=== PATIENT | male | born 1960 | race African-American/Black ===

== ENCOUNTER → 2022-11-27 11:03 | Outpatient (BNVA) | payer OTHER, MEDICAID, SELFPAY | PROVIDERS: PCP Internal Medicine; Visit Provider Urology | DX: Z13.9 Encounter for screening, unspecified (principal); C61 Malignant neoplasm of prostate; R97.20 Elevated prostate specific antigen [PSA] | CPT/HCPCS: 51798 ==

== ENCOUNTER → 2023-01-08 11:22 | Outpatient (BNVA) | payer OTHER, MEDICAID, SELFPAY | PROVIDERS: PCP Internal Medicine; Visit Provider Urology ==

== ENCOUNTER → 2023-02-15 06:13 | Day surgery (SDC) | payer MEDICARE, MEDICAID, SELFPAY ==
[2023-02-10 08:00] VITALS: BMI 27.7
--- NOTE | 2023-02-12 10:22 | HO.ANESPROP2 ---
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 Jejunostomy tube present Microcytic anemia Nausea Night sweats Prostate cancer Radiation esophagitis Rib lesion Steroid-induced hyperglycemia Thrombocytopenia Weight loss Social History Social History Patient Tobacco Use Status: Never used Tobacco Are you DNR?: No Advance Directives: No Advance Directives Information Provided: Yes Meds Allergies Allergy/AdvReac Type Severity Reaction Status Date / Time meloxicam [From Mobic] Allergy Anxiety Verified 02/15/23 06:41 metoclopramide [From Reglan] Allergy Anxiety Verified 02/15/23 06:40 Home Medications Medication Instructions Recorded Confirmed Last Taken Type albuterol sulfate 90 mcg/actuation 2 puff inhalation Q4-6H PRN 11/02/22 02/10/23 Unknown History aerosol inhaler Wheezing amlodipine 10 mg tablet 10 mg PO DAILY 11/02/22 02/10/23 02/15/23 History hydrocortisone 2.5 % topical cream 1 appl topical BID PRN Itching 11/02/22 02/10/23 Unknown History omeprazole 20 mg capsule,delayed 40 mg PO DAILY 11/02/22 02/15/23 02/15/23 History release Exam Exam Date and Time: February 12, 2023 1022 Height,Weight and Vital Signs: Height 5 ft 7 in Weight 80.286 kg Pertinent Lab Results Pertinent Lab Results: Labs from outside facility 02/05/23 CMP WNL CBC nml except low H&H at 12.0/38.1 Assessment and Plan Assessment Anesthesia Assessment: Chart Reviewed Documented by User: Sergio Love MD 02/15/23 07:31 [facility] Past Medical History Medical History 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 Cachexia Diverticulitis Elevated PSA GERD (gastroesophageal reflux disease) History of CO 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 Jejunostomy tube present Microcytic anemia Nausea Night sweats Prostate cancer Radiation esophagitis Rib lesion Steroid-induced hyperglycemia Thrombocytopenia Weight loss Family History Family history of problems with anesthesia: No Surgical History History of Problems with Anesthesia: No Social History Social History Patient Tobacco Use Status: Never used Tobacco Are you DNR?: No Advance Directives: No Advance Directives Information Provided: Yes Meds Allergies Allergy/AdvReac Type Severity Reaction Status Date / Time meloxicam [From Mobic] Allergy Anxiety Verified 02/15/23 06:41 metoclopramide [From Reglan] Allergy Anxiety Verified 02/15/23 06:40 Home Medications Medication Instructions Recorded Confirmed Last Taken Type albuterol sulfate 90 mcg/actuation 2 puff inhalation Q4-6H PRN 11/02/22 02/10/23 Unknown History aerosol inhaler Wheezing amlodipine 10 mg tablet 10 mg PO DAILY 11/02/22 02/10/23 02/15/23 History hydrocortisone 2.5 % topical cream 1 appl topical BID PRN Itching 11/02/22 02/10/23 Unknown History omeprazole 20 mg capsule,delayed 40 mg PO DAILY 11/02/22 02/15/23 02/15/23 History release Exam Airway Mallampati Class: I TM Dist: >3cm Neck ROM: Full Loose/Missing/Broken Teeth: No Heart: ok Lungs: ok. Sat 95% room air. Assessment and Plan Assessment Anesthesia Assessment: Anesthesia Plan Discussed Final Anesthetic Review Family History of Problems with Anesthesia: No History of Problems with Anesthesia: No NPO: Yes ASA Class: III Final Preanesthetic Review: No Changes in Pt Med Stat, Meds/Allgs Chart Reviewed, Consent Obtained/Reviewed and Anes Risks/Benef Reviewed Patient Risk: Intermediate Procedure Risk: Low Anesthetic Plan Anesthetic Plan: GA and Agree w/ Assess. and Plan Disposition: Standard PACU
[2023-02-15] VITALS (7 sets, daily range): BP systolic 142–162; BP diastolic 78–90; PULSE 53–84; RESP 16–18; TEMP 36.2–36.5; O2SAT 93–97; BMI 28.2
[2023-02-15 06:38] LABS: Hematocrit 40.8 % (42.0-52.0); Hemoglobin 12.8 g/dl (14.0-18.0); Mean Corpuscular HGB Conc 31.4 g/dl (31.0-36.0); Mean Corpuscular Hemoglobin 24.3 pg (27.0-33.0); Mean Corpuscular Volume 77.6 fL (80.0-98.0); Mean Platelet Volume 9.8 fL (9.4-12.4); Platelet Count 345 X10*3/uL (160-400); Red Blood Count 5.26 X10*6/uL (4.60-5.80); Red Cell Distribution Width 18.6 % (11.0-16.0); White Blood Count 5.5 X10*3/uL (4.8-10.8)
[2023-02-15 06:51] LABS: Anion Gap 13 (12-20); Blood Urea Nitrogen 15 mg/dL (9-16); Calcium 10.2 mg/dL (8.4-10.2); Carbon Dioxide 28 mmol/L (22-29); Chloride 106 mmol/L (96-108); Creatinine Clr Calc Pharmacy 78.1; Estimated Glomerular Filt Rate > 60; Glucose Fasting 102 mg/dL (60-99); Potassium 4.4 mmol/L (3.3-5.1); Sodium 143 mmol/L (135-145)
[2023-02-15] MEDS: Albuterol Sulfate (0.083%) 2.5 MG/3 ML VIAL.NEB INHALE (06:52)
[2023-02-15] MEDS: Lactated Ringers 1,000 ML 100 ML IVCONT (06:56)
--- NOTE | 2023-02-15 07:46 | MHC.SHP ---
Pre-Procedural Eval Section A Date of Service: 02/15/23 The patient is an INPATIENT: No Changes since office visit: No Cold of Flu in the past 2 weeks, No New Medical Problems, No Changes in Medication and No Patient answered all questions The History & Physical has been completed within 30 days and I have reviewed it.: Yes Section B Chief Complaint: Elevated prostate specific antigen [PSA] Allergies: Allergies Allergy/AdvReac Type Severity Reaction Status Date / Time meloxicam [From Mobic] Allergy Anxiety Verified 02/15/23 06:41 metoclopramide [From Reglan] Allergy Anxiety Verified 02/15/23 06:40 Review of Systems Sugical H&P ROS: Negative: Constitution, Cardiovascular, Respiratory, Neurological, Psychiatric, Hem-Onc, Allergic/Immunologic, Gastrointestinal, Genitourinary, Musculoskeletal, Integumentary, Endocrine and Eyes/Ears/Nose/Throat Exam Surgical H&P Exam: Normal: HEENT, Normal: Heart, Normal: Lungs, Normal: Extremities, Normal: Abdomen, Normal: Skin and Normal: Neurological Plan Diagnosis/Plan: Unchanged (targeted prostate biopsy) I have reviewed the history and physical and performed a pertinent physical examination on my patient. No changes have occurred unless specified. Time Spent With Patient Time: Total time managing care of this patient today ____ minutes.
--- NOTE | 2023-02-15 08:12 | P.OP_ITS ---
Operative Note Operative Note Date of Service: 02/15/23 Narrative: PreOperative Diagnosis: elevated PSA Post Operative Diagnosis: elevated PSA Procedure: MRI, ultrasound fusion Surgeon: Dr Rodrick Dow Anesthesia: sedation Indications for procedure: elevated PSA with imaging suggestive PiRADS 5 Procedure: After informed consent was verified the patient was brought to the operating room and placed in a supine position. Anesthesia was administered per protocol. The patient was prepped and draped in a sterile fashion. Safety pause time-out was performed. Antibiotics being given. after sedation anesthesia performed patient started to produce copious amounts of mucus. Prior esophagectomy. Anesthesia were hesitant to proceed with c ontinued sedation and the case was ceased. Patient was placed on his side in the recovery position. Small amounts of coffee-ground emesis was produced. Suction was effective. Patient was then transferred to a bed and with the bed elevated to 30 degrees transferred stable condition to recovery area. Pathology: [] Drains: []
== END | disposition home or self-care (01) ==
PROVIDERS: Nurse Practitioner; PCP Internal Medicine; Visit Provider Urology
PROC: (CPT 55700; principal; 2023-02-15 07:30)
DX: R97.20 Elevated prostate specific antigen [PSA] (principal); Z53.8 Procedure and treatment not carried out for other reasons; K92.0 Hematemesis; R09.3 Abnormal sputum; Z85.01 Personal history of malignant neoplasm of esophagus; Z90.49 Acquired absence of other specified parts of digestive tract; I10 Essential (primary) hypertension; Z79.899 Other long term (current) drug therapy; Z88.8 Allergy status to other drugs, medicaments and biological substances
CPT/HCPCS: 55700; 36415; 80048; 85027; 94640; J2795; J3010

== ENCOUNTER 2023-02-15 09:00 | Observation (INO) | payer MEDICARE, MEDICAID, SELFPAY ==
--- NOTE | ~2023-02-15 | FL_ITS ---
EXAMINATION: FL BARIUM SWALLOW CLINICAL INFORMATION: Aspiration. History of esophagectomy and gastric pull-up. COMPARISON: Previous chest x-ray and chest CT from earlier the same day TECHNIQUE: Single contrast barium swallow was performed with the patient in the upright position. Dilute Gastrografin was administered at the request of the emergency room. 3 I delayed overhead images of the chest and upper abdomen were performed. Fluoroscopy time: 0.4 minutes DAP: 4.5 Gycm2 Images: 14 saved fluoroscopic images and 3 overhead images FINDINGS: There are postsurgical changes following esophagectomy and gastric pull-up. No leak is seen. Esophageal motility appears normal with the patient in the upright position. No evidence of gastric outlet obstruction. FL/FL barium swallow IMPRESSION: Post surgical changes from esophagectomy and gastric pull-up. No leak seen.
--- NOTE | ~2023-02-15 | CT_ITS ---
EXAMINATION: CT CHEST WITHOUT CONTRAST CLINICAL INFORMATION: r/o contrast leak per thoracics. COMPARISON: Chest CT from earlier today as well as images from the Gastrografin swallow from earlier today. TECHNIQUE: Multidetector volumetric imaging was performed from the thoracic inlet through the lung bases without contrast. Sagittal and coronal reformatted images were obtained on the technologist workstation. Soft tissue and lung algorithms evaluated. Thick slab MIP images were performed to increase nodule conspicuity. This CT examination was performed using dose optimization techniques as appropriate, variously including the following: *Automated exposure control *Adjustment of mA and/or kV according to patient size (this includes techniques or standardized protocols for targeted exams where dose is matched to indication/reason for exam; i.e. extremities or head) *Use of iterative reconstruction technique DLP: 267 mGy-cm. FINDINGS: LUNG: An acinar emphysematous changes are seen. Linear scarring or atelectasis bilaterally. No dense consolidation. Tiny pulmonary nodules are again seen similar to the study from earlier today the largest of these is in the right lung apex on image 11/61. This measures up to 0.6 cm in maximal diameter not significantly changed from earlier today. No new airspace disease. MEDIASTINUM: Postoperative changes are seen. The patient is status post gastric pull-through. Residual Gastrografin contrast is seen within the pull-through lumen anastomotic chain staple line seen. I do not appreciate any evidence for contrast extravasation or leakage. No mediastinal gas. CORONARY ARTERY CALCIFICATION: Absent PERICARDIUM/PLEURA: No significant effusion. No pleural mass or thickening. THYROID/VISUALIZED LOWER NECK: Unremarkable. CHEST WALL/AXILLA: No bulky adenopathy VISUALIZED UPPER ABDOMEN: Postoperative changes but otherwise no acute disease appreciated BONES: Healed right-sided rib fractures with left rib plates and screw fixation noted no additional acute bony abnormality CT/CT chest wo IV con IMPRESSION: Postoperative changes status post gastric pull-through. I do not appreciate any evidence for contrast extravasation or leakage. No mediastinal gas. Small pulmonary nodules are again seen similar to the study from earlier today.
--- NOTE | ~2023-02-15 | XR_ITS ---
EXAMINATION: XR CHEST CLINICAL INFORMATION: Aspiration. COMPARISON: None available. TECHNIQUE: 2 views of the chest were obtained. FINDINGS: Patchy, posterior right lower lobe airspace opacities with additional minimal patchy opacities within the lung bases. Findings could represent atelectasis versus early infiltrates. No pleural effusion or pneumothorax. No cardiac mediastinal silhouette enlargement. Mild soft tissue prominence adjacent to the right hilum which could indicate lymphadenopathy. Left rib orthopedic hardware. Chronic, bilateral rib fractures. XR/XR chest 2V IMPRESSION: 1. Patchy, posterior right lower lobe airspace opacities with additional minimal patchy opacities within the lung bases. Findings could represent atelectasis versus early infiltrates. 2. Mild soft tissue prominence adjacent to the right hilum which could indicate lymphadenopathy.
--- NOTE | ~2023-02-15 | CT_ITS ---
EXAMINATION: CT CHEST WITHOUT CONTRAST CLINICAL INFORMATION: Status post gastroesophageal anastomosis; question microperforation. COMPARISON: None available. TECHNIQUE: Multidetector volumetric CT imaging of the chest was done. Axial MIP volume rendering provided. Sagittal and coronal reformatted images were obtained. This CT examination was performed using dose optimization techniques as appropriate, variously including the following: *Automated exposure control *Adjustment of mA and/or kV according to patient size (this includes techniques or standardized protocols for targeted exams where dose is matched to indication/reason for exam; i.e. extremities or head) *Use of iterative reconstruction technique DLP: 258 mGy-cm FINDINGS: INDUSTRIAL SALES REPRESENTATIVE: The lungs are symmetrically well-expanded and grossly clear. An orthopedic plate is seen, applied to the lateral aspect of the left sixth rib. LUNGS: There are paraseptal emphysematous changes. At the medial right apex (5:81), a 5 mm noncalcified nodule is seen. There are extensive bilateral scattered 1-3 mm noncalcified nodules, best appreciated on the MIP sequence. There is bibasilar linear atelectasis, without associated central airway obstruction noted. There is mild generalized small airway thickening. The central airways appear patent. Towards the anterior aspect of the gastric pull-through, adjacent to the right mainstem bronchus (i.e., 5:252) and abutting the posterior margin of the kade (5:203), there are tiny gas locules. It is favored that these represent trace microperforation. It is difficult to ascertain with certainty whether these are extraluminal on imaging performed without the benefit of oral contrast. MEDIASTINUM: The thyroid is unremarkable. Anterior to the kade (3:25), a lymph node is seen, with short axis diameter of 9 mm. No sizable mediastinal or hilar lymphadenopathy is seen. There is no thoracic aortic aneurysm. There is mild atherosclerotic calcification of the thoracic aorta. CORONARY ARTERY CALCIFICATION: None visualized on this study. PLEURA: There is no pleural effusion. No pleural mass or thickening. AXILLA: No lymphadenopathy. UPPER ABDOMEN: There are gastroesophageal postoperative changes consistent with a prior gastric pull-through. The adrenal glands are unremarkable. OSSEOUS STRUCTURES: Unremarkable. CT/CT chest wo IV con IMPRESSION: 1. There has been a prior gastric pull-through. Trace extraluminal gas is questioned adjacent to the posterior margin of the kade and adjacent to the right mainstem bronchus. Less likely, this may represent trace nondependent gas within the anterior margin of the gastric pull-through. This could be more fully evaluated with an upper GI series or repeat (prone) CT imaging with Gastrografin administration. 2. There are paraseptal predominant emphysematous changes. 3. There are numerous pulmonary nodules, the largest bilaterally measuring 3 mm. According to the UPDATED 2017 Fleischner Society recommendations, the advised follow-up imaging for solid nodules < 6 mm is: LOW RISK PATIENT: No routine follow-up. HIGH RISK PATIENT: Optional CT at 12 months. 4. There are scattered foci of linear scar/subsegmental atelectasis at the bases, without associated focal airway obstruction. 5. Osseous structures are unremarkable. Fleischner guidelines were followed.
[2023-02-15 09:01] VITALS: BP 142/67; PULSE 62; RESP 18; TEMP 36.5; O2SAT 94; BMI 28.2
--- NOTE | 2023-02-15 10:21 | ED_ITS ---
HPI - General Adult General Chief complaint: Nausea/Vomiting/Diarrhea Stated complaint: coffee ground emesis Time Seen by Provider: 02/15/23 09:01 Source: patient Mode of arrival: wheelchair History of Present Illness HPI narrative: 62-year-old male was transported down from the OR suite where he was noted to have an episode of nausea and vomiting, patient states that they gave him a breathing treatment that made him nauseous and then he vomited with subsequent burning pain in his middle chest. Patient states he still feels that way but otherwise denies any other complaints or discomfort at this time. He does have a significant past medical history of esophageal cancer and is currently being monitored every 6 months and reports that he had a gastric pull-through and endorses that he has been occasionally using NSAIDs, he does drink alcohol. Related Data Home Medications Medication Instructions Recorded Confirmed albuterol sulfate 90 mcg/actuation 2 puff inhalation Q4-6H PRN 11/02/22 02/10/23 aerosol inhaler Wheezing amlodipine 10 mg tablet 10 mg PO DAILY 11/02/22 02/10/23 hydrocortisone 2.5 % topical cream 1 appl topical BID PRN Itching 11/02/22 02/10/23 omeprazole 20 mg capsule,delayed 40 mg PO DAILY 11/02/22 02/15/23 release Previous Rx's Medication Instructions Recorded ciprofloxacin HCl 500 mg tablet 500 mg PO BID prophylaxis Abx for 01/08/23 prostate bx 5 days #10 tabs Allergies Allergy/AdvReac Type Severity Reaction Status Date / Time meloxicam [From Mobic] Allergy Anxiety Verified 02/15/23 06:41 metoclopramide [From Reglan] Allergy Anxiety Verified 02/15/23 06:40 Review of Systems Review of Systems: Pertinent positives and negatives as stated in HPI [facility] Past Medical History Source: nursing notes reviewed Medical History 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 Cachexia Diverticulitis Elevated PSA GERD (gastroesophageal reflux disease) History of CO 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 Jejunostomy tube present Microcytic anemia Nausea Night sweats Prostate cancer Radiation esophagitis Rib lesion Steroid-induced hyperglycemia Thrombocytopenia Weight loss Social History Social History Alcohol intake: current Alcohol intake frequency: holidays/special occasions only Patient Tobacco Use Status: Never used Tobacco Smoked in Last 30 Days: No Use of substances other than those prescribed or required for medical reasons: No Advance Directives: Yes Advance Directives Information Provided: No Advance Directives on File: No Physical Exam ED Vital Signs: Vital Signs - 24 hr 02/15/23 09:01 02/15/23 11:58 Temperature 97.7 F 98.7 F Pulse Rate 62 61 Respiratory Rate 18 15 Blood Pressure 142/67 H 164/95 H Pulse Oximetry 94 96 Oxygen Delivery Method Room Air Room Air BMI result Body Mass Index 28.2 VITAL SIGNS: Reviewed. GENERAL: Well developed, well nourished, in no acute distress. HEAD: Normocephalic/atraumatic EYES: PERRLA, EOMI EARS: Ext canals without abnormality NOSE: Nares patent bilateral OROPHARYNX: no oral lesions noted, posterior pharynx clear NECK: Supple, no adenopathy LUNGS: Normal breath sounds. No adventitious sounds or accessory muscle use. SpO2<94> CARDIOVASCULAR: Regular rate and rhythm without noted murmurs ABDOMEN: Soft, non-tender, non-distended with bowel sounds. MUSCULOSKELETAL: No tenderness, deformities, or effusions noted on gross inspection. EXTREMITIES: No cyanosis, clubbing or edema. SKIN: Inspection of the skin reveals no rashes NEUROLOGIC: Alert and oriented x 4. Strength and sensation to light touch were grossly intact x 4. Medications Administered Discontinued Medications Generic Name Dose Route Start Last Admin Trade Name Freq PRN Reason Stop Dose Admin Pantoprazole Sodium 80 mg 02/15/23 11:06 02/15/23 12:00 Pantoprazole Sodium 40 Mg/10 Ml Vial IVPUSH 02/15/23 11:07 80 mg ONCE ONE Administration Medical Decision Making Medical Decision Making MDM Narrative: 62-year-old male with history and clinical presentation consistent with possible exacerbation underlying Surgical history and diagnoses. He is currently he modynamically stable, appears well, and has had no further episodes of nausea or vomiting. 1108: If contacted Gastroenterology as is patient will likely need to have an upper endoscopy to evaluate anastomosis. Giving patient 80 mg of Protonix. 1209: Reviewed chest x-ray which demonstrates opacities on the right, somewhat concerning given the history and clinical context of this morning, will proceed with CT of the chest with better identification of possible micro per at the anastomosis, patient remains hemodynamically stable, GI has been consulted and current recommendations are NPO and b.i.d. Protonix and possible upper endoscopy today. I have also discussed with inpatient hospitalist who accepts admission and these recommendations and current investigations have been communicated to the team. Differential Diagnosis Please see the discussion above Consult Healthcare Provider Management of the patient was discussed with: Creative Services Designer Please see the discussion above Lab Data Please see the discussion above 02/15/23 10:43 02/15/23 10:43 Labs: Lab Results 02/15/23 02/15/23 02/15/23 Range/Units 10:43 10:43 10:43 WBC 5.3 (4.8-10.8) X10*3/uL RBC 4.69 (4.60-5.80) X10*6/uL Hgb 11.5 L (14.0-18.0) g/dl Hct 36.1 L (42.0-52.0) % MCV 77.0 L (80.0-98.0) fL MCH 24.5 L (27.0-33.0) pg MCHC 31.9 (31.0-36.0) g/dl RDW 17.9 H (11.0-16.0) % Plt Count 298 (160-400) X10*3/uL MPV 10.2 (9.4-12.4) fL Immature Gran % (Auto) 0.2 (0.0-0.4) % Neut % (Auto) 59.1 (45-73) % Lymph % (Auto) 18.2 L (20-40) % Branch % (Auto) 13.7 H (2-11) % Eos % (Auto) 7.5 H (0-4) % Baso % (Auto) 1.3 (0-2) % Lymph # (Auto) 1.0 L (1.2-4.9) X10*3/uL Branch # (Auto) 0.7 (0.1-1.2) X10*3/uL Eos # (Auto) 0.4 (0.0-0.4) X10*3/uL Baso # (Auto) 0.1 (0.0-0.2) X10*3/uL Abs Immat Gran (auto) 0.01 (0.00-0.03) X10*3/uL Absolute Neuts (auto) 3.2 (2.0-8.3) x10*3/uL Absolute Nucleated RBC 0.000 (0.0-0.012) X10*3/uL Nucleated RBC % (auto) 0.0 (0.0-0.2) /100WBC PT 13.2 H (10.0-13.1) SEC INR 1.1 (0.9-1.1) Sodium 141 (135-145) mmol/L Potassium 3.7 (3.3-5.1) mmol/L Chloride 108 (96-108) mmol/L Carbon Dioxide 24 (22-29) mmol/L Anion Gap 13 (12-20) BUN 12 (9-16) mg/dL Creatinine 0.78 (0.5-1.4) mg/dL Estim Creat Clear Calc 99.1 Estimated GFR > 60 Random Glucose 123 H (60-115) mg/dL Calcium 8.9 D (8.4-10.2) mg/dL Total Bilirubin 0.4 (0.0-1.0) mg/dL AST 23 (5-37) U/L ALT 24 (0-40) U/L Alkaline Phosphatase 83 (39-117) U/L Total Protein 6.5 (6.5-8.0) g/dL Albumin 3.5 (3.5-5.0) g/dL Radiology Impression Radiologist Impression: My interpretation is in agreement with radiology's impression Discharge Plan Discharge Clinical Impression: Coffee ground emesis, History of esophageal cancer Patient Disposition: Admitted As Inpatient Prescriptions: No Action albuterol sulfate 90 mcg/actuation HFA aerosol inhaler 2 puff inhalation Q4-6H PRN (Reason: Wheezing) amlodipine 10 mg tablet 10 mg PO DAILY hydrocortisone 2.5 % cream 1 appl topical BID PRN (Reason: Itching) omeprazole 20 mg capsule,delayed release(DR/EC) 40 mg PO DAILY ciprofloxacin HCl 500 mg tablet 500 mg PO BID 5 Days Qty: 10 0RF Rx Instructions: start one day prior to prostate biopsy and continue to complete 5 day course
[2023-02-15 10:48] LABS: MANUAL DIFF FLAG NO
[2023-02-15 10:51] LABS: Basophils Absolute Auto 0.1 X10*3/uL (0.0-0.2); Basophils Percent Auto 1.3 % (0-2); Eosinophils Absolute Auto 0.4 X10*3/uL (0.0-0.4); Eosinophils Percent Auto 7.5 % (0-4); Hematocrit 36.1 % (42.0-52.0); Hemoglobin 11.5 g/dl (14.0-18.0); Imm Gran Abs Auto 0.01 X10*3/uL (0.00-0.03); Imm Gran Pct Auto 0.2 % (0.0-0.4); Lymphocytes Percent Auto 18.2 % (20-40); Mean Corpuscular HGB Conc 31.9 g/dl (31.0-36.0); Mean Corpuscular Hemoglobin 24.5 pg (27.0-33.0); Mean Platelet Volume 10.2 fL (9.4-12.4); Monocytes Absolute Auto 0.7 X10*3/uL (0.1-1.2); Monocytes Percent Auto 13.7 % (2-11); Neutrophils Absolute Auto 3.2 x10*3/uL (2.0-8.3); Neutrophils Percent Auto 59.1 % (45-73); Platelet Count 298 X10*3/uL (160-400); Red Blood Count 4.69 X10*6/uL (4.60-5.80); Red Cell Distribution Width 17.9 % (11.0-16.0); White Blood Count 5.3 X10*3/uL (4.8-10.8)
[2023-02-15 11:00] LABS: INTERNATIONAL NORM RATIO 1.1 (0.9-1.1); Prothrombin Time 13.2 SEC (10.0-13.1)
[2023-02-15 11:18] LABS: Alanine Aminotransferase 24 U/L (0-40); Albumin Level 3.5 g/dL (3.5-5.0); Alkaline Phosphatase 83 U/L (39-117); Anion Gap 13 (12-20); Aspartate Amino Transferase 23 U/L (5-37); Bilirubin Total 0.4 mg/dL (0.0-1.0); Blood Urea Nitrogen 12 mg/dL (9-16); Calcium 8.9 mg/dL (8.4-10.2); Carbon Dioxide 24 mmol/L (22-29); Chloride 108 mmol/L (96-108); Creatinine Clr Calc Pharmacy 99.1; Estimated Glomerular Filt Rate > 60; Glucose Random 123 mg/dL (60-115); Potassium 3.7 mmol/L (3.3-5.1); Sodium 141 mmol/L (135-145); Total Protein 6.5 g/dL (6.5-8.0)
[2023-02-15 11:58] VITALS: BP 164/95; PULSE 61; RESP 15; TEMP 37.1; O2SAT 96
[2023-02-15] MEDS: Pantoprazole Sodium 40 MG/10 ML VIAL 80 MG IVPUSH (12:00)
[2023-02-15 12:21] VITALS: BP 147/64; PULSE 58; RESP 16; TEMP 36.4; O2SAT 95
--- NOTE | 2023-02-15 13:41 | PHA.MEDREC ---
Pharmacy Consult ? Medication Reconciliation Pharmacy has completed the medication reconciliation.
[2023-02-15 14:13] VITALS: BP 121/78; PULSE 60; RESP 16; TEMP 36.5; O2SAT 94
[2023-02-15] MEDS: Lactated Ringers 1,000 ML 80 ML IVCONT (16:01)
[2023-02-15] MEDS: 0.9 % Sodium Chloride Flush 3 ML SYRINGE IVFLUSH (16:02)
--- NOTE | 2023-02-15 16:14 | PC.NURSE ---
pt is aware of plan of care for admission to hosp.
[2023-02-15] MEDS: Diatrizoate Meglumine, Sodium 120 ML SOLUTION PO (17:14)
--- NOTE | 2023-02-15 17:30 | PC.NURSE ---
PT CONTINUES TO BE NPO PER MD.
[2023-02-15 17:42] VITALS: BP 141/70; PULSE 61; RESP 21; TEMP 36.6; O2SAT 95
--- NOTE | 2023-02-15 17:49 | PM.EVENT ---
Event Note Date of Service: 02/15/23 Event Note: GI Consult-Full note dictated-History from patient and his , the EMR, and the ER staff Imp: 62 yo male with a hx of esophageal cancer in 2019. He is s/p XRT/chemo/surgery and is being followed by Dr. Cartwright with periodic CT's and upper endoscopies at [facility]. The patient developed some transient retching and vomiting this morning during anesthesia for a procedure. There was some small amount of bleeding associated with it. Prior to today he was not having any new UGI complaints. He has not been using any significant amounts of NSAIDs, aspirin, tobacco, nor EtOH. His initial CT raised a suspicion of a microperforation at his esophagastric anastomosis, but a F/U gastrograffin swallow has been read as negative for any type of leak or perforation by Dr. Pardo in Radiology. Diff dx: UGI bleed in relation to retching and localized irritation at the EG anastomosis. I don't think this reflects any worrisome process such as ulcer disease, recurrent neoplasm, etc, especially as he has been on a chronic PPI at home and describes close follow up with Dr. Cartwright. Rec: Thoracic surgery follow up to review the case, his imaging studies, and to clear him for eating. Continue IV PPI for now and follow Hgb. I will hold off on endoscopy given the clinical history, his stable appearance, and his planned F/U with Dr. Cartwright on 03/01/2023. If he has recurrent bleeding and is cleared by Thoracic surgery I can always have him undergo EGD here instead. The patient and his were comfortable with this plan. Thanks Time Spent With Patient Time: Total time managing care of this patient today ____ minutes.
[2023-02-15 18:28] LABS: Hematocrit 40.8 % (42.0-52.0); Hemoglobin 12.8 g/dl (14.0-18.0)
--- NOTE | 2023-02-15 19:28 | PC.NURSE ---
I assumed care of the pt at 1900. Pt resting quietly in bed at this time with family member at the bedside. Pt presenting A&Ox4, GCS 15. Pt has no complaints at this time. Waiting for Swallow X Ray results to decide if pt will be admitted or transferred, per dr reyes.
[2023-02-15 22:42] VITALS: BP 145/72; PULSE 65; RESP 19; O2SAT 94
[2023-02-15] MEDS: Pantoprazole Sodium 40 MG/10 ML VIAL IVPUSH (22:50)
--- NOTE | 2023-02-15 23:06 | PC.NURSE ---
Pt IV infiltrated with some swelling. Fluids stopped. New IV inserted into the left forearm.
--- NOTE | 2023-02-16 00:44 | P.HPHOSP_ITS ---
History of Present Illness Date of Service: 02/16/23 Chief Complaint: GI bleed This is a 62-year-old male with pertinent history of esophageal cancer status post surgery, essential hypertension who was transported to the ER from OR after an episode of coffee-ground emesis. Patient became nauseous and had multiple episodes of vomiting during anesthesia for an elective procedure. Vomiting was associated with blood and patient was transferred to the ER. Patient denies further episodes of vomiting since. No abdominal pain, fever, chills. He is followed by Dr. Cartwright with periodic CT scans and upper endoscopies at [facility]. Patient's initial CT scan with trace extraluminal gas. Patient subsequently underwent barium swallow and repeat chest CT to rule out micro-perforation. Case was discussed with thoracic surgery and patient was deemed fit to be admitted to the medicine floor. Gastroenterology consulted from the ER requested patient to be NPO for possible endoscopy. Patient denies palpitations, shortness of breath, palpitations, changes in urinary or bowel habits. No history of excess NSAID use, alcohol use. 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 Jejunostomy tube present Microcytic anemia Nausea Night sweats Prostate cancer Radiation esophagitis Rib lesion Steroid-induced hyperglycemia Thrombocytopenia Weight loss Social History Alcohol intake: current Alcohol intake frequency: holidays/special occasions only Patient Tobacco Use Status: Never used Tobacco Smoked in Last 30 Days: No Use of substances other than those prescribed or required for medical reasons: No Advance Directives: Yes Advance Directives Information Provided: No Advance Directives on File: No Meds Allergies Allergy/AdvReac Type Severity Reaction Status Date / Time meloxicam [From Mobic] Allergy Anxiety Verified 02/15/23 06:41 metoclopramide [From Reglan] Allergy Anxiety Verified 02/15/23 06:40 Active Medications: Current Medications Acetaminophen (Acetaminophen 325 Mg Tablet) 650 mg PO Q6H PRN PRN Reason: Pain, Mild (Pain Scale 1-3) Acetaminophen (Acetaminophen Supp 650 Mg Supp.Rect) 650 mg IA Q6H PRN PRN Reason: Pain, Mild (Pain Scale 1-3) Melatonin (Melatonin 3 Mg Tablet) 6 mg PO BEDTIME PRN PRN Reason: Insomnia Ondansetron HCl (Ondansetron Hcl 4 Mg/2 Ml Vial) 4 mg IVPUSH Q8H PRN PRN Reason: Nausea and Vomiting Pantoprazole Sodium (Pantoprazole Sodium 40 Mg/10 Ml Vial) 40 mg IVPUSH BID@0630,1630 [facility] Last Admin: 02/15/23 22:50 Dose: 40 mg Sodium Chloride (0.9 % Sodium Chloride Flush 3 Ml Syringe) [facility] Medications Medication Instructions Recorded Confirmed Last Taken Type albuterol sulfate 90 mcg/actuation 2 puff inhalation Q4H PRN Wheezing 11/02/22 02/15/23 Unknown History aerosol inhaler amlodipine 5 mg tablet 5 mg PO DAILY 02/15/23 02/15/23 Unknown History baclofen 10 mg tablet 10 mg PO TID PRN muscle spasm 02/15/23 02/15/23 Unknown History omeprazole 20 mg capsule,delayed 20 mg PO BID 02/15/23 02/15/23 Unknown History release Physical Exam Vital Signs and Narrative: Vital Signs: Last Vital Signs Temp 97.9 F 02/15/23 17:42 Pulse 65 02/15/23 22:42 Resp 19 02/15/23 22:42 BP 145/72 H 02/15/23 22:42 Pulse Ox 94 02/15/23 22:42 O2 Del Method Room Air 02/15/23 22:42 BMI result Body Mass Index 28.2 Middle-aged male lying in bed in no distress Neck supple, no JVD Regular rate and rhythm, S1-S2 heard Regular breath sounds bilaterally, no wheezing or crackles appreciated Abdomen soft nontender, no guarding, no rigidity Patient is awake, alert and oriented to self, place, time and person ; no focal motor deficit Psych: Normal mood No pedal edema Results Labs 02/15/23 18:16 02/15/23 10:43 Labs: Laboratory Results - last 24 hr 02/15/23 02/15/23 02/15/23 10:43 10:43 10:43 MCV 77.0 L MCH 24.5 L MCHC 31.9 RDW 17.9 H Plt Count 298 MPV 10.2 Immature Gran % (Auto) 0.2 Neut % (Auto) 59.1 Lymph % (Auto) 18.2 L Mathews % (Auto) 13.7 H Eos % (Auto) 7.5 H Baso % (Auto) 1.3 Lymph # (Auto) 1.0 L Mathews # (Auto) 0.7 Eos # (Auto) 0.4 Baso # (Auto) 0.1 Abs Immat Gran (auto) 0.01 Absolute Neuts (auto) 3.2 Absolute Nucleated RBC 0.000 Nucleated RBC % (auto) 0.0 PT 13.2 H INR 1.1 Anion Gap 13 Estim Creat Clear Calc 99.1 Estimated GFR > 60 Random Glucose 123 H Calcium 8.9 D Total Bilirubin 0.4 AST 23 ALT 24 Alkaline Phosphatase 83 Total Protein 6.5 Albumin 3.5 Blood Type Antibody Screen 02/15/23 12:19 MCV MCH MCHC RDW Plt Count MPV Immature Gran % (Auto) Neut % (Auto) Lymph % (Auto) Mathews % (Auto) Eos % (Auto) Baso % (Auto) Lymph # (Auto) Mathews # (Auto) Eos # (Auto) Baso # (Auto) Abs Immat Gran (auto) Absolute Neuts (auto) Absolute Nucleated RBC Nucleated RBC % (auto) PT INR Anion Gap Estim Creat Clear Calc Estimated GFR Random Glucose Calcium Total Bilirubin AST ALT Alkaline Phosphatase Total Protein Albumin Blood Type B Positive Antibody Screen NEGATIVE Imaging Radiologist's Impressions: Impressions Chest X-Ray 02/15/23 09:23 IMPRESSION: 1. Patchy, posterior right lower lobe airspace opacities with additional minimal patchy opacities within the lung bases. Findings could represent atelectasis versus early infiltrates. 2. Mild soft tissue prominence adjacent to the right hilum which could indicate lymphadenopathy. Chest CT 02/15/23 12:45 IMPRESSION: 1. There has been a prior gastric pull-through. Trace extraluminal gas is questioned adjacent to the posterior margin of the kade and adjacent to the right mainstem bronchus. Less likely, this may represent trace nondependent gas within the anterior margin of the gastric pull-through. This could be more fully evaluated with an upper GI series or repeat (prone) CT imaging with Gastrografin administration. 2. There are paraseptal predominant emphysematous changes. 3. There are numerous pulmonary nodules, the largest bilaterally measuring 3 mm. According to the UPDATED 2017 Fleischner Society recommendations, the advised follow-up imaging for solid nodules < 6 mm is: LOW RISK PATIENT: No routine follow-up. HIGH RISK PATIENT: Optional CT at 12 months. 4. There are scattered foci of linear scar/subsegmental atelectasis at the bases, without associated focal airway obstruction. 5. Osseous structures are unremarkable. Fleischner guidelines were followed. Chest CT 02/15/23 21:25 IMPRESSION: Postoperative changes status post gastric pull-through. I do not appreciate any evidence for contrast extravasation or leakage. No mediastinal gas. Small pulmonary nodules are again seen similar to the study from earlier today. Assessment and Plan (1) Coffee ground emesis: Status: Acute Plan This is a 62-year-old male with pertinent history of esophageal cancer status post surgery, essential hypertension who was transported to the ER from OR after an episode of coffee-ground emesis. #. Acute GI bleed. Will admit patient with sill worker. Initiated IV Protonix b.i.d.. Consulted GI, appreciate assistance. Will keep patient NPO for possible scope. Close monitor H&H. Resuscitated with IV crystalloids. #. Microcytic anemia. Obtaining iron panel #. Essential hypertension. Hold amlodipine in the setting of acute GI bleed #. Esophageal cancer status post radiation/chemo/surgery DVT prophylaxis. SCDs NPO Full code Time Spent With Patient Time: Total time managing care of this patient today ____ minutes. Quality Stroke Does the patient have a stroke diagnosis?: No VTE Prior VTE?: No VTE Risk Level:: Medical - moderate - high VTE Device Contraindication: N/A - Device Ordered VTE Drug Contraindication: Treatment Not Indicated
[2023-02-16 05:21] LABS: MANUAL DIFF FLAG NO
[2023-02-16 05:25] LABS: Basophils Absolute Auto 0.1 X10*3/uL (0.0-0.2); Basophils Percent Auto 1.5 % (0-2); Eosinophils Absolute Auto 0.4 X10*3/uL (0.0-0.4); Eosinophils Percent Auto 5.4 % (0-4); Hematocrit 40.5 % (42.0-52.0); Hemoglobin 12.7 g/dl (14.0-18.0); Imm Gran Abs Auto 0.03 X10*3/uL (0.00-0.03); Imm Gran Pct Auto 0.4 % (0.0-0.4); Lymphocytes Absolute Auto 0.8 X10*3/uL (1.2-4.9); Lymphocytes Percent Auto 12.1 % (20-40); Mean Corpuscular HGB Conc 31.4 g/dl (31.0-36.0); Mean Corpuscular Hemoglobin 24.3 pg (27.0-33.0); Mean Corpuscular Volume 77.6 fL (80.0-98.0); Mean Platelet Volume 10.8 fL (9.4-12.4); Monocytes Absolute Auto 0.7 X10*3/uL (0.1-1.2); Monocytes Percent Auto 10.6 % (2-11); Neutrophils Absolute Auto 4.8 x10*3/uL (2.0-8.3); Platelet Count 314 X10*3/uL (160-400); Red Blood Count 5.22 X10*6/uL (4.60-5.80); Red Cell Distribution Width 18.6 % (11.0-16.0); White Blood Count 6.9 X10*3/uL (4.8-10.8)
[2023-02-16 05:38] LABS: Anion Gap 16 (12-20); Blood Urea Nitrogen 11 mg/dL (9-16); Calcium 9.5 mg/dL (8.4-10.2); Carbon Dioxide 23 mmol/L (22-29); Chloride 108 mmol/L (96-108); Estimated Glomerular Filt Rate > 60; Glucose Random 87 mg/dL (60-115); Iron 205 mcg/dL (45-160); Percent Iron Saturation 50 % (15-50); Sodium 143 mmol/L (135-145); Total Iron Binding Capacity 410 mcg/dL (228-428); Unsaturated Iron Binding 205 ug/dL
[2023-02-16 06:00] VITALS: BP 149/90; PULSE 68; RESP 20; O2SAT 92
[2023-02-16] MEDS: Pantoprazole Sodium 40 MG/10 ML VIAL IVPUSH (06:18)
[2023-02-16 07:36] VITALS: BP 156/86; PULSE 100; RESP 15; TEMP 36.8; O2SAT 97
--- NOTE | 2023-02-16 09:14 | MHC.CM.PN ---
Attempted to meet with patient in regards to discharge planning. Patient currently sleeping. No family present. Will attempt to meet again. Continue to monitor for d/c needs.
--- NOTE | 2023-02-16 11:30 | PC.NURSE ---
pt states he dry heaved this am, otherwise no vomiting
--- NOTE | 2023-02-16 12:00 | CONS_ITS ---
DATE OF SERVICE: 02/15/2023 REASON FOR CONSULTATION: Vomiting and upper GI bleeding. HISTORY OF PRESENT ILLNESS: This has been obtained from the patient, his who is on the cell phone with him, the medical record, and the ER staff. The patient is a 62-year-old male who describes the diagnosis of esophageal cancer in 2019. He describes treatment with radiation and chemotherapy, followed by subsequent surgical resection by Dr. Phelps at [facility]. He reports that he has been doing reasonably well since that time and is now followed by Dr. Cartwright at [facility] with periodic CAT scans and upper endoscopies. He is actually scheduled to see Dr. Cartwright in early February. The patient describes that he was at his baseline from a GI standpoint. He describes eating comfortably most of the time, but does have occasional days in which he is not particularly hungry. He denies any dysphagia. He does have to sleep with the head of the bed elevated due to some reflux as a result of his surgery which involved a gastric pull-through and anastomosis with the esophageal remnant after the esophagectomy for the esophageal cancer. He is on omeprazole at home. The patient came to the hospital today for a urology procedure and during the beginning of the administration of sedation, he apparently had some nausea and vomiting. There was some bleeding mixed with the vomitus. Based on that, the procedure was canceled and he was transferred to the ER for evaluation. Subsequent to arriving in the ER, he has been quite stable and has had no further bleeding. His hemoglobin was initially 12.8, which dropped to 11.5, but on repeat is now 12.8 again. He did have a CT scan of the chest that raised a suspicion of some microperforation with a trace amount of extraluminal gas near the previous gastroesophageal anastomosis. There was no evidence of any obvious metastatic disease nor other mediastinal disease. The ER doctor did speak with Thoracic Surgery and apparently they decided to order a Gastrografin swallow, which is reported to me as being negative for any sign of perforation nor obstruction. At the present time, the patient is very comfortable. He denies chest pain, neck pain, nor shortness of breath. He has had no further vomiting here in the ER. He has not noticed any hematochezia nor melena. MEDICATIONS: At home included albuterol, amlodipine, baclofen, and omeprazole. PAST MEDICAL HISTORY: Right hip replacement. Esophageal cancer surgery in 2019 involving a distal esophagectomy and gastric pull-through procedure with a primary esophagogastric anastomosis. He had removal of a rib on the left side due to a benign tumor that was unrelated to the esophageal cancer. He does have reported COPD and hypertension. There is no reported history of ND, diabetes nor stroke. SOCIAL HISTORY: He is . He does not smoke nor use any significant amounts of alcohol. FAMILY HISTORY: Noncontributory. REVIEW OF SYSTEMS: CONSTITUTIONAL: In general, he had been feeling well with good energy and good appetite. SKIN: No rash. No pruritus. CARDIAC: No chest pain. PULMONARY: No cough or hemoptysis. GI: As above. GENITOURINARY: No dysuria or hematuria. NEUROLOGIC: No headache or seizures. PHYSICAL EXAMINATION: GENERAL: The patient is a pleasant, alert, comfortable-appearing male. SKIN: Warm and dry. HEENT: Anicteric sclerae. Moist mucous membranes. NECK: Supple without lymphadenopathy. There is no crepitus. CHEST: Clear. There is no chest wall tenderness nor crepitus. CARDIAC: Normal S1, S2. ABDOMEN: Soft, nondistended, nontender without mass. EXTREMITIES: Without edema. NEUROLOGICAL: He is alert and oriented. LABORATORY DATA: As above. Most recent hemoglobin was 12.8 as of 6 p.m. Platelets 298,000. PT 13.2 with INR 1.1. Normal electrolytes. BUN 12, creatinine 0.[address] normal [address]FTs. Chest CT and barium swallow results as described above. IMPRESSION: Given the patient's clinical history and present physical exam, it does not appear that he had any type of perforation at the esophagogastric anastomosis. I suspect the very limited bleeding was in relation to some localized irritation from the retching and vomiting. I do not think this represents any other more serious pathology such as ulcer disease, recurrent neoplasm, nor significant esophagitis. Given the fact that he is on a chronic PPI at home and has had periodic endoscopies and CAT scans with Dr. Cartwright over the past number of years, would tend to go against any significant underlying pathology. At this point, I would agree with obtaining the Thoracic Surgery consultation to have them formally review the case and his studies. Assuming they agree with the fact that there is no perforation, then they can hopefully advance his diet. I do not think he needs an upper endoscopy at this time as he is not showing any significant signs of bleeding nor drop in hemoglobin, and he is scheduled to see Dr. Cartwright in the next week or two. His PPI should be able to be switched over to an oral PPI tomorrow. Certainly if he shows signs of active bleeding here, we could then always reassess and proceed with an upper endoscopy if need be. This has been discussed with the patient and his in detail. They are comfortable with the plan. Thank you for the consultation. MD EULA Dale/CHAZ / [id number] MTDMike
--- NOTE | 2023-02-16 12:45 | PC.NURSE ---
pt is awake and asking to be discharged, Dr Xavier came to see patient to address patients frustration and concerns
[2023-02-16] MEDS: 0.9 % Sodium Chloride Flush 3 ML SYRINGE IVFLUSH (12:48)
--- NOTE | 2023-02-16 13:27 | PC.NURSE ---
po challenge given, dry heaves immediately, declined zofran, continues to request discharge
--- NOTE | 2023-02-16 15:13 | MHC.CM.PN ---
Patient left AMA before being seen by case management.
--- NOTE | 2024-04-04 14:49 | P.DS_ITS ---
DS: Providers Provider Date of Service: 04/04/24 Date of admission: 02/16/23 00:40 Date of discharge: 02/16/23 Primary care physician: Spencer Sierra MD Consults: 02/15/23 11:08 Consult to Gastroenterology Stat Consulting Provider: Moris Mike Reason for consultation: Coffee-ground emesis Has provider been notified: Yes 02/16/23 12:37 Consult to Thoracic Surgery Stat Consulting Provider: [facility] Reason for consultation: hematemisis after esophageal surgery Has provider been notified: No DS: Diagnosis Discharge Diagnosis (1) Coffee ground emesis: Status: Resolved DS: Summary Hospital Course Hospital Course: 62-year-old male with pertinent history of esophageal cancer status post surgery, essential hypertension who was transported to the ER from OR after an episode of coffee-ground emesis. Patient became nauseous and had multiple episodes of vomiting during anesthesia for an elective procedure. Vomiting was associated with blood and patient was transferred to the ER. Patient denies further episodes of vomiting since. No abdominal pain, fever, chills. He is followed by Dr. Cartwright with periodic CT scans and upper endoscopies at [facility]. Patient's initial CT scan with trace extraluminal gas. Patient subsequently underwent barium swallow and repeat chest CT to rule out micro-perforation. Case was discussed with thoracic surgery and patient was deemed fit to be admitted to the medicine floor. Gastroenterology consulted from the ER requested patient to be NPO for possible endoscopy. Patient denies palpitations, shortness of breath, palpitations, changes in urinary or bowel habits. No history of excess NSAID use, alcohol use. No hematochezia or melena Hospital course Patient was admitted to general medical floor and seen in consultation by GI who did not feel he needed an EEG. Shortly after he spoke with GI he requested to sign out against medical advice before opinion could be obtained from his thoracic surgeon. Time Attestation Discharge Coordination Time (in mins): 35 Quality: Safe Use of Opioids Does Pt have an Active Cancer Diagnosis on the Problem List?: Yes Opioid Measure Date for CMS Report: 03/05/24 Opioid Measure Time for CMS Report: 14:52 Quality: Stroke Does the patient have a stroke diagnosis?: No Physical Exam Vital Signs: Vital Signs: Last Vital Signs Temp 98.3 F 02/16/23 07:36 Pulse 100 02/16/23 07:36 Resp 15 02/16/23 07:36 BP 156/86 H 02/16/23 07:36 Pulse Ox 97 02/16/23 07:36 O2 Del Method Room Air 02/16/23 07:36 BMI result Body Mass Index 28.2 Discharge Plan Discharge Patient Disposition: Left Against Medical Advice Referrals: Spencer Sierra MD [Primary Care Provider] - 1 Week Discharge Medications: No Action trazodone 50 mg tablet 25 - 100 mg PO BEDTIME amlodipine 5 mg tablet 5 mg PO DAILY baclofen 10 mg tablet 10 mg PO TID PRN (Reason: muscle spasm) omeprazole 20 mg capsule,delayed release(DR/EC) 20 mg PO BID albuterol sulfate 90 mcg/actuation HFA aerosol inhaler 2 puff inhalation Q4H PRN (Reason: Wheezing) finasteride [Proscar] 5 mg tablet 5 mg PO DAILY 90 Days Qty: 90 3RF Discharge Orders: Discharge Order (Routine); Ordered 02/16/23 Ordered By: Evaristo Xavier Stand Alone Forms: Against Medical Advice Print Language: Swedish Care Plan Goals: AMA Health Concerns: AMA Plan of Treatment: AMA Assessment: AMA Discharge Date/Time: 02/16/23 14:00
== END 2023-02-16 14:00 | disposition left against medical advice (07) ==
LOC: HO.ED 17:10 → HO.EDOVER 02-16 00:44
PROVIDERS: Internal Medicine; Student in an Organized Health Care Education/Training Program; Admitting Provider Student in an Organized Health Care Education/Training Program; Emergency Provider Emergency Medicine; PCP Internal Medicine; Visit Provider Hospitalist
DX: K92.2 Gastrointestinal hemorrhage, unspecified (principal); K92.0 Hematemesis; Z85.01 Personal history of malignant neoplasm of esophagus; I10 Essential (primary) hypertension; D50.9 Iron deficiency anemia, unspecified; J44.9 Chronic obstructive pulmonary disease, unspecified; Z96.641 Presence of right artificial hip joint
CPT/HCPCS: 36415; 71046; 71250; 74220; 80048; 80053; 83540; 85014; 85018; 85025; 85610; 86850; 86900; 86901; 96361; 96374; 96375; 96376; 99221; 99285

== ENCOUNTER → 2023-02-16 00:40 | Outpatient (BNV) | payer MEDICARE, MEDICAID, SELFPAY | PROVIDERS: Admitting Provider Student in an Organized Health Care Education/Training Program; Emergency Provider Emergency Medicine; PCP Internal Medicine; Visit Provider Hospitalist | DX: K92.0 Hematemesis (principal) | CPT/HCPCS: 99499 ==

== ENCOUNTER 2023-05-17 13:00 | Outpatient (REF) | payer MEDICARE, MEDICAID, SELFPAY ==
[2023-05-21 18:28] LABS: PSA, Ultra Sensitive 9.84 ng/mL
== END 2023-05-17 13:01 | disposition home or self-care (01) ==
LOC: HO.LAB 13:00
PROVIDERS: PCP Internal Medicine; Visit Provider Urology
DX: Z12.5 Encounter for screening for malignant neoplasm of prostate (principal); R97.20 Elevated prostate specific antigen [PSA]; C61 Malignant neoplasm of prostate
CPT/HCPCS: 36415; 84153

== ENCOUNTER 2023-05-21 09:01 | Outpatient (AMB) | payer MEDICARE, MEDICAID, SELFPAY ==
--- NOTE | 2023-05-21 08:51 | A.OFFVIS_ITS ---
Intake Intake Visit Reasons: PSA- follow up Intake Note: Patient presents today for a follow-up on PSA: Meds- None Allergies to Antibiotic- No Known Allergies Blood Thinner- None Allergies meloxicam [From Mobic] Allergy (Intermediate, Verified 06/09/23 14:52) Anxiety metoclopramide [From Reglan] Allergy (Intermediate, Verified 06/09/23 14:52) Anxiety HPI HPI Comments History of Present Illness Details Rehan is a 63-year-old male who presents today via Tele-health visit for a follow-up. 05/21/2023? He is followed today via Tele-health visit for PSA. He is on active surveillance for diagnosis, grade group 1 prostate cancer. Prior MRI guide prostate bx with Rodrick Smith on 02/15/2023 was aborted due to coughing episode with haemoptysis with the positioning on the OR table. He is not on any blood thinners. His repeat PSA is still pending. Patient denies any urinary tract symptoms at t his time. He is scheduled to see a bean snipper on 05/31/2023 Dr. Rose. He is scheduled to talk with his thoracic provider, Dr. Roque later today. He does have a follow-up with his PCP on 05/28/2023. I reviewed his PCP notes from 02/2023. He stated that he had mild anemia, and he may have lab work to re-evaluate. Plan: Patient is scheduled for repeat prostate biopsy on 06/24/2023; however we need clearance notes from his bean snipper, thoracic provider, and PCP. [facility] Medical History (Updated 06/14/23 @ 06:14 by Libertad Merida RN) Heart murmur Sleep apnea Essential hypertension History of esophageal cancer (~2017) Adenocarcinoma of gastroesophageal junction Prostate cancer (~2021) Radiation esophagitis GERD (gastroesophageal reflux disease) 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 Thrombocytopenia Jejunostomy tube present 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 Weight loss Microcytic anemia History of CO poisoning Rib lesion Diverticulitis Elevated PSA Night sweats Nausea Surgical History History of endoscopy (~2017) History of thoracic surgery (~2020) History of prostate biopsy (~2021) History of esophagectomy (~2018) Social History Alcohol intake: current Alcohol intake frequency: holidays/special occasions only Patient Tobacco Use Status: Never used Tobacco Review of Systems Const Reports no additional complaints Eyes Reports no additional complaints ENT Denies neck pain Card Denies leg edema Resp Denies cough GI Denies constipation Musc Reports no additional complaints and Denies neck pain Skin/Breast Denies rash and Denies unusual bruising Neuro Reports no additional complaints Psych Reports no additional complaints Endo Reports no additional complaints Len/Lymph Reports no additional complaints Aller/Immun Reports no additional complaints Assessment & Plan Assessment & Plan (1) Elevated PSA: Code(s): R97.20 - Elevated prostate specific antigen [PSA] (2) Prostate cancer: Onset Date: ~2021 Code(s): C61 - Malignant neoplasm of prostate Plan Patient is scheduled for repeat prostate biopsy on 06/24/2023; however we need clearance notes from his bean snipper, thoracic provider, and PCP. Patient Instructions: The patient had an opportunity to ask questions regarding treatment plan. All questions were answered. Imaging, Laboratory studies and physical exam results were discussed and reviewed in detail. No major barriers to understanding were identified. The patient expressed understanding and agreement with the above treatment plan.? ? ? The patient is aware they should contact our office by phone for worsening of their current condition or the appearance of new symptoms. Compliance is encouraged with any medications and followup testing that is ordered.? ? ? It is a privilege to be allowed the opportunity to participate in the urologic care of your patient. If you have any questions or concerns regarding treatment for the above conditions please do not hesitate to contact me. The office telephone contact is [phone].? ? ? This note is constructed in part using voice recognition software. While every effort has been made to ensure accuracy raw juice weigher errors may have been included.? ? ? Yours sincerely,? ? ? Anna Gaytan MD? Telehealth Telehealth Location of provider rendering services: practice address Location of patient: address on file Patient Identification confirmed using: Name, : Yes Telehealth method: voice only Patient verbally consented to treatment: Yes Patient verbally consented to billing insurance company: Yes Patient informed of any privacy concerns related to visit: Yes Minutes spent on Phone/Video with Pt.: 20 Coding Level of Care Code Tele Est Pt Level 4 (88057) Diagnoses Elevated PSA R97.20 Prostate cancer C61
--- OUTSIDE RECORDS SUMMARY | 2023-05-21 09:02 | XMS_ITS | Continuity of Care Document ---
Author Name Unknown Organization [facility] Address [address] [place] [address]- Care Team Providers Care Plate Mounter Name Role Phone Spencer Sierra MD Primary Care Physician Encounter [facility] [place] Date(s): 12/28/22 - 01/27/23 [facility] [address] [place] [address]- Allergies, Adverse Reactions, Alerts Substance Reaction Severity Status Reglan Active Mobic Active Immunizations Given and Recorded Vaccine Date Status Refusal Reason SARS-CoV-2 mRNA ([id number]) vax 03/10/22 Recorded SARS-CoV-2 (COVID-19) mRNA BNT-162b2 vac 09/03/21 Recorded SARS-CoV-2 (COVID-19) mRNA BNT-162b2 vac 01/03/21 Recorded SARS-CoV-2 (COVID-19) mRNA BNT-162b2 vac 12/12/20 Recorded tetanus/diphtheria/pertussis, acel(Tdap) 04/30/16 Recorded Medications Albuterol (Eqv-ProAir HFA) 90 mcg/inh inhalation aerosol 0 Refills, Maintenance, 08/12/22 11:41:00 EST, Partial fill upon patient request if the prescription is for a schedule II opioid drug. Start Date: 08/12/22 Status: Ordered amLODIPine 5 mg oral tablet 5 mg, 1, tablet, By Mouth, Daily, # 90 tablet, Refills 0, Tot. Refills 0, Maintenance, 12/08/22 6:37:00 EDT, Route to Pharmacy Electronically, [facility] #[id number], Partial fill upon patient request if the prescription is for a schedule II opio... Start Date: 12/08/22 Status: Ordered omeprazole 20 mg oral enteric coated capsule 1 capsule, By Mouth, Daily, # 90 capsule, 3 Refills, Maintenance, 11/30/22 17:10:00 EDT, [facility] #[id number], 172.72, cm, 10/26/22 15:03:00 EST, Height Start Date: 11/30/22 Status: Ordered traZODone 50 mg oral tablet 0.5 -2 tablet, By Mouth, Daily at bedtime, # 60 tablet, Refills 1, Tot. Refills 1, Maintenance, 06/09/22 16:26:00 EDT, Route to Pharmacy Electronically, [facility] #[id number], Partial fill uponpatient request if the prescription is for a schedu... Start Date: 06/09/22 Status: Ordered Problem List Condition Confirmation Course Effective Dates Status H ealth Status Informant Anemia Confirmed Active Anti-nuclear factor positive Confirmed 05/09/19 Active Asthma Confirmed Active Cervical radiculopathy Confirmed Active Environmental allergies Confirmed Active Erectile dysfunction Confirmed Active Gastroesophageal reflux disease Confirmed 09/09/18 Active History of diverticulitis; 08/06, 03/13, 12/18, 03/20 Confirmed 01/22/21 Active History of esophageal cancer; Dr Aguilar; chemo, radiation, surgery Confirmed 08/04/18 Active History of pleural effusion, w/ chest tube after anastamotic leak after esophageal surgery Confirmed Active HTN (hypertension) Confirmed Active Insomnia Confirmed Active Low back pain Confirmed Active Malignant tumor of prostate; [facility]; active surveillance Confirmed 02/10/22 Active Night sweats Confirmed 09/04/21 Active ALEX (obstructive sleep apnea); Suzan Pul 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 Radiation esophagitis Confirmed 09/09/18 Active Shoulder pain Confirmed Active Fatty liver Confirmed Active Social History Social History Type Response Smoking Status Former smoker entered on: 07/03/14 Sex Patient Care team information Care Team Personnel Name: Elisabeth Tejeda RN Position: [facility] AMB Nurse Member Role: Primary Care Nurse Name: Spencer Sierra MD Position: [facility] Physician - Primary Care Member Role: PCP Address: Address: [address] [place] [id number]- Care Team Related Persons Name: ALLEN ARMSTRONG Address: home [address] [place] [address] Name: ALLEN ROSAS Address: home [address] [place] [address]
--- OUTSIDE RECORDS SUMMARY | 2023-05-21 09:02 | XMS_ITS | Continuity of Care Document ---
Author Name Unknown Organization [facility] Address [address] [place] [address]- Care Team Providers Care Medicinal Plant Picker Name Role Phone Not on Staff, PCP Primary Care Physician Unavail able Encounter [facility] [place] Date(s): 04/22/22 - 05/22/22 [facility] [address] [place], [place] [address] Allergies, Adverse Reactions, Alerts Substance Reaction Severity Status Reglan Active Immunizations Given and Recorded Vaccine Date Status Refusal Reason SARS-CoV-2 mRNA (bmrhxdx-gqvx-glqeb) vax 03/10/22 Recorded SARS-CoV-2 (COVID-19) mRNA BNT-162b2 vac 09/03/21 Recorded SARS-CoV-2 (COVID-19) mRNA BNT-162b2 vac 01/03/21 Recorded SARS-CoV-2 (COVID-19) mRNA BNT-162b2 vac 12/12/20 Recorded tetanus/diphtheria/pertussis, acel(Tdap) 04/30/16 Recorded Medications amLODIPine 2.5 mg oral tablet TAKE 1 TABLET BY MOUTH DAILY Start Date: 05/08/22 Status: Ordered omeprazole 20 mg oral enteric coated capsule TAKE 1 CAPSULE BY MOUTH DAILY Start Date: 05/08/22 Status: Ordered Problem List Condition Effective Dates Status Health Status Inform ant Diverticulitis(Confirmed) 01/22/21 Active Gastroesophageal reflux disease(Confirmed) 09/09/18 Active HTN (hypertension)(Confirmed) Active Insomnia(Confirmed) Active Malignant tumor of prostate(Confirmed) 02/10/22 Active 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
--- OUTSIDE RECORDS SUMMARY | 2023-05-21 09:02 | XMS_ITS | Continuity of Care Document ---
Author Name Unknown Organization [facility] Address [address] [place] [address]- Care Team Providers Care Causticiser Name Role Phone Spencer Sierra MD Primary Care Physician [phone] [place] [facility] [place](s): 11/01/22 - 12/01/22 [facility] [address] [place], [place] [address] Allergies, Adverse Reactions, Alerts Substance Reaction Severity Status Reglan Active Mobic Active Immunizations Given and Recorded Vaccine Date Status Refusal Reason SARS-CoV-2 mRNA (bxmauuj-ekiw-itwjd) vax 03/10/22 Recorded SARS-CoV-2 (COVID-19) mRNA BNT-162b2 [...] By Mouth, Daily, # 90 tablet, Refills 1, Tot. Refills 1, Maintenance, 06/09/22 16:27:00 EDT, Route to Pharmacy Electronically, [facility] #[id number], Partial fill upon patient request if the prescription is for a schedule II opi... Start Date: 06/09/22 Status: Ordered omeprazole 20 mg oral enteric coated capsule 1 capsule, By Mouth, Daily, # 90 capsule, 3 Refills, Maintenance, 11/30/22 17:10:00 EDT, [facility] #[id number], 172.72, cm, 10/26/22 15:03:00 EST, Height Start Date: 11/30/22 Status: Ordered traZODone 50 mg oral tablet 0.5 -2 tablet, By Mouth, Daily at bedtime, # 60 tablet, Refills 1, Tot. 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 Radiation esophagitis Confirmed 09/09/18 Active Shoulder pain Confirmed Active Fatty liver Confirmed Active Social History Social History Type Response Smoking Status Former smoker entered on: 07/03/14 Sex Patient Care team information Care Team Personnel Name: Elisabeth Tejeda RN Position: [facility] Nurse Member Role: Primary Care Nurse Name: Spencer Sierra MD Position: [facility] Primary Care Physician Member Role: PCP Address: Address: [address] [place] [address] Care Team Related Persons Name: ALLEN ARMSTRONG Address: home [address] [place] [id number] Name: ALLEN ROSAS Address: home [address] [place] [address]
--- OUTSIDE RECORDS SUMMARY | 2023-05-21 09:02 | XMS_ITS | Continuity of Care Document ---
Author Name Unknown Organization [facility] Address [address] [place] [address]- Care Team Providers Care [facility] Name Role Phone Spencer Sierra MD Primary Care Physician [phone] Encounter [facility] [place] Date(s): 08/12/22 - 08/19/22 [facility] [address] [place], [place] [address] Encounter Diagnosis HTN (hypertension)(Discharge Diagnosis) - 08/15/22 Night sweats(Discharge Diagnosis) - 08/15/22 Malignant tumor of prostate(Discharge Diagnosis) - 08/15/22 History of esophageal cancer; Dr Aguilar; chemo, radiation, surgery(Discharge Diagnosis) - 08/15/22 Attending Physician: Spencer Sierra MD Allergies, Adverse Reactions, Alerts Substance Reaction Severity Status Reglan Active Mobic Active Immunizations Given and Recorded Vaccine Date Status Refusal Reason SARS-CoV-2 mRNA (taliort-maap-tnxui) vax 03/10/22 Recorded SARS-CoV-2 (COVID-19) mRNA BNT-162b2 [...] 06/09/22 16:27:00 EDT, Route to Pharmacy Electronically, [facility] #[id number], Partial fill upon patient request if the prescription is for a schedule II opi... Start Date: 06/09/22 Status: Ordered Breo Ellipta 100 mcg-25 mcg/inh inhalation powder 1 puffs, Inhalation, Daily, # 30 each, 0 Refills, Maintenance, 08/12/22 11:41:00 EST, Pow[facility], Partial fill upon patient request if the prescription is for a schedule II opioid drug. Start Date: 08/12/22 Status: Ordered omeprazole 20 mg oral enteric coated capsule See Instructions, TAKE 1 CAPSULE BY MOUTH DAILY, # 90 capsule, 1 Refills, Maintenance, 07/07/22 20:18:00 EST, [facility] #[id number], 172.72, cm, 06/09/22 16:25:00 EDT, Height Start Date: 07/07/22 Status: Ordered traZODone 50 mg oral tablet 0.5 -2 tablet, By Mouth, Daily at bedtime, # 60 tablet, Refills 1, Tot. 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 Radiation esophagitis Confirmed 09/09/18 Active Shoulder pain Confirmed Active Fatty liver Confirmed Active Diagnosis Diagnosis Type Effective Dates Health Status Clinical Service Informant HTN (hypertension) Discharge Diagnosis 08/15/22 Night sweats Discharge Diagnosis 08/15/22 Malignant tumor of prostate Discharge Diagnosis 08/15/22 History of esophageal cancer; Dr Aguilar; chemo, radiation, surgery Discharge Diagnosis 08/15/22 Procedures Procedure Date Related Diagnosis Body Site Status Insertion of esophageal sten t, then removal 2018 Completed Insertion of tube into jejun um, then removal 2018 Completed 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 07/26/18 Compl eted Carpal tunnel release, R 03/27/14 Completed Vital Signs Most recent to oldest [Reference Range]: 1 Height 172.72 cm (08/12/22 11:33 AM) Weight 80.1 kg (08/12/22 11:33 AM) Oxygen Saturation [94-100 %] 97 % (08/12/22 11:33 AM) Pulse Rate [55-90 bpm] 74 bpm (08/12/22 11:33 AM) Body Mass Index [18.5-24.99 kg/m2] 26.85 kg/m2 *H* (08/12/22 11:33 AM) Blood Pressure [90-138/55-84 mm Hg] 134/ 68mm Hg (08/12/22 11:33 AM) Respiratory Rate [16-30 br/min] 18 br/mi n (08/12/22 11:33 AM) Temperature [96.8-100.4 DegF] 98.6 DegF (08/12/22 11:33 AM) Mode of Delivery (Oxygen) Room air (08/12/22 11:33 AM) Blood pressure sites Arm, left (08/12/22 11:33 AM) Temperature Route Temporal (08/12/22 11:33 AM) Weight Obtained Via Standing scale (08/12/22 11:33 AM) Social History Social History Type Response Smoking Status Former smoker entered on: 07/03/14 Sex Note * Jani García: PERFORM, SIGN, VERIFY Event Display: Patient Education/Instruction Authored Date: [id number] [facility] Clinical Summary Name YOGESH ROSAS Age 62 Years 1960 PCP Rigo PEARSON, PCP Visit Date 08/12/2022 11:10:00 Additional Instructions: Scheduled Appointments?? Future Appointments ?No Future Appointments Scheduled Follow-Up Instructions ?? Diagnosis Medications: Please continue your medications until treatment is completed or stopped by your provider. Discuss any questions related to medications with your provider. Medications to Continue with No Changes These medications were not printed or sent to your pharmacy Albuterol (Albuterol (Eqv-ProAir HFA) 90 mcg/inh inhalation aerosol) Next Dose: Amlodipine (amLODIPine 5 mg oral tablet) 1 tab(s) Oral Daily. Refills: 1. Next Dose: fluticasone-vilanterol (Breo Ellipta 100 mcg-25 mcg/inh inhalation powder) 1 puff(s) Inhalation Daily. Next Dose: Omeprazole (omeprazole 20 mg oral enteric coated capsule) TAKE 1 CAPSULE BY MOUTH DAILY. Refills: 1. Next Dose: Trazodone (traZODone 50 mg oral tablet) 0.5 -2 tablet Oral Daily at Bedtime. Refills: 1. Next Dose: Allergy Info:?? Mobic; Reglan Medications Given This Visit Future Orders ?No future orders Vital Signs Height 172.72 cm Weight 80.1 kg BMI 26.85 kg/m2 Blood Pressure 134 mm Hg/68 mm Hg Temperature 98.6 DegF Pulse Rate 74 bpm Respiratory Rate 18 br/min 02 Sat Mode of Delivery 97 %/Room air You can now view a summary of your hospital visit from the comfort of your home through a free online portal called apprupt. apprupt is a website that allows you to securely view your medical information including discharge summary, medications and follow-up visits. ??You can alsosend a secure electronic message to your doctor???s office to request appointments, renew medications or just ask a question. You can enroll at [email or web address] or register during your next office visit. Disclaimer:?? The information provided is of a general nature and is intended to be used in conjunction with the recommendations and advice of your health care practitioner. ??Every effort has been made to ensure that the information provided is accurate and complete at the time it is provided to you however, as your needs change, or, as new ??information becomes available, different or additional instructions may be required. If you have questions, please consult with your primary care provider or pharmacist, as appropriate. ??This information is not intended to serve as substitution for assessment and evaluation by a qualified health care provider. If you do not have a primary care provider, you may find a [facility] provider by calling [facility] at [phone]. For information about the plan of care including goals and instructions for your diagnosis, please see the patient education orders section of this document. Patient Education Materials?? The content of this educational material or handout may have been modified, supplemented, or adapted from its original content and format to support your individualized medical care. Patient Care team information Care Team Personnel Name: Elisabeth Tejeda RN Position: [facility] AM[facility] Nurse Member Role: Primary Care Nurse Name: Spencer Sierra MD Position: [facility] Primary Care Physician Member Role: PCP Address: Address: [address] [place] [address]- Care Team Related Persons Name: ALLEN ARMSTRONG Address: home [address] [place] [address] Name: ALLEN ROSAS Address: home [address] [place] [address]
--- OUTSIDE RECORDS SUMMARY | 2023-05-21 09:02 | XMS_ITS | Continuity of Care Document ---
Author Name Unknown Organization [facility] Address [address] [place] [address]- Care Team Providers Care Special Effects Designer Name Role Phone Spencer Sierra MD Primary Care Physician [place] [facility] [id number] Date(s): 01/28/23 - 02/27/23 [facility] [address] [place] [address] [place] Allergies, Adverse Reactions, Alerts Substance Reaction Severity Status Reglan Active Mobic Active Immunizations Given and Recorded Vaccine Date Status Refusal Reason SARS-CoV-2 mRNA (jxllien-avzy-cfdbt) vax 03/10/22 Recorded SARS-CoV-2 (COVID-19) mRNA BNT-162b2 [...] 12/08/22 6:37:00 EDT, Route to Pharmacy Electronically, [facility] #[id number], Partial fill upon patient request if the prescription is for a schedule II opio... Start Date: 12/08/22 Status: Ordered baclofen 10 mg oral tablet 10 mg, 1, tablet, By Mouth, 3 times a day, PRN, # 90 tablet, Refills 1, Tot. Refills 1, Maintenance, Spasm, 01/28/23 15:34:00 EDT, Route to Pharmacy Electronically, [facility] #[id number], Partial fill upon patient request if the prescription is... Start Date: 01/28/23 Status: Ordered ferrous sulfate 325 mg oral enteric coated tablet 325 mg, 1, tablet, By Mouth, Daily, # 90 tablet, Refills 0, Maintenance, 02/24/23 14:49:00 EDT, Partial fill upon patient request if the prescription is for a schedule II opioid drug. Start Date: 02/24/23 Status: Ordered omeprazole 20 mg oral enteric coated capsule 1 capsule, By Mouth, 2 times a day, # 180 capsule, 0 Refills, Maintenance, 02/04/23 11:58:00 EDT, [facility] #[id number], 172.72, cm, 01/28/23 15:27:00 EDT, Height Start Date: 02/04/23 Status: Ordered traZODone 50 mg oral tablet 0.5 -2 tablet, By Mouth, Daily at bedtime, # 60 tablet, Refills 1, Tot. Refills 1, Maintenance, 06/09/22 16:26:00 EDT, Route to Pharmacy Electronically, [facility] #[id number], Partial fill uponpatient request if the prescription is for a schedu... Start Date: 06/09/22 Status: Ordered Vitamin B-12 1000 mcg oral tablet 1,000 mcg, 1, tablet, By Mouth, # 90 tablet, Refills 0, Maintenance, 02/24/23 14:45:00 EDT, Partialfill upon patient request if the prescription is for a schedule II opioid drug. 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 Active Radiation esophagitis Confirmed 09/09/18 Active Shoulder pain Confirmed Active Fatty liver Confirmed Active Social History Social History Type Response Smoking Status Never (less than 100 in lifetime) entered on: 01/28/23 Sex Patient Care team information Care Team Personnel Name: Elisabeth Tejeda RN Position: [facility] Nurse Member Role: Primary Care Nurse Name: Spencer Sierra MD Position: [facility] Physician - Primary Care Member Role: PCP Address: Address: [address] [place] [address]- Care Team Related Persons Name: ALLEN ARMSTRONG Address: home [address] [place] [address] Name: ALLEN ROSAS Address: home [address] [place] [address]
--- OUTSIDE RECORDS SUMMARY | 2023-05-21 09:02 | XMS_ITS | Continuity of Care Document ---
Author Name Unknown Organization [facility] Address [address] [place] [address]- Care Team Providers Care Consumer Safety Inspector Name Role Phone Spencer Sierra MD Primary Care Physician Encounter [facility] [place] R [id number] Date(s): 01/08/23 - 01/15/23 [facility] [address] [place], [place] [address] Attending Physician: Spencer Sierra MD Allergies, Adverse Reactions, Alerts Substance Reaction Severity Status Reglan Active Mobic Active Immunizations Given and Recorded Vaccine Date Status Refusal Reason SARS-CoV-2 mRNA (axtkkfr-przx-dbsez) vax 03/10/22 Recorded SARS-CoV-2 (COVID-19) mRNA BNT-162b2 [...] 12/08/22 6:37:00 EDT, Route to Pharmacy Electronically, [facility] #[id number], Partial fill upon patient request if the prescription is for a schedule II opio... Start Date: 12/08/22 Status: Ordered omeprazole 20 mg oral enteric coated capsule 1 capsule, By Mouth, Daily, # 90 capsule, 3 Refills, Maintenance, 11/30/22 17:10:00 EDT, [facility] #[id number], 172.72, cm, 10/26/22 15:03:00 EST, Height Start Date: 11/30/22 Status: Ordered traZODone 50 mg oral tablet 0.5 -2 tablet, By Mouth, Daily at bedtime, # 60 tablet, Refills 1, Tot. 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 Radiation esophagitis Confirmed 09/09/18 Active Shoulder pain Confirmed Active Fatty liver Confirmed Active Vital Signs Most recent to oldest [Reference Range]: 1 2 3 Height 172.72 cm (01/08/23 10:17 AM) 172.72 cm (01/08/23 9:53 AM) 172.72 cm (01/08/23 9:51 AM) Weight 80.3 kg (01/08/23 9:51 AM) Oxygen Saturation [94-100 %] 95 % (01/08/23 9:51 AM) Pulse Rate [55-90 bpm] 63 bpm (01/08/23 9:51 AM) Body Mass Index [18.5-24.99 kg/m2] 26.92 kg/m2 *H* (01/08/23 9:51 AM) Blood Pressure [90-138/55-84 mm Hg] 120/70mm Hg (01/08/23 10:17 AM) 152/78mm Hg *H* (01/08/23 9:53 AM) 150/76mm Hg *H* (01/08/23 9:51 AM) Blood pressure sites Arm, right (01/08/23 9:53 AM) Arm, right (01/08/23 9:51 AM) Social History Social History Type Response Smoking Status Former smoker entered on: 07/03/14 Sex Patient Care team information Care Team Personnel Name: Elisabeth Tejeda RN Position: [facility] Nurse Member Role: Primary Care Nurse Name: Spencer Sierra MD Position: [facility] Primary Care Physician Member Role: PCP Address: Address: [address] [place] [address]- Care Team Related Persons Name: ALLEN ARMSTRONG Address: home [address] [place] [address] Name: ALLEN ROSAS Address: home [address] [place] [address]
--- OUTSIDE RECORDS SUMMARY | 2023-05-21 09:02 | XMS_ITS | Continuity of Care Document ---
Author Name Unknown Organization [facility] Address [address] [place] [address]- Care Team Providers Care Densitometrist Name Role Phone Spencer Sierra MD Primary Care Physician Encounter [facility] Date(s): 11/13/22 - 12/13/22 [facility] [address] [place], [place] [address] Allergies, Adverse Reactions, Alerts Substance Reaction Severity Status Reglan Active Mobic Active Immunizations Given and Recorded Vaccine Date Status Refusal Reason SARS-CoV-2 mRNA (lgtelww-lkon-fvrdt) vax 03/10/22 Recorded SARS-CoV-2 (COVID-19) mRNA BNT-162b2 [...] 12/08/22 6:37:00 EDT, Route to Pharmacy Electronically, [facility] #[id number], Partial fill upon patient request if the prescription is for a schedule II opio... Start Date: 12/08/22 Status: Ordered omeprazole 20 mg oral enteric coated capsule 1 capsule, By Mouth, Daily, # 90 capsule, 3 Refills, Maintenance, 11/30/22 17:10:00 EDT, [facility] #[id number], 172.72, cm, 10/26/22 15:03:00 EST, Height Start Date: 11/30/22 Status: Ordered traZODone 50 mg oral tablet 0.5 -2 tablet, By Mouth, Daily at bedtime, # 60 tablet, Refills 1, Tot. 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 Radiation esophagitis Confirmed 09/09/18 Active Shoulder pain Confirmed Active Fatty liver Confirmed Active Social History Social History Type Response Smoking Status Former smoker entered on: 07/03/14 Sex Patient Care team information Care Team Personnel Name: Elisabeth Tejeda RN Position: [facility] AM[facility] Nurse Member Role: Primary Care Nurse Name: Spencer Sierra MD Position: [facility] Primary Care Physician Member Role: PCP Address: Address: [address] [place] [address] Care Team Related Persons Name: ALLEN ARMSTRONG Address: home [facility] [place] [address] Name: ALLEN ROSAS Address: home [address] [place] [address]
--- OUTSIDE RECORDS SUMMARY | 2023-05-21 09:02 | XMS_ITS | Continuity of Care Document ---
Author Name Unknown Organization [facility] Address [address] [place] [address]- Care Team Providers Care Jukebox Route Driver Name Role Phone Not on Staff, PCP Primary Care Physician Unavail able [place] [facility] [place](s): 02/05/22 - 03/07/22 [facility] [address] [place], [place] [address] Allergies, Adverse Reactions, Alerts Substance Reaction Severity Status Reglan Active Medications acetaminophen 325 mg oral tablet = 650 mg, By Mouth, Every 6 hours, 0 Refills, Maintenance, 07/09/14 10:20:55, Tablet Start Date: 07/09/14 Status: Ordered docusate sodium 100 mg oral capsule 1 capsule = 100 mg, By Mouth, 2 times a day, 0 Refills, Maintenance, 07/09/14 10:21:05, Capsule Start Date: 07/09/14 Status: Ordered Hydrochlorothiazide = 12.5 mg, By Mouth, Daily, 0 Refills, Maintenance, 07/03/14 2:40:45 Start Date: 07/03/14 Status: Ordered hydrochlorothiazide 12.5 mg oral capsule = 12.5 mg, By Mouth, Daily, 0 Refills, Maintenance, 07/09/14 10:20:43, Capsule Start Date: 07/09/14 Status: Ordered hydromorphone 2 mg oral tablet = 2 mg, By Mouth, Every 3 hours, PRN Pain , Severe, 0 Refills, Maintenance, 07/09/14 10:21:14, Tablet Start Date: 07/09/14 Status: Ordered hydromorphone 4 mg oral tablet = 4 mg, By Mouth, Every 4 hours, PRN Pain , Moderate, 0 Refills, Maintenance, 07/09/14 10:21:09, Tablet Start Date: 07/09/14 Status: Ordered lisinopril 10 mg oral tablet 1 tablet = 10 mg, By Mouth, Daily, # 30 tablet, 0 Refills, Maintenance, 07/03/14 2:40:03, Tablet Start Date: 07/03/14 Status: Ordered lisinopril 10 mg oral tablet = 10 mg, By Mouth, Daily, 0 Refills, Maintenance, 07/09/14 10:20:47, Tablet Start Date: 07/09/14 Status: Ordered Maalox Plus Liquid 30 mL, By Mouth, Every 4 hours, PRN Nausea & Vomiting, 0 Refills, Maintenance, 07/09/14 10:21:01, Suspension Start Date: 07/09/14 Status: Ordered MiraLax Powder 1 pack/packet = 17 Gm, By Mouth, Daily, 0 Refills, Maintenance, 07/09/14 10:21:18, Powder Start Date: 07/09/14 Status: Ordered senna 187 mg oral tablet 1 tablet = 8.6 mg, By Mouth, Daily at bedtime, 0 Refills, Maintenance, 07/09/14 10:21:22, Tablet Start Date: 07/09/14 Status: Ordered warfarin 4 mg oral tablet = 4 mg, By Mouth, Once, 0 Refills, Maintenance, 07/09/14 10:21:29, Tablet Start Date: 07/09/14 Status: Ordered Social History Social History Type Response Smoking Status Former smoker entered on: 07/03/14 Sex
--- OUTSIDE RECORDS SUMMARY | 2023-05-21 09:03 | XMS_ITS | Continuity of Care Document ---
Author Name Unknown Organization [facility] Address [address] [place] [address]- Care Team Providers Care Director Of Special Education Name Role Phone Spencer Sierra MD Primary Care Physician Encounter [facility] R [id number] Date(s): 08/27/22 - 02/10/23 [facility] [address] [place], [place] [address] Attending Physician: Spencer Sierra MD Allergies, Adverse Reactions, Alerts Substance Reaction Severity Status Reglan Active Mobic Active Immunizations Given and Recorded Vaccine Date Status Refusal Reason SARS-CoV-2 mRNA (jodsggn-nlqj-jbiwm) vax 03/10/22 Recorded SARS-CoV-2 (COVID-19) mRNA BNT-162b2 [...] 12/08/22 6:37:00 EDT, Route to Pharmacy Electronically, [facility] #[id number], Partial fill upon patient request if the prescription is for a schedule II opio... Start Date: 12/08/22 Status: Ordered baclofen 10 mg oral tablet 10 mg, 1, tablet, By Mouth, 3 times a day, PRN, # 90 tablet, Refills 1, Tot. Refills 1, Maintenance, Spasm, 01/28/23 15:34:00 EDT, Route to Pharmacy Electronically, [facility] #[id number], Partial fill upon patient request if the prescription is... Start Date: 01/28/23 Status: Ordered lidocaine 5% topical film 1 patch, Topically, Daily, PRN Pain , Mild, for 14 days, remove after 12 hours, # 14 patch, 0 Refills, Acute 02/11/23 15:42:00 EDT, 01/28/23 15:42:00 EDT, Film, [facility] #[id number], Partial fill upon patient request if the prescription is for... Start Date: 01/28/23 Stop Date: 02/11/23 Status: Ordered omeprazole 20 mg oral enteric coated capsule 1 capsule, By Mouth, 2 times a day, # 180 capsule, 0 Refills, Maintenance, 02/04/23 11:58:00 EDT, [facility] #[id number], 172.72, cm, 01/28/23 15:27:00 EDT, Height Start Date: 02/04/23 Status: Ordered traZODone 50 mg oral tablet 0.5 -2 tablet, By Mouth, Daily at bedtime, # 60 tablet, Refills 1, Tot. Refills 1, Maintenance, 06/09/22 16:26:00 EDT, Route to Pharmacy Electronically, [facility] #[id number], Partial fill uponpatient request if the prescription [...] (obstructive sleep apnea); [facility]an Pulm Confirmed Active Nespelem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 Active Radiation esophagitis Confirmed 09/09/18 Active Shoulder pain Confirmed Active Fatty liver Confirmed Active Social History Social History Type Response Smoking Status Never (less than 100 in lifetime) entered on: 01/28/23 Sex Patient Care team information Care Team Personnel Name: Elisabeth Tejeda RN Position: [facility] AMB Nurse Member Role: Primary Care Nurse Name: Spencer Sierra MD Position: [facility] Physician - Primary Care Member Role: PCP Address: Address: [address] [place] [address]- Care Team Related Persons Name: ALLEN ARMSTRONG Address: home [address] [place] [address] Name: ALLEN ROSAS Address: home [address] [place] [address]
--- OUTSIDE RECORDS SUMMARY | 2023-05-21 09:03 | XMS_ITS | Continuity of Care Document ---
Author Name Unknown Organization [facility] Address [address] [place] [address]- Care Team Providers Care Drill Press Operator For Metal Name Role Phone Not on Staff, PCP Primary Care Physician Unavail able Encounter [place] Date(s): 05/08/22 - 05/15/22 [facility] [address] [place], [place] [address] Encounter Diagnosis HTN (hypertension)(Discharge Diagnosis) - 05/08/22 Gastroesophageal reflux disease(Discharge Diagnosis) - 05/08/22 Diverticulitis(Discharge Diagnosis) - 05/08/22 Malignant tumor of prostate(Discharge Diagnosis) - 05/08/22 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) - 05/08/22 Insomnia(Discharge Diagnosis) - 05/08/22 Encounter to establish care(Discharge Diagnosis) - 05/08/22 Attending Physician: Spencer Sierra MD Allergies, Adverse Reactions, Alerts Substance Reaction Severity Status Reglan Active Immunizations Given and Recorded Vaccine Date Status Refusal Reason SARS-CoV-2 mRNA (shhwejd-qzkg-xywzi) vax 03/10/22 Recorded SARS-CoV-2 (COVID-19) mRNA BNT-162b2 [...] o f cardia of stomach(Confirmed) 08/04/18 Active Diagnosis Diagnosis Type Effective Dates Health Status Clinical Service Informant HTN (hypertension) Discharge Diagnosis 05/08/22 Gastroesophageal reflux disease Discharge Diagnosis 05/08/22 Diverticulitis Discharge Diagnosis 05/08/22 Malignant tumor of prostate Discharge Diagnosis 05/08/22 Primary malignant neoplasm of cardia of stomach Discharge Diagnosis 05/08/22 Insomnia Discharge Diagnosis 05/08/22 Encounter to establish care Discharge Diagnosis 05/08/22 Social History Social History Type Response Smoking Status Former smoker entered on: 07/03/14 Sex Care Team Personnel Name: Not on Staff, PCP
--- OUTSIDE RECORDS SUMMARY | 2023-05-21 09:03 | XMS_ITS | Continuity of Care Document ---
Author Name Unknown Organization [facility] Address [address] [place] [address]- Care Team Providers Care Switch Tender Name Role Phone Spencer Sierra MD Primary Care Physician [place] [facility] [id number] Date(s): 02/25/23 - 04/28/23 [facility] [address] [place], [place] [address] Attending Physician: Spencer Sierra MD Allergies, Adverse Reactions, Alerts Substance Reaction Severity Status Reglan Active Mobic Active Immunizations Given and Recorded Vaccine Date Status Refusal Reason SARS-CoV-2 mRNA (cjpyclh-ytpo-ihlhj) vax 03/10/22 Recorded SARS-CoV-2 (COVID-19) mRNA BNT-162b2 [...] Status: Ordered amLODIPine 5 mg oral tablet 1 tablet, By Mouth, Daily, # 90 tablet, 1 Refills, Maintenance, 03/03/23 21:36:00 EDT, [facility] #[id number], 172.72, cm, 02/05/23 8:45:00 EDT, Height Start Date: 03/03/23 Status: Ordered baclofen 10 mg oral tablet 10 mg, 1, tablet, By Mouth, 3 times a day, PRN, # 90 tablet, Refills 1, Tot. Refills 1, Maintenance, Spasm, 01/28/23 15:34:00 EDT, Route to Pharmacy Electronically, [facility] #[id number], Partial fill upon patient request if the prescription is... Start Date: 01/28/23 Status: Ordered ferrous sulfate 325 mg oral enteric coated tablet 325 mg, 1, tablet, By Mouth, Daily, # 30 tablet, Refills 0, Tot. Refills 0, Maintenance, 03/18/23 13:13:00 EDT, Route to Pharmacy Electronically, [facility] #[id number], Partial fill upon patient request if the prescription is for a schedule II o... Start Date: 03/18/23 Status: Ordered omeprazole 20 mg oral enteric coated capsule 1 capsule, By Mouth, 2 times a day, # 180 capsule, 0 Refills, Maintenance, 02/04/23 11:58:00 EDT, [facility] #[id number], 172.72, cm, 01/28/23 15:27:00 EDT, Height Start Date: 02/04/23 Status: Ordered traZODone 50 mg oral tablet 0.5 -2 tablet, By Mouth, Daily at bedtime, # 60 tablet, Refills 1, Tot. 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 Radiation esophagitis Confirmed 09/09/18 Active Shoulder pain Confirmed Active Fatty liver Confirmed Active Social History Social History Type Response Smoking Status Never (less than 100 in lifetime) entered on: 01/28/23 Sex Patient Care team information Care Team Personnel Name: Elisabeth Tejeda RN Position: [facility] AMB Nurse Member Role: Primary Care Nurse Name: Spencer Sierra MD Position: [facility] Physician - Primary Care Member Role: PCP Address: Address: [address] [place] [address]- Care Team Related Persons Name: ALLEN ARMSTRONG Address: home [address] [place] [address] Name: ALLEN ROSAS Address: home [address] [place] [address]
--- OUTSIDE RECORDS SUMMARY | 2023-05-21 09:03 | XMS_ITS | Continuity of Care Document ---
Author Name Unknown Organization [facility] Address [address] [place] [address]- Care Team Providers Care Improvement Advisor Name Role Phone Spencer Sierra MD Primary Care Physician Encounter [facility] Date(s): 02/21/23 - 03/23/23 [facility] [address] [place], [place] [address] Allergies, Adverse Reactions, Alerts Substance Reaction Severity Status Reglan Active Mobic Active Immunizations Given and Recorded Vaccine Date Status Refusal Reason SARS-CoV-2 mRNA (kclhcax-cafd-dkzax) vax 03/10/22 Recorded SARS-CoV-2 (COVID-19) mRNA BNT-162b2 [...] tablet, 1 Refills, Maintenance, 03/03/23 21:36:00 EDT, [facility] #[id number], 172.72, cm, 02/05/23 8:45:00 EDT, Height Start Date: 03/03/23 Status: Ordered baclofen 10 mg oral tablet 10 mg, 1, tablet, By Mouth, 3 times a day, PRN, # 90 tablet, Refills 1, Tot. Refills 1, Maintenance, Spasm, 01/28/23 15:34:00 EDT, Route to Pharmacy Electronically, [facility] #[id number], Partial fill upon patient request if the prescription is... Start Date: 01/28/23 Status: Ordered ferrous sulfate 325 mg oral enteric coated tablet 325 mg, 1, tablet, By Mouth, Daily, # 30 tablet, Refills 0, Tot. Refills 0, Maintenance, 03/18/23 13:13:00 EDT, Route to Pharmacy Electronically, [facility] #[id number], Partial fill upon patient request if the prescription is for a schedule II o... Start Date: 03/18/23 Status: Ordered omeprazole 20 mg oral enteric coated capsule 1 capsule, By Mouth, 2 times a day, # 180 capsule, 0 Refills, Maintenance, 02/04/23 11:58:00 EDT, [facility] #[id number], 172.72, cm, 01/28/23 15:27:00 EDT, Height Start Date: 02/04/23 Status: Ordered traZODone 50 mg oral tablet 0.5 -2 tablet, By Mouth, Daily at bedtime, # 60 tablet, Refills 1, Tot. 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 Radiation esophagitis Confirmed 09/09/18 Active Shoulder pain Confirmed Active Fatty liver Confirmed Active Social History Social History Type Response Smoking Status Never (less than 100 in lifetime) entered on: 01/28/23 Sex Patient Care team information Care Team Personnel Name: Elisabeth Tejeda RN Position: [facility] AMB Nurse Member Role: Primary Care Nurse Name: Spencer Sierra MD Position: [facility] Physician - Primary Care Member Role: PCP Address: Address: [address] [place] [address]- Care Team Related Persons Name: ALLEN ARMSTROGN Address: home [address] [place] [address] Name: ALLEN ROSAS Address: home [address] [place] [address]
--- OUTSIDE RECORDS SUMMARY | 2023-05-21 09:03 | XMS_ITS | Continuity of Care Document ---
Author Name Unknown Organization [facility] Address [address] [place] [address]- Care Team Providers Care Spring Fitter Helper Name Role Phone Spencer Sierra MD Primary Care Physician [phone] Encounter [facility] Date(s): 03/29/23 - 04/28/23 [facility] [address] [place], [place] [address] Attending Physician: Admdarnell, Alvin8 Admitting Physician: Admtr, Ar8 Referring Physician: Admtr, Ar8 Allergies, Adverse Reactions, Alerts Substance Reaction Severity Status Reglan Active Mobic Active Immunizations Given and Recorded Vaccine Date Status Refusal Reason SARS-CoV-2 mRNA (ygnpkzp-jxgt-zylek) vax 03/10/22 Recorded SARS-CoV-2 (COVID-19) mRNA BNT-162b2 [...] tablet, 1 Refills, Maintenance, 03/03/23 21:36:00 EDT, [facility] #[id number], 172.72, cm, 02/05/23 8:45:00 EDT, Height Start Date: 03/03/23 Status: Ordered baclofen 10 mg oral tablet 10 mg, 1, tablet, By Mouth, 3 times a day, PRN, # 90 tablet, Refills 1, Tot. Refills 1, Maintenance, Spasm, 01/28/23 15:34:00 EDT, Route to Pharmacy Electronically, [facility] #[id number], Partial fill upon patient request if the prescription is... Start Date: 01/28/23 Status: Ordered ferrous sulfate 325 mg oral enteric coated tablet 325 mg, 1, tablet, By Mouth, Daily, # 30 tablet, Refills 0, Tot. Refills 0, Maintenance, 03/18/23 13:13:00 EDT, Route to Pharmacy Electronically, [facility] #[id number], Partial fill upon patient request if the prescription is for a schedule II o... Start Date: 03/18/23 Status: Ordered omeprazole 20 mg oral enteric coated capsule 1 capsule, By Mouth, 2 times a day, # 180 capsule, 0 Refills, Maintenance, 02/04/23 11:58:00 EDT, [facility] #[id number], 172.72, cm, 01/28/23 15:27:00 EDT, Height Start Date: 02/04/23 Status: Ordered traZODone 50 mg oral tablet 0.5 -2 tablet, By Mouth, Daily at bedtime, # 60 tablet, Refills 1, Tot. 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 Radiation esophagitis Confirmed 09/09/18 Active Shoulder pain Confirmed Active Fatty liver Confirmed Active Social History Social History Type Response Smoking Status Never (less than 100 in lifetime) entered on: 01/28/23 Sex Radiology * Event Display: Ultrasound Abdomen, Non- Authored Date: * Event Display: CT Scan Abdomen, Non- Authored Date: * Event Display: MRI Pelvis, Non- Authored Date: * Event Display: CT Scan Chest, Non- Authored Date: Patient Care team information Care Team Personnel Name: Elisabeth Tejeda RN Position: [facility] AMB Nurse Member Role: Primary Care Nurse Name: Spencer Sierra MD Position: [facility] Physician - Primary Care Member Role: PCP Address: Address: [address] [place] [id number] Care Team Related Persons Name: ALLEN ARMSTRONG Address: home [address] [place] [address] Name: ALLEN ROSAS Address: home [address] [place] [address]
--- OUTSIDE RECORDS SUMMARY | 2023-05-21 09:03 | XMS_ITS | Continuity of Care Document ---
Author Name Unknown Organization [facility] Address [address] [place] [address]- Care Team Providers Care Pallet Rectifier Name Role Phone Spencer Sierra MD Primary Care Physician Encounter [facility] [place] [id number] Date(s): 10/26/22 - 11/02/22 [facility] [address] [place] [place] [address] Encounter Diagnosis Malignant tumor of prostate; [facility]; active surveillance(Discharge Diagnosis) - 10/26/22 Asthma(Discharge Diagnosis) - 10/26/22 Attending Physician: Spencer Sierra MD Allergies, Adverse Reactions, Alerts Substance Reaction Severity Status Reglan Active Mobic Active Immunizations Given and Recorded Vaccine Date Status Refusal Reason SARS-CoV-2 mRNA (tqyyape-wout-ylrzy) vax 03/10/22 Recorded SARS-CoV-2 (COVID-19) mRNA BNT-162b2 [...] 06/09/22 16:27:00 EDT, Route to Pharmacy Electronically, [facility] #[id number], Partial fill upon patient request if the prescription is for a schedule II opi... Start Date: 06/09/22 Status: Ordered omeprazole 20 mg oral enteric coated capsule See Instructions, TAKE 1 CAPSULE BY MOUTH DAILY, # 90 capsule, 1 Refills, Maintenance, 07/07/22 20:18:00 EST, [facility] #[id number], 172.72, cm, 06/09/22 16:25:00 EDT, Height Start Date: 07/07/22 Status: Ordered traZODone 50 mg oral tablet 0.5 -2 tablet, By Mouth, Daily at bedtime, # 60 tablet, Refills 1, Tot. 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 Radiation esophagitis Confirmed 09/09/18 Active Shoulder pain Confirmed Active Fatty liver Confirmed Active Diagnosis Diagnosis Type Effective Dates Health Status Clinical Service Informant Malignant tumor of prostate; [facility]; active surveillance Discharge Diagnosis 10/26/22 Asthma Discharge Diagnosis 10/26/22 Vital Signs Most recent to oldest [Reference Range]: 1 Height 172.72 cm (10/26/22 3:03 PM) Weight 84.3 kg (10/26/22 3:03 PM) Oxygen Saturation [94-100 %] 95 % (10/26/22 3:03 PM) Pulse Rate [55-90 bpm] 73 bpm (10/26/22 3:03 PM) Body Mass Index [18.5-24.99 kg/m2] 28.26 kg/m2 *H* (10/26/22 3:03 PM) Blood Pressure [90-138/55-84 mm Hg] 132/ 68mm Hg (10/26/22 3:03 PM) Blood pressure sites Arm, left (10/26/22 3:03 PM) Social History Social History Type Response Smoking Status Former smoker entered on: 07/03/14 Sex Patient Care team information Care Team Personnel Name: Elisabeth Tejeda RN Position: [facility] AMB Nurse Member Role: Primary Care Nurse Name: Spencer Sierra MD Position: [facility] Primary Care Physician Member Role: PCP Address: Address: [address] [place] [address] Care Team Related Persons Name: ALLEN ARMSTRONG Address: home [address] [place] [address] Name: ALLEN ROSAS Address: home [address] [place] [address]
--- OUTSIDE RECORDS SUMMARY | 2023-05-21 09:03 | XMS_ITS | Continuity of Care Document ---
Author Name Unknown Organization [facility] Address [address] [place] [address]- Care Team Providers Care Iuss Master Analyst Name Role Phone Spencer Sierra MD Primary Care Physician [place] [facility] [place] [place] [id number] Date(s): 03/20/23 - 03/27/23 [facility] [address] [place] [address]- Attending Physician: Michelle Louise MD Referring Physician: Spencer Sierra MD Allergies, Adverse Reactions, Alerts Substance Reaction Severity Status Reglan Active Mobic Active Immunizations Given and Recorded Vaccine Date Status Refusal Reason SARS-CoV-2 mRNA (blziuai-mszn-qixzt) vax 03/10/22 Recorded SARS-CoV-2 (COVID-19) mRNA BNT-162b2 [...] tablet, 1 Refills, Maintenance, 03/03/23 21:36:00 EDT, [facility] #[id number], 172.72, cm, 02/05/23 8:45:00 EDT, Height Start Date: 03/03/23 Status: Ordered baclofen 10 mg oral tablet 10 mg, 1, tablet, By Mouth, 3 times a day, PRN, # 90 tablet, Refills 1, Tot. Refills 1, Maintenance, Spasm, 01/28/23 15:34:00 EDT, Route to Pharmacy Electronically, [facility] #[id number], Partial fill upon patient request if the prescription is... Start Date: 01/28/23 Status: Ordered ferrous sulfate 325 mg oral enteric coated tablet 325 mg, 1, tablet, By Mouth, Daily, # 30 tablet, Refills 0, Tot. Refills 0, Maintenance, 03/18/23 13:13:00 EDT, Route to Pharmacy Electronically, [facility] #[id number], Partial fill upon patient request if the prescription is for a schedule II o... Start Date: 03/18/23 Status: Ordered omeprazole 20 mg oral enteric coated capsule 1 capsule, By Mouth, 2 times a day, # 180 capsule, 0 Refills, Maintenance, 02/04/23 11:58:00 EDT, [facility] #[id number], 172.72, cm, 01/28/23 15:27:00 EDT, Height Start Date: 02/04/23 Status: Ordered traZODone 50 mg oral tablet 0.5 -2 tablet, By Mouth, Daily at bedtime, # 60 tablet, Refills 1, Tot. Refills 1, Maintenance, 06/09/22 16:26:00 EDT, Route to Pharmacy Electronically, [facility] #[id number], Partial fill uponpatient request if the prescription [...] (obstructive sleep apnea); [facility]an Pulm Confirmed Active [place]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 Active Radiation esophagitis Confirmed 09/09/18 Active Shoulder pain Confirmed Active Fatty liver Confirmed Active Vital Signs Most recent to oldest [Reference Range]: 1 Height 172.72 cm (03/20/23 1:26 PM) Oxygen Saturation [94-100 %] 99 % (03/20/23 1:26 PM) Pulse Rate [55-90 bpm] 59 bpm (03/20/23 1:26 PM) Blood Pressure [90-138/55-84 mm Hg] 146/ 77mm Hg *H* (03/20/23 1:26 PM) Respiratory Rate [16-30 br/min] 16 br/mi n (03/20/23 1:26 PM) Temperature [96.8-100.4 DegF] 98.2 DegF (03/20/23 1:26 PM) Mode of Delivery (Oxygen) Room air (03/20/23 1:26 PM) Blood pressure sites Arm, right (03/20/23 1:26 PM) Temperature Route Temporal (03/20/23 1:26 PM) Social History Social History Type Response Smoking Status Never (less than 100 in lifetime) entered on: 01/28/23 Sex Note * Marcos Coon: PERFORM, SIGN, VERIFY Event Display: Patient Education/Instruction Authored Date: [id number] [facility] Clinical Summary Name YOGESH ROSAS Age 62 Years 1960 PCP Rigo PEARSON, PCP Visit Date 03/20/2023 12:33:00 Additional Instructions: Scheduled Appointments?? Future Appointments ?*[facility],??[place],??[address] ?Phone:??--?Fax:??-- ?Appt. Date:??03/29/2023?2:15 PM ?Scheduled Provider:??Spencer Sierra MD ?*[facility] ?[address],??[place],??[address] ?Phone:??--?Fax:??-- ?Appt. Date:??05/12/2023?11:30 AM ?Scheduled Provider:??Spencer Sierra MD Follow-Up Instructions ?? Diagnosis Medications: Please continue [...] tab(s) Oral Daily. Refills: 1. Next Dose: Baclofen (baclofen 10 mg oral tablet) 1 tab(s) Oral 3 times a day as needed Spasm. Refills: 1. Next Dose: Cyanocobalamin (Vitamin B-12 1000 mcg oral tablet) 1 tab(s) Oral. Next Dose: Ferrous Sulfate (ferrous sulfate 325 mg oral enteric coated tablet) 1 tab(s) Oral Daily. Refills: 0. Next Dose: Omeprazole (omeprazole 20 mg oral enteric coated capsule) 1 capsule Oral twice a day. Refills: 0. Next Dose: Trazodone (traZODone 50 mg oral tablet) 0.5 -2 tablet Oral Daily at Bedtime. Refills: 1. Next Dose: Allergy Info:?? Mobic; Reglan Medications Given This Visit Future Orders ?No future orders Vital Signs Height 172.72 cm Weight BMI Blood Pressure 146 mm Hg/77 mm Hg Temperature 98.2 DegF Pulse Rate 59 bpm Respiratory Rate 16 br/min 02 Sat Mode of Delivery 99 %/Room air You can now view a summary of your hospital visit from the comfort of your home through a free online portal called [employer]. [employer] is a website that allows you to securely view your medical information including discharge summary, medications and follow-up visits. ??You can alsosend a secure electronic message to your doctor???s office to request appointments, renew medications or just ask a question. You can enroll at [email or web address] or register during your next office [...] primary care provider, you may find a [facility] provider by calling [facility] Link at [phone]. For information about the plan of care [...] Team Personnel Name: Elisabeth Tejeda RN Position: [facility] AMB Nurse Member Role: Primary Care Nurse Name: Spencer Sierra MD Position: [facility] Physician - Primary Care Member Role: PCP Address: Address: [address] [place] [address]- Care Team Related Persons Name: ALLEN ARMSTRONG Address: [address] [place] [address] Name: ALLEN ROSAS Address: home [address] [place] [address]
--- OUTSIDE RECORDS SUMMARY | 2023-05-21 09:03 | XMS_ITS | Continuity of Care Document ---
Author Name Unknown Organization [facility] Address [address] [place] [address]- Care Team Providers Care Probate Lawyer Name Role Phone Spencer Sierra MD Primary Care Physician [phone] En[place] [facility] [place] 03/20/23 - 04/19/23 [facility] [address], [place] [address] Attending Physician: Gail Garza Admitting Physician: AdmGail patrick Referring Physician: Admtr, Ar8 Allergies, Adverse Reactions, Alerts Substance Reaction Severity Status Reglan Active Mobic Active Immunizations Given and Recorded Vaccine Date Status Refusal Reason SARS-CoV-2 mRNA (ienzatb-ayfb-ethyh) vax 03/10/22 Recorded SARS-CoV-2 (COVID-19) mRNA BNT-162b2 [...] tablet, 1 Refills, Maintenance, 03/03/23 21:36:00 EDT, [facility] #[id number], 172.72, cm, 02/05/23 8:45:00 EDT, Height Start Date: 03/03/23 Status: Ordered baclofen 10 mg oral tablet 10 mg, 1, tablet, By Mouth, 3 times a day, PRN, # 90 tablet, Refills 1, Tot. Refills 1, Maintenance, Spasm, 01/28/23 15:34:00 EDT, Route to Pharmacy Electronically, [facility] #[id number], Partial fill upon patient request if the prescription is... Start Date: 01/28/23 Status: Ordered ferrous sulfate 325 mg oral enteric coated tablet 325 mg, 1, tablet, By Mouth, Daily, # 30 tablet, Refills 0, Tot. Refills 0, Maintenance, 03/18/23 13:13:00 EDT, Route to Pharmacy Electronically, [facility] #[id number], Partial fill upon patient request if the prescription is for a schedule II o... Start Date: 03/18/23 Status: Ordered omeprazole 20 mg oral enteric coated capsule 1 capsule, By Mouth, 2 times a day, # 180 capsule, 0 Refills, Maintenance, 02/04/23 11:58:00 EDT, [facility] #[id number], 172.72, cm, 01/28/23 15:27:00 EDT, Height Start Date: 02/04/23 Status: Ordered traZODone 50 mg oral tablet 0.5 -2 tablet, By Mouth, Daily at bedtime, # 60 tablet, Refills 1, Tot. Refills 1, Maintenance, 06/09/22 16:26:00 EDT, Route to Pharmacy Electronically, [facility] #[id number], Partial fill uponpatient request if the prescription [...] Malignant tumor of prostate; [facility]; active surveillance Confirmed 02/10/22 Active Night [...] Team Personnel Name: Elisabeth Tejeda RN Position: [facility] AMB Nurse Member Role: Primary Care Nurse Name: Spencer Sierra MD Position: [facility] Physician - Primary Care Member Role: PCP Address: Address: [address] [place] [address]- Care Team Related Persons Name: ALLEN ARMSTRONG Address: home [address] [place] [address] Name: ALLEN ROSAS Address: home [address] [place] [address]
--- OUTSIDE RECORDS SUMMARY | 2023-05-21 09:03 | XMS_ITS | Continuity of Care Document ---
Author Name Unknown Organization [facility] Address [address] [place] [address]- Care Team Providers Care Car Carder Name Role Phone Spencer Sierra MD Primary Care Physician En[place] [facility] [place] Date(s): 02/03/23 - 03/05/23 [facility] [address] [place], [place] [address] Allergies, Adverse Reactions, Alerts Substance Reaction Severity Status Reglan Active Mobic Active Immunizations Given and Recorded Vaccine Date Status Refusal Reason SARS-CoV-2 mRNA (cnirzxk-xvhw-xohyw) vax 03/10/22 Recorded SARS-CoV-2 (COVID-19) mRNA BNT-162b2 [...] tablet, 1 Refills, Maintenance, 03/03/23 21:36:00 EDT, [facility] #[id number], 172.72, cm, 02/05/23 8:45:00 EDT, Height Start Date: 03/03/23 Status: Ordered baclofen 10 mg oral tablet 10 mg, 1, tablet, By Mouth, 3 times a day, PRN, # 90 tablet, Refills 1, Tot. Refills 1, Maintenance, Spasm, 01/28/23 15:34:00 EDT, Route to Pharmacy Electronically, [facility] #[id number], Partial fill upon patient request if the [...] capsule, 0 Refills, Maintenance, 02/04/23 11:58:00 EDT, [facility] #[id number], 172.72, cm, 01/28/23 15:27:00 EDT, Height Start Date: 02/04/23 Status: Ordered traZODone 50 mg oral tablet 0.5 -2 tablet, By Mouth, Daily at bedtime, # 60 tablet, Refills 1, Tot. 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 Radiation esophagitis Confirmed 09/09/18 Active Shoulder pain Confirmed Active Fatty liver Confirmed Active Social History Social History Type Response Smoking Status Never (less than 100 in lifetime) entered on: 01/28/23 Sex Patient Care team information Care Team Personnel Name: Elisabeth Tejeda RN Position: [facility] AMB Nurse Member Role: Primary Care Nurse Name: Spencer Sierra MD Position: [facility] Physician - Primary Care Member Role: PCP Address: Address: [address] [place] [address] Care Team Related Persons Name: ALLEN ARMSTRONG Address: home [address] [place] [address] Name: ALLEN ROSAS Address: home [address] [place] [address]
--- OUTSIDE RECORDS SUMMARY | 2023-05-21 09:03 | XMS_ITS | Continuity of Care Document ---
Author Name Unknown Organization [facility] Address [address] [place] [address]- Care Team Providers Care Chart Computer Name Role Phone Spencer Sierra MD Primary Care Physician [id number]23 - 02/12/23 [facility] [address] [place] [address]- Encounter Diagnosis Back pain(Discharge Diagnosis) - 02/05/23 Malignant tumor of prostate; [facility]; active surveillance(Discharge Diagnosis) - 02/05/23 Attending Physician: Spencer Sierra MD Allergies, Adverse Reactions, Alerts Substance Reaction Severity Status Reglan Active Mobic Active Immunizations Given and Recorded Vaccine Date Status Refusal Reason SARS-CoV-2 mRNA (algvicz-zncc-rczlv) vax 03/10/22 Recorded SARS-CoV-2 (COVID-19) mRNA BNT-162b2 [...] 12/08/22 6:37:00 EDT, Route to Pharmacy Electronically, [facility] #[id number], Partial fill upon patient request if the prescription is for a schedule II opio... Start Date: 12/08/22 Status: Ordered baclofen 10 mg oral tablet 10 mg, 1, tablet, By Mouth, 3 times a day, PRN, # 90 tablet, Refills 1, Tot. Refills 1, Maintenance, Spasm, 01/28/23 15:34:00 EDT, Route to Pharmacy Electronically, [facility] #[id number], Partial fill upon patient request if the prescription is... Start Date: 01/28/23 Status: Ordered omeprazole 20 mg oral enteric coated capsule 1 capsule, By Mouth, 2 times a day, # 180 capsule, 0 Refills, Maintenance, 02/04/23 11:58:00 EDT, [facility] #[id number], 172.72, cm, 01/28/23 15:27:00 EDT, Height Start Date: 02/04/23 Status: Ordered traZODone 50 mg oral tablet 0.5 -2 tablet, By Mouth, Daily at bedtime, # 60 tablet, Refills 1, Tot. 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 Radiation esophagitis Confirmed 09/09/18 Active Shoulder pain Confirmed Active Fatty liver Confirmed Active Diagnosis Diagnosis Type Effective Dates Health Status Clinical Service Informant Back pain Discharge Diagnosis 02/05/23 Malignant tumor of prostate; [facility]; active surveillance Discharge Diagnosis 02/05/23 Vital Signs Most recent to oldest [Reference Range]: 1 2 Height 172.72 cm (02/05/23 8:45 AM) 172.72 cm (02/05/23 8:35 AM) Weight 81.3 kg (02/05/23 8:35 AM) Oxygen Saturation [94-100 %] 97 % (02/05/23 8:35 AM) Pulse Rate [55-90 bpm] 67 bpm (02/05/23 8:35 AM) Body Mass Index [18.5-24.99 kg/m2] 27.25 kg/m2 *H* (02/05/23 8:35 AM) Blood Pressure [90-138/55-84 mm Hg] 150/ 70mm Hg *H* (02/05/23 8:45 AM) 152/85mm Hg *H* (02/05/23 8:35 AM) Blood pressure sites Arm, right (02/05/23 8:45 AM) Arm, right (02/05/23 8:35 AM) Social History Social History Type Response Smoking Status Never (less than 100 in lifetime) entered on: 01/28/23 Sex Note * Nikky Ibarra: PERFORM, SIGN, VERIFY Event Display: Patient Education/Instruction Authored Date: [id number] [facility] *[facility] Adult [facility] Clinical Summary Name YOGESH ROSAS Age 62 Years 1960 PCP Rigo PEARSON, PCP Visit Date 02/05/2023 08:22:00 Additional Instructions: Scheduled Appointments?? Future Appointments ?No Future Appointments Scheduled Follow-Up Instructions ?? Diagnosis Dorsalgia, unspecified; Malignant neoplasm of prostate Medications: Please continue your medications until treatment is completed or stopped by your provider. Discuss any questions related to medications with your provider. Medications to Continue with No Changes These medications were not printed or sent to your pharmacy Albuterol (Albuterol (Eqv-ProAir HFA) 90 mcg/inh inhalation aerosol) Next Dose: Amlodipine (amLODIPine 5 mg oral tablet) 1 tab(s) Oral Daily. Refills: 0. Next Dose: Baclofen (baclofen 10 mg oral tablet) 1 tab(s) Oral 3 times a day as needed Spasm. Refills: 1. Next Dose: Lidocaine Topical (lidocaine 5% topical film) 1 patch(es) Topically Daily as needed Pain , Mild for14 Days. remove after 12 hours. Refills: 0. Next Dose: Omeprazole (omeprazole 20 mg oral enteric coated capsule) 1 capsule Oral twice a day. Refills: 0. Next Dose: Trazodone (traZODone 50 mg oral tablet) 0.5 -2 tablet Oral Daily at Bedtime. Refills: 1. Next Dose: Allergy Info:?? Mobic; Reglan Medications Given This Visit Future Orders ?No future orders Vital Signs Height 172.72 cm Weight 81.3 kg BMI 27.25 kg/m2 Blood Pressure 150 mm Hg/70 mm Hg Temperature Pulse Rate 67 bpm Respiratory Rate 02 Sat Mode of Delivery 97 %/ You can now view a summary of your hospital visit from the comfort of your home through a free online portal called [employer]. [employer] is a website that allows you to securely view your medical information including discharge summary, medications and follow-up visits. ??You can alsosend a secure electronic message to your doctor???s office to request appointments, renew medications or just ask a question. You can enroll at [email or web address] or register during your next office [...] primary care provider, you may find a [facility] provider by calling [facility] [employer] [employer] at [phone]. For information about the plan of care [...] Team Personnel Name: Elisabeth Tejeda RN Position: [facility] AMB Nurse Member Role: Primary Care Nurse Name: Spencer Sierra MD Position: [facility] Physician - Primary Care Member Role: PCP Address: Address: [address] [place] [address]- Care Team Related Persons Name: ALLEN ARMSTRONG Address: home [address] [place] [address] Name: ALLEN ROSAS Address: home [address] [place] [address]
--- OUTSIDE RECORDS SUMMARY | 2023-05-21 09:03 | XMS_ITS | Continuity of Care Document ---
Author Name Unknown Organization [facility] Address [address] [place] [address]- Care Team Providers Care Pin Feather Machine Operator Name Role Phone Spencer Sierra MD Primary Care Physician [phone] [place] [facility] [place] Date(s): 11/11/22 - 12/11/22 [facility] [address] [place], [place] [address] Allergies, Adverse Reactions, Alerts Substance Reaction Severity Status Reglan Active Mobic Active Immunizations Given and Recorded Vaccine Date Status Refusal Reason SARS-CoV-2 mRNA (fmeybtu-qxxt-tydch) vax 03/10/22 Recorded SARS-CoV-2 (COVID-19) mRNA BNT-162b2 [...] 12/08/22 6:37:00 EDT, Route to Pharmacy Electronically, [facility] #[id number], Partial fill upon patient request if the prescription is for a schedule II opio... Start Date: 12/08/22 Status: Ordered omeprazole 20 mg oral enteric coated capsule 1 capsule, By Mouth, Daily, # 90 capsule, 3 Refills, Maintenance, 11/30/22 17:10:00 EDT, [facility] #[id number], 172.72, cm, 10/26/22 15:03:00 EST, Height Start Date: 11/30/22 Status: Ordered traZODone 50 mg oral tablet 0.5 -2 tablet, By Mouth, Daily at bedtime, # 60 tablet, Refills 1, Tot. 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 Radiation esophagitis Confirmed 09/09/18 Active Shoulder pain Confirmed Active Fatty liver Confirmed Active Social History Social History Type Response Smoking Status Former smoker entered on: 07/03/14 Sex Patient Care team information Care Team Personnel Name: Elisabeth Tejeda RN Position: [facility] AMB Nurse Member Role: Primary Care Nurse Name: Spencer Sierra MD Position: [facility] Primary Care Physician Member Role: PCP Address: Address: [address] [place] [address] Care Team Related Persons Name: ALLEN ARMSTRONG Address: home [facility] [place] [address] Name: ALLEN ROSAS Address: home [address] [place] [address]
--- OUTSIDE RECORDS SUMMARY | 2023-05-21 09:03 | XMS_ITS | Continuity of Care Document ---
Author Name Unknown Organization [facility] Address [address] [place] [address]- Care Team Providers Care Waste Machine Offbearer Name Role Phone Spencer Sierra MD Primary Care Physician En[place] [facility] [place] Date(s): 08/20/22 - 09/19/22 [facility] [address] [place] [address]- Allergies, Adverse Reactions, Alerts Substance Reaction Severity Status Reglan Active Mobic Active Immunizations Given and Recorded Vaccine Date Status Refusal Reason SARS-CoV-2 mRNA (dibeguw-kkcn-fahsd) vax 03/10/22 Recorded SARS-CoV-2 (COVID-19) mRNA BNT-162b2 [...] 06/09/22 16:27:00 EDT, Route to Pharmacy Electronically, [facility] #[id number], Partial fill upon patient request if the prescription is for a schedule II opi... Start Date: 06/09/22 Status: Ordered Azithromycin 5 Day Dose Pack 250 mg oral tablet See Instructions, Take 2 tablets on day one. Take 1 tablet daily on Days 2-5., # 6 tablet, 0 Refills, Maintenance, 08/20/22 18:04:00 EST, Tablet, [facility] #[id number], Partial fill upon patient request if the prescription is for a schedule II... Start Date: 08/20/22 Status: Ordered Breo Ellipta 100 mcg-25 mcg/inh [...] capsule, 1 Refills, Maintenance, 07/07/22 20:18:00 EST, [facility] #[id number], 172.72, cm, 06/09/22 16:25:00 EDT, Height Start Date: 07/07/22 Status: Ordered traZODone 50 mg oral tablet 0.5 -2 tablet, By Mouth, Daily at bedtime, # 60 tablet, Refills 1, Tot. 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 Radiation esophagitis Confirmed 09/09/18 Active Shoulder pain Confirmed Active Fatty liver Confirmed Active Social History Social History Type Response Smoking Status Former smoker entered on: 07/03/14 Sex Patient Care team information Care Team Personnel Name: Elisabeth Tejeda RN Position: [facility] AMB Nurse Member Role: Primary Care Nurse Name: Spencer Sierra MD Position: [facility] Primary Care Physician Member Role: PCP Address: Address: [address] [place] [address]- Care Team Related Persons Name: ALLEN ARMSTRONG Address: home [address] [place] [address] Name: ALLEN ROSAS Address: home [address] [place] [address]
--- OUTSIDE RECORDS SUMMARY | 2023-05-21 09:03 | XMS_ITS | Continuity of Care Document ---
Author Name Unknown Organization [facility] Address [address] [place] [address]- Care Team Providers Care Circular Tank Cooper Name Role Phone Spencer Sierra MD Primary Care Physician [place] [facility]/18[place]23 - 04/17/23 [facility] [address] [place], [place] [address] Allergies, Adverse Reactions, Alerts Substance Reaction Severity Status Reglan Active Mobic Active Immunizations Given and Recorded Vaccine Date Status Refusal Reason SARS-CoV-2 mRNA (nsulrvv-arps-xjjuo) vax 03/10/22 Recorded SARS-CoV-2 (COVID-19) mRNA BNT-162b2 [...] tablet, 1 Refills, Maintenance, 03/03/23 21:36:00 EDT, [facility] #[id number], 172.72, cm, 02/05/23 8:45:00 EDT, Height Start Date: 03/03/23 Status: Ordered baclofen 10 mg oral tablet 10 mg, 1, tablet, By Mouth, 3 times a day, PRN, # 90 tablet, Refills 1, Tot. Refills 1, Maintenance, Spasm, 01/28/23 15:34:00 EDT, Route to Pharmacy Electronically, [facility] #[id number], Partial fill upon patient request if the prescription is... Start Date: 01/28/23 Status: Ordered ferrous sulfate 325 mg oral enteric coated tablet 325 mg, 1, tablet, By Mouth, Daily, # 30 tablet, Refills 0, Tot. Refills 0, Maintenance, 03/18/23 13:13:00 EDT, Route to Pharmacy Electronically, [facility] #[id number], Partial fill upon patient request if the prescription is for a schedule II o... Start Date: 03/18/23 Status: Ordered omeprazole 20 mg oral enteric coated capsule 1 capsule, By Mouth, 2 times a day, # 180 capsule, 0 Refills, Maintenance, 02/04/23 11:58:00 EDT, [facility] #[id number], 172.72, cm, 01/28/23 15:27:00 EDT, Height Start Date: 02/04/23 Status: Ordered traZODone 50 mg oral tablet 0.5 -2 tablet, By Mouth, Daily at bedtime, # 60 tablet, Refills 1, Tot. 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 Radiation esophagitis Confirmed 09/09/18 Active Shoulder pain Confirmed Active Fatty liver Confirmed Active Social History Social History Type Response Smoking Status Never (less than 100 in lifetime) entered on: 01/28/23 Sex Patient Care team information Care Team Personnel Name: Elisabeth Tejeda RN Position: [facility] AMB Nurse Member Role: Primary Care Nurse Name: Spencer Sierra MD Position: [facility] Physician - Primary Care Member Role: PCP Address: Address: [address] [place] [address] Care Team Related Persons Name: ALLEN ARMSTRONG Address: home [address] [place] [address] Name: ALLEN ROSAS Address: home [address] [place] [address]
--- OUTSIDE RECORDS SUMMARY | 2023-05-21 09:03 | XMS_ITS | Continuity of Care Document ---
Author Name Unknown Organization [facility] Address [address] [place] [address]- Care Team Providers Care Top Coater Name Role Phone Spencer Sierra MD Primary Care Physician Encounter [facility] [place] Date(s): 12/01/22 - 12/31/22 [facility] [address] [place] [address]- Allergies, Adverse Reactions, Alerts Substance Reaction Severity Status Reglan Active Mobic Active Immunizations Given and Recorded Vaccine Date Status Refusal Reason SARS-CoV-2 mRNA (oyqdwno-niqw-mzuen) vax 03/10/22 Recorded SARS-CoV-2 (COVID-19) mRNA BNT-162b2 [...] 12/08/22 6:37:00 EDT, Route to Pharmacy Electronically, [facility] #[id number], Partial fill upon patient request if the prescription is for a schedule II opio... Start Date: 12/08/22 Status: Ordered omeprazole 20 mg oral enteric coated capsule 1 capsule, By Mouth, Daily, # 90 capsule, 3 Refills, Maintenance, 11/30/22 17:10:00 EDT, [facility] #[id number], 172.72, cm, 10/26/22 15:03:00 EST, Height Start Date: 11/30/22 Status: Ordered traZODone 50 mg oral tablet 0.5 -2 tablet, By Mouth, Daily at bedtime, # 60 tablet, Refills 1, Tot. Refills 1, Maintenance, 06/09/22 16:26:00 EDT, Route to Pharmacy Electronically, [facility] #[id number], Partial fill uponpatient request if the prescription [...] tumor of prostate; [facility]; active surveillance Confirmed 02/10/22 Active [...] Team Personnel Name: Elisabeth Tejeda RN Position: [facility] AMB Nurse Member Role: Primary Care Nurse Name: Spencer Sierra MD Position: [facility] Primary Care Physician Member Role: PCP Address: Address: [address] [place] [address]- Care Team Related Persons Name: ALLEN ARMSTRONG Address: home [address] [place] [address] Name: ALLEN ROSAS Address: home [address] [place] [address]
--- OUTSIDE RECORDS SUMMARY | 2023-05-21 09:03 | XMS_ITS | Continuity of Care Document ---
Author Name Unknown Organization [facility] Address [address] [place] [address]- Care Team Providers Care Sales Hunter Name Role Phone Spencer Sierra MD Primary Care Physician Encounter [facility] [place] Date(s): 12/28/22 - 01/27/23 [facility] [address] [place] [address]- Allergies, Adverse Reactions, Alerts Substance Reaction Severity Status Reglan Active Mobic Active Immunizations Given and Recorded Vaccine Date Status Refusal Reason SARS-CoV-2 mRNA (kcijvsw-malw-usclm) vax 03/10/22 Recorded SARS-CoV-2 (COVID-19) mRNA BNT-162b2 [...] 12/08/22 6:37:00 EDT, Route to Pharmacy Electronically, [facility] #[id number], Partial fill upon patient request if the prescription is for a schedule II opio... Start Date: 12/08/22 Status: Ordered omeprazole 20 mg oral enteric coated capsule 1 capsule, By Mouth, Daily, # 90 capsule, 3 Refills, Maintenance, 11/30/22 17:10:00 EDT, [facility] #[id number], 172.72, cm, 10/26/22 15:03:00 EST, Height Start Date: 11/30/22 Status: Ordered traZODone 50 mg oral tablet 0.5 -2 tablet, By Mouth, Daily at bedtime, # 60 tablet, Refills 1, Tot. 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 Radiation esophagitis Confirmed 09/09/18 Active Shoulder pain Confirmed Active Fatty liver Confirmed Active Social History Social History Type Response Smoking Status Former smoker entered on: 07/03/14 Sex Patient Care team information Care Team Personnel Name: Elisabeth Tejeda RN Position: [facility] AMB Nurse Member Role: Primary Care Nurse Name: Spencer Sierra MD Position: [facility] Physician - Primary Care Member Role: PCP Address: Address: [address] [place] [address]- Care Team Related Persons Name: ALLEN ARMSTRONG Address: home [address] [place] [address] Name: ALLEN ROSAS Address: home [address] [place] [address]
--- OUTSIDE RECORDS SUMMARY | 2023-05-21 09:03 | XMS_ITS | Continuity of Care Document ---
Author Name Unknown Organization [facility] Address [address] [place] [address]- Care Team Providers Care Eligibility Supervisor Name Role Phone Spencer Sierra MD Primary Care Physician Encounter [facility] [place] Date(s): 10/09/22 - 11/08/22 [facility] [address] [place], [place] [address] Allergies, Adverse Reactions, Alerts Substance Reaction Severity Status Reglan Active Mobic Active Immunizations Given and Recorded Vaccine Date Status Refusal Reason SARS-CoV-2 mRNA (aczyned-puvo-ircpf) vax 03/10/22 Recorded SARS-CoV-2 (COVID-19) mRNA BNT-162b2 [...] 06/09/22 16:27:00 EDT, Route to Pharmacy Electronically, [facility] #[id number], Partial fill upon patient request if the prescription is for a schedule II opi... Start Date: 06/09/22 Status: Ordered omeprazole 20 mg oral enteric coated capsule See Instructions, TAKE 1 CAPSULE BY MOUTH DAILY, # 90 capsule, 1 Refills, Maintenance, 07/07/22 20:18:00 EST, [facility] #[id number], 172.72, cm, 06/09/22 16:25:00 EDT, Height Start Date: 07/07/22 Status: Ordered traZODone 50 mg oral tablet 0.5 -2 tablet, By Mouth, Daily at bedtime, # 60 tablet, Refills 1, Tot. Refills 1, Maintenance, 06/09/22 16:26:00 EDT, Route to Pharmacy Electronically, [facility] #[id number], Partial fill uponpatient request if the prescription [...] Team Personnel Name: Elisabeth Tejeda RN Position: [facility] AMB Nurse Member Role: Primary Care Nurse Name: Spencer Sierra MD Position: [facility] Primary Care Physician Member Role: PCP Address: Address: [address] [place] [address] Care Team Related Persons Name: ALLEN ARMSTRONG Address: home [address] [place] [address] Name: ALLEN ROSAS Address: home [address] [place] [address]
--- OUTSIDE RECORDS SUMMARY | 2023-05-21 09:03 | XMS_ITS | Continuity of Care Document ---
Author Name Unknown Organization [facility] Address [address] [place] [address]- Care Team Providers Care Warehouse Operator Name Role Phone Spencer Sierra MD Primary Care Physician [phone] Encounter [facility] [place] Date(s): 12/08/22 - 01/07/23 [facility] [address] [place] [address]- Allergies, Adverse Reactions, Alerts Substance Reaction Severity Status Reglan Active Mobic Active Immunizations Given and Recorded Vaccine Date Status Refusal Reason SARS-CoV-2 mRNA (tfpfldi-dpoa-vuccv) vax 03/10/22 Recorded SARS-CoV-2 (COVID-19) mRNA BNT-162b2 [...] 12/08/22 6:37:00 EDT, Route to Pharmacy Electronically, [facility] #[id number], Partial fill upon patient request if the prescription is for a schedule II opio... Start Date: 12/08/22 Status: Ordered omeprazole 20 mg oral enteric coated capsule 1 capsule, By Mouth, Daily, # 90 capsule, 3 Refills, Maintenance, 11/30/22 17:10:00 EDT, [facility] #[id number], 172.72, cm, 10/26/22 15:03:00 EST, Height Start Date: 11/30/22 Status: Ordered traZODone 50 mg oral tablet 0.5 -2 tablet, By Mouth, Daily at bedtime, # 60 tablet, Refills 1, Tot. Refills 1, Maintenance, 06/09/22 16:26:00 EDT, Route to Pharmacy Electronically, [facility] #[id number], Partial fill uponpatient request if the prescription [...] Malignant tumor of prostate; [facility]; active surveillance Confirmed 02/10/22 Active [...] Team Personnel Name: Elisabeth Tejeda RN Position: [facility] AMB Nurse Member Role: Primary Care Nurse Name: Spencer Sierra MD Position: [facility] Primary Care Physician Member Role: PCP Address: Address: [address] [place] [address]- Care Team Related Persons Name: ALLEN ARMSTRONG Address: home [address] [place] [address] Name: ALLEN ROSAS Address: home [address] [place] [address]
--- OUTSIDE RECORDS SUMMARY | 2023-05-21 09:03 | XMS_ITS | Continuity of Care Document ---
Author Name Unknown Organization [facility] Address [address] [place] [address]- Care Team Providers Care Interactive Project Manager Name Role Phone Spencer Sierra MD Primary Care Physician Encounter [facility] [place] Date(s): 06/09/22 - 06/16/22 [facility] [address] [place], [place] [address] Encounter Diagnosis HTN (hypertension)(Discharge Diagnosis) - 06/09/22 Insomnia(Discharge Diagnosis) - 06/09/22 Attending Physician: Spencer Sierra MD Allergies, Adverse Reactions, Alerts Substance Reaction Severity Status Reglan Active Mobic Active Immunizations Given and Recorded Vaccine Date Status Refusal Reason SARS-CoV-2 mRNA (bcduywh-gysp-ixezs) vax 03/10/22 Recorded SARS-CoV-2 (COVID-19) mRNA BNT-162b2 vac 09/03/21 Recorded SARS-CoV-2 (COVID-19) mRNA BNT-162b2 vac 01/03/21 Recorded SARS-CoV-2 (COVID-19) mRNA BNT-162b2 vac 12/12/20 Recorded tetanus/diphtheria/pertussis, acel(Tdap) 04/30/16 Recorded Medications amLODIPine 5 mg oral tablet 5 mg, 1, tablet, By Mouth, Daily, # 90 tablet, Refills 1, Tot. Refills 1, Maintenance, 06/09/22 16:27:00 EDT, Route to Pharmacy Electronically, [facility] #[id number], Partial fill upon patient request if the prescription is for a schedule II opi... Start Date: 06/09/22 Status: Ordered omeprazole 20 mg oral enteric coated capsule TAKE 1 CAPSULE BY MOUTH DAILY Start Date: 05/08/22 Status: Ordered traZODone 50 mg oral tablet 0.5 -2 tablet, By Mouth, Daily at bedtime, # 60 tablet, Refills 1, Tot. Refills 1, Maintenance, 06/09/22 16:26:00 EDT, Route to Pharmacy Electronically, [facility] #[id number], Partial fill uponpatient request if the prescription is for a schedu... 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 Radiation esophagitis Confirmed 09/09/18 Active Diagnosis Diagnosis Type Effective Dates Health Status Cl inical Service Informant HTN (hypertension) Discharge Diagnosis 06/09/22 Insomnia Discharge Diagnosis 06/09/22 Procedures Procedure Date Related Diagnosis Body Site Status Resection of rib 2020 Complete d Esophagectomy 2018 Completed Hip replacement 2013 Completed Vital Signs Most recent to oldest [Reference Range]: 1 2 Height 172.72 cm (06/09/22 4:25 PM) 172.72 cm (06/09/22 3:55 PM) Weight 80.7 kg (06/09/22 3:55 PM) Oxygen Saturation [94-100 %] 95 % (06/09/22 3:55 PM) Pulse Rate [55-90 bpm] 68 bpm (06/09/22 3:55 PM) Body Mass Index [18.5-24.99 kg/m2] 27.05 kg/m2 *H* (06/09/22 3:55 PM) Blood Pressure [90-138/55-84 mm Hg] 150/ 70mm Hg *H* (06/09/22 4:25 PM) 136/78mm Hg (06/09/22 3:55 PM) Blood pressure sites Arm, right (06/09/22 3:55 PM) Social History Social History Type Response Smoking Status Former smoker entered on: 07/03/14 Sex Patient Care team information Personnel Name: Spencer Sierra MD Address: Address: [address] [place], [place] [address]
--- OUTSIDE RECORDS SUMMARY | 2023-05-21 09:04 | XMS_ITS | Continuity of Care Document ---
Author Name Unknown Organization [facility] Address [address] [place] [address]- Care Team Providers Care Formal Wear Rental Clerk Name Role Phone Spencer Sierra MD Primary Care Physician [place] [facility] [place] [facility] [place] 03/18/23 - 04/17/23 [facility] [address] [place], [place] [address] Allergies, Adverse Reactions, Alerts Substance Reaction Severity Status Reglan Active Mobic Active Immunizations Given and Recorded Vaccine Date Status Refusal Reason SARS-CoV-2 mRNA (dodiple-ayml-dugkv) vax 03/10/22 Recorded SARS-CoV-2 (COVID-19) mRNA BNT-162b2 [...] tablet, 1 Refills, Maintenance, 03/03/23 21:36:00 EDT, [facility] #[id number], 172.72, cm, 02/05/23 8:45:00 EDT, Height Start Date: 03/03/23 Status: Ordered baclofen 10 mg oral tablet 10 mg, 1, tablet, By Mouth, 3 times a day, PRN, # 90 tablet, Refills 1, Tot. Refills 1, Maintenance, Spasm, 01/28/23 15:34:00 EDT, Route to Pharmacy Electronically, [facility] #[id number], Partial fill upon patient request if the prescription is... Start Date: 01/28/23 Status: Ordered ferrous sulfate 325 mg oral enteric coated tablet 325 mg, 1, tablet, By Mouth, Daily, # 30 tablet, Refills 0, Tot. Refills 0, Maintenance, 03/18/23 13:13:00 EDT, Route to Pharmacy Electronically, [facility] #[id number], Partial fill upon patient request if the prescription is for a schedule II o... Start Date: 03/18/23 Status: Ordered omeprazole 20 mg oral enteric coated capsule 1 capsule, By Mouth, 2 times a day, # 180 capsule, 0 Refills, Maintenance, 02/04/23 11:58:00 EDT, [facility] #[id number], 172.72, cm, 01/28/23 15:27:00 EDT, Height Start Date: 02/04/23 Status: Ordered traZODone 50 mg oral tablet 0.5 -2 tablet, By Mouth, Daily at bedtime, # 60 tablet, Refills 1, Tot. 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 Radiation esophagitis Confirmed 09/09/18 Active Shoulder pain Confirmed Active Fatty liver Confirmed Active Social History Social History Type Response Smoking Status Never (less than 100 in lifetime) entered on: 01/28/23 Sex Patient Care team information Care Team Personnel Name: Elisabeth Tejeda RN Position: [facility] AMB Nurse Member Role: Primary Care Nurse Name: Spencer Sierra MD Position: [facility] Physician - Primary Care Member Role: PCP Address: Address: [address] [place] [address] Care Team Related Persons Name: ALLEN ARMSTRONG Address: home [address] [place] [address] Name: ALLEN ROSAS Address: home [address] [place] [address]
--- OUTSIDE RECORDS SUMMARY | 2023-05-21 09:04 | XMS_ITS | Continuity of Care Document ---
Author Name Unknown Organization [facility] Address [address] [place] [address]- Care Team Providers Care Maintenance Worker Municipal Name Role Phone Spencer Sierra MD Primary Care Physician [phone] Encounter [facility] [place] Date(s): 10/18/22 - 11/17/22 [facility] [address] [place], [place] [address] Allergies, Adverse Reactions, Alerts Substance Reaction Severity Status Reglan Active Mobic Active Immunizations Given and Recorded Vaccine Date Status Refusal Reason SARS-CoV-2 mRNA (worenpc-knny-ppntn) vax 03/10/22 Recorded SARS-CoV-2 (COVID-19) mRNA BNT-162b2 [...] 06/09/22 16:27:00 EDT, Route to Pharmacy Electronically, [facility] #[id number], Partial fill upon patient request if the prescription is for a schedule II opi... Start Date: 06/09/22 Status: Ordered omeprazole 20 mg oral enteric coated capsule See Instructions, TAKE 1 CAPSULE BY MOUTH DAILY, # 90 capsule, 1 Refills, Maintenance, 07/07/22 20:18:00 EST, [facility] #[id number], 172.72, cm, 06/09/22 16:25:00 EDT, Height Start Date: 07/07/22 Status: Ordered traZODone 50 mg oral tablet 0.5 -2 tablet, By Mouth, Daily at bedtime, # 60 tablet, Refills 1, Tot. Refills 1, Maintenance, 06/09/22 16:26:00 EDT, Route to Pharmacy Electronically, [facility] #[id number], Partial fill uponpatient request if the prescription [...] Team Personnel Name: Elisabeth Tejeda RN Position: [facility] AMB Nurse Member Role: Primary Care Nurse Name: Spencer Sierra MD Position: [facility] Primary Care Physician Member Role: PCP Address: Address: [address] [place] [address] Care Team Related Persons Name: ALLEN ARMSTRONG Address: home [address] [place] [address] Name: ALLEN ROSAS Address: home [address] [place] [address]
--- OUTSIDE RECORDS SUMMARY | 2023-05-21 09:04 | XMS_ITS | Continuity of Care Document ---
Author Name Unknown Organization [facility] Address [address] [place] [address]- Care Team Providers Care Bar Manager Name Role Phone Spencer Sierra MD Primary Care Physician [phone] [place] [facility] [id number] Date(s): 02/24/23 - 03/03/23 [facility] [address] [place] [address] Encounter Diagnosis Abnormal CT of the abdomen(Discharge Diagnosis) - 02/24/23 Impaired fasting glucose(Discharge Diagnosis) - 02/24/23 Anemia(Discharge Diagnosis) - 02/24/23 History of esophageal cancer; Dr Aguilar; chemo, radiation, surgery(Discharge Diagnosis) - 02/24/23 HTN (hypertension)(Discharge Diagnosis) - 02/24/23 Attending Physician: Spencer Sierra MD Allergies, Adverse Reactions, Alerts Substance Reaction Severity Status Reglan Active Mobic Active Immunizations Given and Recorded Vaccine Date Status Refusal Reason SARS-CoV-2 mRNA (qdckodc-fzij-nlfnb) vax 03/10/22 Recorded SARS-CoV-2 (COVID-19) mRNA BNT-162b2 [...] tablet, 1 Refills, Maintenance, 03/03/23 21:36:00 EDT, [facility] #[id number], 172.72, cm, 02/05/23 8:45:00 EDT, Height Start Date: 03/03/23 Status: Ordered baclofen 10 mg oral tablet 10 mg, 1, tablet, By Mouth, 3 times a day, PRN, # 90 tablet, Refills 1, Tot. Refills 1, Maintenance, Spasm, 01/28/23 15:34:00 EDT, Route to Pharmacy Electronically, [facility] #[id number], Partial fill upon patient request if the [...] capsule, 0 Refills, Maintenance, 02/04/23 11:58:00 EDT, [facility] #[id number], 172.72, cm, 01/28/23 15:27:00 EDT, Height Start Date: 02/04/23 Status: Ordered traZODone 50 mg oral tablet 0.5 -2 tablet, By Mouth, Daily at bedtime, # 60 tablet, Refills 1, Tot. 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 Radiation esophagitis Confirmed 09/09/18 Active Shoulder pain Confirmed Active Fatty liver Confirmed Active Diagnosis Diagnosis Type Effective Dates Health Status Clinical Service Informant Impaired fasting glucose Discharge Diagnosis 02/24/23 Anemia Discharge Diagnosis 02/24/23 History of esophageal cancer; Dr Aguilar; chemo, radiation, surgery Discharge Diagnosis 02/24/[address] of the abdomen Discharge Diagnosis 02/24/23 HTN (hypertension) Discharge Diagnosis 02/24/23 Social History Social History Type Response Smoking Status Never (less than 100 in lifetime) entered on: 01/28/23 Sex Patient Care team information Care Team Personnel Name: Elisabeth Tejeda RN Position: [facility] AMB Nurse Member Role: Primary Care Nurse Name: Spencer Sierra MD Position: [facility] Physician - Primary Care Member Role: PCP Address: Address: [address] [place] [address]- Care Team Related Persons Name: ALLEN ARMSTRONG Address: home [address] [place] [address] Name: ALLEN ROSAS Address: home [address] [place] [address]
--- OUTSIDE RECORDS SUMMARY | 2023-05-21 09:04 | XMS_ITS | Continuity of Care Document ---
Author Name Unknown Organization [facility] Address [address] [place] [address]- Care Team Providers Care Electric Power Line Repairer Name Role Phone Spencer Sierra MD Primary Care Physician [place] [facility] [place] Date(s): 11/02/22 - 12/02/22 [facility] [address] [place], [place] [address] Allergies, Adverse Reactions, Alerts Substance Reaction Severity Status Reglan Active Mobic Active Immunizations Given and Recorded Vaccine Date Status Refusal Reason SARS-CoV-2 mRNA (aksuvvw-splu-qxivi) vax 03/10/22 Recorded SARS-CoV-2 (COVID-19) mRNA BNT-162b2 [...] 06/09/22 16:27:00 EDT, Route to Pharmacy Electronically, [facility] #[id number], Partial fill upon patient request if the prescription is for a schedule II opi... Start Date: 06/09/22 Status: Ordered omeprazole 20 mg oral enteric coated capsule 1 capsule, By Mouth, Daily, # 90 capsule, 3 Refills, Maintenance, 11/30/22 17:10:00 EDT, [email or web address] #[id number], 172.72, cm, 10/26/22 15:03:00 EST, Height Start Date: 11/30/22 Status: Ordered traZODone 50 mg oral tablet 0.5 -2 tablet, By Mouth, Daily at bedtime, # 60 tablet, Refills 1, Tot. 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 Radiation esophagitis Confirmed 09/09/18 Active Shoulder pain Confirmed Active Fatty liver Confirmed Active Social History Social History Type Response Smoking Status Former smoker entered on: 07/03/14 Sex Patient Care team information Care Team Personnel Name: Elisabeth Tejeda RN Position: [facility] AMB Nurse Member Role: Primary Care Nurse Name: Spencer Sierra MD Position: [facility] Primary Care Physician Member Role: PCP Address: Address: [address] [place] [address] Care Team Related Persons Name: ALLEN ARMSTRONG Address: home [facility] [place] [address] Name: ALLEN ROSAS Address: home [address] [place] [address]
--- OUTSIDE RECORDS SUMMARY | 2023-05-21 09:04 | XMS_ITS | Continuity of Care Document ---
Author Name Unknown Organization [facility] Address [address] [place] [address]- Care Team Providers Care Tar And Ammonia Pump Operator Name Role Phone Spencer Sierra MD Primary Care Physician [phone] Encounter [facility] [place] Date(s): 07/07/22 - 08/06/22 [facility] [address] [place], [place] [address] Allergies, Adverse Reactions, Alerts Substance Reaction Severity Status Reglan Active Mobic Active Immunizations Given and Recorded Vaccine Date Status Refusal Reason SARS-CoV-2 mRNA (gjqlpdb-mwaj-ktnls) vax 03/10/22 Recorded SARS-CoV-2 (COVID-19) mRNA BNT-162b2 vac 09/03/21 Recorded SARS-CoV-2 (COVID-19) mRNA BNT-162b2 vac 01/03/21 Recorded SARS-CoV-2 (COVID-19) mRNA BNT-162b2 vac 12/12/20 Recorded tetanus/diphtheria/pertussis, acel(Tdap) 04/30/16 Recorded Medications amLODIPine 5 mg oral tablet 5 mg, 1, tablet, By Mouth, Daily, # 90 tablet, Refills 1, Tot. Refills 1, Maintenance, 06/09/22 16:27:00 EDT, Route to Pharmacy Electronically, [facility] #[id number], Partial fill upon patient request if the prescription is for a schedule II opi... Start Date: 06/09/22 Status: Ordered omeprazole 20 mg oral enteric coated capsule See Instructions, TAKE 1 CAPSULE BY MOUTH DAILY, # 90 capsule, 1 Refills, Maintenance, 07/07/22 20:18:00 EST, [facility] #[id number], 172.72, cm, 06/09/22 16:25:00 EDT, Height Start Date: 07/07/22 Status: Ordered traZODone 50 mg oral tablet 0.5 -2 tablet, By Mouth, Daily at bedtime, # 60 tablet, Refills 1, Tot. 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 Radiation esophagitis Confirmed 09/09/18 Active Social History Social History Type Response Smoking Status Former smoker entered on: 07/03/14 Sex Patient Care team information Care Team Personnel Name: Elisabeth Tejeda RN Position: [facility] AMB Nurse Member Role: Primary Care Nurse Name: Spencer Sierra MD Position: [facility] Primary Care Physician Member Role: PCP Address: Address: [address] [place] [address] Care Team Related Persons Name: ALLEN ARMSTRONG Address: home [address] [place] [address] Name: ALLEN ROSAS Address: home [address] [place] [address]
--- OUTSIDE RECORDS SUMMARY | 2023-05-21 09:04 | XMS_ITS | Continuity of Care Document ---
Author Name Unknown Organization [facility] Address [address] [place] [address]- Care Team Providers Care Nanny Babysitter Name Role Phone Spencer Sierra MD Primary Care Physician Encounter [facility] [place] Date(s): 08/20/22 - 08/27/22 [facility] [address] [place] [address]- Encounter Diagnosis Hemoptysis(Discharge Diagnosis) - 08/20/22 Attending Physician: Clarice Wade MD Allergies, Adverse Reactions, Alerts Substance Reaction Severity Status Reglan Active Mobic Active Immunizations Given and Recorded Vaccine Date Status Refusal Reason SARS-CoV-2 mRNA (jwdqjlh-givk-aokob) vax 03/10/22 Recorded SARS-CoV-2 (COVID-19) mRNA BNT-162b2 [...] 06/09/22 16:27:00 EDT, Route to Pharmacy Electronically, [facility] #[id number], Partial fill upon patient request if the prescription is for a schedule II opi... Start Date: 06/09/22 Status: Ordered Azithromycin 5 Day Dose Pack 250 mg oral tablet See Instructions, Take 2 tablets on day one. Take 1 tablet daily on Days 2-5., # 6 tablet, 0 Refills, Maintenance, 08/20/22 18:04:00 EST, Tablet, [facility] #[id number], Partial fill upon patient request if the [...] capsule, 1 Refills, Maintenance, 07/07/22 20:18:00 EST, [facility] #[id number], 172.72, cm, 06/09/22 16:25:00 EDT, Height Start Date: 07/07/22 Status: Ordered traZODone 50 mg oral tablet 0.5 -2 tablet, By Mouth, Daily at bedtime, # 60 tablet, Refills 1, Tot. 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 Radiation esophagitis Confirmed 09/09/18 Active Shoulder pain Confirmed Active Fatty liver Confirmed Active Diagnosis Diagnosis Type Effective Dates Health Status Clini luis angel Service Informant Hemoptysis Discharge Diagnosis 08/20/22 Social History Social History Type Response Smoking Status Former smoker entered on: 07/03/14 Sex Patient Care team information Care Team Personnel Name: Elisabeth Tejeda RN Position: [facility] AMB Nurse Member Role: Primary Care Nurse Name: Spencer Sierra MD Position: [facility] Primary Care Physician Member Role: PCP Address: Address: [address] [place] [address] Care Team Related Persons Name: ALLEN ARMSTRONG Address: home [facility] [place] [address] Name: ALLEN ROSAS Address: home [address] [place] [address]
--- OUTSIDE RECORDS SUMMARY | 2023-05-21 09:04 | XMS_ITS | Continuity of Care Document ---
Author Name Unknown Organization [facility] Address [address] [place] [address]- Care Team Providers Care Geodetic Advisor Name Role Phone Spencer Sierra MD Primary Care Physician Encounter [facility] [place] Date(s): 04/01/23 - 05/01/23 [facility] [address] [place], [place] [address] Allergies, Adverse Reactions, Alerts Substance Reaction Severity Status Reglan Active Mobic Active Immunizations Given and Recorded Vaccine Date Status Refusal Reason SARS-CoV-2 mRNA (vxuhqve-wesi-bvbpy) vax 03/10/22 Recorded SARS-CoV-2 (COVID-19) mRNA BNT-162b2 [...] tablet, 1 Refills, Maintenance, 03/03/23 21:36:00 EDT, [facility] #[id number], 172.72, cm, 02/05/23 8:45:00 EDT, Height Start Date: 03/03/23 Status: Ordered baclofen 10 mg oral tablet 10 mg, 1, tablet, By Mouth, 3 times a day, PRN, # 90 tablet, Refills 1, Tot. Refills 1, Maintenance, Spasm, 01/28/23 15:34:00 EDT, Route to Pharmacy Electronically, [facility] #[id number], Partial fill upon patient request if the prescription is... Start Date: 01/28/23 Status: Ordered ferrous sulfate 325 mg oral enteric coated tablet 325 mg, 1, tablet, By Mouth, Daily, # 30 tablet, Refills 0, Tot. Refills 0, Maintenance, 03/18/23 13:13:00 EDT, Route to Pharmacy Electronically, [facility] #[id number], Partial fill upon patient request if the prescription is for a schedule II o... Start Date: 03/18/23 Status: Ordered omeprazole 20 mg oral enteric coated capsule 1 capsule, By Mouth, 2 times a day, # 180 capsule, 1 Refills, Maintenance, 04/30/23 7:53:00 EDT, [facility] #[id number], 172.72, cm, 03/20/23 13:26:00 EDT, Height Start Date: 04/30/23 Status: Ordered traZODone 50 mg oral tablet 0.5 -2 tablet, By Mouth, Daily at bedtime, # 60 tablet, Refills 1, Tot. 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 Radiation esophagitis Confirmed 09/09/18 Active Shoulder pain Confirmed Active Fatty liver Confirmed Active Social History Social History Type Response Smoking Status Never (less than 100 in lifetime) entered on: 01/28/23 Sex Patient Care team information Care Team Personnel Name: Elisabeth Tejeda RN Position: [facility] AMB Nurse Member Role: Primary Care Nurse Name: Spencer Sierra MD Position: [facility] Physician - Primary Care Member Role: PCP Address: Address: [address] [place] [address] Care Team Related Persons Name: ALLEN ARMSTRONG Address: home [address] [place] [address] Name: ALLEN ROSAS Address: home [address] [place] [address]
== END 2023-05-21 10:36 | disposition home or self-care (01) ==
LOC: HO.HUSH 09:01
PROVIDERS: PCP Internal Medicine; Visit Provider Urology
DX: C61 Malignant neoplasm of prostate (principal); R97.20 Elevated prostate specific antigen [PSA]
CPT/HCPCS: 99442

== ENCOUNTER → 2023-05-21 09:01 | Outpatient (BNVA) | payer MEDICARE, MEDICAID, SELFPAY | PROVIDERS: PCP Internal Medicine; Visit Provider Urology ==

== ENCOUNTER 2023-06-14 06:11 | Day surgery (SDC) | payer MEDICARE, MEDICAID, SELFPAY ==
[2023-06-09 15:14] VITALS: BMI 28.9
--- NOTE | 2023-06-11 10:45 | P.CONAN_ITS ---
Documented by User: Kayla Roth NP 06/11/23 10:47 HPI - Anesthesia Eval Consult details Narrative: 63yo M for Targeted Prostate Needle Biopsy s/p same 01/2023 but procedure aborted d/t pt vomiting coffee ground emesis (hx of esophageal ca s/p esophagectomy) Has since been cleared by medicine and pulmonary. 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 Thrombocytopenia Jejunostomy tube present 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 Weight loss Microcytic anemia History of CO poisoning Rib lesion Diverticulitis Elevated PSA Night sweats Nausea Family History Family history of problems with anesthesia: No Surgical History Surgical History History of endoscopy (~2017) History of thoracic surgery (~2020) History of prostate biopsy (~2021) History of esophagectomy (~2018) History of Problems with Anesthesia: No Social History Social History Alcohol intake: current Alcohol intake frequency: holidays/special occasions only Patient Tobacco Use Status: Never used Tobacco Use of substances other than those prescribed or required for medical reasons: Yes Are you DNR?: No Advance Directives: No Advance Directives Information Provided: Yes (brochure mailed) Advance Directives on File: No Meds Allergies Allergy/AdvReac Type Severity Reaction Status Date / Time meloxicam [From Mobic] Allergy Intermediate Anxiety Verified 06/09/23 14:52 metoclopramide [From Reglan] Allergy Intermediate Anxiety Verified 06/09/23 14:52 Home Medications Medication Instructions Recorded Confirmed Last Taken Type albuterol sulfate 90 mcg/actuation 2 puff inhalation Q4H PRN Wheezing 11/02/22 06/09/23 Unknown History aerosol inhaler amlodipine 5 mg tablet 5 mg PO DAILY 02/15/23 06/09/23 06/14/23 History baclofen 10 mg tablet 10 mg PO TID PRN muscle spasm 02/15/23 06/09/23 Unknown History omeprazole 20 mg capsule,delayed 20 mg PO BID 02/15/23 06/09/23 06/14/23 History release trazodone 50 mg tablet 25 - 100 mg PO BEDTIME 06/09/23 06/09/23 Unknown History Exam Exam Date and Time: June 11, 2023 1045 Height,Weight and Vital Signs: Height 5 ft 7 in Weight 83.6 kg Pertinent Lab Results Pertinent Lab Results: Laboratory Tests 02/16/23 05:01 WBC 6.9 Hgb 12.7 L Hct 40.5 L Plt Count 314 Sodium 143 Potassium 4.0 Chloride 108 Carbon Dioxide 23 BUN 11 Creatinine 0.84 Assessment and Plan Assessment Anesthesia Assessment: Chart Reviewed Final Anesthetic Review Family History of Problems with Anesthesia: No History of Problems with Anesthesia: No Documented by User: Sergio Love MD 06/14/23 07:35 [facility] Past Medical History Medical History (Updated 06/14/23 @ 06:14 by Libertad Merida RN) Heart murmur Sleep apnea Essential hypertension History of esophageal cancer (~2017) Adenocarcinoma of gastroesophageal junction Prostate cancer (~2021) Radiation esophagitis GERD (gastroesophageal reflux disease) 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 Thrombocytopenia Jejunostomy tube present 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 Weight loss Microcytic anemia History of CO poisoning Rib lesion Diverticulitis Elevated PSA Night sweats Nausea Surgical History Surgical History History of endoscopy (~2017) History of thoracic surgery (~2020) History of prostate biopsy (~2021) History of esophagectomy (~2018) Social History Social History Alcohol intake: current Alcohol intake frequency: holidays/special occasions only Patient Tobacco Use Status: Never used Tobacco Use of substances other than those prescribed or required for medical reasons: Yes Are you DNR?: No Advance Directives: No Advance Directives Information Provided: Yes (brochure mailed) Advance Directives on File: No Meds Allergies Allergy/AdvReac Type Severity Reaction Status Date / Time meloxicam [From Mobic] Allergy Intermediate Anxiety Verified 06/09/23 14:52 metoclopramide [From Reglan] Allergy Intermediate Anxiety Verified 06/09/23 14:52 Home Medications Medication Instructions Recorded Confirmed Last Taken Type albuterol sulfate 90 mcg/actuation 2 puff inhalation Q4H PRN Wheezing 11/02/22 06/09/23 Unknown History aerosol inhaler amlodipine 5 mg tablet 5 mg PO DAILY 02/15/23 06/09/23 06/14/23 History baclofen 10 mg tablet 10 mg PO TID PRN muscle spasm 02/15/23 06/09/23 Unknown History omeprazole 20 mg capsule,delayed 20 mg PO BID 02/15/23 06/09/23 06/14/23 History release trazodone 50 mg tablet 25 - 100 mg PO BEDTIME 06/09/23 06/09/23 Unknown History Exam Airway Mallampati Class: I TM Dist: >3cm Neck ROM: Full Loose/Missing/Broken Teeth: No Heart: ok Lungs: ok Assessment and Plan Assessment Anesthesia Assessment: Anesthesia Plan Discussed Final Anesthetic Review NPO: Yes ASA Class: III Final Preanesthetic Review: No Changes in Pt Med Stat, Meds/Allgs Chart Reviewed, Consent Obtained/Reviewed and Anes Risks/Benef Reviewed Patient Risk: Intermediate Procedure Risk: Low Anesthetic Plan Anesthetic Plan: MAC: and Agree w/ Assess. and Plan Disposition: Standard PACU
--- OUTSIDE RECORDS SUMMARY | 2023-06-14 06:13 | XMS_ITS | Continuity of Care Document ---
Author Name Unknown Organization [facility] Address [address] [place] [address]- Care Team Providers Care Internal Communications Intern Name Role Phone Rigo PEARSON, Primary Care Physician [phone] [place] [facility] [place] [id number] Date(s): 05/28/23 - 06/04/23 [facility] [address] [place] [address]- Attending Physician: Felisha PEARSON, Juan Jose Ramos Referring Physician: Rodrick Dow MD Allergies, Adverse Reactions, Alerts Substance Reaction Severity Status Reglan anxious Active Mobic rash Active Immunizations Given and Recorded Vaccine Date Status Refusal Reason SARS-CoV-2 mRNA (cdpzqbu-hmdi-scgky) vax 03/10/22 Recorded SARS-CoV-2 (COVID-19) mRNA BNT-162b2 [...] tablet, 1 Refills, Maintenance, 03/03/23 21:36:00 EDT, [facility] #[id number], 172.72, cm, 02/05/23 8:45:00 EDT, Height Start Date: 03/03/23 Status: Ordered omeprazole 20 mg oral enteric coated capsule 1 capsule, By Mouth, 2 times a day, # 180 capsule, 1 Refills, Maintenance, 04/30/23 7:53:00 EDT, [facility] #[id number], 172.72, cm, 03/20/23 13:26:00 EDT, Height Start Date: 04/30/23 Status: Ordered Vitamin B-12 1000 mcg oral [...] of prostate; [facility]; active surveillance Confirmed 02/10/22 Active Night sweats Confirmed 09/04/21 Active ALEX (obstructive sleep apnea); Suzan Pul Confirmed Active [place]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 Active Radiation esophagitis Confirmed 09/09/18 Active Shoulder pain Confirmed Active Fatty liver Confirmed Active Vital Signs Most recent to oldest [Reference Range]: 1 Height 172.72 cm (05/28/23 10:50 AM) Weight 83.6 kg (05/28/23 10:50 AM) Oxygen Saturation [94-100 %] 100 % (05/28/23 10:50 AM) Pulse Rate [55-90 bpm] 63 bpm (05/28/23 10:50 AM) Body Mass Index [18.5-24.99 kg/m2] 28.02 kg/m2 *H* (05/28/23 10:50 AM) Blood Pressure [90-138/55-84 mm Hg] 131/ 72mm Hg (05/28/23 10:50 AM) Respiratory Rate [16-30 br/min] 22 br/mi n (05/28/23 10:50 AM) Mode of Delivery (Oxygen) Room air (05/28/23 10:50 AM) Blood pressure sites Arm, left (05/28/23 10:50 AM) Dry Weight 83.6 kg (05/28/23 10:50 AM) Weight Obtained Via Standing scale (05/28/23 10:50 AM) Dry Weight Obtained Via Standing scale (05/28/23 10:50 AM) Social History Social History Type Response Smoking Status Never (less than 100 in lifetime) entered on: 05/28/23 Sex Patient Care team information Care Team Personnel Name: Elisabeth Tejeda RN Position: [facility] AMB Nurse Member Role: Primary Care Nurse Name: Spencer Sierra MD Position: [facility] Physician - Primary Care Member Role: PCP Address: Address: [address] [place] [address]- Care Team Related Persons Name: ALLEN ARMSTRONG Address: home [address] [place] [address] Name: ALLEN ROSAS Address: home [address] [place] [address]
--- OUTSIDE RECORDS SUMMARY | 2023-06-14 06:14 | XMS_ITS | Continuity of Care Document ---
Author Name Unknown Organization [facility] Address [address] [place] [address]- Care Team Providers Care Co Founder And Director Name Role Phone Spencer Sierra MD Primary Care Physician [phone] Encounter [facility] [place] Date(s): 05/12/23 - 06/11/23 [facility] [address] [place] [address]- Allergies, Adverse Reactions, Alerts Substance Reaction Severity Status Reglan anxious Active Mobic rash Active Immunizations Given and Recorded Vaccine Date Status Refusal Reason SARS-CoV-2 mRNA (lyyrkxy-wsni-enjzh) vax 03/10/22 Recorded SARS-CoV-2 (COVID-19) mRNA BNT-162b2 [...] tablet, 1 Refills, Maintenance, 03/03/23 21:36:00 EDT, [facility] #[id number], 172.72, cm, 02/05/23 8:45:00 EDT, Height Start Date: 03/03/23 Status: Ordered omeprazole 20 mg oral enteric coated capsule 1 capsule, By Mouth, 2 times a day, # 180 capsule, 1 Refills, Maintenance, 04/30/23 7:53:00 EDT, [facility] #[id number], 172.72, cm, 03/20/23 13:26:00 EDT, Height Start [...] tumor of prostate; [facility]; active surveillance Confirmed 02/10/22 Active Night sweats Confirmed 09/04/21 Active ALEX (obstructive sleep apnea); Suzan Pulm Confirmed Active [place]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 Active Radiation esophagitis Confirmed 09/09/18 Active Shoulder pain Confirmed Active Fatty liver Confirmed Active Social History Social History Type Response Smoking Status Never (less than 100 in lifetime) entered on: 05/28/23 Sex Patient Care team information Care Team Personnel Name: Elisabeth Tejeda RN Position: [facility] AMB Nurse Member Role: Primary Care Nurse Name: Spencer Sierra MD Position: [facility] Physician - Primary Care Member Role: PCP Address: Address: [address] [place] [address]- Care Team Related Persons Name: ALLEN ARMSTRONG Address: home [address] [place] [address] Name: ALLEN ROSAS Address: home [address] [place] [address]
--- OUTSIDE RECORDS SUMMARY | 2023-06-14 06:14 | XMS_ITS | Continuity of Care Document ---
Author Name Unknown Organization [facility] Address [address] [place] [address]- Care Team Providers Care Wafer Fab Technician Name Role Phone Spencer Sierra MD Primary Care Physician [phone] Encounter [facility] [place] Date(s): 05/12/23 - 06/11/23 [facility] [address] [place], [place] [address] Attending Physician: Admdarnell, Gail Admitting Physician: Admtr, Gail Referring Physician: Admtr, Ar8 Allergies, Adverse Reactions, Alerts Substance Reaction Severity Status Reglan anxious Active Mobic rash Active Immunizations Given and Recorded Vaccine Date Status Refusal Reason SARS-CoV-2 mRNA (ttxjgnw-zbru-smltc) vax 03/10/22 Recorded SARS-CoV-2 (COVID-19) mRNA BNT-162b2 [...] tablet, 1 Refills, Maintenance, 03/03/23 21:36:00 EDT, [facility] #[id number], 172.72, cm, 02/05/23 8:45:00 EDT, Height Start Date: 03/03/23 Status: Ordered omeprazole 20 mg oral enteric coated capsule 1 capsule, By Mouth, 2 times a day, # 180 capsule, 1 Refills, Maintenance, 04/30/23 7:53:00 EDT, [facility] #[id number], 172.72, cm, 03/20/23 13:26:00 EDT, Height Start [...] tumor of prostate; [facility]; active surveillance Confirmed 02/10/22 Active Night sweats Confirmed 09/04/21 Active ALEX (obstructive sleep apnea); Suzan Pulm Confirmed Active [place]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 Active Radiation esophagitis Confirmed 09/09/18 Active Shoulder pain Confirmed Active Fatty liver Confirmed Active Social History Social History Type Response Smoking Status Never (less than 100 in lifetime) entered on: 05/28/23 Sex Radiology * Event Display: Ultrasound Abdomen, Non-BH Authored Date: * Event Display: CT Scan Abdomen, Non- BH Authored Date: * Event Display: MRI Pelvis, Non- BH Authored Date: * Event Display: CT Scan Chest, Non- BH Authored Date: Patient Care team information Care Team Personnel Name: Ileana YOU, Elisabeth Position: [facility] AMB Nurse Member Role: Primary Care Nurse Name: Spencer Sierra MD Position: [facility] Physician - Primary Care Member Role: PCP Address: Address: [address] [place] [address]- Care Team Related Persons Name: ALLEN ARMSTRONG Address: home [address] [place] [address] Name: ALLEN ROSAS Address: home [address] [place] [address]
--- OUTSIDE RECORDS SUMMARY | 2023-06-14 06:14 | XMS_ITS | Continuity of Care Document ---
Author Name Unknown Organization [facility] Address [address] [place] [address]- Care Team Providers Care Housekeeping Supervisor Hotel Name Role Phone Spencer Sierra MD Primary Care Physician [phone] Encounter [facility] [place] ACCT R [id number] Date(s): 02/11/23 - 06/11/23 [facility] [address] [place], [place] [address] Attending Physician: Spencer Sierra MD Allergies, Adverse Reactions, Alerts Substance Reaction Severity Status Reglan anxious Active Mobic rash Active Immunizations Given and Recorded Vaccine Date Status Refusal Reason SARS-CoV-2 mRNA (rpsdtiu-egza-eramt) vax 03/10/22 Recorded SARS-CoV-2 (COVID-19) mRNA BNT-162b2 [...] tablet, 1 Refills, Maintenance, 03/03/23 21:36:00 EDT, [facility] #[id number], 172.72, cm, 02/05/23 8:45:00 EDT, Height Start Date: 03/03/23 Status: Ordered omeprazole 20 mg oral enteric coated capsule 1 capsule, By Mouth, 2 times a day, # 180 capsule, 1 Refills, Maintenance, 04/30/23 7:53:00 EDT, [facility] #[id number], 172.72, cm, 03/20/23 13:26:00 EDT, Height Start [...] Name: Spencer Sierra MD Position: [facility] Physician - Primary Care Member Role: PCP Address: Address: [address] [place] [address]- Care Team Related Persons Name: ALLEN ARMSTRONG Address: home [address] [place] [address] Name: ALLEN ROSAS Address: home [address] [place] [id number]
[2023-06-14 06:22] VITALS: BP 129/73; PULSE 60; RESP 16; TEMP 36.7; O2SAT 95
[2023-06-14] MEDS: Lactated Ringers 1,000 ML 100 ML IVCONT (06:38)
[2023-06-14] MEDS: Albuterol Sulfate (0.083%) 2.5 MG/3 ML VIAL.NEB INHALE (07:19)
[2023-06-14 07:20] VITALS: PULSE 59; RESP 18; O2SAT 96
--- NOTE | 2023-06-14 08:05 | MHC.SHP ---
Pre-Procedural Eval Section A Date of Service: 06/14/23 The patient is an INPATIENT: No Changes since office visit: No Cold of Flu in the past 2 weeks, No New Medical Problems, No Changes in Medication and No Patient answered all questions The History & Physical has been completed within 30 days and I have reviewed it.: Yes Section B Chief Complaint: \prostate cancer Details of Present Illness: biopsy positive Relevant Family History (Specify if Yes): No Relevant Social History: None Present Medications: see Short Stay Collaborative assessment Medical History: No relevant PMH History of Previous Operations: No relevant previous surgery Allergies: Allergies Allergy/AdvReac Type Severity Reaction Status Date / Time meloxicam [From Mobic] Allergy Intermediate Anxiety Verified 06/09/23 14:52 metoclopramide [From Reglan] Allergy Intermediate Anxiety Verified 06/09/23 14:52 Review of Systems Sugical H&P ROS: Negative: Constitution, Cardiovascular, Respiratory, Neurological, Psychiatric, Hem-Onc, Allergic/Immunologic, Gastrointestinal, Genitourinary, Musculoskeletal, Integumentary, Endocrine and Eyes/Ears/Nose/Throat Exam Surgical H&P Exam: Normal: HEENT, Normal: Heart, Normal: Lungs, Normal: Extremities, Normal: Abdomen, Normal: Skin and Normal: Neurological Plan Diagnosis/Plan: Unchanged (targeted biopsy) I have reviewed the history and physical and performed a pertinent physical examination on my patient. No changes have occurred unless specified. Time Spent With Patient Time: Total time managing care of this patient today ____ minutes.
--- NOTE | 2023-06-14 08:56 | W.PM.OPN ---
Operative Note Operative Note Date of Service: 06/14/23 Narrative: Preoperative diagnosis: Prostate Cancer Postoperative diagnosis: Prostate Cancer Procedure: 1. transrectal ultrasound measurement of prostate 2. transrectal ultrasound-guided pudendal nerve block 3. MRI-US fusion image registration performed 3. transperineal ultrasound-guided prostate biopsy 17 core including targets Surgeon: Dr. Rodrick Dow Anesthetic: Sedation plus local Indications for procedure: Prostate Cancer - per patient low grade Procedure: After informed consent was verified, the patient was brought into the procedure area. Patient identity confirmed. Perioperative antibiotics confirmed. Safety pause time out performed. Anesthesia performed per protocol Ultrasound probe was placed per rectum Focalis software and hardware platform used An ultrasound-guided pudendal nerve block was performed using 10 cc of 1% lidocaine. 8 cc was placed at the base and 2 cc of the apex. Perineal injection of local. Ultrasound placement was made with grid calibration for height and prostate diameter in both the transverse and longitudinal planes. Once grid calibration was confirmed ultrasound acquisition was performed in the transverse fashion. Three dimensional ultrasound model was created. The planned needle targeting based on prior acquisition of MRI imaging was overlaid on the ultrasound images and targets confirmed through ultrasound review. Based on pre -planning evaluation 18 targets had been identified. These included 4 target areas including bilateral lesions PiRADs 3. PiRADS 5 lesion left apical. extra prostatic apical - identified lesion/s.. He tolerated the procedure well. Was transferred to stable condition in the PACU. Printed instructions regarding antibiotic use and common side effects such as low-grade temperature, potential infection and bleeding were given Pathology: 17 core prostate biopsy CPT 26500 Modifier 22 for complexity of planning and procedure execution
[2023-06-14 09:08] VITALS: BP 142/79; PULSE 72; RESP 14; TEMP 36.2; O2SAT 93
[2023-06-14 09:23] VITALS: BP 156/93; PULSE 63; RESP 18; TEMP 36.1; O2SAT 96
[2023-06-14 09:38] VITALS: BP 157/84; PULSE 61; RESP 18; TEMP 36.1; O2SAT 94
== END 2023-06-14 10:11 | disposition home or self-care (01) ==
PROVIDERS: PCP Internal Medicine; Visit Provider Urology
PROC: (CPT 55700; principal; 2023-06-14 07:30)
DX: C61 Malignant neoplasm of prostate (principal); N42.32 Atypical small acinar proliferation of prostate; Z85.01 Personal history of malignant neoplasm of esophagus; Z92.3 Personal history of irradiation; Z92.21 Personal history of antineoplastic chemotherapy; K21.9 Gastro-esophageal reflux disease without esophagitis; D50.9 Iron deficiency anemia, unspecified; D50.1 Sideropenic dysphagia; I10 Essential (primary) hypertension; G47.33 Obstructive sleep apnea (adult) (pediatric); Z79.899 Other long term (current) drug therapy; Z88.8 Allergy status to other drugs, medicaments and biological substances; Z98.890 Other specified postprocedural states; Z90.49 Acquired absence of other specified parts of digestive tract
CPT/HCPCS: 55706; 88305; 88344; J1956; J2250; J3010

== ENCOUNTER → 2023-06-14 06:11 | Outpatient (BNV) | payer MEDICARE, MEDICAID, SELFPAY | PROVIDERS: PCP Internal Medicine; Visit Provider Urology | DX: C61 Malignant neoplasm of prostate (principal) | CPT/HCPCS: 55700; 76942 ==

== ENCOUNTER 2023-07-01 10:30 | Outpatient (AMB) | payer MEDICARE, MEDICAID, SELFPAY ==
--- OUTSIDE RECORDS SUMMARY | 2023-07-01 10:32 | XMS_ITS | Continuity of Care Document ---
Author Name Unknown Organization [facility] Address [address] [place] [address]- Care Team Providers Care Bass Fisher Name Role Phone Spencer Sierra MD Primary Care Physician [phone] [place] [facility] [place] [id number] Date(s): 05/12/23 - 06/27/23 [facility] [address] [place], [place] [address] Attending Physician: Juan Jose Baeza MD Admitting Physician: Juan Jose Baeza MD Referring Physician: Rodrick Dow MD Allergies, Adverse Reactions, Alerts Substance Reaction Severity Status Reglan anxious Active Mobic rash Active Immunizations Given and Recorded Vaccine Date Status Refusal Reason SARS-CoV-2 mRNA (cigtwhz-japg-ornsq) vax 03/10/22 Recorded SARS-CoV-2 (COVID-19) mRNA BNT-162b2 [...] tablet, 1 Refills, Maintenance, 03/03/23 21:36:00 EDT, [facility] #[id number], 172.72, cm, 02/05/23 8:45:00 EDT, Height Start Date: 03/03/23 Status: Ordered omeprazole 20 mg oral enteric coated capsule 1 capsule, By Mouth, 2 times a day, # 180 capsule, 1 Refills, Maintenance, 04/30/23 7:53:00 EDT, [facility] #[id number], 172.72, cm, 03/20/23 13:26:00 EDT, Height Start [...] Malignant tumor of prostate; [facility]; active surveillance Confirmed 02/10/22 [...] Team Personnel Name: Elisabeth Tejeda RN Position: [facility] AMB Nurse Member Role: Primary Care Nurse Name: Spencer Sierra MD Position: [facility] Physician - Primary Care Member Role: PCP Address: Address: [address] [place] [address]- Care Team Related Persons Name: ALLEN ARMSTRONG Address: home [address] [place] [address] Name: ALLEN ROSAS Address: home [address] [place] [address]
--- OUTSIDE RECORDS SUMMARY | 2023-07-01 10:33 | XMS_ITS | Continuity of Care Document ---
Author Name Unknown Organization [facility] Address [address] [place] [address]- Care Team Providers Care Content Director Name Role Phone Spencer Sierra MD Primary Care Physician Encounter [facility] Date(s): 05/28/23 - 06/27/23 [facility] [address], [place] [address] Attending Physician: Gail Garza Admitting Physician: Gail Garza Referring Physician: tr, Gail Referring Physician: Carmen Burnett MA Allergies, Adverse Reactions, Alerts Substance Reaction Severity Status Reglan anxious Active Mobic rash Active Immunizations Given and Recorded Vaccine Date Status Refusal Reason SARS-CoV-2 mRNA ([id number]) vax 03/10/22 Recorded SARS-CoV-2 (COVID-19) mRNA BNT-162b2 [...] tablet, 1 Refills, Maintenance, 03/03/23 21:36:00 EDT, [facility] #[id number], 172.72, cm, 02/05/23 8:45:00 EDT, Height Start Date: 03/03/23 Status: Ordered omeprazole 20 mg oral enteric coated capsule 1 capsule, By Mouth, 2 times a day, # 180 capsule, 1 Refills, Maintenance, 04/30/23 7:53:00 EDT, [facility] #[id number], 172.72, cm, 03/20/23 13:26:00 EDT, Height Start [...] Malignant tumor of prostate; [facility]; active surveillance Confirmed 02/10/22 Active Night [...] Team Personnel Name: Elisabeth Tejeda RN Position: [facility] AMB Nurse Member Role: Primary Care Nurse Name: Spencer Sierra MD Position: [facility] Physician - Primary Care Member Role: PCP Address: Address: [address] [place] [address] Care Team Related Persons Name: ALLEN ARMSTRONG Address: home [address] [place] [id number] Name: ALLEN ROSAS Address: [place] [address]
--- NOTE | 2023-07-01 11:05 | A.OFFVIS_ITS ---
Intake Intake Visit Reasons: Bx results-post op Intake Note: Patient presents today for a follow-up on Biopsy Results: Meds- None Allergies to Antibiotic- No Known Allergies Blood Thinner- None Roper Operator Required: No Accompanied by: Self / Same As Patient Allergies meloxicam [From Mobic] Allergy (Intermediate, Verified 07/01/23 11:07) Anxiety metoclopramide [From Reglan] Allergy (Intermediate, Verified 07/01/23 11:07) Anxiety HPI HPI Comments History of Present Illness Details Rehan is a 63-year-old male who presents today via Tele-health for a follow-up. 07/01/2023? He is followed today for biopsy results. s/p MRI guided prostate biopsy by Dr. Dow on 06/14/2023. I reviewed the biopsy results with the patient. Prostate, C 3.0, needle core biopsy: Prostatic adenocarcinoma, Ru score 3+3=6 (Grade group 1), involving 1% of the needle core. Prostate, b 3.0, needle core biopsy: Prostatic adenocarcinoma, Ru score 3+3=6 (Grade group 1), involving 15% of the needle core. Grade group 1 adenocarcinoma prostate cancer 07/01/2023: Plan: Continue Active survei llance PSA screening test was ordered. Proscar 5 mg was ordered. Follow-up in 6 months. 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 Weight loss Microcytic anemia History of CO poisoning Rib lesion Diverticulitis Elevated PSA Night sweats Nausea Surgical History History of endoscopy (~2017) History of thoracic surgery (~2020) History of prostate biopsy (~2021) History of esophagectomy (~2018) Social History Alcohol intake: current Alcohol intake frequency: holidays/special occasions only Patient Tobacco Use Status: Never used Tobacco Review of Systems Const Reports no additional complaints Eyes Reports no additional complaints ENT Denies neck pain Card Denies leg edema Resp Denies cough GI Denies constipation Musc Reports no additional complaints and Denies neck pain Skin/Breast Denies rash and Denies unusual bruising Neuro Reports no additional complaints Psych Reports no additional complaints Endo Reports no additional complaints Len/Lymph Reports no additional complaints Aller/Immun Reports no additional complaints Results Reviewed Results Reviewed: Collected: 06/14/23 Location: [facility] Received: 06/14/23 Diagnosis A. Prostate, e 2.5, needle core biopsy: Atypical small acinar proliferation. B. Prostate, E 4.0, needle core biopsy: Benign prostatic tissue. C. Prostate, E 3.5, needle core biopsy: Benign prostatic tissue. D. Prostate, E 3.0, needle core biopsy: Benign prostatic tissue. E. Prostate, E 2.5, needle core biopsy: Benign prostatic tissue. F. Prostate, d 4.0, needle core biopsy: Fibromuscular tissue only. G. Prostate, d 3.0, needle core biopsy: Benign prostatic tissue. H. Prostate, d 2.5, needle core biopsy: Benign prostatic tissue. I. Prostate, d 1.5, needle core biopsy: Benign prostatic tissue. J. Prostate, c 4.0, needle core biopsy: Benign prostatic tissue. K. Prostate, c 3.5, needle core biopsy: Benign prostatic tissue. L. Prostate, c 2.0, needle core biopsy: Benign prostatic tissue. M. Prostate, C 3.0, needle core biopsy: Prostatic adenocarcinoma, [place] score 3+3=6 (Grade group 1), involving 1% of the needle core. N. Prostate, C 2.0, needle core biopsy: Benign prostatic tissue. O. Prostate, C 1.5, needle core biopsy: Benign prostatic tissue. P. Prostate, b 3.0, needle core biopsy: Prostatic adenocarcinoma, [place] score 3+3=6 (Grade group 1), involving 15% of the needle core. Q. Prostate, b 2.5, needle core biopsy: Benign prostatic tissue. Data synopsis - Prostate needle biopsy Histologic type: Acinar adenocarcinoma Histologic grade: 3+3=6 Ru score: 3+3=6 (M and P) % of pattern 4: Not identified % of pattern 5: Not identified Grade group: 1 Tumor quantitation: Number cores positive: 2 Total number of cores: 17 % of tissue involved: See above for details Periprostatic fat inv.: Not identified Seminal vesicle inv.: Not identified Perineural inv.: Not identified LVI: Not identified Assessment & Plan Assessment & Plan (1) Prostate cancer: Onset Date: ~2021 Code(s): C61 - Malignant neoplasm of prostate (2) Elevated PSA: Code(s): R97.20 - Elevated prostate specific antigen [PSA] Plan Ordered Proscar 5 mg daily. PSA screening test was ordered. Follow-up in 6 months. Orders: Orders PSA,Total (Free>4and<10) 5 Months C61 - Malignant neoplasm of prostate, R97.20 - Elevated prostate specific antigen [PSA] Medications: New finasteride (Proscar) 5 mg PO DAILY 90 tabs 3RF 90 days C61 - Malignant neoplasm of prostate Patient Instructions: The patient had an opportunity to ask questions regarding treatment plan. All questions were answered. Imaging, Laboratory studies and physical exam results were discussed and reviewed in detail. No major barriers to understanding were identified. The patient expressed understanding and agreement with the above treatment plan. The patient is aware they should contact our office by phone for worsening of their current condition or the appearance of new symptoms. Compliance is encouraged with any medications and followup testing that is ordered. It is a privilege to be allowed the opportunity to participate in the urologic care of your patient. If you have any questions or concerns regarding treatment for the above conditions please do not hesitate to contact me. The office telephone contact is [phone]. This note is constructed in part using voice recognition software. While every effort has been made to ensure accuracy geology professor errors may have been included. Yours sincerely, Anna Gaytan MD Telehealth Telehealth Location of provider rendering services: practice address Location of patient: address on file Patient Identification confirmed using: Name, : Yes Telehealth method: voice only Patient verbally consented to treatment: Yes Patient verbally consented to billing insurance company: Yes Patient informed of any privacy concerns related to visit: Yes Minutes spent on Phone/Video with Pt.: 18 Coding Level of Care Code Tele Est Pt Level 4 (02024) Diagnoses Prostate cancer C61 Elevated PSA R97.20
== END 2023-07-01 16:30 | disposition home or self-care (01) ==
LOC: HO.HUSH 10:30
PROVIDERS: PCP Internal Medicine; Visit Provider Urology
DX: C61 Malignant neoplasm of prostate (principal); R97.20 Elevated prostate specific antigen [PSA]
CPT/HCPCS: 99442

== ENCOUNTER → 2023-07-01 10:30 | Outpatient (BNVA) | payer MEDICARE, MEDICAID, SELFPAY | PROVIDERS: PCP Internal Medicine; Visit Provider Urology ==

== ENCOUNTER 2023-12-30 11:44 | Outpatient (REF) | payer MEDICARE, MEDICAID, SELFPAY ==
[2023-12-30 18:24] LABS: PSA,Total (Free>4and<10) 6.09 ng/mL (0.00-4.00)
[2024-01-03 12:33] LABS: Free Prostate Spec Ag 0.5 ng/mL; Percent Free Prostate Spec Ag 9 % (calc) (>25); Prostate Specific Ag Total 5.8 ng/mL (< OR = 4.0)
== END 2023-12-30 11:45 | disposition home or self-care (01) ==
LOC: HO.HKASLDS 11:44
PROVIDERS: Visit Provider Urology
DX: Z12.5 Encounter for screening for malignant neoplasm of prostate (principal); C61 Malignant neoplasm of prostate; R97.20 Elevated prostate specific antigen [PSA]
CPT/HCPCS: 36415; 84153; 84154

== ENCOUNTER 2024-01-03 11:52 | Outpatient (AMB) | payer MEDICARE, MEDICAID, SELFPAY ==
--- NOTE | 2024-01-03 11:53 | A.OFFVIS_ITS ---
Intake Visit Reasons: 6m follow up Intake Note: Patient is Present for Follow Up PSA Urology Medication: Finasteride (Wants a refill on medication) Antibiotic Allergies:None Blood Thinners: None Allergies meloxicam [From Mobic] Allergy (Intermediate, Verified 01/03/24 11:56) Anxiety metoclopramide [From Reglan] Allergy (Intermediate, Verified 01/03/24 11:56) Anxiety Medication List - Last Reconciled 01/03/24 by Anna Gaytan MD albuterol sulfate 90 mcg/actuation 2 puffs inhalation Q4H PRN amlodipine 5 mg PO DAILY baclofen 10 mg PO TID PRN finasteride (Proscar) 5 mg PO DAILY 90 days omeprazole 20 mg PO BID trazodone 25 - 100 mg PO BEDTIME HPI Comments Details: Rehan is a 63-year-old male who presents today for a follow-up. He is on active surveillance for prostate cancer, group 1, [place] score 3+3=6. He is here to discuss PSA testing. He is on Proscar 5 mg daily due to enlarged prostate. Discussed with the patient PSA 12/30/2023-6.09 ng/mL. Will continue active surveillance. PSA in 6 months. Continue Proscar. Review of chart: 07/01/2023?He is followed today for biopsy results. s/p MRI guided prostate biopsy by Dr. Dow on 06/14/2023. I reviewed the biopsy results with the patient. Prostate, C 3.0, needle core biopsy: Prostatic adenocarcinoma, Ru score 3+3=6 (Grade group 1), involving 1% of the needle core. Prostate, b 3.0, needle core biopsy: Prostatic adenocarcinoma, Ru score 3+3=6 (Grade group 1), involving 15% of the needle core. Grade group 1 adenocarcinoma prostate cancer 07/01/2023: Plan: Continue Active surveillance, PSA screening test was ordered. Proscar 5 mg was ordered. Follow-up in 6 months. [facility] Medical History Heart murmur Sleep apnea Essential hypertension History of esophageal cancer (~2017) Adenocarcinoma of gastroesophageal junction Prostate cancer (~2021) Radiation esophagitis GERD (gastroesophageal reflux disease) 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 Thrombocytopenia Jejunostomy tube present 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 Weight loss Microcytic anemia History of CO poisoning Rib lesion Diverticulitis Elevated PSA Night sweats Nausea Surgical History History of endoscopy (~2017) History of thoracic surgery (~2020) History of prostate biopsy (~2021) History of esophagectomy (~2018) Social History Alcohol intake: current Alcohol intake frequency: holidays/special occasions only Patient Tobacco Use Status: Never used Tobacco Review of Systems Const All systems reviewed & are unremarkable except as noted in HPI and below Reports no additional complaints Eyes Reports no additional complaints ENT Reports no additional complaints Card Reports no additional complaints Resp Reports no additional complaints GI Reports no additional complaints Reports as per HPI Musc Reports no additional complaints Skin/Breast Reports system reviewed and no additional complaints, except as documented Neuro Reports no additional complaints Psych Reports no additional complaints Endo Reports no additional complaints Len/Lymph Reports no additional complaints Aller/Immun Reports no additional complaints Results AMB Urinalysis, Automated UA Leukoctes 0 Lucio/uL Last Edit by TRUDI Yoon on 01/03/24 12:02 UA Nitrite Negative Last Edit by TRUDI Yoon on 01/03/24 12:02 UA Urobilinogen 0.2 mg/dL Last Edit by TRUDI Yoon on 01/03/24 12:0 2 UA Protein 15 mg/dL Last Edit by RTUDI Yoon on 01/03/24 12:02 UA pH 6.0 Last Edit by TRUDI Yoon on 01/03/24 12:02 UA Blood 10 Rafael/uL Last Edit by TRUDI Yoon on 01/03/24 12:02 UA Specific [place] 1.020 Last Edit by TRUDI Yoon on 01/03/24 12: 02 UA Ketone Negative Last Edit by TRUDI Yoon on 01/03/24 12:02 UA Bilirubin 0 mg/dL Last Edit by TRUDI Yoon on 01/03/24 12:02 UA Glucose 0 mg/dL Last Edit by TRUDI Yoon on 01/03/24 12:02 Results Reviewed Results Reviewed: Laboratory Last Values Urine pH (Auto) 6.0 01/03/24 11:56 Specific [place] (Auto) 1.020 01/03/24 11:56 Urine Protein (Auto) 15 mg/dL 01/03/24 11:56 Glucose (UA)(Auto) 0 mg/dL 01/03/24 11:56 Urine Ketones (Auto) Negative 01/03/24 11:56 Urine Blood (Auto) 10 Rafael/uL 01/03/24 11:56 Urine Nitrite (Auto) Negative 01/03/24 11:56 Urine Bilirubin (Auto) 0 mg/dL 01/03/24 11:56 Urine Urobilinogen (Auto) 0.2 mg/dL 01/03/24 11:56 Leukocyte Esterase (Auto) 0 Lucio/uL 01/03/24 11:56 Assessment & Plan Assessment & Plan (1) Prostate cancer: Onset Date: ~2021 Code(s): C61 - Malignant neoplasm of prostate Category: Medical (2) Elevated PSA: Code(s): R97.20 - Elevated prostate specific antigen [PSA] Category: Medical (3) Enlarged prostate: Code(s): N40.0 - Benign prostatic hyperplasia without lower urinary tract symptoms Category: Medical Plan Will continue active surveillance. PSA in 6 months. Continue Proscar. Orders: Orders AMB Urinalysis Automated 01/03/24 Z13.9 - Encounter for screening, unspecified PSA,Total (Free>4and<10) 4 Months C61 - Malignant neoplasm of prostate, R97.20 - Elevated prostate specific antigen [PSA] Medications: Refilled finasteride (Proscar) 5 mg PO DAILY 90 tabs 3RF 90 days C61 - Malignant neoplasm of prostate Patient Instructions: The patient had an opportunity to ask questions regarding treatment plan. The patient expressed understanding and agreement with the above treatment plan. The patient is aware they should contact our office by phone for worsening of their current condition or the appearance of new symptoms. Compliance is encouraged with any medications and followup testing that is ordered. It is a privilege to be allowed the opportunity to participate in the urologic care of your patient. If you have any questions or concerns regarding treatment for the above conditions please do not hesitate to contact me. The office telephone contact is [phone]. This note is constructed in part using voice recognition software. While every effort has been made to ensure accuracy hot header operator errors may have been included. Yours sincerely, Anna Gaytan MD Coding Level of Care Code Est Pt Level 4 (45172) Diagnoses Prostate cancer C61 Elevated PSA R97.20 Enlarged prostate N40.0
== END 2024-01-03 12:23 | disposition home or self-care (01) ==
PROVIDERS: PCP Internal Medicine; Visit Provider Urology
DX: C61 Malignant neoplasm of prostate (principal); R97.20 Elevated prostate specific antigen [PSA]; N40.0 Benign prostatic hyperplasia without lower urinary tract symptoms
CPT/HCPCS: 99214

== ENCOUNTER → 2024-01-03 11:52 | Outpatient (BNVA) | payer MEDICARE, MEDICAID, SELFPAY | PROVIDERS: PCP Internal Medicine; Visit Provider Urology | DX: R97.20 Elevated prostate specific antigen [PSA] (principal); N40.0 Benign prostatic hyperplasia without lower urinary tract symptoms; C61 Malignant neoplasm of prostate | CPT/HCPCS: 81003; 99212 ==

== ENCOUNTER 2024-06-05 09:56 | Outpatient (AMB) | payer MEDICARE, SELFPAY ==
--- NOTE | 2024-06-05 09:56 | A.OFFVIS_ITS ---
Intake Visit Reasons: 5m/PSA Intake Note: 5m/ PSA Director [employer] Required: No Allergies meloxicam [From Mobic] Allergy (Intermediate, Verified 06/05/24 09:56) Anxiety metoclopramide [From Reglan] Allergy (Intermediate, Verified 06/05/24 09:56) Anxiety HPI Comments Details: 06/05/24--Rehan is a 64-year-old male who presents today for a follow-up. He is on active surveillance for prostate cancer, group 1, Toponas score 3+3=6. He is on Proscar 5 mg daily due to enlarged prostate. He denies irritative voiding symptoms. PSA pending. Review of chart: 01/03/24--Rehan is a 63-year-old male who presents today for a follow-up. He is on active surveillance for prostate cancer, group 1, Ru score 3+3=6. He is here to discuss PSA testing. He is on Proscar 5 mg daily due to enlarged prostate. Discussed with the patient PSA 12/30/2023-6.09 ng/mL. Will continue active surveillance. PSA in 6 months. Continue Proscar. 07/01/2023?He is followed today for biopsy results. s/p MRI guided prostate biopsy by Dr. Dow on 06/14/2023. I reviewed the biopsy results with the patient. Prostate, C 3.0, needle core biopsy: Prostatic adenocarcinoma, Toponas score 3+3=6 (Grade group 1), involving 1% of the needle core. Prostate, b 3.0, needle core biopsy: Prostatic adenocarcinoma, Ru score 3+3=6 (Grade group 1), involving 15% of the needle core. Grade group 1 adenocarcinoma prostate cancer 07/01/2023: Plan: Continue Active surveillance, PSA screening test was ordered. Proscar 5 mg was ordered. Follow-up in 6 months. [facility] Medical History Heart murmur Sleep apnea Essential hypertension History of esophageal cancer (~2017) Adenocarcinoma of gastroesophageal junction Prostate cancer (~2021) Radiation esophagitis GERD (gastroesophageal reflux disease) 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 Thrombocytopenia Jejunostomy tube present 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 Weight loss Microcytic anemia History of CO poisoning Rib lesion Diverticulitis Elevated PSA Night sweats Nausea Surgical History History of endoscopy (~2017) History of thoracic surgery (~2020) History of prostate biopsy (~2021) History of esophagectomy (~2018) Social History Alcohol intake: current Alcohol intake frequency: holidays/special occasions only Patient Tobacco Use Status: Never used Tobacco Review of Systems Const All systems reviewed & are unremarkable except as noted in HPI and below Reports no additional complaints Eyes Reports no additional complaints ENT Reports no additional complaints Card Reports no additional complaints Resp Reports no additional complaints GI Reports no additional complaints Reports as per HPI Musc Reports no additional complaints Skin/Breast Reports system reviewed and no additional complaints, except as documented Neuro Reports no additional complaints Psych Reports no additional complaints Endo Reports no additional complaints Len/Lymph Reports no additional complaints Aller/Immun Reports no additional complaints Telehealth Telehealth Telehealth Platform: [facility] Location of provider rendering services: practice address Location of patient: address on file Patient Identification confirmed using: Name, : Yes Telehealth method: voice only Patient verbally consented to treatment: Yes Patient verbally consented to billing insurance company: Yes Patient informed of any privacy concerns related to visit: Yes Minutes spent on Phone/Video with Pt.: 15 Results Reviewed Results Reviewed: Collected: 06/14/23 Location: [facility] Received: 06/14/23 Diagnosis A. Prostate, e 2.5, needle core biopsy: Atypical small acinar proliferation. B. Prostate, E 4.0, needle core biopsy: Benign prostatic tissue. C. Prostate, E 3.5, needle core biopsy: Benign prostatic tissue. D. Prostate, E 3.0, needle core biopsy: Benign prostatic tissue. E. Prostate, E 2.5, needle core biopsy: Benign prostatic tissue. F. Prostate, d 4.0, needle core biopsy: Fibromuscular tissue only. G. Prostate, d 3.0, needle core biopsy: Benign prostatic tissue. H. Prostate, d 2.5, needle core biopsy: Benign prostatic tissue. I. Prostate, d 1.5, needle core biopsy: Benign prostatic tissue. J. Prostate, c 4.0, needle core biopsy: Benign prostatic tissue. K. Prostate, c 3.5, needle core biopsy: Benign prostatic tissue. L. Prostate, c 2.0, needle core biopsy: Benign prostatic tissue. M. Prostate, C 3.0, needle core biopsy: Prostatic adenocarcinoma, Ru score 3+3=6 (Grade group 1), involving 1% of the needle core. N. Prostate, C 2.0, needle core biopsy: Benign prostatic tissue. O. Prostate, C 1.5, needle core biopsy: Benign prostatic tissue. P. Prostate, b 3.0, needle core biopsy: Prostatic adenocarcinoma, Ru score 3+3=6 (Grade group 1), involving 15% of the needle core. Q. Prostate, b 2.5, needle core biopsy: Benign prostatic tissue. Data synopsis - Prostate needle biopsy Histologic type: Acinar adenocarcinoma Histologic grade: 3+3=6 Ru score: 3+3=6 (M and P) % of pattern 4: Not identified % of pattern 5: Not identified Grade group: 1 Tumor quantitation: Number cores positive: 2 Total number of cores: 17 % of tissue involved: See above for details Periprostatic fat inv.: Not identified Seminal vesicle inv.: Not identified Perineural inv.: Not identified LVI: Not identified Assessment & Plan Assessment & Plan (1) Prostate cancer: Onset Date: ~2021 Code(s): C61 - Malignant neoplasm of prostate Category: Medical (2) Elevated PSA: Code(s): R97.20 - Elevated prostate specific antigen [PSA] Category: Medical (3) Enlarged prostate: Code(s): N40.0 - Benign prostatic hyperplasia without lower urinary tract symptoms Category: Medical Plan Will continue active surveillance. PSA this week. Continue Proscar. MRI in 6 months Orders: Orders MR pelvis wo/w con 5 Months C61 - Malignant neoplasm of prostate, R97.20 - El evated prostate specific antigen [PSA] Patient Instructions: The patient had an opportunity to ask questions regarding treatment plan. The patient expressed understanding and agreement with the above treatment plan. The patient is aware they should contact our office by phone for worsening of their current condition or the appearance of new symptoms. Compliance is encouraged with any medications and followup testing that is ordered. It is a privilege to be allowed the opportunity to participate in the urologic care of your patient. If you have any questions or concerns regarding treatment for the above conditions please do not hesitate to contact me. The office telephone contact is [phone]. This note is constructed in part using voice recognition software. While every effort has been made to ensure accuracy choir singer errors may have been included. Yours sincerely, Anna Gaytan MD Coding Level of Care Code Tele Est Pt Level 3 (73165) Diagnoses Prostate cancer C61 Elevated PSA R97.20 Enlarged prostate N40.0
== END 2024-06-05 16:30 | disposition home or self-care (01) ==
LOC: HO.HUSH 09:56
PROVIDERS: PCP Internal Medicine; Visit Provider Urology
DX: C61 Malignant neoplasm of prostate (principal); R97.20 Elevated prostate specific antigen [PSA]; N40.0 Benign prostatic hyperplasia without lower urinary tract symptoms
CPT/HCPCS: 99442

== ENCOUNTER → 2024-06-05 09:56 | Outpatient (BNVA) | payer MEDICARE, SELFPAY | PROVIDERS: PCP Internal Medicine; Visit Provider Urology ==

== ENCOUNTER 2024-06-19 12:45 | Outpatient (REF) | payer MEDICARE, SELFPAY ==
[2024-06-19 15:37] LABS: PSA,Total (Free>4and<10) 6.43 ng/mL (0.00-4.00)
[2024-06-20 11:34] LABS: Free Prostate Spec Ag 0.4 ng/mL; Percent Free Prostate Spec Ag 7 % (calc) (>25); Prostate Specific Ag Total 6.1 ng/mL (< OR = 4.0)
== END 2024-06-19 12:46 | disposition home or self-care (01) ==
LOC: HO.10HDL 12:45
PROVIDERS: Visit Provider Urology
DX: Z12.5 Encounter for screening for malignant neoplasm of prostate (principal); C61 Malignant neoplasm of prostate; R97.20 Elevated prostate specific antigen [PSA]
CPT/HCPCS: 36415; 84153; 84154

== ENCOUNTER 2024-11-03 08:38 | Outpatient (REF) | payer MEDICARE, SELFPAY ==
--- OUTSIDE RECORDS SUMMARY | 2024-11-03 09:10 | XMS_ITS | Clinical Summary ---
Author Organization [facility] Address [address] [place] [address] Phone Care Team Providers Care Esthetics Instructor Name Role Phone Spencer Sierra MD Primary Care Provider [phone] Allergies Active Allergy Reactions Criticality Noted Date Comments Meloxicam Headache 03/26/2016 Metoclopramide Anxiety Low 09/04/2014 Other reaction(s): Not available Medications albuterol HFA (PROAIR HFA ; PROVENTIL HFA ; VENTOLIN HFA) 90 mcg/actuation inhaler Inhale 2 puffs by mouth. 2 Active ALBUTEROL INHL Inhale. Activ e amLODIPine (NORVASC) 5 mg tablet Take 1 tablet (5 mg total) by mouth 1 (one) time each day. 2 Active amLODIPine (NORVASC) 10 mg tablet Take 5 mg by mouth 1 (one) time each day. Active baclofen (LIORESAL) 10 mg tablet Take 1 tablet (10 mg total) by mouth. 1 Active diclofenac (VOLTAREN) 1 % topical gel Apply topically. Active finasteride (PROSCAR) 5 mg tablet Take 1 tablet (5 mg total) by mouth 1 (one) time each day. 3 Active fluticasone propionate (FLONASE) 50 mcg/actuation nasal spray Administer into affected nostril(s). 3 Active hydrocortisone 2.5 % cream Apply topically 2 (two) times a day. Active omeprazole (PriLOSEC) [address] capsule Take 1 capsule (20 mg total) by mouth 1 (one) time each day. 0 Active traZODone (DESYREL) 50 mg tablet TAKE 1/2 TO 2 TABLETS BY MOUTH DAILY AT BEDTIME 2 Active Active Problems Problem Noted Date Diagnosed Date Nausea and vomiting 02/10/2022 Night sweats 09/04/2021 Elevated PSA 09/04/2021 Diverticulitis 01/22/2021 Rib lesion 10/08/2020 Prostate cancer 08/24/2020 Overview (10/29/2023): [facility]; as of 01/18, plan for active surveillance. Seen on 04/02/2022 -pathology showed atypical cells, suspicious for adenocarcinoma. Patient is uncertain whether he would like to continue active surveillance. Visit with Dr. Bynum will be arranged soon to discuss possible prostatectomy. 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 Encounters Date Type Department Care Team Description 09/27/2024 10:43 AM EST - 09/27/2024 11:59 PM EST Hospital Encounter [facility] PET Scan [address] [place] [address] GE junction carcinoma (CMS/HCC); Pharyngeal mass; Lung nodule Discharge Disposition: Home or Self Care 09/08/2024 Telephone [facility] Hematology Oncology [address] [place] [address] Gabbi Novoa MD 08/07/2024 11:15 AM EST Office Visit [facility] Hematology Oncology [address] [place] [address] Gabbi Novoa MD Prostate cancer ([facility]/HCC) (Primary Dx); GE junction carcinoma (CMS/HCC); Iron deficiency anemia due to sideropenic dysphagia; Nausea and vomiting, unspecified vomiting type; Anemia in neoplastic disease; Rib lesion; Diverticulitis from Last 3 Months Immunizations Name Administration Dates Next Due Roomtag (ages 12 & older) REANNA S-CoV-2 COVID-19, mRNA, LNP-S, juanita-sucrose, preservative free 03/10/2022 Pfizer SARS-CoV-2 COVID-19, mRNA, LNP-S, preservative free 09/03/2021,01/03/2021,12/12/2020 Surgical History Surgery Date Site/Laterality Comments CARPAL TUNNEL RELEASE 03/27/2014 Right PROCEDURE: HISTORICAL CARPAL TUNNEL REL HIP ARTHROPLASTY 07/09/2014 Right PROCEDURE: HISTORICAL HIP REPLACEMENT OTHER SURGICAL HISTORY 06/17/2009 PROCEDURE: COLONOSCOPY, SURGICAL OTHER SURGICAL HISTORY 06/13/2018 PROCEDURE: COLON CA SCRN NOT HI RSK IND; COMMENT: ticsand hemorrhoids; repeat in 10 yrs ESOPHAGOGASTRODUODENOSCOPY 07/14/18 [facility] PROCEDURE: CT EGD TRANSORAL BIOPSY SINGLE/MULTIPLE; COMMENT: moderately differentiated carcinoma GE junction and hiatus hernia OTHER SURGICAL HISTORY 07/26/2018 PROCEDURE: ---- OTHER ----; COMMENT: benign oral lesion (necrotizing sialometaplasia) OTHER SURGICAL HISTORY 11/2018 PROCEDURE: ---- OTHER ----; COMMENT: Esophagectomy, J-tube placement OTHER SURGICAL HISTORY 11/2018 PROCEDURE: ---- OTHER ----; COMMENT: esophageal anastamosis repair, stent placement OTHER SURGICAL HISTORY 12/2018 PROCEDURE: ---- OTHER ----; COMMENT: replacement of esophageal stent OTHER SURGICAL HISTORY 04/03/2019 PROCEDURE: ---- OTHER ----; COMMENT: removal of esophageal stent OTHER SURGICAL HISTORY 11/06/2020 Left PROCEDURE: ---- OTHER ----; COMMENT: VATS resection of portion of 6 rib, and rib plating Medical History Medical History Date Comments Esophageal cancer (CMS/HCC) DX:E sophageal cancer (HCC) Lymphadenopathy DX:Lymphadenopat hy Obstructive sleep apnea DX:Obstr uctive sleep apnea Hypertension DX:Hypertension Asthma DX:Asthma Thoracic aortic aneurysm (CMS/HCC) DX:Thoracic aortic aneurysm (HCC) Cervical radiculopathy DX:Cervic al radiculopathy Diverticulitis DX:Diverticuliti s CTS (carpal tunnel syndrome) DX: CTS (carpal tunnel syndrome) History of hip replacement DX:Hi story of hip replacement S/P hip replacement 07/14/2014 DX:S/P hip r eplacement Hypertension 04/26/2014 DX:Hypertension Hypercalcemia 06/06/2014 DX:Hypercalcemia Asthma 04/26/2014 DX:Asthma CTS (carpal tunnel syndrome) 08/30/2014 DX: CTS (carpal tunnel syndrome) Allergic rhinitis 08/30/2014 DX:Allergic rh initis History of empyema of pleura 08/30/2014 DX: History of empyema of pleura; COMMENT: staph Cervical radiculopathy 08/30/2014 DX:Cervic al radiculopathy Vitamin D deficiency 08/30/2014 DX:Vitamin D deficiency Diverticulitis 08/30/2014 DX:Diverticuliti s; COMMENT: 08/06 Low back pain 08/30/2014 DX:Low back pain Internal hemorrhoids 08/04/2016 DX:Internal hemorrhoids Overweight 04/26/2014 DX:Overweight Esophageal cancer (CMS/HCC) DX:E sophageal cancer ([facility]) Esophageal reflux DX:Esophageal reflux History of pleural effusion DX:H istory of pleural effusion; COMMENT: Per PCP office visit note - 02/05/2023 Prostate cancer (CMS/HCC) DX:Pro state cancer ([facility]) Family History Medical History Relation Name Comments Cancer Father prostate cancer Hypertension Father Prostate cancer Father Prostate cancer Uncle 1 Prostate cancer Uncle 2 Coronary artery disease Neg Hx Diabetes Neg Hx Relation Name Status Comments Brother 2 Alive Father Mother Alive Sister 3 Alive Uncle 1 Uncle 2 Social History Tobacco Use Types Packs/Day Years Used Date Smoking Tobacco: Never Smokeless Tobacco: Never Tobacco Cessation:Counseling Given: Not Answered Alcohol Use Standard Drinks/Week Comments Yes 1 (1 standard drink = 0.6 oz pur e alcohol) Sex and Gender Information Value Date Recorded Sex Assigned at Not on file Legal Sex Male 5:10 AM EST Gender Identity Not on file Sexual Orientation Not on file Obstetrics History Last Filed Vital Signs Vital Sign Reading Time Taken Comments Blood Pressure 130/68 08/07/2024 11:43 AM EST Pulse 63 08/07/2024 11:43 AM EST Temperature 36.3 ??C (97.3 ??F) 08/07/2024 1 1:43 AM EST Respiratory Rate - - Oxygen Saturation 97% 08/07/2024 11: 43 AM EST Inhaled Oxygen Concentration - - Weight 80.2 kg (176 lb 12.8 oz) 024 11:43 AM EST Height 170.2 cm (5' 7 ) 06/14/2024 3:04 PM EDT Body Mass Index 27.69 06/14/2024 3:04 PM EDT Plan of Treatment Upcoming Encounters Date Type Department Care Team (Latest Contact Info) Description 11/08/2024 11:15 AM EDT Office Visit [facility] Hematology Oncology [address] [place] [phone] Gabbi Vanegas MD [address] [place] [address] 11/20/2024 7:30 AM EDT Hospital Encounter [facility] [place] [address] [place] [phone] Socorro Thayer MD [address] [address] 11/20/2024 7:30 AM EDT - 11/20/2024 9:00 AM EDT Surgery [facility] Main OR [address] [place] [phone] Socorro Thayer MD [address] [address] DIRECT LARYNGOSCOPY W/BIOPSY [20[address] (CPT??)] 05/03/2025 10:30 AM EDT Office Visit Pulmonolgy - [place] [address] [facility] [address] [place] [phone] Blas León MD 175 [facility] [address] [place] [address] 05/31/2025 10:00 AM EDT Office Visit Thoracic Surgery - [place] [address] [facility] [address] [place] [phone] Shruthi Montelongo PA [address] [facility], [address] [place] [address] Scheduled Procedures Name Priority Associated Diagnoses Date/Ti me LARYNGOSCOPY DIRECT Neoplasm of uncertain behavior of pharynx 11/20/2024 7:30 AM EDT Health Maintenance Due Date Last Done Comments Hepatitis A Vaccines (1 of 2 - Risk 2-dose series) 1978 Pneumococcal Vaccine: 50+ Years (1 of 2 - PCV) 1978 Pneumococcal Vaccine: Pediatrics (0 to 5 Years) and At-Risk Patients (6 to 64 Years) (1 of 2 - PCV) 1978 Zoster Vaccines (1 of 2) 1978 Hepatitis B Vaccines (1 of 3 - Risk 3-dose series) 2019 RSV Immunization Patients 60+ Years Old (1 - Risk 60-74 years 1-dose series) 2019 Cholesterol Screening (Lipid Panel) 08/07/2022 Colorectal Cancer Screening: Colonoscopy 08/07/2022 Depression Screening 08/07/2022 Hepatitis C Screening 08/07/2022 Medicare Annual Wellness Visit 08/07/2022 Social Influencers of Health Screening 08/07/2022 COVID-19 Vaccine ( season) 2024 03/10/2022, 09/03/2021, 01/03/2021, Additional history exists Influenza Vaccine (#1) 2024 Falls Risk Assessment 2024 Hypertension/CHF/CAD Annual BMP Blood Test 08/07/2025 08/07/2024 DTaP,Tdap,and Td Vaccines (2 - Td or Tdap) 04/30/2026 04/30/2016 HIB Vaccines Aged Out No longer eligi ble based on patient's age to complete this topic HPV Vaccines Aged Out No longer eligi ble based on patient's age to complete this topic IPV Vaccines Aged Out No longer eligi ble based on patient's age to complete this topic MMR Vaccines Aged Out No longer eligi ble based on patient's age to complete this topic Meningococcal ACWY Vaccine Aged Out N o longer eligible based on patient's age to complete this topic Meningococcal B Vacine Aged Out No lo nger eligible based on patient's age to complete this topic RSV Immunization Patients Under 20 months Aged Out No longer eligible based on patient's age to complete this topic Varicella Vaccines Aged Out No longer eligible based on patient's age to complete this topic Procedures Procedure Name Priority Date/Time Associated Diagnosis Comments PET CT SKULL TO MID THIGH SUBSEQUENT Routine 09/27/2024 11:58 AM EST GE junction carcinoma (CMS/HCC) Pharyngeal mass Lung nodule CBC WITH AUTO DIFFERENTIAL Routine 08/07/2024 12:09 PM EST Prostate cancer (CMS/HCC) Iron deficiency anemia due to sideropenic dysphagia FERRITIN Routine 08/07/2024 12:09 PM EST Iron deficiency anemia due to sideropenic dysphagia IRON AND TIBC Routine 08/07/2024 12:09 PM EST Iron deficiency anemia due to sideropenic dysphagia COMPREHENSIVE METABOLIC PANEL Routine 08/07/2024 12:09 PM EST Prostate cancer (CMS/HCC) Iron deficiency anemia due to sideropenic dysphagia CBC AND DIFFERENTIAL Routine 08/07/2024 12:09 PM EST Prostate cancer (CMS/HCC) Iron deficiency anemia due to sideropenic dysphagia PROSTATE SPECIFIC ANTIGEN DIAGNOSTIC Routine 08/07/2024 12:09 PM EST Prostate cancer (CMS/HCC) Iron deficiency anemia due to sideropenic dysphagia from Last 3 Months Results * PET CT Skull to Mid Thigh Subsequent (09/27/2024 11:58 AM EST) Anatomical Region Laterality Modality Body Radiographic Kassie ging 09/27/2024 2:30 PM EST Impressions 09/27/2024 2:33 PM EST No abnormal metabolic activity to suggest metastatic disease. -------- FINAL REPORT -------- Dictated By: Scar Ferraro Dictated Date: 09/27/2024 14:30 ET Assigned Physician: Scar Ferraro Reviewed and Electronically Signed By: Scar Ferraro Signed Date: 09/27/2024 14:33 ET Workstation ID: [id number] Transcribed By: Self Edit Transcribed Date: 09/27/2024 14:30 ET Narrative 09/27/2024 2:33 PM EST INDICATION: Esophageal carcinoma, subsequent treatment strategy Prior relevant studies: CT scan of the chest abdomen and pelvis from June 07, [address] from September 06, 2024 reviewed. Radiopharmaceutical: 13.4 mCi of F-18 FDG IV. Blood glucose: 108 mg/dl. PROCEDURE: Routine body FDG PET-CT imaging was performed from the skull base to the proximal/mid thighs and reconstructed in axial, coronal, and sagittal planes at the computer workstation with fused data from both the PET imaging study and attenuation correction CT. The CT portion of the examination was done strictly for attenuation correction and is not a true diagnostic CT examination. CTDI: 6.02 mGy FINDINGS: HEAD AND NECK: No abnormal FDG activity. Symmetric physiological activity noted along the parotid glands and subareolar glands as well as in the parapharyngeal soft tissues. No discrete FDG avid parapharyngeal mass or cervical lymphadenopathy. THORAX: No abnormal FDG activity. No FDG avid pulmonary nodules. ABDOMEN/PELVIS: No abnormal FDG activity. Physiological activity noted along the colon. MUSCULOSKELETAL: No abnormal FDG activity. Procedure Note Scar Ferraro MD - 09/27/2024 INDICATION: Esophageal carcinoma, subsequent treatment strategy Prior relevant studies: CT scan of the chest abdomen and pelvis fromJune 07, [address] from September 06, 2024 reviewed. Radiopharmaceutical: 13.4 mCi of F-18 FDG IV. Blood glucose: 108 mg/dl. PROCEDURE: Routine body FDG PET-CT imaging was performed from the skullbase to the proximal/mid thighs and reconstructed in axial, coronal, andsagittal planes at the computer workstation with fused data from both thePET imaging study and attenuation correction CT. The CT portion of theexamination was done strictly for attenuation correction and is not a truediagnostic CT examination. CTDI: 6.02 mGy FINDINGS: HEAD AND NECK: No abnormal FDG activity. Symmetric physiological activity noted along the parotid glands andsubareolar glands as well as in the parapharyngeal soft tissues. Nodiscrete FDG avid parapharyngeal mass or cervical lymphadenopathy. THORAX: No abnormal FDG activity. No FDG avid pulmonary nodules. ABDOMEN/PELVIS: No abnormal FDG activity. Physiological activity noted along the colon. MUSCULOSKELETAL: No abnormal FDG activity. IMPRESSION: No abnormal metabolic activity to suggest metastatic disease. -------- FINAL REPORT -------- Dictated By: Scar Ferraro Dictated Date: 09/27/2024 14:30 ET Assigned Physician: Scar Ferraro Reviewed and Electronically Signed By: Scar Ferraro Signed Date: 09/27/2024 14:33 ET Workstation ID: [id number] Transcribed By: Self Edit Transcribed Date: 09/27/2024 14:30 ET us Félixramzara Vanegas MD [facility] [place] PROCEDURES F inal Result * Prostate specific antigen diagnostic (08/07/2024 12:09 PM EST) PSA 2.87 0.00 - 4.00 ng/mL LAB CHEMISTRY METHOD 08/07/2024 2:10 PM EST [facility] Blood Venous blood specimen / Unknown Venipuncture / Unknown 08/07/2024 12:09 PM EST 08/07/2024 1:33 PM EST Narrative [facility] - 08/07/2024 2:10 PM EST The Siemens Advia Centaur Chemiluminescent Immunoassay is used. Results obtained with different assay methods or kits cannot be used interchangeably. Results cannot be interpreted as absolute evidence of the presence or absence of malignant disease. us Gabbi Vanegas MD LAB BLOOD ORDERABLE S Final Result [facility] [address] [place] [address], [place] [phone] * (ABNORMAL) CBC auto differential (08/07/2024 12:09 PM EST) [facility] WBC 7.0 4.8 - 10.8 K/mcL LAB HEMETOLOGY METHOD 08/07/2024 1:53 PM EST [facility] RBC 5.30 4.50 - 5.50 M/mcL LAB HEMETOLOGY METHOD 08/07/2024 1:53 PM EST [facility] Hemoglobin 14.5 13.5 - 17.5 g/dL LAB HEMETOLOGY METHOD 08/07/2024 1:53 PM [facility] Hematocrit 45.3 42.0 - 54.0 % LAB HEMETOLOGY METHOD 08/07/2024 1:53 PM [facility] MCV 85.0 79.0 - 98.0 FL LAB HEMETOLOGY METHOD 08/07/2024 1:53 PM [facility] MCH 27.2 27.0 - 32.0 pcg LAB HEMETOLOGY METHOD 08/07/2024 1:53 PM [facility] MCHC 32.0 32.0 - 37.0 g/dL LAB HEMETOLOGY METHOD 08/07/2024 1:53 PM [facility] RDW 14.7 11.0 - 15.0 % LAB HEMETOLOGY METHOD 08/07/2024 1:53 PM [facility] Platelets 302 130 - 400 K/mcL LAB HEMETOLOGY METHOD 08/07/2024 1:53 PM [facility] MPV 10.7 7.0 - 11.0 FL LAB HEMETOLOGY METHOD 08/07/2024 1:53 PM [facility] NRBC 0.0 <1.0 % LAB HEMETOLOGY METHOD 08/07/2024 1:53 PM [facility] NRBC Absolute 0.00 <0.10 K/mcL LAB HEMETOLOGY METHOD 08/07/2024 1:53 PM [facility] Neutrophils Relative 60.7 % LAB HEMETOLOGY METHOD 08/07/2024 1:53 PM [facility] Lymphocytes Relative 18.2 % LAB HEMETOLOGY METHOD 08/07/2024 1:53 PM [facility] Monocytes Relative 14.9 % LAB HEMETOLOGY METHOD 08/07/2024 1:53 PM [facility] Eosinophils Relative 4.7 % LAB HEMETOLOGY METHOD 08/07/2024 1:53 PM [facility] Basophils Relative 1.1 % LAB HEMETOLOGY METHOD 08/07/2024 1:53 PM [facility] Immature Granulocytes Relative 0.4 % LAB HEMETOLOGY METHOD 08/07/2024 1:53 PM [facility] Neutrophils Absolute 4.24 1.50 - 7.00 K/mcL LAB HEMETOLOGY METHOD 08/07/2024 1:53 PM [facility] Lymphocytes Absolute 1.27 1.00 - 5.00 K/mcL LAB HEMETOLOGY METHOD 08/07/2024 1:53 PM [facility] Monocytes Absolute 1.04(H) 0.20 - 1.00 K/mcL LAB HEMETOLOGY METHOD 08/07/2024 1:53 PM [facility] Eosinophils Absolute 0.33 0.00 - 0.50 K/mcL LAB HEMETOLOGY METHOD 08/07/2024 1:53 PM [facility] Basophils Absolute 0.08 0.00 - 0.20 K/mcL LAB HEMETOLOGY METHOD 08/07/2024 1:53 PM [facility] Immature Granulocytes Absolute 0.03 0.00 - 0.03 K/mcL LAB HEMETOLOGY METHOD 08/07/2024 1:53 PM EST [facility] Blood Venous blood specimen / Unknown Venipuncture / Unknown 08/07/2024 12:09 PM EST 08/07/2024 1:32 PM EST us Gabbi Vanegas MD LAB BLOOD ORDERABLE S Final Result Performing Organization Address [facility] Co de Phone Number [facility] [address] [place] [address], [place] [phone] * (ABNORMAL) Iron and TIBC (08/07/2024 12:09 PM EST) Iron 68 50 - 160 mcg/dL LAB CHEMISTRY METHOD 08/07/2024 2:03 PM EST [facility] TIBC 371 250 - 450 mcg/dL LAB CHEMISTRY METHOD 08/07/2024 2:03 PM EST [facility] Iron Saturation 18(L) 20 - 50 % LAB CHEMISTRY METHOD 08/07/2024 2:03 PM EST [facility] Blood Venous blood specimen / Unknown Venipuncture / Unknown 08/07/2024 12:09 PM EST 08/07/2024 1:33 PM EST us Gabbi Vanegas MD LAB BLOOD ORDERABLE S Final Result Performing Organization Address [facility]/ZIP Co de Phone Number [facility] [address] [place] [address], [place] [phone] * Ferritin (08/07/2024 12:09 PM EST) Ferritin 81 26 - 388 ng/mL LAB CHEMISTRY METHOD 08/07/2024 2:06 PM EST [facility] Blood Venous blood specimen / Unknown Venipuncture / Unknown 08/07/2024 12:09 PM EST 08/07/2024 1:33 PM EST Gabbi Vanegas MD LAB BLOOD ORDERABLE S Final Result [facility] [address] [place] [address], * Comprehensive metabolic panel (08/07/2024 12:09 PM EST) Sodium 140 133 - 145 mmol/L LAB CHEMISTRY METHOD 08/07/2024 2:06 PM [facility] Potassium 3.6 3.5 - 5.5 mmol/L LAB CHEMISTRY METHOD 08/07/2024 2:06 PM [facility] Chloride 106 96 - 110 mmol/L LAB CHEMISTRY METHOD 08/07/2024 2:06 PM [facility] CO2 30 21 - 32 mmol/L LAB CHEMISTRY METHOD 08/07/2024 2:06 PM [facility] Anion Gap 4 3 - 11 LAB CHEMISTRY METHOD 08/07/2024 2:06 PM [facility] Glucose 99 70 - 100 mg/dL LAB CHEMISTRY METHOD 08/07/2024 2:06 PM [facility] BUN 19 5 - 25 mg/dL LAB CHEMISTRY METHOD 08/07/2024 2:06 PM [facility] Creatinine 0.98 0.70 - 1.30 mg/dL LAB CHEMISTRY METHOD 08/07/2024 2:06 PM [facility] eGFR 86 >=60 mL/min/1. 73m2 LAB CHEMISTRY METHOD 08/07/2024 2:06 PM [facility] Comment:Calculation based on the??Chronic Kidney Disease Epidemiology Collaboration (CKD-EPI) equation refit??without adjustment for race. BUN/Creatinine Ratio 19.4 LAB CHEMISTRY METHOD 08/07/2024 2:06 PM [facility] Calcium 9.6 8.5 - 10.5 mg/dL LAB CHEMISTRY METHOD 08/07/2024 2:06 PM [facility] AST (SGOT) 20 10 - 42 unit/L LAB CHEMISTRY METHOD 08/07/2024 2:06 PM [facility] ALT (SGPT) 37 10 - 60 unit/L LAB CHEMISTRY METHOD 08/07/2024 2:06 PM [facility] Alkaline Phosphatase 84 42 - 121 unit/L LAB CHEMISTRY METHOD 08/07/2024 2:06 PM [facility] Total Protein 6.5 6.0 - 8.0 g/dL LAB CHEMISTRY METHOD 08/07/2024 2:06 PM [facility] Albumin 3.6 3.2 - 5.0 g/dL LAB CHEMISTRY METHOD 08/07/2024 2:06 PM [facility] Total Bilirubin 0.4 0.0 - 1.4 mg/dL LAB CHEMISTRY METHOD 08/07/2024 2:06 PM [facility] Blood Venous blood specimen / Unknown Venipuncture / Unknown 08/07/2024 12:09 PM EST 08/07/2024 1:33 PM EST Subramony Romina PEARSON LAB BLOOD ORDERABLE S Final Result [facility] [address] [place] [address], from Last 3 Months Insurance [employer] MEDICARE Care Teams Esthetics Instructor Relationship Specialty Start Date End Date Spencer Sierra MD [address] [place] [id number] PCP - General Internal Medicine 07/29/18
--- OUTSIDE RECORDS SUMMARY | 2024-11-03 09:10 | XMS_ITS | Continuity of Care Document ---
Author Organization [facility] Address [address] [place] [address]- Care Team Providers Care Junior Automation Engineer Name Role Phone Rigo PEARSON, Primary Care Physician Encounter [facility] Date(s): 09/06/24 - 10/06/24 [facility] [address] [place], [place] [address] Encounter Type: Triage Allergies, Adverse Reactions, Alerts Substance Criticality Severity Reaction Reaction Severity Status Reglan anxious Active Mobic rash Active Immunizations Given and Recorded Vaccine Date Status Refusal Reason SARS-CoV-2 mRNA (mhidype-xnbc-hbzug) vax 03/10/22 Recorded SARS-CoV-2 (COVID-19) mRNA BNT-162b2 vac 09/03/21 Recorded SARS-CoV-2 (COVID-19) mRNA BNT-162b2 vac 01/03/21 Recorded SARS-CoV-2 (COVID-19) mRNA BNT-162b2 vac 12/12/20 Recorded tetanus/diphtheria/pertussis, acel(Tdap) 04/30/16 Recorded Medications Albuterol (Eqv-ProAir HFA) 90 mcg/inh inhalation aerosol 2 puffs, Inhalation, Every 6 hours, PRN Wheezing/Shortness of Breath, # 8.5 Gm, 2 Refills, Maintenance, 04/04/24 10:38:00 PM EDT, [facility] #[id number], Partial fill upon patient request if the prescription is for a schedule II opioid drug., 2 puffs Inhalation Every 6 hours,PRN:Wheezing/Shortness of Breath, 172.72, cm, 05/28/23 10:50:00 EDT, Height, 83.6, kg, 05/28/23 10:50:00 EDT, Dry Weight Start Date: 04/04/24 Status: Ordered Quantity: 8.5 Unit: g Repeat number: 3 amLODIPine 5 mg oral tablet 1 tablet, By Mouth, Daily, # 90 tablet, 3 Refills, Maintenance, 03/24/24 9:29:00 AM EDT, [id number], 172.72, cm, 05/28/23 10:50:00 EDT, Height, 83.6, kg, 05/28/23 10:50:00 EDT, Dry Weight Start Date: 03/24/24 Status: Ordered Quantity: 90.0 Unit: tablet Repeat number: 4 omeprazole 20 mg oral enteric coated capsule 1 capsule, By Mouth, 2 times a day, # 180 capsule, 1 Refills, Maintenance, 02/09/24 7:51:00 PM EDT, [facility] #[id number], 172.72, cm, 05/28/23 10:50:00 EDT, Height, 83.6, kg, 05/28/23 10:50:00 EDT, Dry Weight Start Date: 02/09/24 Status: Ordered Quantity: 180.0 Unit: capsule Repeat number: 1 Vitamin B-12 1000 mcg oral tablet 1,000 mcg, 1, tablet, By Mouth, # 90 tablet, Refills 0, Maintenance, 02/24/23 2:45:00 PM EDT, Partial fill upon patient request if the prescription is for a schedule II opioid drug. Start Date: 02/24/23 Status: Ordered Quantity: 90.0 Unit: tablet Repeat number: 1 Problem List Condition Confirmation Course Effective Dates Status H ealth Status Informant Anemia Confirmed Active Anti-nuclear factor positive Confirmed 05/09/19 Active Asthma Confirmed Active Cervical radiculopathy Confirmed Active Environmental allergies Confirmed Active Erectile dysfunction Confirmed Active Gastroesophageal reflux disease Confirmed 09/09/18 Active History of diverticulitis; 08/06, 03/13, 12/18, 03/20 Confirmed 01/22/21 Active History of esophageal cancer; Dr Aguilar; chemo, radiation, surgery Confirmed 12/6/18 Active History of pleural effusion, w/ chest tube after anastamotic leak after esophageal surgery Confirmed Active HTN (hypertension) Confirmed Active Impaired fasting glucose Confirmed Active Insomnia Confirmed Active Low back pain Confirmed Active Malignant tumor of prostate; [facility]; active surveillance Confirmed 02/10/22 Active ALEX (obstructive sleep apnea); [facility] Confirmed Active 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 Radiation esophagitis Confirmed 09/09/18 Active Shoulder pain Confirmed Active Fatty liver Confirmed Active Social History Social History Type Response Smoking Status Never (less than 100 in lifetime) entered on: 05/28/23 Sex Sex Representation Male (finding) Patient Care team information Care Team Personnel Name: Elisabeth Tejeda RN Position: [facility] RN Member Role: Primary Care Nurse Name: Spencer Sierra MD Position: [facility] Physician - Primary Care Member Role: PCP Address: [address] [place] [address] Telecom: Care Team Related Persons Name: ALLEN ARMSTRONG Name: ALLEN ROSAS Insurance Providers Guarantor name: YOGESH ROSAS [facility] Information #: 1 Payer: [employer] Member Number: NA Policy Number: NA Group Number: NA
--- OUTSIDE RECORDS SUMMARY | 2024-11-03 09:10 | XMS_ITS | Data Portability ---
Author Organization [place] - [facility], All[facility] Address [address] [place] [id number] Care Team Providers Care Test Evaluator Name Role Phone JEEVAN AGUERO Primary Care Provider Assessment No assessment recorded. Plan of Treatment Reminders Order Date Submit Date Provider Last Modified By Organization Details Last Modified Time Details Appointments SURGERY 90 2024 07:30A M CARIN JHAVERI MD Not available Not available Not available Post Op 2024 01:30P M SHANTI DOTSON PA-C Not available Not available Not available Lab None recorded. Referral None recorded. Procedures None recorded. Surgeries laryngosc opy, direct, with biopsy (SURG) 2024 025 [email or web address] Not available 10/02/2024 07:12:22 Imaging MRI, neck, w/wo contrast - attn left pharynx 2024 025 [facility] ([facility]), [address] [place], [address], 09/13/2024 16:20:25 Medication Orders None recorded. Patient TargetsNo targets recorded. Patient InstructionsNo instructions recorded. Reason for Referral None Reported. Results Created Date Observation Date Name Description Value Unit Range Abnormal Flag Note LastModifiedBy Organization Detail LastModifiedTime 09/13/1909/12/2024 MRI, head + neck + orbit s, w/wo contr ast [facility] Access ion Number : [id number] Patikwadwo cabrera Name: SocoRehan ochoa nd Record Number : [id number] Date of : 1959 Date of Exam: 2024 Referr ing Physic miky: Carin Alvarenga [facility] [place] [address], [address] [place] [place] [address] Exam: MR Orbits , Face, Neck (C-/C+ ) CPT 12103 Room Descri ption: [facility] Espr 1.5 MRI of the soft tissue s neck withou t and with contra st. HISTOR Y: Nausea and vertig o. Hypert ension . Left retrop haryng eal massli ke lesion on prior CT. 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 Compar anand: CT of soft tissue neck on 09/06/[address] [facility] FINDIN GS: This study is limite d due to motion artifa cts. There is an approx imatel y 2 x 1.5 x 2.1 cm irregu lar shaped area of enhanc ing lesion in the left latera l pharyn geal wall extend ing to the left distance learning unit leader ior tongue which corres ponds to the massli ke lesion at the the same locati on on the prior CT of soft tissue neck. This is suspic ious for a neopla sm. Please correl ate clinic ally. Tissue sampli ng may be useful . There is no other mass, abnorm al signal or abnorm al enhanc ement throug hout the rest of the soft tissue s neck. No lympha denopa thy is seen. Bilate ral paroti d glands and subman dibula r glands show no focal abnorm alitie s or abnorm al enhanc ement. The thyroi d lobes are normal and symmet rical. The airway is patent . There are normal flow-v oids within the visual ized major neck arteri es. The visual ized upper lungs show no defini te acute pathol ogy. The visual ized esopha deepti at the thorac ic region appear s signif icantl y dilate d contai linn hyperi ntense signal s sugges ting either fluid or retain ed food conten ts. Please correl ate clinic ally. There is mucosa l thicke linn with small mucus retent ion cysts within the visual ized inferi or maxill conor sinuse s bilate rally. The cervic al spine shows diffus e spondy losis. IMPRES LU: Limite d study due to motion artifa cts. There is an approx imatel y 2 x 1.5 x 2.1 cm irregu lar shaped rim-en hancin g lesion in the left latera l pharyn geal wall extend ing to the left distance learning unit leader ior tongue corres pondin g to the findin g on the prior CT. This is suspic ious for a neopla sm. Please correl ate clinic ally. Tissue sampli ng may be useful . The visual ized esopha deepti at the thorac ic region appear s signif icantl y dilate d contai linn hyperi ntense signal s sugges ting either fluid or retain ed food conten ts. Please correl ate clinic ally. Electr onical ly Signed By: [facility] [address], [place], [address], 10/03/2024 13:04:11 Result Notes None recorded. Problems Name Problem SNOMED Code Status Onset Date Resolution Date Notes Provider Name and Address Organization Details Recorded Time Generaliz ed hyperhidr osis 410681335 Active 2017 Night sweats; Note: Date Diagnosed: 11/21/2017 10:48 AM (R61) Not Available [facility] 4 02:37:44 Dysphagia 66774387 Active 2017 Dysphagia, unspecifie d; Note: Date Diagnosed: 07/04/2018 1:13 PM (R13.10) Other dysphagia; Note: Date Diagnosed: 07/04/2018 11:43 AM (R13.19) Not Available [facility] 4 02:37:50 Localized enlarged lymph nodes 803485057 Active 2017 Localized enlarged lymph nodes; Note: Date Diagnosed: 11/12/2017 1:19 PM (R59.0) Not Available [facility] 4 02:37:46 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 - [facility] 5 10:41:21 Problem Notes None recorded. Procedures Surgical History Date Name Laterality Status Provider Name and Address Organization Details Recorded Time 09/11/19 25 Fiberoptic Laryngoscopy (Comprehensive) completed CARIN JHAVERI MD [address] [facility],[address], [phone], [facility] 09/11/2024 10:43:12 total replacement of hip completed CARIN JHAVERI MD [address] [facility],[address], [phone], [facility] 09/11/2024 10:18:28 Imaging Results Imaging Date Name Status LastModified by Organiz ation Details LastModified Time 09/12/2024 MRI, head + neck + orbits, w/wo contrast completed [facility] ([facility]) [address] [place], [address], 10/03/2024 13:04:11 Procedure Notes None recorded. Medical Equipment None Reported. Allergies Allergen ID Allergen Name Allergen Category Reaction Reaction Severity Criticality Documentation Date Start Date Code Code System Note Provider Name and Address Organization Details Recorded Time 396233 meloxicam medicatio n Not available Not available Not available 09/11/2024 32053 RxNorm Dayan taylor [facility] 10:14:15 Medications Name Sig Start Date Stop Date Status Note LastModified by Organization Details LastModified Time amlodipin e 5 mg tablet Take 1 tablet every day by oral route. active Not Available Not Available No t Available lisinopri l 10 mg tablet 09/11 completed Medicati on ID: [id number] D uration Value: 30 Brand Name: lisinopr il Send Method: E-Prescr ibed Sub s Allowed: subs OK Speci al Instruct ion: TAKE 1 TAB BY MOUTH DAILY. M edicatio nGeneric Name: lisinopr il Not Available Not Available Not Available omeprazol e 20 mg capsule,d elayed release TAKE 1 CAPSULE BY MOUTH TWICE DAILY active Not Available Not Available No t Available methylpre dnisolone 4 mg tablets in a dose pack FOLLOW PACKAGE DIRECTIO NS 09/29 completed Not Available Not Available Not Available albuterol sulfate HFA 90 mcg/actua tion aerosol inhaler INHALE 2 PUFFS BY MOUTH EVERY 6 HOURS NEEDED FOR WHEEZING OR SHORTNES S OF BREATH active Not Available Not Available No t Available finasteri de 5 mg tablet Take 1 tablet every day by oral route. active Not Available Not Available No t Available omeprazol e ER 40 mg capsule,e xtended release Take by oral route. 09/29 completed Not Available Not Available Not Available oxycodone 5 mg tablet TAKE 1 TABLET BY MOUTH EVERY 6 HOURS NEEDED FOR MODERATE PAIN SCALE OF 4 TO 6 09/29 completed Not Available Not Available Not Available Vitals Date Recorded Body height Body mass index (BMI) Body weight Provider Name and Address Organization Details Last Updated DateTime 09/11/2024 171.45 cm 26.8 kg/m2 29676.07 g Dayan De La Fuente [facility] 09/11/2024 10:14:00 Date Recorded Body height Body mass index (BMI) Body weight Provider Name and Address Organization Details Last Updated DateTime 09/29/2024 171.45 cm 26.8 kg/m2 88065.07 g Dayan De La Fuente [facility] 09/29/2024 16:28:03 Social History None recorded. Functional Status None recorded. Mental Status None recorded. Family History Nothing Reported Notes:father-hypertension Medical History Condition Response Cancer Y Hypertension Y Asthma Y Past Encounters Encounter ID Performer Location Encounter Start Date Encounter Closed Date Diagnosis/Indication Diagnosis SNOMED-CT Code Diagnosis ICD10 Code Diagnosis Note [id number] CARIN JHAVERI MD [facility] [address] [address] 09/11/2024 10:08:33 09/11/2024 10:46:06 Neoplasm of uncertain behavior of pharynx 13790175 D37.05 64-year-ol d male with a history of esophageal cancer treated in 2019 presents today for evaluation after a CT scan showed subtle soft tissue attenuatio n masslike area in the left pharyngeal mucosal space measuring up to 1.[address] was performed after he had acute swelling in his neck with dry heaving which based on his descriptio n sounds consistent with salivary gland enlargemen t. This has since resolved and he denies any specific sore throat, dysphagia, or otalgia.He does have a strong gag reflex on exam today. I do not see any specific ulcerative or friable lesion including with flexible laryngosco py. There is tonsil tissue noted. I reviewed the images from his CT.Given concern based on his history, I have recommende d further assessment with MRI. If this is also concerning for lesion would proceed with a EUA. [id number] CARIN JHAVERI MD [facility] [address] [place] [address] 09/29/2024 16:06:03 09/29/2024 16:50:38 Neoplasm of uncertain behavior of pharynx [id number] D37.05 We reviewed the results of his MRI which showed 2 x 1.5 x 2.1 cm irregular shaped ring enhancing lesion in the left lateral pharyngeal wall extending to the left posterior tongue, Similar to CT findings. However he also had a PET scan 2 days ago which I was able to review showing no abnormal uptake in this area. I am not sure what to make of the imaging findings. They did not correlate with any physical exam finding on exam at his previous visit. I have recommende d exam under anesthesia and biopsy. We did discuss risk of bleeding, infection, requiremen t for further testing or procedures , possible damage to the teeth and gums. All questions answered. Health Concerns Section Related Observation LastModified by Organization Detai ls LastModified Time None Recorded Concern Status LastModified by Organization Details LastModified Time None Recorded Advance Directives Directive None Recorded Payers Encounter Date Sequence Insurance Name Policy Number Policy Jeffrey Covered Member ID Jeffrey Member ID Guarantor Name 09/11/2024 1 [facility] (MEDICARE REPLACEMENT/A DVANTAGE - PPO) [id number] Rehan Marin [id number] Rehan Marin 09/29/2024 1 [facility] (MEDICARE REPLACEMENT/A DVANTAGE - PPO) [id number] Rehan Marin [id number] Rehan Marin Notes Date Note Type Note Provider Name and Address Organization Details Recorded Time 09/11/2024 text/html 64 yo M presents for neck swelling Dry heaves usually only once, this morning twice 2019 treated for esophageal cancer No swelling since dry heaving, some swelling in the neck then went away over 20 min No dysphagia, no sore throat, no ear pain CT neck 09/06/24 shows:1. No evidence of lymphadenopathy.2. Subtle soft tissue attenuation masslike area in the left pharyngeal mucosal space measuring up to 1.9 cm. ENT consultation is recommended to exclude malignancy.3. Multiple lung nodules described above. Largest is a part solid right upper lobe nodule measuring up to 1.4 cm. Follow-up with dedicated chest CT is recommended to evaluate the remainder of the lungs.4. Periodontal disease involving a right maxillary molar tooth with possible erosion of the overlying maxillary bone and protrusion of the root into the maxillary sinus.5. Visualized portion of the esophagus is dilated and fluid-filled increased aspiration risk. PV (2018): 58 year old male presents for evaluation of dysphagia which he believes started 2 months ago. He notes food is getting stuck in histhroat and is relieved by drinking lots of water. Recently scheduled for an upper endoscopy and colonoscopy but only the colonoscopy wasperformed. He is going to have the upper endoscopy performed on 07/14/18. last seen on March 27, [address] Jhaveri who recommended a U/Sguided FNA for a 1 cm hypodense area in the left submandibular gland. Biopsy was not performed bc submandibular lesion was not identified at thetime of exam.Previous CT revealed non specific mildly enlarged lymph node anterior to the left common carotid artery just below its bifurcation. CARIN JHAVERI MD [address] [place] [address], [phone], [facility] - [facility] 09/11/2024 12:38:56 09/29/2024 text/html Since his last visit, he did have an MRI which showed similar findings as the CT scan. He also had a PET scan which did not show any abnormal uptake. PV: 64 yo M presents for neck swelling Dry heaves usually only once, this morning twice 2019 treated for esophageal cancer No swelling since dry heaving, some swelling in the neck then went away over 20 min No dysphagia, no sore throat, no ear pain CT neck 09/06/24 shows:1. No evidence of lymphadenopathy.2. Subtle soft tissue attenuation masslike area in the left pharyngeal mucosal space measuring up to 1.9 cm. ENT consultation is recommended to exclude malignancy.3. Multiple lung nodules described above. Largest is a part solid right upper lobe nodule measuring up to 1.4 cm. Follow-up with dedicated chest CT is recommended to evaluate the remainder of the lungs.4. Periodontal disease involving a right maxillary molar tooth with possible erosion of the overlying maxillary bone and protrusion of the root into the maxillary sinus.5. Visualized portion of the esophagus is dilated and fluid-filled increased aspiration risk. PV (2018): 58 year old male presents for evaluation of dysphagia which he believes started 2 months ago. He notes food is getting stuck in histhroat and is relieved by drinking lots of water. Recently scheduled for an upper endoscopy and colonoscopy but only the colonoscopy wasperformed. He is going to have the upper endoscopy performed on 07/14/18. last seen on March 27, [address] Jhaveri who recommended a U/Sguided FNA for a 1 cm hypodense area in the left submandibular gland. Biopsy was not performed bc submandibular lesion was not identified at thetime of exam.Previous CT revealed non specific mildly enlarged lymph node anterior to the left common carotid artery just below its bifurcation. CARIN JHAVERI MD [address] [place] [address], [place], [phone], [place] [facility] 09/30/2024 08:59:07
--- OUTSIDE RECORDS SUMMARY | 2024-11-03 09:10 | XMS_ITS | Continuity of Care Document ---
Author Organization [facility] Address [address] [place] [address]- Care Team Providers Care Historiographer Name Role Phone Rigo PEARSON, Primary Care [id number]): [facility]13[facility] - 10/20/24 [facility] [address] [place], [place] [address] Encounter Diagnosis Malignant tumor of prostate; [facility]; active surveillance(Discharge Diagnosis) - 10/13/24 History of esophageal cancer; Dr Aguilar; chemo, radiation, surgery(Discharge Diagnosis) - 10/13/24 Viral syndrome(Discharge Diagnosis) - 10/13/24 HTN (hypertension)(Discharge Diagnosis) - 10/13/24 Neck mass(Discharge Diagnosis) - 10/13/24 Attending Physician: Spencer Sierra MD Encounter Type: Office Visit Allergies, Adverse Reactions, Alerts Substance Criticality Severity Reaction Reaction Severity Status Reglan anxious Active Mobic rash Active Immunizations Given and Recorded Vaccine Date Status Refusal Reason SARS-CoV-2 mRNA ([id number]) vax 03/10/22 Recorded SARS-CoV-2 (COVID-19) mRNA BNT-162b2 vac 09/03/21 Recorded SARS-CoV-2 (COVID-19) mRNA BNT-162b2 vac 01/03/21 Recorded SARS-CoV-2 (COVID-19) mRNA BNT-162b2 vac 12/12/20 Recorded tetanus/diphtheria/pertussis, acel(Tdap) 04/30/16 Recorded Medications Albuterol (Eqv-ProAir HFA) 90 mcg/inh inhalation aerosol 2 puffs, Inhalation, Every 6 hours, PRN Wheezing/Shortness of Breath, # 8.5 Gm, 2 Refills, Maintenance, 04/04/24 10:38:00 PM EDT, [facility] #[id number], Partial fill upon patient request if the [...] 3 Refills, Maintenance, 03/24/24 9:29:00 AM EDT, [facility] #[id number], 172.72, cm, 05/28/23 10:50:00 EDT, Height, 83.6, kg, 05/28/23 10:50:00 EDT, Dry Weight Start Date: 03/24/24 Status: Ordered Quantity: 90.0 Unit: tablet Repeat number: 4 omeprazole 20 mg oral enteric coated capsule 1 capsule, By Mouth, 2 times a day, # 180 capsule, 1 Refills, Maintenance, 02/09/24 7:51:00 PM EDT, [facility] #[id number], 172.72, cm, 05/28/23 10:50:00 EDT, Height, 83.6, [...] tumor of prostate; [facility]; active surveillance Confirmed 02/10/22 Active ALEX (obstructive sleep apnea); Suzan Pul Confirmed Active 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 Radiation esophagitis Confirmed 09/09/18 Active Shoulder pain Confirmed Active Fatty liver Confirmed Active Diagnosis Diagnosis Type Effective Dates Health Status Clinical Service Informant Malignant tumor of prostate; [facility]; active surveillance Discharge Diagnosis 10/13/24 History of esophageal cancer; Dr Aguilar; chemo, radiation, surgery Discharge Diagnosis 10/13/24 Viral syndrome Discharge Diagnosis 10/13/24 HTN (hypertension) Discharge Diagnosis 10/13/24 Neck mass Discharge Diagnosis 10/13/24 Vital Signs Most recent to oldest [Reference Range]: 1 2 Height 172.72 cm (10/13/24 8:38 AM) 172.72 cm (10/13/24 8:33 AM) Weight 75.2 kg (10/13/24 8:33 AM) Oxygen Saturation [94-100 %] 95 % (10/13/24 8:33 AM) Pulse Rate [55-90 bpm] 81 bpm (10/13/24 8:33 AM) Body Mass Index [18.5-24.99 kg/m2] 25.21 kg/m2 *H* (10/13/24 8:33 AM) Blood Pressure [90-138/55-84 mm Hg] 159/ 74mm Hg *H* (10/13/24 8:38 AM) 157/84mm Hg *H* (10/13/24 8:33 AM) Mode of Delivery (Oxygen) Room air (10/13/24 8:33 AM) Blood pressure sites Arm, right (10/13/24 8:38 AM) Arm, right (10/13/24 8:33 AM) Dry Weight 75.2 kg (10/13/24 8:33 AM) Weight Obtained Via Standing scale (10/13/24 8:33 AM) Dry Weight Obtained Via Standing scale (10/13/24 8:33 AM) Social History Social History Type Response Smoking Status Never (less than 100 in lifetime) entered on: 05/28/23 Sex Sex Representation Male (finding) Note * Millie Lujan: PERFORM Event Display: Patient Education/Instruction Authored Date: [id number] Ambulatory Adult Visit Summary [facility] [address] [place] [id number] Name: YOGESH ROSAS : 1960?? Visit: 10/13/2024 08:28?? Ambulatory Visit Instructions ?? Your Care Team Primary Care Provider Spencer Sierra MD? This Visit Provider Spencer Sierra MD Your Diagnosis Malignant tumor of prostate; [facility]; active surveillance History of esophageal cancer; Dr Aguilar; chemo, radiation, surgery Viral syndrome Vitals Signs Pulse Rate: 81 bpm Height: 172.72 cm Systolic Blood Pressure:??159 mm Hg??High Weight: 75.2 kg Diastolic Blood Pressure: 74 mm Hg Body Mass Index:??25.21 kg/m2??High Oxygen Saturation: 95 % Body surface area: 1.9 What to do next Scheduled Follow-Up Appointments Wednesday. 2024 11:20 AM EDT ?? With: Spencer Sierra MD Where: [facility] [address] [place] [address]- Status: Pending Future Orders CBC - Routine, Once, 04/19/24 16:35:00 EDT, Order for Today, [facility], Blood?? Comprehensive Metabolic Panel - Routine, Once, 04/19/24 16:35:00 EDT, Order for Today, [facility], Blood?? Hemoglobin A1C (Monitoring) - Routine, Once, 04/19/24 16:35:00 EDT, Order for Today, [facility], Blood?? Basic Metabolic Panel - Routine, Once, 08/19/24 15:54:00 EST, Order for Today, [facility], Blood?? Medications The list below reflects the information in our records and provided by you today along with any changes made during this visit. Please continue your medications until treatment is completed or stopped by your provider. If this is different from the information you have or there are other questions,please contact the prescribing provider. What How Much When Instructions Unchanged Albuterol (Albuterol (Eqv-ProAir HFA) 90 mcg/ inh inhalation aerosol) 2 puff(s) Inhalation Every 6 hours as needed for Wheezing/Shortness of Breath Unchanged Amlodipine (amLODIPine 5 mg oral tablet) 1 tab(s) Oral Daily Unchanged Cyanocobalamin (Vitamin B-12 1000 mcg oral tablet) 1 tab(s) Oral Unchanged Omeprazole (omeprazole 20 mg oral enteric coated capsule) 1 capsule Oral Twice a day Medications and Immunizations Administered Medications Given During Visit No medications given during this visit.?? Allergies (NKA means No Known Allergies) Mobic??(rash) Reglan??(anxious) Common Emergency Awareness Tips IS IT A STROKE? Act FAST and Check for these signs: FACE Does the face look uneven? ARM Does one arm drift down? SPEECH Does their speech sound strange? TIME Call at any sign of stroke ?? Heart Attack Signs Chest discomfort: Most heart attacks involve discomfort in the center of the chest and lasts more than a few minutes, or goes away and comes back. It can feel like uncomfortable pressure, squeezing, fullness or pain. Discomfort in upper body: Symptoms can include pain or discomfort in one or both arms, back, neck, jaw or stomach. Shortness of breath: With or without discomfort. Other signs: Breaking out in a cold sweat, nausea, or lightheaded. Remember, MINUTES DO MATTER. If you experience any of these heart attack warning signs, call to get immediate medical attention! ?? Smoking can increase your chances of developing chronic health problems and can cause harmful effects to other family members in your house. If you smoke, you are strongly encouraged to quit. Please call [facility] Link at [phone] or [phone] ([phone]) or log in to [email or web address] for referrals to smoking cessation programs. ?? The National Suicide Prevention Hotline is available 22/03 if you or someone you know needs to find a reason to keep living. By calling 7-476-820-avrt (3331) you'll be connected to a skilled, trained counselor at a crisis center in your area. [facility] Get[facility] Portal You can view and manage your care through the patient portal or by using a health care bisi of your choosing. [employer] is a website that allows you to securely view your medical information including your hospital discharge summary, office visit summaries, medications and follow-up visits. You can also request appointments, renew medications, and request access to your medical information using a health care bisi of your choosing, or just ask a question. You can enroll at [email or web address] or register during your next office visit. [facility], in keeping with [facility] guidance, no longer requires face masks for staff, patientsor visitors in most situations. Similiar to time spent indoors at other locations, there is the chance that you were exposed to repiratory viruses during your time with us (such as flu or COVID-19). If you develop symptoms concerning for a viral respiratory infection, please seek testing (and treatment if indicated) from your medical provider or home test kit. ?? Disclaimer: The information provided is of a general nature and is intended to be used in conjunction with the recommendations and advice of your health care practitioner. Every effort has been made to ensure that the information provided is accurate and complete at the time it is provided to you however, as your needs change, or, as new information becomes available, different or additional instructions may be required. ?? If you have questions, please consult with your primary care provider or pharmacist, as appropriate. This information is not intended to serve as substitution for assessment and evaluation by a qualified health care provider. If you do not have a primary care provider, you may find a [facility] provider by calling [facility] Get[facility] Link at [phone]. Patient Care team information Care Team Personnel Name: Elisabeth Tejeda RN Position: [facility] RN Member Role: Primary Care Nurse Name: Spencer Sierra MD Position: S Physician - Primary Care Member Role: PCP Address: [address] [place] [address] Telecom: Care Team Related Persons Name: ALLEN ARMSTRNOG Name: ALLEN ROSAS Insurance Providers Guarantor name: YOGESH ROSAS Health [facility] Information #: 1 Payer: [employer] PPO [employer] Member Number: [id number] Policy Number: NA Group Number: [id number] Health Plan Information #: 2 Payer: [employer] PPO [employer] Member Number: [id number] Policy Number: NA Group Number: NA
--- OUTSIDE RECORDS SUMMARY | 2024-11-03 09:10 | XMS_ITS | Continuity of Care Document ---
Author Organization [facility] Address [address] [place] [address]- Care Team Providers Care Customer Care Voice Consultant Name Role Phone Spencer Sierra MD [id number] 10[facility]25/24 [facility] [address] [place], [place] [address] Attending Physician: Spencer Sierra MD Encounter Type: Pre Office Visit Allergies, Adverse Reactions, Alerts Substance Criticality Severity Reaction Reaction Severity Status Reglan anxious Active Mobic rash Active Immunizations Given and Recorded Vaccine Date Status Refusal Reason SARS-CoV-2 mRNA (pqxggsz-vsom-knrxl) vax 03/10/22 Recorded SARS-CoV-2 (COVID-19) mRNA BNT-162b2 vac 09/03/21 Recorded SARS-CoV-2 (COVID-19) mRNA BNT-162b2 vac 01/03/21 Recorded SARS-CoV-2 (COVID-19) mRNA BNT-162b2 vac 12/12/20 Recorded tetanus/diphtheria/pertussis, acel(Tdap) 04/30/16 Recorded Medications Albuterol (Eqv-ProAir HFA) 90 mcg/inh inhalation aerosol 2 puffs, Inhalation, Every 6 hours, PRN Wheezing/Shortness of Breath, # 8.5 Gm, 2 Refills, Maintenance, 04/04/24 10:38:00 PM EDT, [facility] #[id number], Partial fill upon patient request if the [...] 3 Refills, Maintenance, 03/24/24 9:29:00 AM EDT, [facility] #[id number], 172.72, cm, 05/28/23 10:50:00 EDT, Height, 83.6, kg, 05/28/23 10:50:00 EDT, Dry Weight Start Date: 03/24/24 Status: Ordered Quantity: 90.0 Unit: tablet Repeat number: 4 omeprazole 20 mg oral enteric coated capsule 1 capsule, By Mouth, 2 times a day, # 180 capsule, 1 Refills, Maintenance, 02/09/24 7:51:00 PM EDT, [facility] #[id number], 172.72, cm, 05/28/23 10:50:00 EDT, Height, 83.6, [...] Team Personnel Name: Elisabeth Tejeda RN Position: [facility] RN Member Role: Primary Care Nurse Name: Spencer Sierra MD Position: [facility] Physician - Primary Care Member Role: PCP Address: [address] [place] [address] Telecom: Care Team Related Persons Name: ALLEN ARMSTRONG Name: ALLEN ROSAS Insurance Providers Guarantor name: YOGESH ROSAS Health Plan Information #: 1 Payer: [employer]V Member Number: [id number] Policy Number: NA Group Number: [id number] Health Plan Information #: 2 Payer: [employer]ra [employer] ADV Member Number: [id number] Policy Number: NA Group Number: NA
--- OUTSIDE RECORDS SUMMARY | 2024-11-03 09:10 | XMS_ITS | Clinical Summary ---
Author Organization [facility] Address [address] [place] [address] Care Team Providers Care Military Pay Clerk Name Role Phone Spencer Sierra MD Primary Care Provider [phone]- [phone] Allergies Active Allergy Reactions Criticality Noted Date Comments Metoclopramide Anxiety Low 09/04/2014 Other reaction(s): Not available Meloxicam 08/03/2018 Medications Medication Sig Dispensed Refills Start Date End Date Status amLODIPine (NORVASC) tablet 10 mg Take 0.5 tablets (5 mg total) by mouth daily. 0 Active hydrocortisone 2.5 % cream Apply topically 2 (two) times a day. 0 Active ALBUTEROL IN Inhale into the lungs. 0 Active omeprazole (PriLOSEC) 20 MG capsule Take 1 capsule (20 mg total) by mouth daily. 30 capsule 11 09/12/2019 Active Fluticasone Furoate-Vilanterol (BREO ELLIPTA IN) Inhale into the lungs. 0 Active Diclofenac Sodium 1 % GEL Apply topically. 0 Active albuterol 108 (90 Base) MCG/ACT inhaler Inhale 2 puffs into the lungs. 0 07/01/2022 Active amLODIPine (NORVASC) tablet 5 mg Take 1 tablet (5 mg total) by mouth daily. 0 06/09/2022 Active baclofen (LIORESAL) 10 MG tablet Take 1 tablet (10 mg total) by mouth. 0 06/23/2021 Active finasteride (PROSCAR) 5 MG tablet Take 1 tablet (5 mg total) by mouth daily. 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 05/09/2019 SUZANNA positive 05/09/2019 Cachexia 03/07/2019 Jejunostomy tube present 03/07/2019 Thrombocytopenia 03/07/2019 Steroid-induced hyperglycemia 09/23/2018 Anemia in neoplastic disease 09/23/2018 Gastroesophageal reflux disease 09/09/2018 Radiation esophagitis 09/09/2018 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 Cancer Staging:Clinical:Stage III(cT3, cN0, cM0, G2) - Unsigned Family History Medical History Relation Name Comments Cancer Father prostate cancer Relation Name Status Comments Father Social History Tobacco Use Types Packs/Day Years Used Date Smoking Tobacco: Never Smokeless Tobacco: Never Alcohol Use Standard Drinks/Week Comments Yes 2 (1 standard drink = 0.6 oz pur e alcohol) socially Sex and Gender Information Value Date Recorded Sex Assigned at Male 07/29/2023 4:15 PM EST Gender Identity Not on file Sexual Orientation Not on file Job Start Date Occupation Industry Not on file Not on file Not on file Last Filed Vital Signs Vital Sign Reading Time Taken Comments Blood Pressure 166/72 01/19/2024 11:28 AM EDT Pulse 56 01/19/2024 11:28 AM EDT Temperature 36.6 ??C (97.8 ??F) 01/19/2024 1 1:28 AM EDT Respiratory Rate 18 08/31/2023 1:33 PM EST Oxygen Saturation 98% 01/19/2024 11: 28 AM EDT Inhaled Oxygen Concentration - - Weight 81.6 kg (179 lb 12.8 oz) 024 11:28 AM EDT Height 171.5 cm (5' 7.5 ) 07/20/2023 11 :21 AM EST Body Mass Index 27.75 07/20/2023 11:21 AM EST Plan of Treatment Health Maintenance Due Date Last Done Comments Hepatitis C Screening 1960 Pneumococcal Vaccine (1 of 2 - PCV) 1965 Pneumococcal Vaccine (1 of 2 - PCV) 1965 Depression Screening 1971 BMI Counseling 1977 Preventative Health Evaluation 1977 Shingrix-Zoster Vaccine (1 of 2) 1978 Colon Cancer Screening (Colonoscopy) 2004 COVID-19 Vaccine ( season) 2024 03/10/2022, 09/03/2021, 01/03/2021, Additional history exists Influenza Vaccine (#1) 2024 Fall Risk Assessment 2024 DTap / Tdap / Td (2 - Td or Tdap) 04/30/2026 04/30/2016 RSV Adult > 60+ Yrs or (1 - 1-dose 75+ series) 2034 Hepatitis B Vaccines Aged Out No long er eligible based on patient's age to complete this topic RSV Ped < 20 months Aged Out No longe r eligible based on patient's age to complete this topic Care Teams Military Pay Clerk Relationship Specialty Start Date End Date Spencer Sierra MD [address] [place] [id number] PCP - General Internal Medicine 07/29/18
--- OUTSIDE RECORDS SUMMARY | 2024-11-03 09:10 | XMS_ITS ---
Author Organization [facility] Address [address] [place] [address] Care Team Providers Care Tray Service Worker Name Role Phone Spencer Sierra MD Primary Care Provider +1- [phone] Active Problems Problem Noted Date Diagnosed Date [...] Staging:Clinical:Stage III(cT3, cN0, cM0, G2) - Unsigned Current Oncology Plans No current plan information found. Past Plans Radiation Treatments * No radiation treatments are documented for this patient in [facility]. Treatments may have been administered in another system.
--- OUTSIDE RECORDS SUMMARY | 2024-11-03 09:10 | XMS_ITS | Data Portability ---
Author Organization [place] [facility] Address [address] [place] [id number] Care Team Providers Care Forging Die Sinker Name Role Phone JEEVAN AGUERO Primary Care Provider [facility] OTHER Assessment Encounter Date Assessment Date Assessment LastModified by Organization Details LastModified Time 03/18/2023 03/18/2023 Brief Overview: 62 year old M with previous medical history of prostate cancer (current, with possible liver mets), esophageal cancer, htn with cc today of falling 8 hours ago on wet floor and now with L ankle pain. Patient specifically states that he slipped and fell did not hit head or injure other areas of body. Denies chest pain, dizziness, shortness of breath, severe numbness or tingling to the foot, severe pain to the foot. Is currently unable to bear weight. New to provider and . Vital Signs: 98.3 ? ? ?F ear (36.83 C) 77 122 / 76 18 100 % Room Air at Rest Exam: Alert, oriented. Non toxic. Cardiac: Mitral murmur 2/6 (pt states not new). Lungs CTA, no wheezing, coughing. L ankle: pain to lateral malleolus with palpation. TTP talus/ navicular area and base of great toe. Able to dorsiflex and plantar extend toes actively without pain, pain with active dorsi and plantar flexion. Pain with medial and lateral rotation. DP/ PT pulses strong 2+. Foot is warm to touch, color consistent with ethnicity/ other foot in comparison. Decreased sensation to dorsum of foot compared to R foot. L knee, calf without pain with palpation, erythema, edema. Full ROM of L knee. Ankle edema 1+. DDx considered, with rationale: Ankle/ foot fracture- highly possible due to bony tenderness. Will order XR of foot and ankle to rule out. No emergency reasons for escalation- foot has good pulses, color appropriate, not cool to touch. No chest pain, son indicating possible PE. Tripped and fell without dizziness, chest pain, sob, headache prior to fall. Sprain- likely without complaint of rolling the ankle, will order XR to rule out Proper Personal Protective Equipment (PPE), including gloves, eye protection and masks were donned and doffed appropriately and all equipment cleaned using approved technique with germicidal disposable wipes prior to and after care of this patient according to [facility]'s infection prevention protocols. Time On Scene with Patient: 00:40:42 [email or web address] Not available 03/18/2023 13:07:52 Plan of Treatment Reminders Order Date Submit Date Provider Last Modified By Organization Details Last Modified Time Details Appointments None recorded. Lab None recorded. Referral None recorded. Procedures None recorded. Surgeries None recorded. Imaging XR, foot, 3 or more view - Rule out fracture 2022 023 [facility] [address] [place] [address], [address], 3 15:27:51 XR, ankle, 2 view - rue out fracture 2022 023 [facility] ([facility]), [address] [place], [address], 3 15:27:52 Medication Orders None recorded. Patient TargetsNo targets recorded. Patient Instructions Encounter Date Encounter Id Patient Instructions Last Modified By Organization Details Last Modified Time 03/18/2023 [id number] [facility] you [facility] yo ur [facility]. We cannot always find the exact cause of your symptoms during your initial visit. Please follow up with your primary care provider or specialist within 12-24 hours within 24-48 hours to be rechecked or seek medical attention if your symptoms do not go away or get worse. If you develop any new or worsening symptoms and need after hours care, please go to nearest ER and/or call 911. If you have additional concerns or develop a change in your condition between 8am-10pm, please call [facility] at [phone] to help navigate your care. Thank you for your [facility] with [facility] today. You do not appear to have a fracture or dislocation that requires immediate surgical intervention. However, small breaks or ligament tears may not be obvious on initial examination. Given this concern, we may have placed you in a temporary splint. If an xray is indicated, we will help direct you to the best option to obtain your imaging study. We have also given you follow up directions. Please follow up with your primary care physician or specialist as directed. If you develop any new or worsening symptoms and need after hours care, please go to nearest ER and/or call 911. If you have additional concerns or develop a change in your condition between 8am-10pm, please call [facility] at [phone] to help navigate your care. [email or web address] Not available 03/18/2023 13:08:02 Reason for Referral None Reported. Results Created Date Observation Date Name Description Value Unit Range Abnormal Flag Note LastModifiedBy Organization Detail LastModifiedTime 03/19/20 23 03/19/2023 foot compl ete, min 3V FOOT COMPLE TE, MIN 3V, LEFT FINDIN GS: AP, latera l and obliqu e views of the left foot throug h a semiop aque cast. There is a fractu red or bipart ite first metata rsopha langea l joint sesamo id. No other bony abnorm ality. No calcif icatio ns. Joint spaces are intact . CONCLU LU: Fractu red or bipart ite first MP joint sesamo id. Clinic al correl ation is recomm ended. Otherw ise, unrema rkable examin ation. ELECTR ONICAL LY SIGNED BY MYRNA ACEVEDO M.D. 023 3:19:3 7 PM EDT. [email or web address] [facility] [address] [facility] [address], [place], [address], 09/22/2023 15:58:13 03/19/20 23 03/19/2023 ankle AP and lat 2V ANKLE AP and LAT 2V, LEFT FINDIN GS: AP and latera l views of the left ankle demons trate no fractu re. There is normal alignm ent. The ankle mortis e is intact . There are no calcif icatio ns. CONCLU LU: No fractu re. ELECTR ONICAL LY SIGNED BY MYRNA ACEVEDO M.D. 023 3:19:3 7 PM EDT. FOOT COMPLE TE, MIN 3V, LEFT Result s: AP, latera l and obliqu e views of the left foot throug h a semiop aque cast. There is a fractu red or bipart ite first metata rsopha langea l joint sesamo id. No other bony abnorm ality. No calcif icatio ns. Joint spaces are intact . Conclu lu: Fractu red or bipart ite first MP joint sesamo id. Clinic al correl ation is recomm ended. Otherw ise, unrema rkable examin ation. Electr onical ly signed by MYRNA ACEVEDO M.D. 023 3:19:3 7 PM EDT. ANKLE AP and LAT 2V, LEFT Result s: AP and latera l views of the left ankle demons trate no fractu re. There is normal alignm ent. The ankle mortis e is intact . There are no calcif icatio ns. Conclu lu: No fractu re. Electr onical ly signed by MYRNA ACEVEDO M.D. 023 3:19:3 7 PM EDT. [email or web address] [facility] [address] [place] [address], [place], [address], 09/20/2023 15:29:47 Result Notes None recorded. Procedures Surgical History Date Name Laterality Status Provider Name and Address Organization Details Recorded Time 3 Splint, Short Leg - DH completed Dorie Underwood NP [address], [place], [address], [place] [facility] 03/18/2023 11:16:42 operation on hip joint completed Dorie Underwood NP [address], [place], [address], [place] [facility] 03/18/2023 10:29:43 Imaging Results Imaging Date Name Status LastModified by Organiz ation Details LastModified Time 03/19/2023 foot complete, min 3V completed [facility] [address] [facility] [address], [place], [address], 09/22/2023 15:58:13 03/19/2023 ankle AP and lat 2V completed [email or web address] [address] [facility] [address], [place], [address], 09/20/2023 15:29:47 Procedure Notes None recorded. Medical Equipment None Reported. Allergies Allergen ID Allergen Name Allergen Category Reaction Reaction Severity Criticality Documentation Date Start Date Code Code System Note Provider Name and Address Organization Details Recorded Time 530953 Mobic medicatio n Not available Not available Not available 03/18/2023 65427 9 [facility] Dorie Underwood NP [address], [place], [address], [place] [facility] 3 10:27:32 570338 Non-stero idal anti-infl ammatory agent (product) medicatio n Not available Not available Not available 03/18/2023 63561 005 SNOMED Dorie Underwood NP [address] [place], [address], [place] [facility] 3 10:27:39 262377 Reglan medicatio n Not available Not available Not available 03/18/2023 9230 RxNorm Dorie Underwood NP [address], [place], [address], [place] [facility] 3 10:27:58 Medications Name Sig Start Date Stop Date Status Note LastModified by Organization Details LastModified Time trazodone 50 mg tablet TAKE 1/2 TO 2 TABLETS BY MOUTH DAILY AT BEDTIME active Not Available Not Available No t Available azithromyci n 250 mg tablet 03/18 completed Not Available Not Available Not Available amlodipine 5 mg tablet TAKE 1 TABLET BY MOUTH EVERY DAY active Not Available Not Available No t Available ciprofloxac in 500 mg tablet TAKE 1 TABLET BY MOUTH TWICE DAILY FOR 5 DAYS. START 1 DAYS BEFORE BIOSPY 03/18 completed Not Available Not Available Not Available amoxicillin 875 mg tablet TAKE 1 TABLET BY MOUTH EVERY 12 HOURS FOR 5 DAYS 03/18 completed Not Available Not Available Not Available baclofen 10 mg tablet TAKE 1 TABLET BY MOUTH THREE TIMES DAILY NEEDED FOR SPASM 03/18 completed Not Available Not Available Not Available omeprazole 20 mg capsule,del ayed release TAKE 1 CAPSULE BY MOUTH TWICE DAILY active Not Available Not Available No t Available albuterol sulfate HFA 90 mcg/actuati on aerosol inhaler INHALE 2 PUFFS INTO THE LUNGS EVERY 4 HOURS NEEDED FOR COUGH OR WHEEZING active Not Available Not Available No t Available amlodipine 03/18 completed Not Available Not Available Not Available Breo Ellipta 100 mcg-25 mcg/dose powder for inhalation INHALE 1 PUFFS BY MOUTH EVERY DAY 03/18 completed Not Available Not Available Not Available Vitals Date Recorded Body temperature Heart rate Oxygen saturation Oxygen saturation in Arterial blood by Pulse oximetry Respiratory rate Systolic blood pressure Diastolic blood pressure Provider Name and Address Organization Details Last Updated DateTime 3 98.3 [degF] 77 /min 100 % 100 % 18 /min 122 mm[Hg] 76 mm[Hg] Not Available [facility] 3 10:30:18 Social History Question Answer Notes LastModified by Organizat ion Details LastModified Time Tobacco Smoking Status Never Smoker Dorie Underwood NP [address] [place], [address], [place] [facility] 03/18/2023 10:30:13 Do You Have An Advance Directive? No Information not available 03/18/2023 What Is Your Level Of Alcohol Consumption? Occasional Information not available 03/18/2023 What Is Your Code Status? Full Code Information not available 03/18/2023 Excessive Alcohol Or Drug Use No [email or web address] Information not available 03/18/2023 Does This Patient Have A PCP? Yes Information not available 03/18/2023 Has The Patient Seen Their PCP In The Past 6 Months? Yes [email or web address] Information not available 03/18/2023 Is This Patient In Hospice? No [email or web address] Information not available 03/18/2023 Do You Or Have You Ever Used Any Other Forms Of Tobacco Or Nicotine? No Information not available 03/18/2023 Sex: Unknown Functional Status None recorded. Mental Status None recorded. Family History Relationship Description Onset Age of this Age Resolved Age Notes LastModified by Organization Details LastModified Time Father Malignant neoplastic disease [email or web address] Not available 2022 10:29:58 Medical History Condition Response Cancer Y Hypertension Y Past Encounters Encounter ID Performer Location Encounter Start Date Encounter Closed Date Diagnosis/Indication Diagnosis SNOMED-CT Code Diagnosis ICD10 Code Diagnosis Note [id number] [facility] - [place] [address] [place] [address] 03/18/2023 10:01:48 03/19/2023 15:21:05 Pain in left foot [id number] 41788 M79.672 Status of condition: {{Acute* E xacerbatio n/Acute on chronic Ch ronic Stab le Worseni ng/Progres lu Uncon trolled Cr itical: Warrants escalation to ED. Undete rmined: Unclear staging of condition. Needs further evaluation and management by PCP and/or Specialist }}. Testing/Re sults: pending XR Discussion :High index of suspicion for fracture based off bony tenderness to talus and navicular bone. Also with some pain to base of great toe. Will obtain x-ray as per [place] rules. Discussed that the x-ray company will call him to today likely to set up appointmen t if not it will occur tomorrow. Patient was put in a posterior short leg with sugar-tong to support the malleolar region. Advised to stay off of it as much as possible elevate to the level of the heart or the next couple days. Will attempt to send crutches to [facility] as DME although did discuss with patient often it is not covered by insurance when sent from urgent care. Patient to buy over-the-c ounter if needed. And is aware of this. Patient not able to take NSAIDs due to history of esophageal cancer and reconstruc tion of the esophagus can take Tylenol for pain only. to help patient move around. Patient also instructed to call primary care doctor today for orthopedic referral as he will likely need referral to ortho and follow up. Due to history of cancer patient at higher risk of blood clots from immobility advised any chest pain, shortness of breath, coolness to the foot, significan t numbness tingling to the foot, or worsening pain than he has now which is mild, to please go to the emergency department . Health Concerns Section Related Observation LastModified by Organization Detai ls LastModified Time None Recorded Concern Status LastModified by Organization Details LastModified Time None Recorded Advance Directives Directive N: Payers Encounter Date Sequence Insurance Name Policy Number Policy Jeffrey Covered Member ID Jeffrey Member ID Guarantor Name 03/18/2023 1 [facility] (MEDICARE REPLACEMENT/A DVANTAGE - PPO) [id number] Rehan Marin [id number] Rehan Marin Notes Date Note Type Note Provider Name and Address Organization Details Recorded Time 03/18/2023 text/html Patient reports was at the [facility] late last night walking on the carpet, there was time for right next the carpet that was recently cleaned and was wet when patient went to 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 Patient was quickly evaluated at the [facility] by EMS at that time did not go to the ER, drove home and has been home since elevating the leg. Pain to inside and bottom of the foot, some pain to top. Does have some numbness to toes and sensation changes. Did not hit head when he fell or lose consciousness. Specifically states that he slipped and fell. Did not injure any other parts of his body no injury specifically to hip or knee. Of note does have prostate cancer with recent possible nodules to the liver which he found out yesterday unclear if this is met. Denies severe pain, chest pain, sob, dizziness. Dorie Underwood, [facility] [address], [place], [address], [place] [facility] 03/18/2023 13:08:18
[2024-11-03 11:28] LABS: Prostate Specific Antigen 6.88 ng/mL (<0.05-4.0)
== END 2024-11-03 08:39 | disposition home or self-care (01) ==
LOC: HO.MRI 08:38
PROVIDERS: PCP Internal Medicine; Visit Provider Urology
DX: Z12.5 Encounter for screening for malignant neoplasm of prostate (principal); N40.0 Benign prostatic hyperplasia without lower urinary tract symptoms; C61 Malignant neoplasm of prostate; R97.20 Elevated prostate specific antigen [PSA]
CPT/HCPCS: 36415; 84153

== ENCOUNTER 2024-11-09 09:03 | Outpatient (REF) | payer MEDICARE, SELFPAY ==
--- OUTSIDE RECORDS SUMMARY | 2024-11-09 10:19 | XMS_ITS | Continuity of Care Document ---
Author Organization [facility] Address [address] [place] [address]- Care Team Providers Care Supervisor [employer]iver[employer] Name Role Phone Rigo PEARSON, Primary Care Physician [phone] Encounter [facility] Date(s): 10/06/24 - 11/05/24 [facility] [address] [place], [place] [address] Encounter Type: Triage Allergies, Adverse Reactions, Alerts Substance Criticality Severity Reaction Reaction Severity Status Reglan anxious Active Mobic rash Active Immunizations Given and Recorded Vaccine Date Status Refusal Reason SARS-CoV-2 mRNA (zbkrhra-[id number]-hraqv) vax 03/10/22 Recorded SARS-CoV-2 (COVID-19) mRNA BNT-162b2 vac 09/03/21 Recorded SARS-CoV-2 (COVID-19) mRNA BNT-162b2 vac 01/03/21 Recorded SARS-CoV-2 (COVID-19) mRNA BNT-162b2 vac 12/12/20 Recorded tetanus/diphtheria/pertussis, acel(Tdap) 04/30/16 Recorded Medications Albuterol (Eqv-ProAir HFA) 90 mcg/inh inhalation aerosol 2 puffs, Inhalation, Every 6 hours, PRN Wheezing/Shortness of Breath, # 8.5 Gm, 2 Refills, Maintenance, 04/04/24 10:38:00 PM EDT, [id number], Partial fill upon patient request if the [...] 3 Refills, Maintenance, 03/24/24 9:29:00 AM EDT, [facility] #[id number], 172.72, cm, 05/28/23 10:50:00 EDT, Height, 83.6, kg, 05/28/23 10:50:00 EDT, Dry Weight Start Date: 03/24/24 Status: Ordered Quantity: 90.0 Unit: tablet Repeat number: 4 omeprazole 20 mg oral enteric coated capsule 1 capsule, By Mouth, 2 times a day, # 180 capsule, 1 Refills, Maintenance, 02/09/24 7:51:00 PM EDT, [facility] #[id number], 172.72, cm, 05/28/23 10:50:00 EDT, Height, 83.6, [...] Team Personnel Name: Elisabeth Tejeda RN Position: [facility] RN Member Role: Primary Care Nurse Name: Spencer Sierra MD Position: [facility] Physician - Primary Care Member Role: PCP Address: [address] [place] [address] Telecom: Care Team Related Persons Name: ALLEN ARMSTRONG Name: ALLEN ROSAS Insurance Providers Guarantor name: YOGESH ROSAS [facility] Information #: 1 Payer: [employer] Member Number: NA Policy Number: NA Group Number: NA
--- OUTSIDE RECORDS SUMMARY | 2024-11-09 10:20 | XMS_ITS | Clinical Summary ---
Author Organization [facility] Address [address] [place] [address] Care Team Providers Care Travel Sales Consultant Name Role Phone Spencer Sierra MD Primary Care Provider [phone]- [phone] Allergies Active Allergy Reactions Criticality Noted Date [...] age to complete this topic Care Teams Travel Sales Consultant Relationship Specialty Start Date End Date Spencer Sierra MD [address] [place] [id number] PCP - General Internal Medicine 07/29/18
--- OUTSIDE RECORDS SUMMARY | 2024-11-09 10:20 | XMS_ITS | Clinical Summary ---
Author Organization [facility] Address [address] [place] [address] Phone Care Team Providers Care Coding Educator Name Role Phone Spencer Sierra MD Primary Care Provider [phone] Allergies Active Allergy Reactions Criticality Noted Date Comments Meloxicam Headache 03/26/2016 Metoclopramide Anxiety Low 09/04/2014 Other reaction(s): Not available Medications albuterol HFA (PROAIR HFA ; PROVENTIL HFA ; VENTOLIN HFA) 90 mcg/actuation inhaler Inhale 2 puffs by mouth. 07/01/20 22 Active ALBUTEROL INHL Inhale. Activ e amLODIPine (NORVASC) 10 mg tablet Take 5 mg by mouth 1 (one) time each day. Active baclofen (LIORESAL) 10 mg tablet Take 1 tablet (10 mg total) by mouth. 06/23/20 21 Active diclofenac (VOLTAREN) 1 % topical gel Apply topically. Active finasteride (PROSCAR) 5 mg tablet Take 1 tablet (5 mg total) by mouth 1 (one) time each day. 07/01/20 23 Active fluticasone propionate (FLONASE) 50 mcg/actuation nasal spray Administer into affected nostril(s). 12/04/19 23 Active omeprazole (PriLOSEC) [address] capsule Take 1 capsule (20 mg total) by mouth 1 (one) time each day. 09/12/19 20 Active amLODIPine (NORVASC) 5 mg tablet Take 1 tablet (5 mg total) by mouth 1 (one) time each day. 06/09/20 025 Discontinued hydrocortisone 2.5 % cream Apply topically 2 (two) times a day. 025 Discontinued traZODone (DESYREL) 50 mg tablet TAKE 1/2 TO 2 TABLETS BY MOUTH DAILY AT BEDTIME 06/09/20 22 025 Discontinued Active Problems Problem Noted Date Diagnosed Date Nausea and vomiting 02/10/2022 Night sweats 09/04/2021 Elevated PSA 09/04/2021 Diverticulitis 01/22/2021 Rib lesion 10/08/2020 Prostate cancer 08/24/2020 Overview (10/29/2023): [facility] Urology; as of 01/18, plan for [...] - 09/27/2024 11:59 PM EST Hospital Encounter [facility] PET Scan [address] [place] [phone] GE junction carcinoma (CMS/HCC); Pharyngeal mass; Lung nodule Discharge Disposition: Home or Self Care 09/08/2024 Telephone [facility] Hematology Oncology [address] [place] [phone] Gabbi Novoa MD from Last 3 Months Immunizations Name Administration Dates Next Due Pfizer (ages 12 & older) REANNA S-CoV-2 COVID-19, [...] hemorrhoids; repeat in 10 yrs ESOPHAGOGASTRODUODENOSCOPY 07/14/18 [place] PROCEDURE: [place] EGD TRANSORAL BIOPSY SINGLE/MULTIPLE; COMMENT: moderately differentiated [...] DX:Overweight Esophageal cancer (CMS/HCC) DX:E sophageal cancer ([facility]) Esophageal reflux DX:Esophageal reflux History of pleural effusion DX:H istory of pleural effusion; COMMENT: Per PCP office visit note - 02/05/2023 Prostate cancer (CMS/HCC) DX:Pro state cancer (HCC) Awareness under anesthesia Family History Medical History Relation Name Comments [...] EST Temperature 36.3 ??C (97.3 ??F) 08/07/2024 11:[address] Respiratory Rate - - Oxygen Saturation 97% 08/07/2024 11:43 AM EST Inhaled Oxygen Concentration - - Weight 78 kg (172 lb) 11/06/2024 10:00 AM EDT Height 170.2 cm (5' 7 ) 11/06/2024 10:00 AM EDT Body Mass Index 26.94 11/06/2024 10:00 AM EDT Plan of Treatment Upcoming Encounters Date Type Department Care Team (Latest Contact Info) Description 11/16/2024 11:00 AM EDT Office Visit [facility] Hematology Oncology [address] [place] [phone] Gabbi Vanegas MD [address] [place] [phone] 11/20/2024 7:30 AM EDT Hospital Encounter [facility] Main OR [address] [place] [phone] Socorro Thayer MD [address] [address] 11/20/2024 7:30 AM EDT - 11/20/2024 9:00 AM EDT Surgery [facility] Main OR [address] [place] [phone] Socorro Thayer MD [address] [address] DIRECT LARYNGOSCOPY W/BIOPSY [[id number] (CPT??)] 05/03/2025 10:30 AM EDT Office Visit Pulmonolgy - [place] [facility] [address] [place] [address] Blas León MD [address] [address] 05/31/2025 10:00 AM EDT Office Visit Thoracic Surgery - [place] [address] [facility] [address] [place] [phone] Shruthi Montelongo PA 299 [facility], [address] [place] [address] Scheduled Procedures Name Priority Associated Diagnoses Date/Ti [...] junction carcinoma (CMS/HCC) Pharyngeal mass Lung nodule COMPREHENSIVE METABOLIC PANEL Routine 08/07/2024 12:09 PM EST Prostate cancer (CMS/HCC) Iron deficiency anemia due to sideropenic dysphagia from Last 3 Months or Most Recently Relevant to Health Maintenance Results * PET CT Skull to Mid [...] Signed Date: 09/27/2024 14:33 ET Workstation ID: [id number] Transcribed By: Self Edit Transcribed Date: 09/27/2024 [...] Signed Date: 09/27/2024 14:33 ET Workstation ID: [id number] Transcribed By: Self Edit Transcribed Date: 09/27/2024 14:30 ET us Subramony Subramonia-Jeff [facility]ARSON IMG NM PROCEDURES F inal Result * Comprehensive metabolic panel (08/07/2024 12:09 PM [facility]) Sodium 140 133 - 145 mmol/L LAB CHEMISTRY METHOD 08/07/2024 2:06 PM [facility] Potassium 3.6 3.5 - 5.5 mmol/L LAB CHEMISTRY METHOD 08/07/2024 2:06 PM [facility] Chloride 106 96 - 110 mmol/L LAB CHEMISTRY METHOD 08/07/2024 2:06 PM [facility] CO2 30 21 - 32 mmol/L LAB CHEMISTRY METHOD 08/07/2024 2:06 PM [facility] Anion Gap 4 3 - 11 LAB CHEMISTRY METHOD 08/07/2024 2:06 PM [facility] Glucose 99 70 - 100 mg/dL LAB CHEMISTRY METHOD 08/07/2024 2:06 PM [facility] BUN 19 5 - 25 mg/dL LAB CHEMISTRY METHOD 08/07/2024 2:06 PM [facility] Creatinine 0.98 0.70 - 1.30 mg/dL LAB CHEMISTRY METHOD 08/07/2024 2:06 PM [facility] eGFR 86 >=60 mL/min/1. 73m2 LAB CHEMISTRY METHOD 08/07/2024 2:06 PM [facility] Comment:Calculation based on the??Chronic Kidney Disease Epidemiology Collaboration (CKD-EPI) equation refit??without adjustment for race. BUN/Creatinine Ratio 19.4 LAB CHEMISTRY METHOD 08/07/2024 2:06 PM [facility] Calcium 9.6 8.5 - 10.5 mg/dL LAB CHEMISTRY METHOD 08/07/2024 2:06 PM [facility] AST (SGOT) 20 10 - 42 unit/L LAB CHEMISTRY METHOD 08/07/2024 2:06 PM [facility] ALT (SGPT) 37 10 - 60 unit/L LAB CHEMISTRY METHOD 08/07/2024 2:06 PM [facility] Alkaline Phosphatase 84 42 - 121 unit/L LAB CHEMISTRY METHOD 08/07/2024 2:06 PM EST [facility] Total Protein 6.5 6.0 - 8.0 g/dL LAB CHEMISTRY METHOD 08/07/2024 2:06 PM EST [facility] Albumin 3.6 3.2 - 5.0 g/dL LAB CHEMISTRY METHOD 08/07/2024 2:06 PM EST [facility] Total Bilirubin 0.4 0.0 - 1.4 mg/dL LAB CHEMISTRY METHOD 08/07/2024 2:06 PM EST [facility] Blood Venous blood specimen / Unknown Venipuncture / Unknown 08/07/2024 12:09 PM EST 08/07/2024 1:33 PM EST Gabbi Vanegas MD LAB BLOOD ORDERABLE S Final Result [facility] [address] [place] [address], from Last 3 Months or Most Recently Relevant to Health Maintenance Insurance [employer] MED[employer] Care Teams Coding Educator Relationship Specialty Start Date End Date Spencer Sierra MD [address] [place] [address] PCP - General Internal Medicine 07/29/18
--- OUTSIDE RECORDS SUMMARY | 2024-11-09 10:20 | XMS_ITS ---
Author Organization [facility] Address [address] [place] [address] Care Team Providers Care Machine Coremaker Name Role Phone Spencer Sierra MD Primary Care Provider [phone] Active Problems Problem Noted Date Diagnosed Date [...] treatments are documented for this patient in [facility]. Treatments may have been administered in another system.
--- OUTSIDE RECORDS SUMMARY | 2024-11-09 10:20 | XMS_ITS | Data Portability ---
Author Organization [place] - [facility], Allergy Address [address] [place] [address] Care Team Providers Care Size Maker Name Role Phone JEEVAN AGUERO Primary Care [...] contrast - attn left pharynx 2024 025 [facility] ([facility]), [address] [place], [address], 09/13/2024 16:20:25 Medication Orders None recorded. Patient TargetsNo targets recorded. Patient InstructionsNo instructions recorded. Reason for Referral None Reported. Results Created Date Observation Date Name Description Value Unit Range Abnormal Flag Note LastModifiedBy Organization Detail LastModifiedTime 09/13/1909/12/2024 MRI, head + neck + orbit s, w/wo contr ast [facility] Access ion Number : [id number] Patikwadwo cabrera Name: SocoRehan ochoa nd Record Number : [id number] Date of : 1959 Date of Exam: 2024 Referr ing Physic miky: Carin Alvarenga [facility] [place] [address], Charlie 100 [place] [address] Exam: MR Orbits , Face, Neck (C-/C+ ) CPT 15168 Room Descri ption: [facility] Espr 1.5 MRI of the soft tissue s neck withou t and with contra st. HISTOR Y: Nausea and vertig o. Hypert ension . Left retrop haryng eal massli ke lesion on prior CT. 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 Compar anand: CT of soft tissue neck on 09/06/19 25 from [facility] te Radiol ogy and Imagin g FINDIN GS: This study is limite d due to motion artifa cts. There is an approx imatel y 2 x 1.5 x 2.1 cm irregu lar shaped area of enhanc ing lesion in the left latera l pharyn geal wall extend ing to the left industrial hygienist ior tongue which corres ponds to the [...] geal wall extend ing to the left industrial hygienist ior tongue corres pondin g to the [...] ally. Electr onical ly Signed By: [facility] [address], [place], [address], 10/03/2024 13:04:11 Result Notes None recorded. Problems Name Problem SNOMED Code Status Onset Date Resolution Date Notes Provider Name and Address Organization Details Recorded Time Generaliz ed hyperhidr osis 498700730 Active 2017 Night sweats; Note: Date Diagnosed: 11/21/2017 10:48 AM (R61) Not Available [facility] 4 02:37:44 Dysphagia 73296876 Active 2017 Dysphagia, unspecifie d; Note: Date Diagnosed: 07/04/2018 1:13 PM (R13.10) Other dysphagia; Note: Date Diagnosed: 07/04/2018 11:43 AM (R13.19) Not Available [facility] 4 02:37:50 Localized enlarged lymph nodes 089476216 Active 2017 Localized enlarged lymph nodes; Note: Date Diagnosed: 11/12/2017 1:19 PM (R59.0) Not Available [facility] 4 02:37:46 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 Procedures Surgical History Date Name Laterality Status Provider Name and Address Organization Details Recorded Time 09/11/19 25 Fiberoptic Laryngoscopy (Comprehensive) completed CARIN JHAVERI MD 100 [facility],[address], [address], [facility] 09/11/2024 10:43:12 total replacement of hip completed CARIN JHAVERI MD 100 [facility],[address], [address], [facility] 09/11/2024 10:18:28 Imaging Results Imaging Date Name Status LastModified by Organiz ation Details LastModified Time 09/12/2024 MRI, head + neck + orbits, w/wo contrast completed [facility] ([facility]) [address] [place], [address], 10/03/2024 13:04:11 Procedure Notes None recorded. Medical Equipment None Reported. Allergies Allergen ID Allergen Name Allergen Category Reaction Reaction Severity Criticality Documentation Date Start Date Code Code System Note Provider Name and Address Organization Details Recorded Time 845659 meloxicam medicatio n Not available Not available Not available 09/11/[address] [facility] 10:14:15 Medications Name Sig Start Date Stop Date Status Note LastModified by Organization Details LastModified Time amlodipin e 5 mg tablet Take 1 tablet every day by oral route. active Not Available Not Available No t Available lisinopri l 10 mg tablet 09/11 completed Medicati on ID: [id number] D uration Value: 30 Brand Name: lisinopr [...] Updated DateTime 09/11/2024 171.45 cm 26.8 kg/m2 56463.[address] [facility] 09/11/2024 10:14:00 Date Recorded Body height Body mass index (BMI) Body weight Provider Name and Address Organization Details Last Updated DateTime 09/29/2024 171.45 cm 26.8 kg/m2 66260.[address] [facility] 09/29/2024 16:28:03 Social History None recorded. Functional Status None recorded. Mental Status None recorded. Family History Nothing Reported Notes:father-hypertension Medical History Condition Response Cancer Y Asthma Y Hypertension Y Past Encounters Encounter ID Performer Location Encounter Start Date Encounter Closed Date Diagnosis/Indication Diagnosis SNOMED-CT Code Diagnosis ICD10 Code Diagnosis Note [id number] CARIN JHAVERI MD [facility] [address] [address] 09/11/2024 10:08:33 09/11/2024 10:46:06 Neoplasm of uncertain behavior of pharynx 61235569 D37.05 64-year-ol d male with a history [...] for lesion would proceed with a EUA. [id number] CARIN JHAVERI MD [facility] of [address] [place] [address] 09/29/2024 16:06:03 09/29/2024 16:50:38 Neoplasm of uncertain behavior of pharynx 74393642 D37.05 We reviewed the results of his [...] Jeffrey Member ID Guarantor Name 09/11/[address] [facility] (MEDICARE REPLACEMENT/A DVANTAGE - PPO) [id number] Rehan Marin [id number] Rehan Marin 09/29/[address] [facility] (MEDICARE REPLACEMENT/A DVANTAGE - PPO) [id number] Rehan Marin [id number] Rehan Marin Notes Date Note Type Note [...] below its bifurcation. CARIN JHAVERI MD [address] [place] [address], [address], [facility] - [facility] 09/11/2024 12:38:56 09/29/2024 text/html Since his [...] just below its bifurcation. CARIN JHAVERI MD [address] [place] [address], [place], [address], [place] - [facility] 09/30/2024 08:59:07
== END 2024-11-09 09:04 | disposition home or self-care (01) ==
LOC: HO.MRI 09:03
PROVIDERS: PCP Internal Medicine; Visit Provider Urology
DX: Z13.89 Encounter for screening for other disorder (principal)

== ENCOUNTER 2024-11-15 08:33 | Outpatient (REF) | payer MEDICARE, SELFPAY ==
--- NOTE | ~2024-11-15 | MR_ITS ---
EXAMINATION: MR PROSTATE WITHOUT THEN WITH IV CONTRAST HISTORY: C61 - Malignant neoplasm of prostate TECHNIQUE: 1.5T body coil survey of the pelvis was performed. Phase array coil imaging of the prostate was performed in multiplanar high resolution axial, coronal, sagittal fast spin echo T2 and axial T1 weighted imaging sequences. Axial diffusion imaging at intermediate and high field performed with ADC mapping. Next, 8 mL Gadavist was given by intravenous infusion, and dynamic axial imaging performed. COMPARISON: There are no prior studies for comparison. CLINICAL DATA: Most recent PSA: 6.43 ng/mL on 06/19/2024. PSA Density: 0.18 ng/mL squared Prostate Biopsy: Positive biopsy on 06/14/2024 with a Tol[place] score 3+3 = 6. FINDINGS: Prostate size: 4.9 x 4.4 x 3.2 cm. Calculated prostate volume is 35.9 mL. Hemorrhage: None. Transitional Zone: There is mild heterogeneous nodular hypertrophy of the transitional zone. Peripheral Zone: No discrete focus of abnormal signal intensity is identified in the peripheral zone to suggest clinically significant prostate carcinoma. Seminal Vesicles/Ejaculatory Ducts: Symmetric and normal in signal and caliber. Pelvic Lymph Nodes: No obturator or internal iliac lymph nodes meeting size criteria for adenopathy. Marrow Signal: Normal marrow signal and enhancement without focal lesion identified. MR/MR Prostate wo/w con IMPRESSION: No discrete focus of abnormal signal intensity is identified to suggest clinically significant prostate carcinoma. PI-RADS 2: Low (clinically significant cancer is unlikely to be present) PI-RADS Assessment Categories PI-RADS 1: Very low (clinically significant cancer is highly unlikely to be present) PI-RADS 2: Low (clinically significant cancer is unlikely to be present) PI-RADS 3: Intermediate (the presence of clinically significant cancer is equivocal) PI-RADS 4: High (clinically significant cancer is likely to be present) PI-RADS 5: Very high (clinically significant cancer is highly likely to be present) [employer]. MR Prostate Imaging Reporting and Data System version 2.1. http://www.acr.org/Quality-Safety/Resources/PIRADS/ Electronically signed by: Moris Hidalgo MD 11/15/2024 10:48 AM EDT
--- OUTSIDE RECORDS SUMMARY | 2024-11-15 09:26 | XMS_ITS | Data Portability ---
Author Organization [place] - [facility], Allergy Address [address] [place] [address] Care Team Providers Care Carbide Powder Processor Name Role Phone JEEVAN AGUERO Primary Care [...] opy, direct, with biopsy (SURG) 2024 025 flash Not available 10/02/2024 07:12:22 Imaging MRI, neck, w/wo contrast - attn left pharynx 2024 025 [facility] ([facility]), [address] [place], [address], 09/13/2024 16:20:25 Medication Orders None recorded. Patient TargetsNo targets recorded. Patient InstructionsNo instructions recorded. Reason for Referral None Reported. Results Created Date Observation Date Name Description Value Unit Range Abnormal Flag Note LastModifiedBy Organization Detail LastModifiedTime 09/13/1909/12/2024 MRI, head + neck + orbit s, w/wo contr ast [facility] Access ion Number : [id number] Patikwadwo t Name: Rehan Daniels nda casey Record Number : [id number] Date of : 1959 Date of Exam: 2024 Referr ing Physic miky: Carin Alvarenga [facility] [place] [address], Charlie 100 [place] [address] Exam: MR Orbits , Face, Neck (C-/C+ ) CPT 79402 Room Descri ption: [facility] Espr 1.5 MRI of the soft tissue s neck withou t and with contra st. HISTOR Y: Nausea and vertig o. Hypert ension . Left retrop haryng eal massli ke lesion on prior CT. 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 Compar anand: CT of soft tissue neck on 09/06/19 25 from [facility] te Radiol ogy and Imagin g FINDIN GS: This study is limite d due to motion artifa cts. There is an approx imatel y 2 x 1.5 x 2.1 cm irregu lar shaped area of enhanc ing lesion in the left latera l pharyn geal wall extend ing to the left maintenance carpenter ior tongue which corres ponds to the [...] geal wall extend ing to the left maintenance carpenter ior tongue corres pondin g to the [...] ally. Electr onical ly Signed By: [facility] 80 [facility], [place], [address], 10/03/2024 13:04:11 Result Notes None recorded. Problems Name Problem SNOMED Code Status Onset Date Resolution Date Notes Provider Name and Address Organization Details Recorded Time Generaliz ed hyperhidr osis 774078821 Active 2017 Night sweats; Note: Date Diagnosed: 11/21/2017 10:48 AM (R61) Not Available [facility] 4 02:37:44 Dysphagia 06570742 Active 2017 Dysphagia, unspecifie d; Note: Date Diagnosed: 07/04/2018 1:13 PM (R13.10) Other dysphagia; Note: Date Diagnosed: 07/04/2018 11:43 AM (R13.19) Not Available [facility] 4 02:37:50 Localized enlarged lymph nodes 868687154 Active 2017 Localized enlarged lymph nodes; Note: Date Diagnosed: 11/12/2017 1:19 PM (R59.0) Not Available [facility] 4 02:37:46 Neoplasm of uncertain behavior of pharynx 60021401 Active 2024 CARIN JHAVERI MD [address] [place] [address], [place], [address] , [facility] - [facility] 5 10:41:21 Problem Notes None recorded. Procedures Surgical History Date Name Laterality Status Provider Name and Address Organization Details Recorded Time 09/11/19 25 Fiberoptic Laryngoscopy (Comprehensive) completed CARIN JHAVERI MD 100 [facility],[address], [address], [facility] 09/11/2024 10:43:12 total replacement of hip completed CARIN JHAVERI MD 100 [facility] [address], [place], [address], [facility] 09/11/2024 10:18:28 Imaging Results Imaging Date Name Status LastModified by Organiz ation Details LastModified Time 09/12/2024 MRI, head + neck + orbits, w/wo contrast completed [facility] ([facility]) 80 [facility], [place], [address], 10/03/2024 13:04:11 Procedure Notes None recorded. Medical Equipment None Reported. Allergies Allergen ID Allergen Name Allergen Category Reaction Reaction Severity Criticality Documentation Date Start Date Code Code System Note Provider Name and Address Organization Details Recorded Time 923238 meloxicam medicatio n Not available Not available Not available 09/11/2024 05278 RxNorm Dayan taylor [facility] 10:14:15 Medications Name Sig Start Date Stop Date Status Note LastModified by Organization Details LastModified Time amlodipin e 5 mg tablet Take 1 tablet every day by oral route. active Not Available Not Available No t Available lisinopri l 10 mg tablet 09/11 completed Medicati on ID: [id number] D uration Value: 30 Brand Name: lisinopr [...] Updated DateTime 09/11/2024 171.45 cm 26.8 kg/m2 36555.07 g Dayan De La Fuente [facility] 09/11/2024 10:14:00 Date Recorded Body height Body mass index (BMI) Body weight Provider Name and Address Organization Details Last Updated DateTime 09/29/2024 171.45 cm 26.8 kg/m2 58916.07 g Dayan De La Fuente [facility] 09/29/2024 16:28:03 Social History None recorded. Functional Status None recorded. Mental Status None recorded. Family History Nothing Reported Notes:father-hypertension Medical History Condition Response Cancer Y Hypertension Y Asthma Y Past Encounters Encounter ID Performer Location Encounter Start Date Encounter Closed Date Diagnosis/Indication Diagnosis SNOMED-CT Code Diagnosis ICD10 Code Diagnosis Note [id number] CARIN JHAVERI MD [facility] of [address] [address] 09/11/2024 10:08:33 09/11/2024 10:46:06 Neoplasm of uncertain behavior of pharynx 96149257 D37.05 64-year-ol d male with a history [...] for lesion would proceed with a EUA. [id number] CARIN JHAVERI MD [facility] of [address] [place] [address] 09/29/2024 16:06:03 09/29/2024 16:50:38 Neoplasm of uncertain behavior of pharynx 57323910 D37.05 We reviewed the results of his [...] Jeffrey Member ID Guarantor Name 09/11/2024 1 [facility] (MEDICARE REPLACEMENT/A DVANTAGE - PPO) [id number] Rehan Marin [id number] Rehan Marin 09/29/2024 1 [facility] (MEDICARE REPLACEMENT/A DVANTAGE - PPO) [id number] Rehan Marin [id number] Rehan Marin Notes Date Note Type Note [...] just below its bifurcation. CARIN JHAVERI MD [address] [place] [address], [address], [facility] - [facility] 09/11/2024 12:38:56 09/29/2024 text/html Since his last [...] just below its bifurcation. CARIN JHAVERI MD [address] [place] [address], [place], [address], [facility] - [facility] 09/30/2024 08:59:07
--- OUTSIDE RECORDS SUMMARY | 2024-11-15 09:26 | XMS_ITS | Clinical Summary ---
Author Organization [facility] Address [address] [place] [address] Care Team Providers Care Puller Through Name Role Phone Spencer Sierra MD Primary Care Provider +1- [phone] Allergies Active Allergy Reactions Criticality Noted Date [...] age to complete this topic Care Teams Puller Through Relationship Specialty Start Date End Date Spencer Sierra MD [address] [place] [phone] PCP - General Internal Medicine 07/29/18
--- OUTSIDE RECORDS SUMMARY | 2024-11-15 09:26 | XMS_ITS | Clinical Summary ---
Author Organization [facility] Address [address] [place] [address] Phone Care Team Providers Care Sign Writer Hand Name Role Phone Spencer Sierra MD Primary Care Provider [phone] Allergies Active Allergy Reactions Criticality Noted Date [...] lesion 10/08/2020 Prostate cancer 08/24/2020 Overview (10/29/2023): [facility]rology; as of 01/18, plan for [...] - 09/27/2024 11:59 PM EST Hospital Encounter [facility] PET Scan [address] [place] [phone] GE junction carcinoma (CMS/HCC); Pharyngeal mass; Lung nodule Discharge Disposition: Home or Self Care 09/08/[address] [facility] Hematology Oncology [address] [place] [phone] Gabbi Novoa MD from Last 3 Months [...] in 10 yrs ESOPHAGOGASTRODUODENOSCOPY 07/14/18 [place] PROCEDURE: NE EGD TRANSORAL BIOPSY SINGLE/MULTIPLE; COMMENT: moderately differentiated [...] DX:Overweight Esophageal cancer (CMS/HCC) DX:E sophageal cancer ([facility]) Esophageal reflux DX:Esophageal reflux History of pleural [...] Description 11/16/2024 11:00 AM EDT Office Visit [facility] Hematology Oncology [address] [place] [phone] Gabbi Vanegas MD [address] [place] [phone] 11/20/2024 7:30 AM EDT Hospital Encounter [facility] Main OR [address] [place] [phone] Socorro Thayer MD [address] [address] 11/20/2024 7:30 AM EDT - 11/20/2024 9:[address] [facility] Main OR [address] [place] [phone] Socorro Thayer MD [address] [address] DIRECT LARYNGOSCOPY W/BIOPSY [[id number] (CPT??)] 05/03/2025 10:30 AM EDT Office Visit Pulmonolgy - [facility] [address] [facility] [address] [place] [address] Blas León MD [address] [address] 05/31/2025 10:00 AM EDT Office Visit Thoracic Surgery - [place] [address] [facility] [address] [place] [phone] Shruthi Montelongo PA [address] [facility], [address] [place] [address] Scheduled Procedures Name Priority Associated Diagnoses Date/Ti [...] Signed Date: 09/27/2024 14:33 ET Workstation ID: [id number] Transcribed By: Self Edit Transcribed Date: 09/27/2024 [...] Signed Date: 09/27/2024 14:33 ET Workstation ID: [id number] Transcribed By: Self Edit Transcribed Date: 09/27/2024 14:30 ET us Subramony Subramonia-Jeff PEARSON IMG NM PROCEDURES F inal Result * Comprehensive metabolic panel (08/07/2024 12:09 PM [facility]) Sodium 140 133 - 145 mmol/L LAB CHEMISTRY METHOD 08/07/2024 2:06 PM [facility] Potassium 3.6 3.5 - 5.5 mmol/L LAB CHEMISTRY METHOD 08/07/2024 2:06 PM [facility] Chloride 106 96 - 110 mmol/L LAB CHEMISTRY METHOD 08/07/2024 2:06 PM [facility] CO2 30 21 - 32 mmol/L LAB CHEMISTRY METHOD 08/07/2024 2:06 PM [facility] Anion Gap 4 3 - 11 LAB CHEMISTRY METHOD 08/07/2024 2:06 PM [facility] Glucose 99 70 - 100 mg/dL LAB CHEMISTRY METHOD 08/07/2024 2:06 PM [facility] BUN 19 5 - 25 mg/dL LAB CHEMISTRY METHOD 08/07/2024 2:06 PM [facility] Creatinine 0.98 0.70 - 1.30 mg/dL LAB CHEMISTRY METHOD 08/07/2024 2:06 PM [facility] eGFR 86 >=60 mL/min/1. 73m2 LAB CHEMISTRY METHOD 08/07/2024 2:06 PM [facility] Comment:Calculation based on the??Chronic Kidney Disease Epidemiology Collaboration (CKD-EPI) equation refit??without adjustment for race. BUN/Creatinine Ratio 19.4 LAB CHEMISTRY METHOD 08/07/2024 2:06 PM [facility] Calcium 9.6 8.5 - 10.5 mg/dL LAB CHEMISTRY METHOD 08/07/2024 2:06 PM [facility] AST (SGOT) 20 10 - 42 unit/L LAB CHEMISTRY METHOD 08/07/2024 2:06 PM [facility] ALT (SGPT) 37 10 - 60 unit/L LAB CHEMISTRY METHOD 08/07/2024 2:06 PM [facility] Alkaline Phosphatase 84 42 - 121 unit/L LAB CHEMISTRY METHOD 08/07/2024 2:06 PM EST [facility] Total Protein 6.5 6.0 - 8.0 g/dL LAB CHEMISTRY METHOD 08/07/2024 2:06 PM EST [facility] Albumin 3.6 3.2 - 5.0 g/dL LAB CHEMISTRY METHOD 08/07/2024 2:06 PM EST [facility] Total Bilirubin 0.4 0.0 - 1.4 mg/dL LAB CHEMISTRY METHOD 08/07/2024 2:06 PM EST [facility] Blood Venous blood specimen / Unknown Venipuncture / Unknown 08/07/2024 12:09 PM EST 08/07/2024 1:33 PM EST Gabbi Vanegas MD LAB BLOOD ORDERABLE S Final Result [facility] [address] [place] [address], from Last 3 Months or Most Recently Relevant to Health Maintenance Insurance [place] [address] Care Teams Sign Writer Hand Relationship Specialty Start Date End Date Spencer Sierra MD [address] [place] [address] PCP - General Internal Medicine 07/29/18
--- OUTSIDE RECORDS SUMMARY | 2024-11-15 09:26 | XMS_ITS ---
Author Organization [facility] Address [address] [place] [address] Care Team Providers Care Photographer Still Name Role Phone Spencer Sierra MD Primary Care Provider [phone] Active Problems Problem Noted Date Diagnosed Date [...] treatments are documented for this patient in [facility]. Treatments may have been administered in another system.
--- OUTSIDE RECORDS SUMMARY | 2024-11-15 09:26 | XMS_ITS | Continuity of Care Document ---
Author Organization [facility] Address [address] [place] [address]- Care Team Providers Care Thread Machine Operator Name Role Phone Spencer Sierra MD Primary Care Physician [phone] [place] [facility] [place]): 10/14/24 - 11/13/24 [facility] [address] [place], [place] [address] [[email or web address] Encounter Type: Triage Allergies, Adverse Reactions, Alerts Substance Criticality Severity Reaction Reaction Severity Status Reglan anxious Active Mobic rash Active Immunizations Given and Recorded Vaccine Date Status Refusal Reason SARS-CoV-2 mRNA ([id number]) vax 03/10/22 Recorded SARS-CoV-2 (COVID-19) mRNA BNT-162b2 vac 09/03/21 Recorded SARS-CoV-2 (COVID-19) mRNA BNT-162b2 vac 01/03/21 Recorded SARS-CoV-2 (COVID-19) mRNA BNT-162b2 vac 12/12/20 Recorded tetanus/diphtheria/pertussis, acel(Tdap) 04/30/16 Recorded Medications Albuterol (Eqv-ProAir HFA) 90 mcg/inh inhalation aerosol 2 puffs, Inhalation, Every 6 hours, PRN Wheezing/Shortness of Breath, # 8.5 Gm, 2 Refills, Maintenance, 04/04/24 10:38:00 PM EDT, [id number], Partial fill upon patient request if the [...] 3 Refills, Maintenance, 03/24/24 9:29:00 AM EDT, [id number], 172.72, cm, 05/28/23 10:50:00 EDT, Height, 83.6, kg, 05/28/23 10:50:00 EDT, Dry Weight Start Date: 03/24/24 Status: Ordered Quantity: 90.0 Unit: tablet Repeat number: 4 omeprazole 20 mg oral enteric coated capsule 1 capsule, By Mouth, 2 times a day, # 180 capsule, 1 Refills, Maintenance, 11/10/24 11:31:00 AM EDT,[facility] #[id number], 172.72, cm, 10/13/24 8:38:00 EST, Height, 75.2, kg, 10/13/24 8:33:00 EST, Dry Weight Start Date: 11/10/24 Status: Ordered Quantity: 180.0 Unit: capsule Repeat [...] Team Personnel Name: Elisabeth Tejeda RN Position: [facility] RN Member Role: Primary Care Nurse Name: Spencer Sierra MD Position: [facility] Physician - Primary Care Member Role: PCP Address: [address] [place] [address] Telecom: Care Team Related Persons Name: ALLEN ARMSTRONG Name: ALLEN ROSAS Insurance Providers Guarantor name: YOGESH ROSAS Health [facility] Information #: 1 Payer: [employer] Member Number: NA Policy Number: NA Group Number: NA
[2024-11-15] MEDS: gadobutroL 10 ML VIAL IVPUSH (10:25)
== END 2024-11-15 08:34 | disposition home or self-care (01) ==
LOC: HO.MRI 08:33
PROVIDERS: PCP Internal Medicine; Visit Provider Urology
DX: C61 Malignant neoplasm of prostate (principal); R97.20 Elevated prostate specific antigen [PSA]
CPT/HCPCS: 72197; A9585

== ENCOUNTER → 2024-11-15 08:34 | Outpatient (BNV) | payer MEDICARE, SELFPAY | PROVIDERS: PCP Internal Medicine; Visit Provider Radiology Diagnostic Radiology | DX: C61 Malignant neoplasm of prostate (principal) | CPT/HCPCS: 72197 ==

== ENCOUNTER 2024-11-30 11:40 | Outpatient (AMB) | payer MEDICARE, SELFPAY ==
--- NOTE | 2024-11-30 10:54 | MHC.OFFVIS ---
Intake Visit Reasons: 6M PSA/MRI Intake Note: Patient is Present for a 6 month follow up/PSA/MRI 11/03/24 PSA:6.88 Urology Medication: Finasteride Antibiotic Allergies:None Blood Thinners: None Allergies meloxicam [From Mobic] Allergy (Intermediate, Verified 11/30/24 11:45) Anxiety metoclopramide [From Reglan] Allergy (Intermediate, Verified 11/30/24 11:45) Anxiety Medication List - Last Reconciled 11/30/24 by Anna Gaytan MD albuterol sulfate 90 mcg/actuation 2 puffs inhalation Q4H PRN amlodipine 5 mg PO DAILY baclofen 10 mg PO TID PRN finasteride (Proscar) 5 mg PO DAILY 90 days omeprazole 20 mg PO BID HPI Comments Details: 11/30/24-- History of Present Illness The patient is a 64-year-old male presenting for discussion of recent imaging and management regarding prostate cancer. Previously noted biopsied lesions confirmed malignancy. Recent imaging has not shown progression as the prostate size decreased significantly, potentially attributed to finasteride. The patient's PSA level is stable at 6.88, elevated relative to normative ranges but remains consistent with prostate dimensions. The MRI on 11/15 indicated reduced prostate volume from 58 grams to approximately 36 grams. Additionally, May's biopsy pathology report verified malignancy but reveals stability in current findings. Urinary Symptoms Review - Reduction in prostate size from 58 grams to approximately 36 grams noted - Stable PSA level at 6.88 - No urinary frequency or incontinence mentioned - No pain or pressure symptoms discussed Results - MRI (11/15): No significant lesions observed; prostate size reduced from 58 to ~36 grams. - PSA Test: Stable at 6.88, despite elevated level considering prostate size - Biopsy (06/14/23): Confirmed prostate cancer with previous lesions biopsied by Dr. Dow Discussion Notes I discussed with the patient the recent MRI findings indicating a reduction in prostate size with stable PSA levels, possibly influenced by finasteride. Finasteride's role in shrinking the prostate tissue was highlighted, albeit not as a cancer treatment. Continuous monitoring was emphasized, and the understanding of current conditions was aligned with maintaining stability, with no notable spread or worrisome alterations. Patients were informed about the relative PSA elevation due to larger prostate size. We discussed conducting a follow-up blood test in five months and a follow-up in six months, with instructions to contact us if conditions change. 06/05/24--Rehan is a 64-year-old male who presents today for a follow-up. He is on active surveillance for prostate cancer, group 1, [place] score 3+3=6. He is on Proscar 5 mg daily due to enlarged prostate. He denies irritative voiding symptoms. PSA pending. Review of chart: 01/03/24--Rehan is a 63-year-old male who presents today for a follow-up. He is on active surveillance for prostate cancer, group 1, Ru score 3+3=6. He is here to discuss PSA testing. He is on Proscar 5 mg daily due to enlarged prostate. Discussed with the patient PSA 12/30/2023-6.09 ng/mL. Will continue active surveillance. PSA in 6 months. Continue Proscar. 07/01/2023?He is followed today for biopsy results. s/p MRI guided prostate biopsy by Dr. Dow on 06/14/2023. I reviewed the biopsy results with the patient. Prostate, C 3.0, needle core biopsy: Prostatic adenocarcinoma, Ru score 3+3=6 (Grade group 1), involving 1% of the needle core. Prostate, b 3.0, needle core biopsy: Prostatic adenocarcinoma, [place] score 3+3=6 (Grade group 1), involving 15% of the needle core. Grade group 1 adenocarcinoma prostate cancer 07/01/2023: Plan: Continue Active surveillance, PSA screening test was ordered. Proscar 5 mg was ordered. Follow-up in 6 months. [facility] Medical History Heart murmur Sleep apnea Essential hypertension History of esophageal cancer (~2017) Adenocarcinoma of gastroesophageal junction Prostate cancer (~2021) Radiation esophagitis GERD (gastroesophageal reflux disease) 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 Thrombocytopenia Jejunostomy tube present 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 Weight loss Microcytic anemia History of CO poisoning Rib lesion Diverticulitis Elevated PSA Night sweats Nausea Surgical History History of endoscopy (~2017) History of thoracic surgery (~2020) History of prostate biopsy (~2021) History of esophagectomy (~2018) Social History Alcohol intake: current Alcohol intake frequency: holidays/special occasions only Patient Tobacco Use Status: Never used Tobacco Results AMB Urinalysis, Automated UA Leukoctes 0 Lucio/uL Last Edit by Mehnaz Kelley on 11/30/24 14:03 UA Nitrite Negative Last Edit by Mehnaz Kelley on 11/30/24 14:03 UA Urobilinogen 0.2 mg/dL Last Edit by Mehnaz Kelley on 11/30/24 14:03 UA Protein 15 mg/dL Last Edit by Mehnaz Kelley on 11/30/24 14:03 UA pH 6.0 Last Edit by Mehnaz Kelley on 11/30/24 14:03 UA Blood 0 Rafael/uL Last Edit by Mehnaz Kelley on 11/30/24 14:03 UA Specific [place] 1.015 Last Edit by Mehnaz Kelley on 11/30/24 14:03 UA Ketone Negative Last Edit by Mehnaz Kelley on 11/30/24 14:03 UA Bilirubin 0 mg/dL Last Edit by Mehnaz Kelley on 11/30/24 14:03 UA Glucose 0 mg/dL Last Edit by Mehnaz Kelley on 11/30/24 14:03 Results Reviewed Results Reviewed: Date of Service: 11/15/24 Procedure(s): MR Prostate wo/w con Accession Number(s): [id number] cc: Anna Gaytan MD; Spencer Sierra MD~ EXAMINATION: MR PROSTATE WITHOUT THEN WITH IV CONTRAST HISTORY: C61 - Malignant neoplasm of prostate TECHNIQUE: 1.5T body coil survey of the pelvis was performed. Phase array coil imaging of the prostate was performed in multiplanar high resolution axial, coronal, sagittal fast spin echo T2 and axial T1 weighted imaging sequences. Axial diffusion imaging at intermediate and high field performed with ADC mapping. Next, 8 mL Gadavist was given by intravenous infusion, and dynamic axial imaging performed. COMPARISON: There are no prior studies for comparison. CLINICAL DATA: Most recent PSA: 6.43 ng/mL on 06/19/2024. PSA Density: 0.18 ng/mL squared Prostate Biopsy: Positive biopsy on 06/14/2024 with a Ru score 3+3 = 6. FINDINGS: Prostate size: 4.9 x 4.4 x 3.2 cm. Calculated prostate volume is 35.9 mL. Hemorrhage: None. Transitional Zone: There is mild heterogeneous nodular hypertrophy of the transitional zone. Peripheral Zone: No discrete focus of abnormal signal intensity is identified in the peripheral zone to suggest clinically significant prostate carcinoma. Seminal Vesicles/Ejaculatory Ducts: Symmetric and normal in signal and caliber. Pelvic Lymph Nodes: No obturator or internal iliac lymph nodes meeting size criteria for adenopathy. Marrow Signal: Normal marrow signal and enhancement without focal lesion identified. MR/MR Prostate wo/w con IMPRESSION: No discrete focus of abnormal signal intensity is identified to suggest clinically significant prostate carcinoma. PI-RADS 2: Low (clinically significant cancer is unlikely to be present) PI-RADS Assessment Categories PI-RADS 1: Very low (clinically significant cancer is highly unlikely to be present) PI-RADS 2: Low (clinically significant cancer is unlikely to be present) PI-RADS 3: Intermediate (the presence of clinically significant cancer is equivocal) PI-RADS 4: High (clinically significant cancer is likely to be present) PI-RADS 5: Very high (clinically significant cancer is highly likely to be present) [employer]. MR Prostate Imaging Reporting and Data System version 2.1. http://www.acr.org/Quality-Safety/Resources/PIRADS/ Collected: 06/14/23 Location: [facility] Received: 06/14/23 Diagnosis A. Prostate, e 2.5, needle core biopsy: Atypical small acinar proliferation. B. Prostate, E 4.0, needle core biopsy: Benign prostatic tissue. C. Prostate, E 3.5, needle core biopsy: Benign prostatic tissue. D. Prostate, E 3.0, needle core biopsy: Benign prostatic tissue. E. Prostate, E 2.5, needle core biopsy: Benign prostatic tissue. F. Prostate, d 4.0, needle core biopsy: Fibromuscular tissue only. G. Prostate, d 3.0, needle core biopsy: Benign prostatic tissue. H. Prostate, d 2.5, needle core biopsy: Benign prostatic tissue. I. Prostate, d 1.5, needle core biopsy: Benign prostatic tissue. J. Prostate, c 4.0, needle core biopsy: Benign prostatic tissue. K. Prostate, c 3.5, needle core biopsy: Benign prostatic tissue. L. Prostate, c 2.0, needle core biopsy: Benign prostatic tissue. M. Prostate, C 3.0, needle core biopsy: Prostatic adenocarcinoma, Ru score 3+3=6 (Grade group 1), involving 1% of the needle core. N. Prostate, C 2.0, needle core biopsy: Benign prostatic tissue. O. Prostate, C 1.5, needle core biopsy: Benign prostatic tissue. P. Prostate, b 3.0, needle core biopsy: Prostatic adenocarcinoma, Ru score 3+3=6 (Grade group 1), involving 15% of the needle core. Q. Prostate, b 2.5, needle core biopsy: Benign prostatic tissue. Data synopsis - Prostate needle biopsy Histologic type: Acinar adenocarcinoma Histologic grade: 3+3=6 [place] score: 3+3=6 (M and P) % of pattern 4: Not identified % of pattern 5: Not identified Grade group: 1 Tumor quantitation: Number cores positive: 2 Total number of cores: 17 % of tissue involved: See above for details Periprostatic fat inv.: Not identified Seminal vesicle inv.: Not identified Perineural inv.: Not identified LVI: Not identified Assessment & Plan Assessment & Plan (1) Prostate cancer: Onset Date: ~2021 Code(s): C61 - Malignant neoplasm of prostate Category: Medical (2) Elevated PSA: Code(s): R97.20 - Elevated prostate specific antigen [PSA] Category: Medical (3) Enlarged prostate: Code(s): N40.0 - Benign prostatic hyperplasia without lower urinary tract symptoms Category: Medical Plan Plan The plan is to continue with finasteride therapy due to its effects on prostate size, acknowledging its role outside of direct cancer treatment. We will monitor PSA levels closely to evaluate any change. A follow-up blood test is scheduled after five months, with a subsequent clinical evaluation planned in six months. The patient was advised to monitor his condition and communicate any changes. Patient Instructions - Continue taking finasteride as prescribed. - Schedule a PSA blood test in five months. - Plan for a follow-up appointment in six months. - Contact us immediately if you notice any changes or experience symptoms that are concerning. - Maintain regular monitoring of your condition and adhere to current treatment strategies. Orders: Orders AMB Urinalysis Automated Today Z13.9 - Encounter for screening, unspecified Medications: New finasteride (Proscar) 5 mg PO DAILY 90 tabs 3RF Patient Instructions: The patient had an opportunity to ask questions regarding treatment plan. The patient expressed understanding and agreement with the above treatment plan. The patient is aware they should contact our office by phone for worsening of their current condition or the appearance of new symptoms. Compliance is encouraged with any medications and followup testing that is ordered. It is a privilege to be allowed the opportunity to participate in the urologic care of your patient. If you have any questions or concerns regarding treatment for the above conditions please do not hesitate to contact me. The office telephone contact is [phone]. This note is constructed in part using voice recognition software. While every effort has been made to ensure accuracy spray gun repairer errors may have been included. Yours sincerely, Anna Gaytan MD Scribe Plan - Not visible on output: Patient was informed and verbally consented to the use of an ambient scribe for clinic note documentation during this visit. Coding Level of Care Code Est Pt Level 4 (97419) Diagnoses Prostate cancer C61 Elevated PSA R97.20 Enlarged prostate N40.0
--- OUTSIDE RECORDS SUMMARY | 2024-11-30 12:59 | XMS_ITS | Clinical Summary ---
Author Organization [facility] Address [address] [place] [address] Phone Care Team Providers Care Recording Engineer Name Role Phone Spencer Sierra MD Primary Care Provider [phone] Allergies Active Allergy Reactions Criticality Noted Date [...] mouth 1 (one) time each day. 06/09/20 22 025 Discontinued hydrocortisone 2.5 % cream Apply topically 2 (two) times a day. 025 Discontinued traZODone (DESYREL) 50 mg tablet TAKE 1/2 TO 2 TABLETS BY MOUTH DAILY AT BEDTIME 06/09/20 22 025 Discontinued Active Problems Problem Noted Date Diagnosed Date Pharyngeal mass 11/16/2024 Nausea and vomiting 02/10/2022 Night sweats 09/04/2021 Elevated PSA 09/04/2021 Diverticulitis 01/22/2021 Rib lesion 10/08/2020 Prostate cancer 08/24/2020 Overview (10/29/2023): [facility] Urology; as of 01/18, plan for [...] Encounters Date Type Department Care Team Description 11/20/2024 7:35 AM EDT Anesthesia Event [facility] Main OR [address] [place] [phone] Mateo Morrissey DO 11/20/2024 7:30 AM EDT - 11/20/2024 9:00 AM EDT Surgery [facility] OR [address] [place] [phone] Socorro Thayer MD DIRECT LARYNGOSCOPY W/BIOPSY [99099 (CPT??)] 11/20/2024 6:07 AM EDT - 11/20/2024 10:50 AM EDT Hospital Encounter [facility] Main OR [address] [place] [address] Socorro Thayer MD Neoplasm of uncertain behavior of pharynx Discharge Disposition: Home or Self Care 11/16/2024 11:00 AM EDT Office Visit [facility] Hematology Oncology [address] [place] [address] Gabbi Novoa MD GE junction carcinoma (CMS/HCC) (Primary Dx); Prostate cancer (CMS/HCC); Pharyngeal mass 09/27/2024 10:43 AM EST - 09/27/2024 11:59 PM EST Hospital Encounter [facility] PET Scan [address] [place] [address] GE junction carcinoma (CMS/HCC); Pharyngeal mass; Lung nodule Discharge Disposition: Home or Self Care 09/08/2024 Telephone [facility] Hematology Oncology [address] [place] [phone] Gabbi Novoa MD from Last 3 Months Immunizations Name Administration Dates Next Due Supertec (ages 12 & older) REANNA S-CoV-2 COVID-19, [...] hemorrhoids; repeat in 10 yrs ESOPHAGOGASTRODUODENOSCOPY 07/14/18 [facility] PROCEDURE: [place] EGD TRANSORAL BIOPSY SINGLE/MULTIPLE; COMMENT: moderately differentiated [...] Obstructive sleep apnea DX:Obstr uctive sleep apnea Asthma DX:Asthma Thoracic aortic aneurysm (CMS/HCC) DX:Thoracic [...] Esophageal cancer (CMS/HCC) DX:E sophageal cancer ([facility]) Esophageal reflux DX:Esophageal reflux History of pleural effusion DX:H istory of pleural effusion; COMMENT: Per PCP office visit note - 02/05/2023 Prostate cancer (CMS/HCC) DX:Pro state cancer (HCC) Awareness under anesthesia H/O resection of rib Family History Medical History Relation Name Comments [...] Never Alcohol Use Standard Drinks/Week Comments Yes 1 (1 standard drink = 0.6 oz pur e alcohol) Interpersonal Safety Answer Date Record ed Have you ever been physically abused? Not on chris e 11/20/2024 Verbal Abuse 11/20/2024 Sex and Gender Information Value Date Recorded Sex Assigned at Male 11/20/2024 6:04 AM EDT Legal Sex Male 5:10 AM EST Gender Identity Male 11/20/2024 6:04 AM EDT Sexual Orientation Straight 11/20/2024 6: 04 AM EDT Obstetrics History Last Filed Vital Signs Vital Sign Reading Time Taken Comments Blood Pressure 144/69 11/20/2024 9:45 AM EDT Pulse 55 11/20/2024 9:45 AM EDT Temperature 36.1 ??C (97 ??F) 11/20/2024 9:45 AM EDT Respiratory Rate 20 11/20/2024 9:45 AM EDT Oxygen Saturation 94% 11/20/2024 9:45 AM EDT Inhaled Oxygen Concentration - - Weight 78.5 kg (173 lb) 11/16/2024 11:32 AM EDT Height 170.2 cm (5' 7 ) 11/16/2024 11:32 AM EDT Body Mass Index 27.1 11/16/2024 11:32 AM EDT Plan of Treatment Upcoming Encounters Date Type Department Care Team (Late st Contact Info) Description 12/07/2024 10:30 AM EDT Office Visit [facility] Hematology Oncology [address] [place] [address] Gabbi Vanegas MD [address] [place] [phone] 05/03/2025 10:30 AM EDT Office Visit Pulmonolgy - [place] [address] [facility] [address] [place] [phone] lBas León MD [address] [facility] [address] [place] [address] 05/31/2025 10:00 AM EDT Office Visit Thoracic Surgery - [place] [address] [facility] [address] [place] [address] Shruthi Montelongo PA [address] [facility], [address] [place] [address] Health Maintenance Due Date Last Done Comments [...] - Risk 3-dose series) 2019 RSV Immunization Adult Patients (1 - Risk 60-74 years 1-dose series) 2019 Cholesterol Screening (Lipid Panel) 08/07/2022 Colorectal Cancer Screening: Colonoscopy 08/07/2022 Depression Screening 08/07/2022 Hepatitis C Screening 08/07/2022 Medicare Annual Wellness Visit 08/07/2022 Social Influencers of Health Screening 08/07/2022 COVID-19 Vaccine ( season) 2024 03/10/2022, 09/03/2021, 01/03/2021, Additional history exists Falls Risk Assessment 2024 Influenza Vaccine (Season Ended) 2025 Hypertension/CHF/CAD Annual BMP Blood Test 08/07/2025 08/07/2024 [...] on patient's age to complete this topic Medical Devices Implanted Type Area Label Drier Device Identifier Shelf Expiration Date Model / Serial / Lot Prolaryn Plus Voice Injection 1cc - Sn/A - [id number] Implanted:Qty: 1 on 11/20/2024 by Socorro Thayer MD at [facility] [employer] N/A: Throat [employer] [id number] / N/A / N/A Procedures Procedure Name Priority Date/Time Associated Diagnosis Comments TISSUE EXAM Routine 11/20/2024 8:05 AM EDT Neoplasm of uncertain behavior of pharynx TH AN ENDOTRACHEAL(NO CHARGE) Routine 11/20/2024 7:58 AM EDT NJ LARYNGOSCOPY DIRECT OPERATIVE WITH BIOPSY 11/20/2024 7:35 AM EDT Neoplasm of uncertain behavior of pharynx Case Notes Move to or 15 PROCEDURAL ECG Routine 11/20/2024 6:[address] SKULL TO MID THIGH SUBSEQUENT Routine 09/27/2024 11:58 AM EST GE junction carcinoma (CMS/HCC) Pharyngeal mass Lung nodule COMPREHENSIVE METABOLIC PANEL Routine 08/07/2024 12:09 PM EST Prostate cancer (CMS/HCC) Iron deficiency anemia due to sideropenic dysphagia from Last 3 Months or Most Recently Relevant to Health Maintenance Results * Tissue exam (11/20/2024 8:05 AM EDT) Final Diagnosis A. Left base of tongue, biopsy: Benign lingual tonsillar tissue with reactive lymphoid hyperplasia No atypia or neoplasm identified B. Left palatine tonsil, biopsy: Benign tonsillar tissue without atypia or neoplasm 11/21/2024 12:04 PM EDT [facility] Gross Description A. Tongue, Left base: Labeled left base tongue . Received in formalin with a Telfa pad is a 1.1 x 0.8 x 0.3 cm aggregate of irregular mccoy-pink soft tissue fragments admixed with clotted blood which is submitted in toto wrapped in paper in one cassette, multiple pieces, multiple levels on one slide. B. Tonsil, Left, palatine Tonsil: Labeled left kelle, tonsil L . Received in formalin with a Telfa pad is a 0.7 x 0.5 x 0.4 cm mccoy-pink rubbery mucosal covered tissue fragment which is wrapped in paper and submitted in toto in one cassette, one piece, multiple levels on one slide. [place] 11/21/2024 12:04 PM EDT [facility] Disclaimer Unless otherwise specified, all tissue is 10% NB formalin fixed and paraffin embedded. 11/21/2024 12:04 PM EDT [facility] Tissue Tongue structure / Unknown 11/20/2024 8:05 AM EDT 11/20/2024 11:07 AM EDT Tissue specimen (specimen) Left faucial tonsil structure / Unknown 11/20/2024 8:25 AM EDT 11/20/2024 11:07 AM EDT us Socorro Thayer MD LAB PATHOLOGY ORDERABLES Fin al Result [facility] [address] [place] [address], * TH AN ENDOTRACHEAL(NO CHARGE) (11/20/2024 7:58 AM EDT) Narrative Antony Frost SRNA - 11/20/2024 7:58 AM EDT EDUARDO Kang ? 11/20/2024 ??8:35 AM General Information and Staff Patient location during procedure: OR Anesthesiologist: Mateo Morrissey DO Resident/POWER PLANT MANAGER: EDUARDO Kang Performed: resident/POWER PLANT MANAGER/CAA Performed by: EDUARDO Kang Authorized by: Mateo Morrissey DO ?? Intubation Additional Comments No stomach contents in the posterior pharyxn, vocal cords clear Airway not difficult Urgency: elective Final Airway Details Successful airway: ETT Cuffed: yes Successful intubation technique: video laryngoscopy Facilitating devices/methods: intubating stylet and cricoid pressure Endotracheal tube insertion site: oral Blade: Tierra Blade size: #4 ETT size (mm): 6.0 Cormack-Lehane Classification: grade I - full view of glottis Placement verified by: chest auscultation and capnometry Measured from: teeth ETT to teeth (cm): 22 Number of attempts at approach: 1Final airway type: endotracheal airway Indications and Patient Condition Indications for airway management: anesthesia Spontaneous Ventilation: absent Sedation level: Yes Preoxygenated: yes Soft Tissue Damage: No Dentition Unchanged: Yes Patient position: sniffing MILS maintained throughout Mateo Morrissey DO ANESTHESIA ORDERABLES Edited Re sult - Final * ECG 12 lead - Procedural (No Charge) (11/20/2024 6:22 AM EDT) Ventricular Rate ECG 52 BPM GEMUSE Atrial Rate 52 BPM GEMUSE P-R Interval 204 ms GEMUSE QRS Duration 112 ms GEMUSE Q-T Interval 436 ms GEMUSE QTc 405 ms GEMUSE P Wave [place] 64 degrees GEMUSE R [place] 20 degrees GEMUSE T [place] 4 degrees GEMUSE ECG Interpretation Sinus bradycardia Incomplete right bundle branch block Borderline ECG When compared with ECG of 11-FEB-2022 11:17, Vent. rate has decreased BY ??38 BPM Confirmed by MD Jude, Francesco ([id number]) on 11/21/2024 1:57:29 AM GEMUSE 11/20/2024 6:22 AM EDT 11/21/2024 1:57 AM EDT us Mateo Morrissey DO ECG ORDERABLES Final Result GEMUSE * PET CT Skull to Mid Thigh [...] Signed Date: 09/27/2024 14:33 ET Workstation ID: [id number] Transcribed By: Self Edit Transcribed Date: 09/27/2024 [...] Signed Date: 09/27/2024 14:33 ET Workstation ID: [id number] Transcribed By: Self Edit Transcribed Date: 09/27/2024 14:30 ET us Subramony Subjohn-Jeff [facility] [place] PROCEDURES F inal Result * Comprehensive metabolic panel (08/07/2024 12:09 PM EST) Sodium 140 133 - 145 mmol/L LAB CHEMISTRY METHOD 08/07/2024 2:06 PM EST [facility] Potassium 3.6 3.5 - 5.5 mmol/L LAB CHEMISTRY METHOD 08/07/2024 2:06 PM EST [facility] Chloride 106 96 - 110 mmol/L LAB CHEMISTRY METHOD 08/07/2024 2:06 PM [facility] CO2 30 21 - 32 mmol/L LAB CHEMISTRY METHOD 08/07/2024 2:06 PM [facility] Anion Gap 4 3 - 11 LAB CHEMISTRY METHOD 08/07/2024 2:06 PM [facility] Glucose 99 70 - 100 mg/dL LAB CHEMISTRY METHOD 08/07/2024 2:06 PM [facility] BUN 19 5 - 25 mg/dL LAB CHEMISTRY METHOD 08/07/2024 2:06 PM [facility] Creatinine 0.98 0.70 - 1.30 mg/dL LAB CHEMISTRY METHOD 08/07/2024 2:06 PM [facility] eGFR 86 >=60 mL/min/1. 73m2 LAB CHEMISTRY METHOD 08/07/2024 2:06 PM [facility] Comment:Calculation based on the??Chronic Kidney Disease Epidemiology Collaboration (CKD-EPI) equation refit??without adjustment for race. BUN/Creatinine Ratio 19.4 LAB CHEMISTRY METHOD 08/07/2024 2:06 PM [facility] Calcium 9.6 8.5 - 10.5 mg/dL LAB CHEMISTRY METHOD 08/07/2024 2:06 PM [facility] AST (SGOT) 20 10 - 42 unit/L LAB CHEMISTRY METHOD 08/07/2024 2:06 PM [facility] ALT (SGPT) 37 10 - 60 unit/L LAB CHEMISTRY METHOD 08/07/2024 2:06 PM [facility] Alkaline Phosphatase 84 42 - 121 unit/L LAB CHEMISTRY METHOD 08/07/2024 2:06 PM [facility] Total Protein 6.5 6.0 - 8.0 g/dL LAB CHEMISTRY METHOD 08/07/2024 2:06 PM [facility] Albumin 3.6 3.2 - 5.0 g/dL LAB CHEMISTRY METHOD 08/07/2024 2:06 PM EST [facility] Total Bilirubin 0.4 0.0 - 1.4 mg/dL LAB CHEMISTRY METHOD 08/07/2024 2:06 PM EST [facility] Blood Venous blood specimen / Unknown Venipuncture / Unknown 08/07/2024 12:09 PM EST 08/07/2024 1:33 PM EST Gabbi Vanegas MD LAB BLOOD ORDERABLE S Final Result [facility] [address] [place] [address], from Last 3 Months or Most Recently Relevant to Health Maintenance Insurance [employer] MEDICARE Care Teams Recording Engineer Relationship Specialty Start Date End Date Spencer Sierra MD [address] [address] PCP - General Internal Medicine 07/29/18
--- OUTSIDE RECORDS SUMMARY | 2024-11-30 12:59 | XMS_ITS | Clinical Summary ---
Author Organization [facility] Address [address] [place] [address] Care Team Providers Care Cattle Knocker Name Role Phone Spencer Sierra MD Primary Care Provider [phone] Allergies Active Allergy Reactions Criticality Noted Date [...] age to complete this topic Care Teams Cattle Knocker Relationship Specialty Start Date End Date Spencer Sierra MD [address] [place] [phone] PCP - General Internal Medicine 07/29/18
--- OUTSIDE RECORDS SUMMARY | 2024-11-30 12:59 | XMS_ITS | Data Portability ---
Author Organization [place] [facility], Allergy Address [address] [address] Care Team Providers Care Care Manager Name Role Phone MORE JEEVAN Primary Care Provider [phone] Assessment No assessment recorded. Plan of Treatment Reminders Order Date Submit Date Provider Last Modified By Organization Details Last Modified Time Details Appointments Post Op 2024 01:30P M SHANTI DOTSON PA-C Not available Not available Not available Lab None recorded. Referral None recorded. Procedures None recorded. Surgeries laryngosc opy, direct, with biopsy (SURG) 2024 025 [email or web address] Not available 10/02/2024 07:12:22 Imaging MRI, neck, w/wo contrast - attn left pharynx 2024 025 [facility] [address] [place], [address], 09/13/2024 16:20:25 Medication Orders None recorded. Patient TargetsNo targets recorded. Patient InstructionsNo instructions recorded. Reason for Referral None Reported. Results Created Date Observation Date Name Description Value Unit Range Abnormal Flag Note LastModifiedBy Organization Detail LastModifiedTime 11/21/1911/20/2024 TISSU E EXAM .note See Note Origi nal Order ing Provi mirian: ALEJANDRO GO [facility] - [address], [place], [place] [address] Not Available [address], [address], 11/21/2024 12:05:48 11/21/19 25 11/20/2024 TISSU E EXAM final diagnosis A. Left base of tongue , biopsy : Benig n lingu al tonsi llar tissu e with react yudelka lymph oid hyper plasi a No atypi a or neopl asm ident ified B. Left palat ine tonsi l, biops y: Benig n tonsi llar tissu e witho ut atypi a or neopl asm Elect queta sorenson d by Liv Fu MD on 2024 at 12:04 PM Not Available [address], [address], 11/21/2024 12:05:48 11/21/1911/20/2024 TISSU E EXAM gross description A. Tongue , Left base: Label ed left base tongu e . Recei sivakumar in forma chinmay with a Telfa pad is a 1.1 x 0.8 x 0.3 [address] of irreg ular mccoy-p ink soft tissu e fragm ents admix ed with clott ed blood which is submi tted in toto wrapp ed in paper in one casse tte, multi ple piece s, multi ple level s on one slide . B. Tonsi l, Left, palat ine Tonsi l: Label ed left kelle, tonsi l L . Recei sivakumar in forma chinmay with a Telfa pad is a 0.7 x 0.5 x 0.4 cm mccoy-p ink rubbe ry mucos al cover ed tissu e fragm ent which is wrapp ed in paper and submi tted in toto in one casse tte, one piece , multi ple level s on one slide . [place] Not Available [address], [address], 11/21/2024 12:05:48 11/21/19 25 11/20/2024 TISSU E EXAM disclaimer Unles s other deng speci fied, all tissu e is 10% NB forma chinmay fixed and paraf fin embed ded. Not Available [address], [address], 11/21/2024 12:05:48 09/13/1909/12/2024 MRI, head + neck + orbit s, w/wo contr ast [facility] MRI- [facility] Access ion Number : [id number] Patien t Name: Rehan Daniels nd Record Number : [id number] Date of : 1959 Date of Exam: 2024 Referr ing Physic miky: Xochilt dorado, Carin [facility] [place] [address], [address] [facility] [place] [address] Exam: MR Orbits , Face, Neck (C-/C+ ) CPT 37803 Room Descri ption: [facility] Espr 1.5 MRI of the soft tissue s neck withou t and with contra st. HISTOR Y: Nausea and vertig o. Hypert ension . Left retrop haryng eal massli ke lesion on prior CT. 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 Compar anand: CT of soft tissue neck on 09/06/19 from [facility] and Imagin g FINDIN GS: This study is limite d due to motion artifa cts. 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 Electr onical ly Signed By: Luke Alexander MD [facility] ([facility]) [address] [facility], [place], [address], 10/03/2024 13:04:11 11/21/19 25 11/20/2024 H&P No observ ation record ed. [address], [address], 11/20/2024 09:43:02 11/21/19 25 11/20/2024 op note No observ ation record ed. [address], [address], 11/20/2024 09:43:02 Result Notes None recorded. Problems Name Problem SNOMED Code Status Onset Date Resolution Date Notes Provider Name and Address Organization Details Recorded Time Generaliz ed hyperhidr osis 405227423 Active 2017 Night sweats; Note: Date Diagnosed: 11/21/2017 10:48 AM (R61) Not Available [facility] 4 02:37:44 Dysphagia 80739147 Active 2017 Dysphagia, unspecifie d; Note: Date Diagnosed: 07/04/2018 1:13 PM (R13.10) Other dysphagia; Note: Date Diagnosed: 07/04/2018 11:43 AM (R13.19) Not Available [facility] 4 02:37:50 Localized enlarged lymph nodes 457584452 Active 2017 Localized enlarged lymph nodes; Note: Date Diagnosed: 11/12/2017 1:19 PM (R59.0) Not Available [facility] 4 02:37:46 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 Procedures Surgical History Date Name Laterality Status Provider Name and Address Organization Details Recorded Time 11/21/19 direct laryngoscopy with biopsy completed CARIN JHAVERI MD [address] [facility] [place],[address], [address], [facility] - [facility] 11/20/2024 09:46:04 09/11/19 Fiberoptic Laryngoscopy (Comprehensive) completed CARIN JHAVERI MD [address] [facility] [place]IE [address] [place] [address], [phone], [place] - [facility] 09/11/2024 10:43:12 total replacement of hip completed CARIN JHAVERI MD [address] [facility] [place] [address] [place] [address], [phone], [place] - [facility] 09/11/2024 10:18:28 esophagectomy completed CARIN JHAVERI MD [address] [facility] [place] [address] [place] [address], [phone], [place] - [facility] 11/20/2024 09:46:11 Imaging Results Imaging Date Name Status LastModified by Organiz ation Details LastModified Time 09/12/2024 MRI, head + neck + orbits, w/wo contrast completed [facility] [address], [place], [address], 10/03/2024 13:04:11 11/20/2024 H&P completed [facility] [address] [place], [address], 11/20/2024 09:43:02 11/20/2024 op note completed [address], [address], 11/20/2024 09:43:02 Procedure Notes None recorded. Medical Equipment None Reported. Allergies Allergen ID Allergen Name Allergen Category Reaction Reaction Severity Criticality Documentation Date Start Date Code Code System Note Provider Name and Address Organization Details Recorded Time 541220 meloxicam medicatio n Not available Not available Not available 09/11/2024 96151 RxNorm Dayan taylor [place] - [facility] 10:14:15 Medications Name Sig Start Date Stop Date Status Note LastModified by Organization Details LastModified Time amlodipin e 5 mg tablet Take 1 tablet every day by oral route. active Not Available Not Available No t Available lisinopri l 10 mg tablet 09/11 completed Medicati on ID: [id number] D uration Value: 30 Brand Name: lisinopr [...] Updated DateTime 09/11/2024 171.45 cm 26.8 kg/m2 94353.07 g Dayan De La Fuente [place] - [facility] 09/11/2024 10:14:00 Date Recorded Body height Body mass index (BMI) Body weight Provider Name and Address Organization Details Last Updated DateTime 09/29/2024 171.45 cm 26.8 kg/m2 18372.07 g Dayan De La Fuente [facility] 09/29/2024 16:28:03 Social History None recorded. Functional Status None recorded. Mental Status None recorded. Family History Nothing Reported Notes:father-hypertension Medical History Condition Response Cancer Y Hypertension Y Asthma Y Past Encounters Encounter ID Performer Location Encounter Start Date Encounter Closed Date Diagnosis/Indication Diagnosis SNOMED-CT Code Diagnosis ICD10 Code Diagnosis Note [id number] CARIN JHAVERI MD [facility] [address] [address] 09/11/2024 10:08:33 09/11/2024 10:46:06 Neoplasm of uncertain behavior of pharynx 74981700 D37.05 64-year-ol d male with a history [...] for lesion would proceed with a EUA. [id number] CARIN JHAVERI MD [facility] [address], [place] [address] 09/29/2024 16:06:03 09/29/2024 16:50:38 Neoplasm of uncertain behavior of pharynx 47573542 D37.05 We reviewed the results of his [...] Jeffrey Member ID Guarantor Name 09/11/2024 1 [facility] (MEDICARE REPLACEMENT/A DVANTAGE - PPO) [id number] Rehan Marin [id number] Rehan Marin 09/29/2024 1 [facility] (MEDICARE REPLACEMENT/A DVANTAGE - PPO) [id number] Rehan Marin [id number] Rehan Marin Notes Date Note Type Note [...] just below its bifurcation. CARIN JHAVERI MD [address] [place] [address], [phone], [facility] - [facility] 09/11/2024 12:38:56 09/29/2024 text/html Since his [...] just below its bifurcation. CARIN JHAVERI MD [address] [place] [address], [phone], [facility] - [facility] 09/30/2024 08:59:07
--- OUTSIDE RECORDS SUMMARY | 2024-11-30 12:59 | XMS_ITS | Data Portability ---
Author Organization [place] [facility] Address [address] [place] [id number] Care Team Providers Care Staff Field Engineer Name Role Phone JEEVAN AGUERO Primary Care Provider [phone] [facility] OTHER [phone] Assessment Encounter Date Assessment Date Assessment LastModified [...] after care of this patient according to [facility] [place] [facility]'s infection prevention protocols. Time On Scene with Patient: 00:40:42 lora Not available 03/18/2023 13:07:52 Plan of Treatment Reminders Order Date Submit Date Provider Last Modified By Organization Details Last Modified Time Details Appointments None recorded. Lab None recorded. Referral None recorded. Procedures None recorded. Surgeries None recorded. Imaging XR, foot, 3 or more view - Rule out fracture 2022 023 [facility] [address] [place] [address], [address], 3 15:27:51 XR, ankle, 2 view - rue out fracture 2022 023 [facility] ([facility] [employer]), [address] [place], [address], 3 15:27:52 Medication Orders None recorded. Patient TargetsNo targets recorded. Patient Instructions Encounter Date Encounter Id Patient Instructions Last Modified By Organization Details Last Modified Time 03/18/2023 [id number] [facility] yo [facility]. We cannot always find the exact [...] in your condition between 8am-10pm, please call [facility] [place] [facility] at [phone] to help navigate your care. [facility]. You do not appear to [...] in your condition between 8am-10pm, please call [facility] at [phone] to help navigate your care. [email or web address] Not available 03/18/2023 13:08:02 Reason for Referral [...] ACEVEDO M.D. 023 3:19:3 7 PM EDT. [email or web address] [facility] [address] [facility] [address], [place], [address], 09/22/2023 15:58:13 03/19/20 23 03/19/2023 ankle AP [...] M.D. 023 3:19:3 7 PM EDT. [email or web address] [facility] [address] [place] [address], [place], [address], 09/20/2023 15:29:47 Result Notes None recorded. Procedures Surgical History Date Name Laterality Status Provider Name and Address Organization Details Recorded Time 3 Splint, Short Leg - DH completed Dorie Underwood NP [address], [place], [address], [place] [facility] 03/18/2023 11:16:42 operation on hip joint completed Dorie Underwood NP [address], [place], [address], [place] [facility] 03/18/2023 10:29:43 Imaging Results Imaging Date Name Status LastModified by Organiz ation Details LastModified Time 03/19/2023 foot complete, min 3V completed [email or web address] [employer] [address] [facility] [address], [place], [address], 09/22/2023 15:58:13 03/19/2023 ankle AP and lat 2V completed [email or web address] [employer] [facility] [address] [facility] [address], [place], [address], 09/20/2023 15:29:47 Procedure Notes None recorded. Medical Equipment None Reported. Allergies Allergen ID Allergen Name Allergen Category Reaction Reaction Severity Criticality Documentation Date Start Date Code Code System Note Provider Name and Address Organization Details Recorded Time 475020 Mobic medicatio n Not available Not available Not available 03/18/2023 28246 9 [facility] Dorie Underwood NP [address], [place], [address], [place] [facility] 3 10:27:32 636882 Non-stero idal anti-infl ammatory agent (product) medicatio n Not available Not available Not available 03/18/2023 56886 005 SNOMED Dorie Underwood NP [address] [place], [address], [place] [facility] 3 10:27:39 [id number] Reglan medicatio n Not available Not available Not available 03/18/2023 9230 RxNorm Dorie Underwood NP [address], [place], [address], [place] [facility] [...] Status Never Smoker Dorie Underwood NP [address] [place], [address], [place] [facility] 03/18/2023 10:30:13 Do You Have An Advance Directive? No [email or web address] Information not available 03/18/2023 What Is Your Level Of Alcohol Consumption? Occasional [email or web address] Information not available 03/18/2023 What Is Your Code Status? Full Code [email or web address] Information not available 03/18/2023 Excessive Alcohol Or Drug Use No [email or web address] Information not available 03/18/2023 Does This Patient Have A PCP? Yes [email or web address] Information not available 03/18/2023 Has The Patient Seen Their PCP In The Past 6 Months? Yes [email or web address] Information not available 03/18/2023 Is This Patient In Hospice? No Information not available 03/18/2023 Do You Or Have You Ever Used Any Other Forms Of Tobacco Or Nicotine? No [email or web address] Information not available 03/18/2023 Sex: Unknown Functional Status None recorded. Mental Status None recorded. Family History Relationship Description Onset Age of this Age Resolved Age Notes LastModified by Organization Details LastModified Time Father Malignant neoplastic disease Not available 2022 10:29:58 Medical History Condition Response Cancer Y Hypertension Y Past Encounters Encounter ID Performer Location Encounter Start Date Encounter Closed Date Diagnosis/Indication Diagnosis SNOMED-CT Code Diagnosis ICD10 Code Diagnosis Note [id number] [facility] [place] [address] [place] [address] 03/18/2023 10:01:48 03/19/2023 15:21:05 Pain in left foot [id number] 25594 M79.672 Status of condition: {{Acute* E xacerbatio [...] great toe. Will obtain x-ray as per [place] rules. Discussed that the x-ray company will [...] days. Will attempt to send crutches to 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 Patient was quickly evaluated at the [facility] by EMS at that time did not [...] chest pain, sob, dizziness. Dorie Underwood, [facility] [address], [place], [address], [place] [facility] 03/18/2023 13:08:18
--- OUTSIDE RECORDS SUMMARY | 2024-11-30 12:59 | XMS_ITS ---
Author Organization [facility] Address [address] [place] [address] Care Team Providers Care Electronic Technologist Name Role Phone Spencer Sierra MD Primary Care Provider [phone] Active Problems Problem Noted Date Diagnosed Date [...] treatments are documented for this patient in [facility]. Treatments may have been administered in another system.
== END 2024-11-30 12:29 | disposition home or self-care (01) ==
LOC: HO.HUSH 11:41
PROVIDERS: PCP Internal Medicine; Visit Provider Urology
DX: Z13.9 Encounter for screening, unspecified (principal)

== ENCOUNTER → 2024-11-30 11:40 | Outpatient (BNVA) | payer MEDICARE, SELFPAY | PROVIDERS: PCP Internal Medicine; Visit Provider Urology | DX: C61 Malignant neoplasm of prostate (principal); R97.20 Elevated prostate specific antigen [PSA]; N40.0 Benign prostatic hyperplasia without lower urinary tract symptoms; Z71.2 Person consulting for explanation of examination or test findings; Z79.899 Other long term (current) drug therapy | CPT/HCPCS: 81003; 99212 ==

== ENCOUNTER 2025-02-01 08:31 | Outpatient (AMB) | payer MEDICARE, SELFPAY ==
--- NOTE | 2025-02-01 08:31 | MHC.OFFVIS ---
Intake Visit Reasons: additional questions CA dx Intake Note: Patient is present via telehealth for additional questions CA hx Urology Medication: Finasteride Antibiotic Allergies:None Blood Thinners: None Allergies meloxicam (From Mobic) Allergy (Intermediate, Verified 02/01/25 08:32) Anxiety metoclopramide (From Reglan) Allergy (Intermediate, Verified 02/01/25 08:32) Anxiety Medication List - Last Reconciled 02/01/25 by Anna Gaytan MD albuterol sulfate 90 mcg/actuation 2 puffs inhalation Q4H PRN amlodipine 5 mg PO DAILY baclofen 10 mg PO TID PRN finasteride (Proscar) 5 mg PO DAILY omeprazole 20 mg PO BID pentoxifylline ER 400 mg PO BID 90 days tadalafil 5 mg PO DAILY vitamin E (dl, acetate) 450 mg PO DAILY 90 days HPI Comments Details: 02/01/25-- History of Present Illness The patient is a 64-year-old male presenting with penile curvature. This condition has developed recently and manifests during erections, bending downwards towards the legs. It primarily affects the top to mid section of the penis and was previously unexperienced by the patient, marking it as a new and persistent concern. He had no inciting incidents of trauma and has no reported associated symptoms of pain or erectile dysfunction at the moment. The patient is under active surveillance for prostate cancer. Plan I recommended a treatment regimen involving vitamin E and pentoxifylline. Daily low-dose Cialis 5 mg was prescribed to enhance local blood.flow. 11/30/24-- History of Present Illness The patient is a 64-year-old male presenting for discussion of recent imaging and management regarding prostate cancer. Previously noted biopsied lesions confirmed malignancy. Recent imaging has not shown progression as the prostate size decreased significantly, potentially attributed to finasteride. The patient's PSA level is stable at 6.88, elevated relative to normative ranges but remains consistent with prostate dimensions. The MRI on 11/15 indicated reduced prostate volume from 58 grams to approximately 36 grams. Additionally, s biopsy pathology report verified malignancy but reveals stability in current findings. Urinary Symptoms Review - Reduction in prostate size from 58 grams to approximately 36 grams noted - Stable PSA level at 6.88 - No urinary frequency or incontinence mentioned - No pain or pressure symptoms discussed Results - MRI (11/15): No significant lesions observed; prostate size reduced from 58 to ~36 grams. - PSA Test: Stable at 6.88, despite elevated level considering prostate size - Biopsy (06/14/23): Confirmed prostate cancer with previous lesions biopsied by Dr. Dow 06/05/24--Rehan is a 64-year-old male who presents today for a follow-up. He is on active surveillance for prostate cancer, group 1, Ru score 3+3=6. He is on Proscar 5 mg daily due to enlarged prostate. He denies irritative voiding symptoms. PSA pending. Review of chart: 01/03/24--Rehan is a 63-year-old male who presents today for a follow-up. He is on active surveillance for prostate cancer, group 1, Cayuga score 3+3=6. He is here to discuss PSA testing. He is on Proscar 5 mg daily due to enlarged prostate. Discussed with the patient PSA 12/30/2023-6.09 ng/mL. Will continue active surveillance. PSA in 6 months. Continue Proscar. 07/01/2023?He is followed today for biopsy results. s/p MRI guided prostate biopsy by Dr. Dow on 06/14/2023. I reviewed the biopsy results with the patient. Prostate, C 3.0, needle core biopsy: Prostatic adenocarcinoma, Cayuga score 3+3=6 (Grade group 1), involving 1% of the needle core. Prostate, b 3.0, needle core biopsy: Prostatic adenocarcinoma, Cayuga score 3+3=6 (Grade group 1), involving 15% of the needle core. Grade group 1 adenocarcinoma prostate cancer 07/01/2023: Plan: Continue Active surveillance, PSA screening test was ordered. Proscar 5 mg was ordered. Follow-up in 6 months. 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 Thrombocytopenia Jejunostomy tube present 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 Weight loss Microcytic anemia History of CO poisoning Rib lesion Diverticulitis Elevated PSA Night sweats Nausea Surgical History History of endoscopy (~2018) History of thoracic surgery (~2020) History of prostate biopsy (~2021) History of esophagectomy (~2018) Social History Alcohol intake: current Alcohol intake frequency: holidays/special occasions only Patient Tobacco Use Status: Never used Tobacco Review of Systems Const All systems reviewed & are unremarkable except as noted in HPI and below Reports no additional complaints Eyes Reports no additional complaints ENT Reports no additional complaints Card Reports no additional complaints Resp Reports no additional complaints GI Reports no additional complaints Reports as per HPI Musc Reports no additional complaints Skin/Breast Reports system reviewed and no additional complaints, except as documented Neuro Reports no additional complaints Psych Reports no additional complaints Endo Reports no additional complaints Len/Lymph Reports no additional complaints Aller/Immun Reports no additional complaints Telehealth Telehealth Telehealth Platform: [employer] Location of provider rendering services: practice address Location of patient: address on file Patient Identification confirmed using: Name, : Yes Telehealth method: video Patient verbally consented to treatment: Yes Patient verbally consented to billing insurance company: Yes Patient informed of any privacy concerns related to visit: Yes Results Reviewed Results Reviewed: Date of Service: 11/15/24 EXAMINATION: MR PROSTATE WITHOUT THEN WITH IV CONTRAST HISTORY: C61 - Malignant neoplasm of prostate TECHNIQUE: 1.5T body coil survey of the pelvis was performed. Phase array coil imaging of the prostate was performed in multiplanar high resolution axial, coronal, sagittal fast spin echo T2 and axial T1 weighted imaging sequences. Axial diffusion imaging at intermediate and high field performed with ADC mapping. Next, 8 mL Gadavist was given by intravenous infusion, and dynamic axial imaging performed. COMPARISON: There are no prior studies for comparison. CLINICAL DATA: Most recent PSA: 6.43 ng/mL on 06/19/2024. PSA Density: 0.18 ng/mL squared Prostate Biopsy: Positive biopsy on 06/14/2024 with a Ru score 3+3 = 6. FINDINGS: Prostate size: 4.9 x 4.4 x 3.2 cm. Calculated prostate volume is 35.9 mL. Hemorrhage: None. Transitional Zone: There is mild heterogeneous nodular hypertrophy of the transitional zone. Peripheral Zone: No discrete focus of abnormal signal intensity is identified in the peripheral zone to suggest clinically significant prostate carcinoma. Seminal Vesicles/Ejaculatory Ducts: Symmetric and normal in signal and caliber. Pelvic Lymph Nodes: No obturator or internal iliac lymph nodes meeting size criteria for adenopathy. Marrow Signal: Normal marrow signal and enhancement without focal lesion identified. IMPRESSION: No discrete focus of abnormal signal intensity is identified to suggest clinically significant prostate carcinoma. PI-RADS 2: Low (clinically significant cancer is unlikely to be present) PI-RADS Assessment Categories PI-RADS 1: Very low (clinically significant cancer is highly unlikely to be present) PI-RADS 2: Low (clinically significant cancer is unlikely to be present) PI-RADS 3: Intermediate (the presence of clinically significant cancer is equivocal) PI-RADS 4: High (clinically significant cancer is likely to be present) PI-RADS 5: Very high (clinically significant cancer is highly likely to be present) Collected: 06/14/23 Location: [facility] Received: 06/14/23 Diagnosis A. Prostate, e 2.5, needle core biopsy: Atypical small acinar proliferation. B. Prostate, E 4.0, needle core biopsy: Benign prostatic tissue. C. Prostate, E 3.5, needle core biopsy: Benign prostatic tissue. D. Prostate, E 3.0, needle core biopsy: Benign prostatic tissue. E. Prostate, E 2.5, needle core biopsy: Benign prostatic tissue. F. Prostate, d 4.0, needle core biopsy: Fibromuscular tissue only. G. Prostate, d 3.0, needle core biopsy: Benign prostatic tissue. H. Prostate, d 2.5, needle core biopsy: Benign prostatic tissue. I. Prostate, d 1.5, needle core biopsy: Benign prostatic tissue. J. Prostate, c 4.0, needle core biopsy: Benign prostatic tissue. K. Prostate, c 3.5, needle core biopsy: Benign prostatic tissue. L. Prostate, c 2.0, needle core biopsy: Benign prostatic tissue. M. Prostate, C 3.0, needle core biopsy: Prostatic adenocarcinoma, Ru score 3+3=6 (Grade group 1), involving 1% of the needle core. N. Prostate, C 2.0, needle core biopsy: Benign prostatic tissue. O. Prostate, C 1.5, needle core biopsy: Benign prostatic tissue. P. Prostate, b 3.0, needle core biopsy: Prostatic adenocarcinoma, Ru score 3+3=6 (Grade group 1), involving 15% of the needle core. Q. Prostate, b 2.5, needle core biopsy: Benign prostatic tissue. Data synopsis - Prostate needle biopsy Histologic type: Acinar adenocarcinoma Histologic grade: 3+3=6 Ru score: 3+3=6 (M and P) % of pattern 4: Not identified % of pattern 5: Not identified Grade group: 1 Tumor quantitation: Number cores positive: 2 Total number of cores: 17 % of tissue involved: See above for details Periprostatic fat inv.: Not identified Seminal vesicle inv.: Not identified Perineural inv.: Not identified LVI: Not identified Assessment & Plan Assessment & Plan (1) Prostate cancer: Onset Date: ~2021 Code(s): C61 - Malignant neoplasm of prostate Category: Medical (2) Elevated PSA: Code(s): R97.20 - Elevated prostate specific antigen [PSA] Category: Medical (3) Enlarged prostate: Code(s): N40.0 - Benign prostatic hyperplasia without lower urinary tract symptoms Category: Medical (4) Peyronie's disease: Code(s): N48.6 - Induration penis plastica Category: Medical Plan Plan I recommended a treatment regimen involving vitamin E and pentoxifylline. Daily low-dose Cialis 5 mg was prescribed to enhance local blood.flow. Medications: New pentoxifylline ER 400 mg PO BID 180 tabs 1RF 90 days vitamin E (dl, acetate) 450 mg PO DAILY 90 caps 1RF 90 days Patient Instructions: The patient had an opportunity to ask questions regarding treatment plan. The patient expressed understanding and agreement with the above treatment plan. The patient is aware they should contact our office by phone for worsening of their current condition or the appearance of new symptoms. Compliance is encouraged with any medications and followup testing that is ordered. It is a privilege to be allowed the opportunity to participate in the urologic care of your patient. If you have any questions or concerns regarding treatment for the above conditions please do not hesitate to contact me. The office telephone contact is [phone]. This note is constructed in part using voice recognition software. While every effort has been made to ensure accuracy material combiner errors may have been included. Yours sincerely, Anna Gaytan MD Scribe Plan - Not visible on output: Patient was informed and verbally consented to the use of an ambient scribe for clinic note documentation during this visit. Coding Level of Care Code Tele Est Pt Level 4 (64849) Diagnoses Prostate cancer C61 Elevated PSA R97.20 Enlarged prostate N40.0 Peyronie's disease N48.6
== END 2025-02-01 15:49 | disposition home or self-care (01) ==
LOC: HO.HUSH 08:31
PROVIDERS: PCP Internal Medicine; Visit Provider Urology
DX: C61 Malignant neoplasm of prostate (principal); R97.20 Elevated prostate specific antigen [PSA]; N40.0 Benign prostatic hyperplasia without lower urinary tract symptoms; N48.6 Induration penis plastica
CPT/HCPCS: 99214

== ENCOUNTER → 2025-02-01 08:31 | Outpatient (BNVA) | payer MEDICARE, SELFPAY | PROVIDERS: PCP Internal Medicine; Visit Provider Urology ==

== ENCOUNTER 2025-06-05 14:21 | Outpatient (REF) | payer MEDICARE, SELFPAY ==
--- OUTSIDE RECORDS SUMMARY | 2025-05-30 09:30 | XMS_ITS | Encounter Summary ---
Author Organization [facility] Address [address] [place] [address] Care Team Providers Care Calculating Machine Operator Name Role Phone Spencer Sierra MD Primary Care Provider [phone] Reason for Referral * Imaging (Routine) - Closed Specialty Diagnoses / Procedures Referred By Contac t Referred To Contact Radiology Diagnoses GE junction carcinoma (CMS/HCC V24, CMS/HCC V28) Procedures CT Chest/Abdomen/Pelvis w Contrast CT Chest/Abdomen/Pelvis wo Contrast Pam Sykes NP [address] [address] Phone: tel: fax: [facility] Referral ID Status Reason Start Date Expiration Date Visits Re quested Visits Authorized [id number] Closed 03/12/2025 03/12/2026 1 1 Reason for Visit * Imaging (Routine) - Closed Specialty Diagnoses / Procedures Referred By Contac t Referred To Contact Radiology Diagnoses GE junction carcinoma (CMS/HCC V24, CMS/HCC V28) Procedures CT Chest/Abdomen/Pelvis w Contrast CT Chest/Abdomen/Pelvis wo Contrast Pam Sykes NP [address] [address] Phone: tel: fax: [facility] Referral ID Status Reason Start Date Expiration Date Visits Re quested Visits Authorized [id number] Closed 03/12/2025 03/12/2026 1 1 Encounter Details Date Type Department Care Team (Latest Contact Info) Description 05/30/2025 9:30 AM EDT - 05/30/2025 11:59 PM EDT Hospital Encounter [facility] CT Scan [address] [place] [phone] GE junction carcinoma (CMS[facility]HCC V24[facility] V28) Discharge Disposition: Home or Self Care Social History Tobacco Use Types Packs/Day Years Used Date Smoking Tobacco: Never Smokeless Tobacco: Never Alcohol Use Standard Drinks/Week Comments Yes 1 (1 standard drink = 0.6 oz pur e alcohol) Interpersonal Safety Answer Date Record ed Have you ever been physically abused? Not on chris e 11/20/2024 Verbal Abuse Unrecognized value 11/20/2024 Sex and Gender Information Value Date Recorded Sex Assigned at Male 11/20/2024 6:04 AM EDT Legal Sex Male 5:10 AM EST Gender Identity Male 11/20/2024 6:04 AM EDT Sexual Orientation Straight 11/20/2024 6: 04 AM EDT documented as of this encounter Medications at Time of Discharge albuterol HFA (PROAIR HFA ; PROVENTIL HFA ; VENTOLIN HFA) 90 mcg/actuation inhaler Inhale 2 puffs by mouth. 07/01/2022 ALBUTEROL INHL Inhale. amLODIPine (NORVASC) 10 mg tablet Take 5 mg by mouth 1 (one) time each day. baclofen (LIORESAL) 10 mg tablet Take 1 tablet (10 mg total) by mouth. 06/23/2021 diclofenac (VOLTAREN) 1 % topical gel Apply topically. finasteride (PROSCAR) 5 mg tablet Take 1 tablet (5 mg total) by mouth 1 (one) time each day. 07/01/2023 omeprazole (PriLOSEC) [address] capsule Take 1 capsule (20 mg total) by mouth 1 (one) time each day. 09/12/2019 documented as of this encounter Discharge Disposition Disposition Code Departure Means Destination Home or Self Care documented in this encounter Plan of Treatment Upcoming Encounters Date Type Department Care Team (Late st Contact Info) Description 06/07/2025 9:45 AM EDT Office Visit Thoracic Surgery - [place] [address] [facility] [address] [place] [phone] Shruthi Montelongo PA [address] [address] 06/07/2025 10:45 AM EDT Office Visit [facility] Hematology Oncology [address] [place] [phone] Gabbi Vanegas MD [address] [place] [phone] documented as of this encounter Procedures Procedure Name Priority Date/Time Associated Diagnosis Comments CT CHEST/ABDOMEN/PELVI S W CONTRAST Routine 05/30/2025 10:15 AM EDT GE junction carcinoma (CMS/HCC V24, CMS/HCC V28) documented in this encounter Results * CT Chest/Abdomen/Pelvis w Contrast (05/30/2025 10:15 AM EDT) Anatomical Region Laterality Modality Body Computed Tomogra phy 06/05/2025 10:1 2 AM EDT Impressions 06/05/2025 10:32 AM EDT Partial esophagectomy with gastric pull-through. No recurrent or metastatic disease. -------- FINAL REPORT -------- Dictated By: FADIA HAM Dictated Date: 06/05/2025 10:12 ET Assigned Physician: FADIA HAM Reviewed and Electronically Signed By: FADIA HAM Signed Date: 06/05/2025 10:32 ET Workstation ID: [id number] Transcribed By: Self Edit Transcribed Date: 06/05/2025 10:12 ET Narrative 06/05/2025 10:32 AM EDT PROCEDURE: Chest, abdomen, and pelvis CT INDICATION: history of esophageal cancer; TECHNIQUE: Chest, abdomen, and pelvis CT with intravenous administration of 90cc ISOVUE 370. Multi planar reformats were created and interpreted. The examination was performed utilizing dose reduction techniques. Total DLP 958 COMPARISON: 09/27/2024 PET/CT. FINDINGS: Chest: Central airways are patent. Mild emphysema. Bibasilar atelectasis/scarring. No pleural effusion or pneumothorax. No suspicious pulmonary nodules. Thyroid gland is normal. No mediastinal or hilar lymphadenopathy. Partial esophagectomy with gastric pull-through. Cardiac chambers are normal in size. No pericardial effusion. Thoracic aorta is normal in size. No central pulmonary arterial emboli. No significant coronary artery calcifications. 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 No axillary adenopathy or soft tissue mass. No suspicious lytic or blastic lesions. Multiple old rib fracture deformities are noted bilaterally with fixation hardware on the left. Abdomen/pelvis: No focal liver lesions. Gallbladder and biliary tree are normal. Pancreas, spleen, and adrenal glands are within normal limits. Kidneys are normal. Portal vein is patent. Abdominal aorta is normal in size. Prostate and bladder within normal limits. No bowel obstruction or wall thickening. Colonic diverticulosis. Normal appendix. No ascites, fluid collection, or free intraperitoneal air. No retroperitoneal or mesenteric lymphadenopathy. No gastrohepatic lymphadenopathy. Small fat-containing left greater than right inguinal hernias. Small supraumbilical incisional hernias containing fat. Right hip arthroplasty. Degenerative changes seen throughout the bones. No suspicious lytic or blastic lesions. Procedure Note Fadia Ham MD - 06/05/2025 PROCEDURE: Chest, abdomen, and pelvis CT INDICATION: history of esophageal cancer; TECHNIQUE: Chest, abdomen, and pelvis CT with intravenous administrationof 90cc ISOVUE 370. Multi planar reformats were created and interpreted.The examination was performed utilizing dose reduction techniques. TotalDLP 958 COMPARISON: 09/27/2024 PET/CT. FINDINGS: Chest: Central airways are patent. Mild emphysema. Bibasilaratelectasis/scarring. No pleural effusion or pneumothorax. No suspiciouspulmonary nodules. Thyroid gland is normal. No mediastinal or hilar lymphadenopathy.Partial esophagectomy with gastric pull-through. Cardiac chambers are normal in size. No pericardial effusion. Thoracicaorta is normal in size. No central pulmonary arterial emboli. Nosignificant coronary artery calcifications. Aberrant origin of the rightsubclavian artery with retroesophageal course, a normal variant. No axillary adenopathy or soft tissue mass. No suspicious lytic or blastic lesions. Multiple old rib fracturedeformities are noted bilaterally with fixation hardware on the left. Abdomen/pelvis: No focal liver lesions. Gallbladder and biliary tree are normal. Pancreas, spleen, and adrenal glands are within normal limits. Kidneys are normal. Portal vein is patent. Abdominal aorta is normal in size. Prostate and bladder within normal limits. No bowel obstruction or wall thickening. Colonic diverticulosis. Normalappendix. No ascites, fluid collection, or free intraperitoneal air. No retroperitoneal or mesenteric lymphadenopathy. No gastrohepaticlymphadenopathy. Small fat-containing left greater than right inguinal hernias. Smallsupraumbilical incisional hernias containing fat. Right hip arthroplasty. Degenerative changes seen throughout the bones.No suspicious lytic or blastic lesions. IMPRESSION: Partial esophagectomy with gastric pull-through. No recurrent ormetastatic disease. -------- FINAL REPORT -------- Dictated By: FADIA HAM Dictated Date: 06/05/2025 10:12 ET Assigned Physician: FADIA HAM Reviewed and Electronically Signed By: FADIA HAM Signed Date: 06/05/2025 10:32 ET Workstation ID: [id number] Transcribed By: Self Edit Transcribed Date: 06/05/2025 10:12 ET Pam Sykes NURSE ORTHO IMG CT PROCEDURES Final Res ult documented in this encounter Visit Diagnoses Diagnosis GE junction carcinoma (CMS/HCC V24, CMS/HCC V28) History of esophageal cancer- Primary Personal history of malignant neoplasm of esophagus documented in this encounter Administered Medications Inactive Administered Medications - up to 3 most recent administrations Medication Order MAR Action Action Date Dose Rate Site iopamidoL (ISOVUE-370) 370 mg iodine /mL (76 %) injection 90 mL 90 mL, intravenous, Once in imaging, Starting on Wed05/30/25 at 1006, For 1 dose Given 05/30/2025 10:08 AM EDT 90 mL sodium chloride 0.9 % flush 10 mL 10 mL, intravenous, Once, On Wed05/30/25 at 1030, For 1 dose Given 05/30/2025 10:08 AM EDT 10 mL documented in this encounter Care Teams Calculating Machine Operator Relationship Specialty Start Date End Date Spencer Sierra MD [address] [place] [address] PCP - General Internal Medicine 07/29/18 documented as of this encounter
--- OUTSIDE RECORDS SUMMARY | 2025-06-05 17:44 | XMS_ITS | Clinical Summary ---
Author Organization [facility] Address [address] [place] [address] Care Team Providers Care Manager Developmental Name Role Phone Spencer Sierra MD Primary Care Provider [phone] Allergies Active Allergy Reactions Criticality Noted Date [...] 56 01/19/2024 11:28 AM EDT Temperature 36.6 C (97.8 F) 01/19/2024 11:28 AM EDT Respiratory Rate 18 08/31/2023 1:33 [...] 2) 1978 Colon Cancer Screening (Colonoscopy) 2004 Fall Risk Assessment 2024 COVID-19 Vaccine ( season) 2025 03/10/2022, 09/03/2021, 01/03/2021, Additional history exists Influenza Vaccine (#1) 2025 DTap / Tdap / Td (2 - Td or Tdap) 04/30/2026 04/30/2016 RSV Adult > 60+ Yrs or (1 - 1-dose 75+ series) 2034 Hepatitis B Vaccines Aged Out No long er eligible based on patient's age to complete this topic RSV Ped < 20 months Aged Out No longe r eligible based on patient's age to complete this topic Care Teams Manager Developmental Relationship Specialty Start Date End Date Spencer Sierra MD [address] [place] [address] PCP - General Internal Medicine 07/29/18
--- OUTSIDE RECORDS SUMMARY | 2025-06-05 17:44 | XMS_ITS | Clinical Summary ---
Author Organization [facility] Address [address] [place] [address] Phone Care Team Providers Care Retail Customer Service Specialist Name Role Phone Spencer Sierra MD Primary Care Provider [phone] Allergies Active Allergy Reactions Criticality Noted Date [...] spray Administer into affected nostril(s). 3 Active omeprazole (PriLOSEC) [address] capsule Take 1 capsule (20 mg total) by mouth 1 (one) time each day. 0 Active Active Problems Problem Noted Date Diagnosed Date History of esophageal cancer 06/05/2025 Pharyngeal mass 11/16/2024 Nausea and vomiting 02/10/2022 Night sweats 09/04/2021 Elevated PSA 09/04/2021 Diverticulitis 01/22/2021 Prostate cancer ([facility] V24, CMS/HCC V28) 08/24 Overview (10/29/2023): [facility]; as of 01/18, plan for active surveillance. Seen on 04/02/2022 -pathology showed atypical cells, suspicious for adenocarcinoma. Patient is uncertain whether he would like to continue active surveillance. Visit with Dr. Bynum will be arranged soon to discuss possible prostatectomy. 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, [facility]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 Resolved Problems Problem Noted Date Diagnosed Date Resolved Date Rib lesion 10/08/2020 06/05/2025 Jejunostomy tube present (CM S/HCC V24, [facility] V28) 03/07/2019 06/05/2025 Encounters Date Type Department Care Team Description 05/30/2025 9:30 AM EDT - 05/30/2025 11:59 PM EDT Hospital Encounter [facility] CT Scan [address] [place] [address] GE junction carcinoma (CMS/[facility] V24, CMS/[facility] V28) Discharge Disposition: Home or Self Care from Last 3 Months Immunizations Immunization Administration Dates Next Due Pfizer (ages 12 [...] hemorrhoids; repeat in 10 yrs ESOPHAGOGASTRODUODENOSCOPY 07/14/18 Addy PROCEDURE: WI EGD TRANSORAL BIOPSY SINGLE/MULTIPLE; COMMENT: moderately differentiated [...] History Medical History Date Comments Esophageal cancer ([facility] V 24, [facility] V28) DX:Esophageal cancer (HCC) Lymphadenopathy DX:Lymphadenopat hy Obstructive sleep apnea DX:Obstr uctive sleep apnea Asthma DX:Asthma Thoracic aortic aneurysm ([facility] V24) DX:Thoracic aortic aneurysm (HCC) Cervical radiculopathy DX:Cervic [...] DX:Internal hemorrhoids Overweight 04/26/2014 DX:Overweight Esophageal cancer (CMS/HCC V 24, CMS/HCC V28) DX:Esophageal cancer (HCC) Esophageal reflux DX:Esophageal reflux History of pleural effusion DX:H istory of pleural effusion; COMMENT: Per PCP office visit note - 02/05/2023 Prostate cancer (CMS/HCC V24 , CMS/HCC V28) DX:Prostate cancer (HCC) Awareness under anesthesia H/O resection [...] Sign Reading Time Taken Comments Blood Pressure 139/65 12/07/2024 10:32 AM EDT Pulse 63 12/07/2024 10:32 AM EDT Temperature 36.2 C (97.2 F) 12/07/2024 10:32 AM EDT Respiratory Rate 20 11/20/2024 9:45 AM EDT Oxygen Saturation 97% 12/07/2024 10:32 AM EDT Inhaled Oxygen Concentration - - Weight 77.6 kg (171 lb) 12/07/2024 10:32 AM EDT Height 170.2 cm (5' 7 ) 12/07/2024 10:32 AM EDT Body Mass Index 26.78 12/07/2024 10:32 AM EDT Plan of Treatment Upcoming Encounters Date Type Department Care Team (Late st Contact Info) Description 06/07/2025 9:45 AM EDT Office Visit Thoracic Surgery - [place] [address] [address] Shruthi Montelongo PA [address] [address] 06/07/2025 10:45 AM EDT Office Visit [facility] Hematology Oncology [address] [place] [id number] Vashti-Gabbi Aguilar MD [address] [place] [address] Health Maintenance Due Date Last Done Comments Colorectal Cancer Screening: Colonoscopy 1960 Hepatitis A Vaccines (1 of 2 - Risk 2-dose series) 1978 Pneumococcal Vaccine: 50+ Years (1 of 2 - PCV) 1978 Zoster Vaccines (1 of 2) 1978 Hepatitis B Vaccines (1 of 3 - Risk 3-dose series) 2019 RSV Immunization Adult Patients (1 - Risk 60-74 years 1-dose series) 2019 Cholesterol Screening (Lipid Panel) 08/07/2022 Hepatitis C Screening 08/07/2022 Medicare Annual Wellness Visit 08/07/2022 Social Influencers of Health Screening 08/07/2022 Falls Risk Assessment 2024 Depression Screening 08/30/2024 COVID-19 Vaccine ( season) 2025 03/10/2022, 09/03/2021, 01/03/2021, Additional history exists Influenza Vaccine (#1) 2025 DTaP,Tdap,and Td Vaccines (2 - Td or Tdap) 04/30/2026 04/30/2016 Hypertension/CHF/CAD Annual BMP Blood Test 05/29/2026 05/29/2025, 08/07/2024 HIB Vaccines Aged Out No longer eligi [...] age to complete this topic Meningococcal B Vaccine Aged Out No l onger eligible based on patient's age to complete this topic RSV Immunization Patients Under 20 months Aged Out No longer eligible based on patient's age to complete this topic Varicella Vaccines Aged Out No longer eligible based on patient's age to complete this topic Medical Devices Implanted Type Area Trombone Slide Assembler Device Identifier Shelf Expiration Date Model / Serial / Lot Prolaryn Plus Voice Injection 1cc - Sn/A - [id number] Implanted:Qty: 1 on 11/20/2024 by Socorro Thayer MD at [facility] [employer] N/A: Throat [employer] [id number] / N/A / N/A Procedures Procedure Name Priority Date/Time Associated Diagnosis Comments CT CHEST/ABDOMEN/PELVIS W CONTRAST Routine 05/30/2025 10:15 AM EDT GE junction carcinoma (CMS/HCC V24, CMS/HCC V28) CBC WITH AUTO DIFFERENTIAL Routine 05/29/2025 1:18 PM EDT GE junction carcinoma (CMS/HCC V24, CMS/HCC V28) PROSTATE SPECIFIC ANTIGEN DIAGNOSTIC Routine 05/29/2025 1:18 PM EDT Prostate cancer (CMS/HCC V24, CMS/HCC V28) Iron deficiency anemia due to sideropenic dysphagia VITAMIN B12 AND FOLATE Routine 1:18 PM EDT GE junction carcinoma (CMS/HCC V24, CMS/HCC V28) FERRITIN Routine 05/29/2025 1:18 PM EDT GE junction carcinoma (CMS/HCC V24, CMS/HCC V28) IRON AND TIBC Routine 05/29/2025 1:18 PM EDT GE junction carcinoma (CMS/HCC V24, CMS/HCC V28) CBC AND DIFFERENTIAL Routine 05/29/2025 1:18 PM EDT GE junction carcinoma (CMS/HCC V24, CMS/HCC V28) COMPREHENSIVE METABOLIC PANEL Routine 05/29/2025 1:18 PM EDT GE junction carcinoma (CMS/HCC V24, CMS/HCC V28) from Last 3 Months Results * CT Chest/Abdomen/Pelvis w Contrast (05/30/2025 10:15 AM EDT) Anatomical Region Laterality Modality Body Computed Tomogra phy 06/05/2025 10:1 2 AM EDT Impressions 06/05/2025 10:32 AM EDT Partial esophagectomy with gastric pull-through. No recurrent or metastatic disease. -------- FINAL REPORT -------- Dictated By: CUONG HAM Dictated Date: 06/05/2025 10:12 ET Assigned Physician: CUONG HAM Reviewed and Electronically Signed By: CUONG HAM Signed Date: 06/05/2025 10:32 ET Workstation ID: [id number] Transcribed By: Self Edit Transcribed Date: 06/05/2025 [...] suspicious lytic or blastic lesions. Procedure Note Cuong Ham MD - 06/05/2025 PROCEDURE: Chest, abdomen, [...] disease. -------- FINAL REPORT -------- Dictated By: CUONG HAM Dictated Date: 06/05/2025 10:12 ET Assigned Physician: CUONG HAM Reviewed and Electronically Signed By: CUONG HAM Signed Date: 06/05/2025 10:32 ET Workstation ID: [id number] Transcribed By: Self Edit Transcribed Date: 06/05/2025 10:12 ET Pam Sykes NP IMG CT PROCEDURES Final Res ult * (ABNORMAL) Vitamin B12 and folate (05/29/2025 1:18 PM EDT) Vitamin B-12 1,645(H) 250 - 900 pcg/mL LAB CHEMISTRY METHOD 05/29/2025 8:53 PM EDT [facility] Folate 16.2 2.8 - 17.0 ng/ml LAB CHEMISTRY METHOD 05/29/2025 8:53 PM EDT [facility] Blood Venous blood specimen / Unknown Venipuncture / Unknown 05/29/2025 1:18 PM EDT 05/29/2025 1:18 PM EDT Gabbi Vanegas MD LAB BLOOD ORDERABLE S Final Result [facility] [address] [place] [address], [place] [phone] * (ABNORMAL) Prostate specific antigen diagnostic (05/29/2025 1:18 PM EDT) Pathologist [facility] PSA 4.87(H) 0.00 - 4.00 ng/mL LAB CHEMISTRY METHOD 05/29/2025 6:10 PM EDT [facility] Blood Venous blood specimen / Unknown Venipuncture / Unknown 05/29/2025 1:18 PM EDT 05/29/2025 1:18 PM EDT [facility] - 05/29/2025 6:10 PM EDT The Siemens Advia Silistixaur Chemiluminescent Immunoassay is used. Results obtained with different assay methods or kits cannot be used interchangeably. Results cannot be interpreted as absolute evidence of the presence or absence of malignant disease. Gabbi Vanegas MD LAB BLOOD ORDERABLE S Final Result [facility] [address] [place] [address], [place] [phone] * (ABNORMAL) CBC auto differential (05/29/2025 1:18 PM EDT) [facility] WBC 6.3 4.8 - 10.8 K/mcL LAB HEMETOLOGY METHOD 05/29/2025 4:31 PM EDT [facility] RBC 5.20 4.50 - 5.50 M/mcL LAB HEMETOLOGY METHOD 05/29/2025 4:31 PM EDT [facility] Hemoglobin 13.9 13.5 - 17.5 g/dL LAB HEMETOLOGY METHOD 05/29/2025 4:31 PM EDT [facility] Hematocrit 44.4 42.0 - 54.0 % LAB HEMETOLOGY METHOD 05/29/2025 4:31 PM EDT [facility] MCV 85.5 79.0 - 98.0 FL LAB HEMETOLOGY METHOD 05/29[facility]2025 4:[facility] MCH 26.8(L) 27.0 - 32.0 pcg LAB HEMETOLOGY METHOD 05/29/2025 4:31 PM [facility] MCHC 31.3(L) 32.0 - 37.0 g/dL LAB HEMETOLOGY METHOD 05/29/2025 4:31 PM [facility] RDW 14.9 11.0 - 15.0 % LAB HEMETOLOGY METHOD 05/29/2025 4:31 PM [facility] Platelets 328 130 - 400 K/mcL LAB HEMETOLOGY METHOD 05/29/2025 4:31 PM [facility] MPV 10.7 7.0 - 11.0 FL LAB HEMETOLOGY METHOD 05/29/2025 4:31 PM [facility] NRBC 0.0 <1.0 % LAB HEMETOLOGY METHOD 05/29/2025 4:31 PM [facility] NRBC Absolute 0.00 <0.10 K/mcL LAB HEMETOLOGY METHOD 05/29/2025 4:31 PM [facility] Neutrophils Relative 60.8 % LAB HEMETOLOGY METHOD 05/29/2025 4:31 PM [facility] Lymphocytes Relative 20.2 % LAB HEMETOLOGY METHOD 05/29/2025 4:31 PM [facility] Monocytes Relative 11.3 % LAB HEMETOLOGY METHOD 05/29/2025 4:31 PM [facility] Eosinophils Relative 6.2 % LAB HEMETOLOGY METHOD 05/29/2025 4:31 PM [facility] Basophils Relative 1.3 % LAB HEMETOLOGY METHOD 05/29/2025 4:31 PM [facility] Immature Granulocytes Relative 0.2 % LAB HEMETOLOGY METHOD 05/29/2025 4:31 PM EDT [facility] Neutrophils Absolute 3.83 1.50 - 7.00 K/mcL LAB HEMETOLOGY METHOD 05/29/2025 4:31 PM EDT [facility] Lymphocytes Absolute 1.27 1.00 - 5.00 K/mcL LAB HEMETOLOGY METHOD 05/29/2025 4:31 PM EDT [facility] Monocytes Absolute 0.71 0.20 - 1.00 K/mcL LAB HEMETOLOGY METHOD 05/29/2025 4:31 PM EDT [facility] Eosinophils Absolute 0.39 0.00 - 0.50 K/mcL LAB HEMETOLOGY METHOD 05/29/2025 4:31 PM EDT [facility] Basophils Absolute 0.08 0.00 - 0.20 K/mcL LAB HEMETOLOGY METHOD 05/29/2025 4:31 PM EDT [facility] Immature Granulocytes Absolute 0.01 0.00 - 0.03 K/mcL LAB HEMETOLOGY METHOD 05/29/2025 4:31 PM EDT [facility] Blood Venous blood specimen / Unknown Venipuncture / Unknown 05/29/2025 1:18 PM EDT 05/29/2025 1:18 PM EDT us Subramzara Vanegas MD LAB BLOOD ORDERABLE S Final Result [facility] [address] [place] [address], * Iron and TIBC (05/29/2025 1:18 PM EDT) Iron 87 50 - 160 mcg/dL LAB CHEMISTRY METHOD 05/29/2025 5:03 PM EDT [facility] TIBC 421 250 - 450 mcg/dL LAB CHEMISTRY METHOD 05/29/2025 5:03 PM EDT [facility] Iron Saturation 21 20 - 50 % LAB CHEMISTRY METHOD 05/29/2025 5:03 PM EDT [facility] Blood Venous blood specimen / Unknown Venipuncture / Unknown 05/29/2025 1:18 PM EDT 05/29/2025 1:18 PM EDT us Gabbi Vanegas MD LAB BLOOD ORDERABLE S Final Result Performing Organization Address [facility]/ZIP Co de Phone Number [facility] [address] [place] [address], [place] [phone] * Ferritin (05/29/2025 1:18 PM EDT) Ferritin 26 26 - 388 ng/mL LAB CHEMISTRY METHOD 05/29/2025 5:03 PM EDT [facility] Blood Venous blood specimen / Unknown Venipuncture / Unknown 05/29/2025 1:18 PM EDT 05/29/2025 1:18 PM EDT us Gabbi Vanegas MD LAB BLOOD ORDERABLE S Final Result Performing Organization Address [facility]/ZIP Co de Phone Number [facility] [address] [place] [address], [place] [phone] * (ABNORMAL) Comprehensive metabolic panel (05/29/2025 1:18 PM EDT) Sodium 141 133 - 145 mmol/L LAB CHEMISTRY METHOD 05/29/2025 6:21 PM EDT [facility] Potassium 4.5 3.5 - 5.5 mmol/L LAB CHEMISTRY METHOD 05/29/2025 6:21 PM EDT [facility] Chloride 107 96 - 110 mmol/L LAB CHEMISTRY METHOD 05/29/2025 6:21 PM EDT [facility] CO2 29 21 - 32 mmol/L LAB CHEMISTRY METHOD 05/29/2025 6:21 PM [facility] Anion Gap 5 3 - 11 LAB CHEMISTRY METHOD 05/29/2025 6:21 PM [facility] Glucose 118(H) 70 - 100 mg/dL LAB CHEMISTRY METHOD 05/29/2025 6:21 PM [facility] BUN 11 5 - 25 mg/dL LAB CHEMISTRY METHOD 05/29/2025 6:21 PM [facility] Creatinine 0.90 0.70 - 1.30 mg/dL LAB CHEMISTRY METHOD 05/29/2025 6:21 PM [facility] eGFR 94 >=60 mL/min/1. 73m2 LAB CHEMISTRY METHOD 05/29/2025 6:21 PM [facility] Comment:Calculation based on the Chronic Kidney Disease Epidemiology Collaboration (CKD-EPI) equation refit without adjustment for race. BUN/Creatinine Ratio 12.2 LAB CHEMISTRY METHOD 05/29/2025 6:21 PM [facility] Calcium 9.3 8.5 - 10.5 mg/dL LAB CHEMISTRY METHOD 05/29/2025 6:21 PM [facility] AST (SGOT) 19 10 - 42 unit/L LAB CHEMISTRY METHOD 05/29/2025 6:21 PM [facility] ALT (SGPT) 34 10 - 60 unit/L LAB CHEMISTRY METHOD 05/29/2025 6:21 PM [facility] Alkaline Phosphatase 90 42 - 121 unit/L LAB CHEMISTRY METHOD 05/29/2025 6:21 PM [facility] Total Protein 6.7 6.0 - 8.0 g/dL LAB CHEMISTRY METHOD 05/29/2025 6:21 PM [facility] Albumin 3.7 3.2 - 5.0 g/dL LAB CHEMISTRY METHOD 05/29/2025 6:21 PM [facility] Total Bilirubin 0.4 0.0 - 1.4 mg/dL LAB CHEMISTRY METHOD 05/29/2025 6:21 PM EDT [facility] Blood Venous blood specimen / Unknown Venipuncture / Unknown 05/29/2025 1:18 PM EDT 05/29/2025 1:18 PM EDT Gabbi Vanegas MD LAB BLOOD ORDERABLE S Final Result [facility] [address] [place] [address], from Last 3 Months Insurance [employer] MEDICARE Care Teams Retail Customer Service Specialist Relationship Specialty Start Date End Date Spencer Sierra MD [address] [place] [phone] PCP - General Internal Medicine 07/29/18
--- OUTSIDE RECORDS SUMMARY | 2025-06-05 17:44 | XMS_ITS ---
Author Organization [facility] Address [address] [place] [address] Care Team Providers Care Assembly Press Operator Name Role Phone Spencer Sierra MD Primary Care Provider [phone] Active Problems Problem Noted Date Diagnosed Date [...] treatments are documented for this patient in [facility]. Treatments may have been administered in another system.
--- OUTSIDE RECORDS SUMMARY | 2025-06-05 17:44 | XMS_ITS | Data Portability ---
Author Organization [place] - [facility], Allergy Address [address] [address] Care Team Providers Care It Field Technician Name Role Phone GUERRERO AGUEROER Primary Care Provider Assessment Encounter Date Assessment Date Assessment LastModified by Organization Details LastModified Time 12/04/2024 12/04/2024 64-year-old male presents status post DL with biopsy with Dr. Jhaveri on 11/20/2024. He is doing well postoperative ly. Pathology of left base of tongue and left tonsil were benign without atypia or neoplasm. We will continue to observe and plan for follow-up in [address] Jhaveri. [email or web address] Not available 12/04/2024 13:48:47 Plan of Treatment Reminders Order Date Submit Date Provider Last Modified By Organization Details Last Modified Time Details Appointments None recorded. Lab None recorded. Referral None recorded. Procedures None recorded. Surgeries laryngosc opy, direct, with biopsy (SURG) 2024 025 flash Not available 07:12:22 Imaging MRI, neck, w/wo contrast - attn left pharynx 2024 025 [facility] ([facility]), [address] [place], [address], 5 16:20:25 Medication Orders None recorded. Patient TargetsNo targets recorded. Patient InstructionsNo instructions recorded. Reason for Referral None Reported. Results Created Date Observation Date Name Description Value Unit Range Abnormal Flag Note LastModifiedBy Organization Detail LastModifiedTime 11/21/1911/20/2024 TISSU E EXAM .note See Note Origi nal Order ing Provi mirian: ALEJANDRO N [facility] - [address], [place], [place] [address] Not Available [address], [address], 11/21/2024 12:05:48 11/21/19 25 11/20/2024 TISSU E [...] on 2024 at 12:04 PM Not Available [address], [address], 11/21/2024 12:05:48 11/21/19 25 11/20/2024 TISSU E EXAM gross description A. Tongue [...] on one slide . [place] Not Available [address], [address], 11/21/2024 12:05:48 11/21/1911/20/2024 TISSU E EXAM disclaimer Unles s other deng speci fied, all tissu e is 10% NB forma chinmay fixed and paraf fin embed ded. Not Available [facility] [address] [place], [address], 11/21/2024 12:05:48 09/13/1909/12/2024 MRI, head + neck + orbit s, w/wo contr ast [facility] Access ion Number : [id number] Patien t Name: Jeremiah friedman, Rehan peña Record Number : [id number] Date of : 1959 Date of Exam: 2024 Referr ing Physic miky: Carin Alvarenga [facility] [address], [place] [address] [place] [address] Exam: MR Orbits , Face, Neck (C-/C+ ) CPT 29467 Room Descri ption: [facility] Espr 1.5 MRI of the soft tissue s neck withou t and with contra st. HISTOR Y: Nausea and vertig o. Hypert ension . Left retrop haryng eal massli ke lesion on prior CT. 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 Compar anand: CT of soft tissue neck on 09/06/19 from [facility] FINDIN GS: This study is limite d due to motion artifa cts. There is an approx imatel y 2 x 1.5 x 2.1 cm irregu lar shaped area of enhanc ing lesion in the left latera l pharyn geal wall extend ing to the left state game protector ior tongue which corres ponds to the [...] geal wall extend ing to the left state game protector ior tongue corres pondin g to the [...] onical ly Signed By: Luke Alexander MD [facility] ([facility]) [address], [place], [address], 10/03/2024 13:04:11 11/21/19 25 11/20/2024 H&P No observ ation record ed. [address], [address], 11/20/2024 09:43:02 11/21/19 25 11/20/2024 op note No observ ation record ed. [facility] [address] [facility], [place], [address], 11/20/2024 09:43:02 Result Notes Documentation Provider Name and Address Organization Details Recorded Time Mri, Head + Neck + Orbits, W/wo Contrast : [facility] [place] Accession Number: [id number] Patient Name: Rehan Marin Date of : 1960 Date of Exam: 09-12-2024 Referring Physician: Carin Jhaveri [facility] [address] [address] Exam: MR Orbits, Face, Neck (C-/C+) CPT 70412 Room Description: [facility] 1.5 MRI of the soft tissues neck without and with contrast. HISTORY: Nausea and vertigo. Hypertension. Left retropharyngeal masslike lesion on prior CT. History of esophageal and prostate cancer. Comparison: CT of soft tissue neck on 09/06/2024 from [facility] FINDINGS: This study is limited due to motion artifacts. There is an approximately 2 x 1.5 x 2.1 cm irregular shaped area of enhancing lesion in the left lateral pharyngeal wall extending to the left posterior tongue which corresponds to the masslike lesion at the the same location on the prior CT of soft tissue neck. This is suspicious for a neoplasm. Please correlate clinically. Tissue sampling may be useful. There is no other mass, abnormal signal or abnormal enhancement throughout the rest of the soft tissues neck. No lymphadenopathy is seen. Bilateral parotid glands and submandibular glands show no focal abnormalities or abnormal enhancement. The thyroid lobes are normal and symmetrical. The airway is patent. There are normal flow-voids within the visualized major neck arteries. The visualized upper lungs show no definite acute pathology. The visualized esophagus at the thoracic region appears significantly dilated containing hyperintense signals suggesting either fluid or retained food contents. Please correlate clinically. There is mucosal thickening with small mucus retention cysts within the visualized inferior maxillary sinuses bilaterally. The cervical spine shows diffuse spondylosis. IMPRESSION: Limited study due to motion artifacts. There is an approximately 2 x 1.5 x 2.1 cm irregular shaped rim-enhancing lesion in the left lateral pharyngeal wall extending to the left posterior tongue corresponding to the finding on the prior CT. This is suspicious for a neoplasm. Please correlate clinically. Tissue sampling may be useful. The visualized esophagus at the thoracic region appears significantly dilated containing hyperintense signals suggesting either fluid or retained food contents. Please correlate clinically. Electronically Signed By: Luke JHAVERI MD [address] [employer] [place] [facility], [place], [address], [facility] - [facility] 10/03/2024 13:04:11 Problems Name Problem SNOMED Code Status Onset Date Resolution Date Notes Provider Name and Address Organization Details Recorded Time Localized enlarged lymph nodes 731257755 Active 2017 Localized enlarged lymph nodes; Note: Date Diagnosed: 11/12/2017 1:19 PM (R59.0) Not Available [facility] hospital 4 02:37:46 Generaliz ed hyperhidr osis 167350372 Active 2017 Night sweats; Note: Date Diagnosed: 11/21/2017 10:48 AM (R61) Not Available Critical access hospital 4 02:37:44 Dysphagia 78396734 Active 2017 Dysphagia, unspecifie d; Note: Date Diagnosed: 07/04/2018 1:13 PM (R13.10) Other dysphagia; Note: Date Diagnosed: 07/04/2018 11:43 AM (R13.19) Not Available Critical access hospital 4 02:37:50 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 5 10:41:21 Benign neoplasm of larynx 57798164 Active 2024 SHANTI DOTSON PA-C [address] [place] [address], [address] , [facility] - [facility] 5 13:48:41 Problem Notes None recorded. Procedures Surgical History Date Name Laterality Status Provider Name and Address Organization Details Recorded Time 11/21/19 direct laryngoscopy with biopsy completed CARIN JHAVERI MD [address] [employer] [place],[address], [place], [address], [facility] 11/20/2024 09:46:04 09/11/19 25 Fiberoptic Laryngoscopy (Comprehensive) completed CARIN JHAVERI MD 100 [facility],[address], [address], [facility] 09/11/2024 10:43:12 total replacement of hip completed CARIN JHAVERI MD 100 [facility],[address], [address], [facility] 09/11/2024 10:18:28 esophagectomy completed CARIN JHAVERI MD 100 [facility],[address], [address], [facility] 11/20/2024 09:46:11 Imaging Results None recorded. Procedure Notes None recorded. Medical Equipment None Reported. Allergies Allergen ID Allergen Name Allergen Category Reaction Reaction Severity Criticality Documentation Date Start Date Code Code System Note Provider Name and Address Organization Details Recorded Time 950326 meloxicam medicatio n Not available Not available Not available 09/11/2024 27972 RxNorm Dayan taylor [facility] 10:14:15 Medications Name Sig Start Date Stop Date Status Note LastModified by Organization Details LastModified Time amlodipin e 5 mg tablet TAKE 1 TABLET BY MOUTH DAILY active Not Available Not Available No t Available pentoxify lline ER 400 mg tablet,ex tended release TAKE 1 TABLET BY MOUTH TWICE DAILY active Not Available Not Available No t Available lisinopri l 10 mg tablet 09/11 completed Medicati on ID: [id number] D uration Value: 30 Brand Name: lisinopr [...] t Available finasteri de 5 mg tablet TAKE 1 TABLET BY MOUTH DAILY active Not Available Not Available No t Available omeprazol e ER 40 mg capsule,e xtended release Take by oral route. 09/29 completed Not Available Not Available Not Available oxycodone 5 mg tablet TAKE 1 TABLET BY MOUTH EVERY 6 HOURS NEEDED FOR MODERATE PAIN SCALE OF 4 TO 6 09/29 completed Not Available Not Available Not Available tadalafil 5 mg tablet TAKE 1 TABLET BY MOUTH EVERY DAY active Not Available Not Available No t Available Vitals Date Recorded Body height Body mass index (BMI) Body weight Provider Name and Address Organization Details Last Updated DateTime 09/11/2024 171.45 cm 26.8 kg/m2 56232.07 g Dayan De La Fuente [facility] 09/11/2024 10:14:00 Date Recorded Body height Body mass index (BMI) Body weight Provider Name and Address Organization Details Last Updated DateTime 09/29/2024 171.45 cm 26.8 kg/m2 04687.07 g Dayan De La Fuente [facility] 09/29/2024 16:28:03 Social History None recorded. Functional Status None recorded. Mental Status None recorded. Family History Nothing Reported Notes:father-hypertension Medical History Condition Response Cancer Y Hypertension Y Asthma Y Past Encounters Encounter ID Performer Location Encounter Start Date Encounter Closed Date Diagnosis/Indication Diagnosis SNOMED-CT Code Diagnosis ICD10 Code Diagnosis IMO Codes Diagnosis Note [id number] CARIN JHAVERI MD [facility] [address] [address] 09/11/2024 10:08:33 09/11/2024 10:46:06 Neoplasm of uncertain behavior of pharynx 96366350 D37.05 64-year-ol d male with a history [...] for lesion would proceed with a EUA. [id number] CARIN JHAVERI MD [facility] [place] [address] [place] [address] 09/29/2024 16:06:03 09/29/2024 16:50:38 Neoplasm of uncertain behavior of pharynx 40968627 D37.05 We reviewed the results of his [...] the teeth and gums. All questions answered. [id number] SHANTI DOTSON PA-C [facility] [address] [place] [address] 12/04/2024 13:38:41 12/04/2024 13:58:01 Benign neoplasm of larynx 48861766 D14.1 Health Concerns Section Related Observation LastModified by Organization Detai ls LastModified Time None Recorded Concern Status LastModified by Organization Details LastModified Time None Recorded Advance Directives Directive None Recorded Payers Insurance Date Sequence Insurance Name Policy Number Policy Jeffrey Covered Member ID Jeffrey Member ID Guarantor Name 03/05/2025 1 [facility] (MEDICARE REPLACEMENT/ ADVANTAGE - PPO) [id number] Rehan Marin [id number] Rehan Marin 09/11/2024 2 [place] [facility] Rehan Marin [id number] Rehan Marin Notes Date Note Type Note Provider Name and Address Organization Details Recorded Time 09/11/2024 text/html 64 yo M presents for neck swelling Dry heaves usually only once, this morning twice 2018 treated for esophageal cancer No swelling since [...] below its bifurcation. CARIN JHAVERI MD [address] [place] [address], [address], [place] - [facility] 09/11/2024 12:38:56 09/29/2024 text/html Since his last visit, he did have an MRI which showed similar findings as the CT scan. He also had a PET scan which did not show any abnormal uptake. PV: 64 yo M presents for neck swelling Dry heaves usually only once, this morning twice 2018 treated for esophageal cancer No swelling since [...] just below its bifurcation. CARIN JHAVERI MD [address] [place] [address],[address], [address], [place] - [facility] 09/30/2024 08:59:07 12/04/2024 text/html ROS as noted in the HPI 64-year-old male presents status post DL with biopsy with Dr. Jhaveri on 11/20/2024. He is doing well postoperatively. Tolerating normal diet. Denies voice changes, dyspnea, or sore throat. CARIN JHAVERI MD [address] [place] [address],[address], [address], [place] - [facility] 12/10/2024 20:29:11
[2025-06-05 18:50] LABS: PSA,Total (Free>4and<10) 6.01 ng/mL (0.00-4.00)
[2025-06-08 13:48] LABS: Free Prostate Spec Ag 0.5 ng/mL; Percent Free Prostate Spec Ag 9 % (calc) (>25)
== END 2025-06-05 14:22 | disposition home or self-care (01) ==
LOC: HO.HKASLDS 14:21
PROVIDERS: PCP Internal Medicine; Visit Provider Urology
DX: N40.0 Benign prostatic hyperplasia without lower urinary tract symptoms (principal); C61 Malignant neoplasm of prostate; R97.20 Elevated prostate specific antigen [PSA]; Z12.5 Encounter for screening for malignant neoplasm of prostate
CPT/HCPCS: 36415; 84153; 84154

== ENCOUNTER 2025-06-29 15:15 | Outpatient (AMB) | payer MEDICARE, SELFPAY ==
--- OUTSIDE RECORDS SUMMARY | 2025-06-27 14:30 | XMS_ITS | Encounter Summary ---
Author Organization [facility] Address [address] [place] [address] Care Team Providers Care Oil Refiner Name Role Phone Spencer Sierra MD Primary Care Provider [phone] Reason for Visit * Reason Comments Leg Pain L leg Encounter Details Date Type Department Care Team ([facility] Contact Info) Description 06/27/2025 2:30 PM EDT Office Visit Walk-In Clinic - [facility] [address] [place], [place] [phone] Cinthya Walton NP [address] [place], [place] Left hip pain (Primary Dx) Social History Tobacco Use Types Packs/Day Years [...] AM EDT documented as of this encounter Last Filed Vital Signs Vital Sign Reading Time Taken Comments Blood Pressure 150/75 06/27/2025 2:44 PM EDT Pulse 85 06/27/2025 2:44 PM EDT Temperature 36.8 C (98.3 F) 06/27/2025 2:44 PM EDT Respiratory Rate 12 06/27/2025 2:44 PM EDT Oxygen Saturation 97% 06/27/2025 2:44 PM EDT Inhaled Oxygen Concentration - - Weight - - Height - - Body Mass Index - - documented in this encounter Progress Notes * Cinthya Walton NP - 06/27/2025 2:30 PM EDT CHIEF COMPLAINT: Leg Pain (L leg) HPI: Rehan Marin is a 65 y.o. old male who presents with left lateral hip pain. Patient states he has status post total hip replacement on the right and feels symptoms on the left are similar to past experience. Patient denies any low back pain, no bladder or bowel changes. Patient asking for cortisone injection ROS: Remainder of the 12 point review of symptoms unremarkable except for those idenitified in the HPI. PAST MEDICAL HISTORY: Patient Active Problem List Diagnosis Date Noted History of esophageal cancer 06/05/2025 Pharyngeal mass 11/16/2024 Nausea and vomiting 02/10/2022 Night sweats 09/04/2021 Elevated PSA 09/04/2021 Diverticulitis 01/22/2021 Prostate cancer ([facility] V24, [facility] V28) 08/24/2020 Microcytic anemia 06/30/2019 Weight loss 05/09/2019 Iron deficiency anemia due to sideropenic dysphagia 05/09/2019 SUZANNA positive 05/09/2019 Cachexia ([facility] V24) 03/07/2019 Thrombocytopenia ([facility] V24) 03/07/2019 Steroid-induced hyperglycemia 09/23/2018 Anemia in neoplastic disease 09/23/2018 GERD (gastroesophageal reflux disease) 09/09/2018 Radiation esophagitis 09/09/2018 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 ACTIVE MEDICATIONS: Medications Taking[3] ALLERGIES: Allergies[4] PHYSICAL EXAM: Vitals: 06/27/25 1444 BP: (!) 150/75 Pulse: 85 Resp: 12 Temp: 36.8 ??C (98.3 ??F) TempSrc: Temporal SpO2: 97% CONSTITUTIONAL: alert, calm, cooperative, in no acute distress SKIN: warm and dry HEART: S1, S2 normal, regular rate and rhythm, no murmurs, rubs, gallops LUNGS: clear to auscultation bilaterally, no wheezes, rales, rhonchi ABDOMEN: soft, nontender, nondistended, bowel sounds present, no guarding or rigidity, no hepatosplenomegaly EXTREMITIES: DTRs intact no tenderness palpation over spine negative PSIS EHL equal SLR 60 degrees bilaterally positive tenderness to palpation lateral left hip positive tenderness with knee bending PSYCH: mood/affect full range, speech clear, good eye contact, cooperative with exam LABS/IMAGING: IMPRESSION: Left hip pain probable bursitis PLAN: The patient's PMH, problem list and medications were reviewed in reference to the above diagnosis/diagnoses. General Ortho urgent care for cortisone shot today Patient will follow-up with Ortho at [facility] Advised to follow up with PCP if symptoms do not improve. Advised to follow up with UC or PCP immediately for new or worsening symptoms. Educated on red flags symptoms. Advised to go to the ER or call 911 for these symptoms. Patient understands the plan. Patient verbalizes agreement with the plan. No orders of the defined types were placed in this encounter. Cinthya Walton NP on 06/27/2025 at 2:47 PM EDT Today's documentation was made using voice recognition software. This note may contain grammatical errors secondary to this software. [1] Past Surgical History: Procedure Laterality Date CARPAL TUNNEL RELEASE Right 03/27/2014 PROCEDURE: HISTORICAL CARPAL TUNNEL REL ESOPHAGOGASTRODUODENOSCOPY 07/14/18 [place] PROCEDURE: NM EGD TRANSORAL BIOPSY SINGLE/MULTIPLE; COMMENT: moderately differentiated carcinoma GEjunction and hiatus hernia HIP ARTHROPLASTY Right 07/09/2014 PROCEDURE: HISTORICAL HIP REPLACEMENT OTHER SURGICAL HISTORY 06/17/2009 PROCEDURE: COLONOSCOPY, SURGICAL OTHER SURGICAL HISTORY 06/13/2018 PROCEDURE: COLON CA SCRN NOT HI RSK IND; COMMENT: ticsand hemorrhoids; repeat in 10 yrs OTHER SURGICAL HISTORY 07/26/2018 PROCEDURE: ---- OTHER [...] removal of esophageal stent OTHER SURGICAL HISTORY Left 11/06/2020 PROCEDURE: ---- OTHER ----; COMMENT: VATS resection of portion of 6 rib, and rib plating [2] Family History Problem Relation Name Age of Onset Cancer Father prostate cancer Prostate cancer Father Hypertension Father Prostate cancer Uncle Prostate cancer Uncle Diabetes Neg Hx Coronary artery disease Neg Hx [3] Outpatient Medications Marked as Taking for the 06/27/25 encounter (Office Visit) with Cinthya Walton NP Medication Sig Dispense Refill albuterol HFA (PROAIR HFA ; PROVENTIL HFA ; VENTOLIN HFA) 90 mcg/actuation inhaler Inhale 2 puffs by mouth. ALBUTEROL INHL Inhale. amLODIPine (NORVASC) 10 mg tablet Take 5 mg by mouth 1 (one) time each day. amLODIPine (NORVASC) 2.5 mg tablet Take 1 tablet (2.5 mg total) by mouth 1 (one) time each day. baclofen (LIORESAL) 10 mg tablet Take 1 tablet (10 mg total) by mouth. finasteride (PROSCAR) 5 mg tablet Take 1 tablet (5 mg total) by mouth 1 (one) time each day. fluticasone propionate (FLONASE) 50 mcg/actuation nasal spray Administer into affected nostril(s). omeprazole (PriLOSEC) [address] capsule Take 1 capsule (20 mg total) by mouth 1 (one) time each day. [4] Allergies Allergen Reactions Meloxicam Headache Metoclopramide Anxiety Other reaction(s): Not available documented in this encounter Plan of Treatment Upcoming Encounters Date Type Department Care Team (Late st Contact Info) Description 12/13/2025 10:45 AM EDT Office Visit [facility] Hematology Oncology [address] [place] [phone] Vashti-Gabbi Aguilar MD [address] [place] [phone] documented as of this encounter Visit Diagnoses Diagnosis Left hip pain- Primary Pain in joint, pelvic region and thigh documented in this encounter Care Teams Oil Refiner Relationship Specialty Start Date End Date Spencer Sierra MD [address] [place] [address] PCP - General Internal Medicine 07/29/18 documented as of this encounter
--- NOTE | 2025-06-29 15:15 | MHC.OFFVIS ---
Intake Visit Reasons: 6m/PSA/med review Intake Note: Patient is present via telehealth for a 6m/PSA/med review 06/05 Total PSA:6.01/Free PSA: 0.5 Urology Medication: Finasteride Antibiotic Allergies:None Blood Thinners: None Allergies meloxicam (From Mobic) Allergy (Intermediate, Verified 06/29/25 15:21) Anxiety metoclopramide (From Reglan) Allergy (Intermediate, Verified 06/29/25 15:21) Anxiety HPI Comments Details: 06/29/25--Rehan is being followed for localized prostate cancer he is on active surveillance. He is also being followed for curvature of the penis Peyronie's. We will continue finasteride, daily Cialis, pentoxifylline and vitamin-E reviewed PSA 06/05/2025 is 6.01 plan repeat MRI in 6 months. 02/01/25--The patient is a 64-year-old male presenting with penile curvature. This condition has developed recently and manifests during erections, bending downwards towards the legs. It primarily affects the top to mid section of the penis and was previously unexperienced by the patient, marking it as a new and persistent concern. He had no inciting incidents of trauma and has no reported associated symptoms of pain or erectile dysfunction at the moment. The patient is under active surveillance for prostate cancer. Plan I recommended a treatment regimen involving vitamin E and pentoxifylline. Daily low-dose Cialis 5 mg was prescribed to enhance local blood.flow. 11/30/24-- The patient is a 64-year-old male presenting for discussion of recent imaging and management regarding prostate cancer. Previously noted biopsied lesions confirmed malignancy. Recent imaging has not shown progression as the prostate size decreased significantly, potentially attributed to finasteride. The patient's PSA level is stable at 6.88, elevated relative to normative ranges but remains consistent with prostate dimensions. The MRI on 11/15 indicated reduced prostate volume from 58 grams to approximately 36 grams. Additionally, May's biopsy pathology report verified malignancy but reveals stability in current findings. Urinary Symptoms Review - Reduction in prostate size from 58 grams to approximately 36 grams noted - Stable PSA level at 6.88 - No urinary frequency or incontinence mentioned - No pain or pressure symptoms discussed Results - MRI (11/15): No significant lesions observed; prostate size reduced from 58 to ~36 grams. - PSA Test: Stable at 6.88, despite elevated level considering prostate size - Biopsy (06/14/23): Confirmed prostate cancer with previous lesions biopsied by Dr. Dow 06/05/24--Rehan is a 64-year-old male who presents today for a follow-up. He is on active surveillance for prostate cancer, group 1, Flinton score 3+3=6. He is on Proscar 5 mg daily due to enlarged prostate. He denies irritative voiding symptoms. PSA pending. 01/03/24--Rehan is a 63-year-old male who presents today for a follow-up. He is on active surveillance for prostate cancer, group 1, Flinton score 3+3=6. He is here to discuss PSA testing. He is on Proscar 5 mg daily due to enlarged prostate. Discussed with the patient PSA 12/30/2023-6.09 ng/mL. Will continue active surveillance. PSA in 6 months. Continue Proscar. 07/01/2023?He is followed today for biopsy results. s/p MRI guided prostate biopsy by Dr. Dow on 06/14/2023. I reviewed the biopsy results with the patient. Prostate, C 3.0, needle core biopsy: Prostatic adenocarcinoma, Ru score 3+3=6 (Grade group 1), involving 1% of the needle core. Prostate, b 3.0, needle core biopsy: Prostatic adenocarcinoma, Flinton score 3+3=6 (Grade group 1), involving 15% of the needle core. Grade group 1 adenocarcinoma prostate cancer 07/01/2023: Plan: Continue Active surveillance, PSA screening test was ordered. Proscar 5 mg was ordered. Follow-up in 6 months. 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 Thrombocytopenia Jejunostomy tube present 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 Weight loss Microcytic anemia History of CO poisoning Rib lesion Diverticulitis Elevated PSA Night sweats Nausea Surgical History History of endoscopy (~2017) History of thoracic surgery (~2021) History of prostate biopsy (~2021) History of esophagectomy (~2018) Social History Alcohol intake: current Alcohol intake frequency: holidays/special occasions only Patient Tobacco Use Status: Never used Tobacco Review of Systems Const All systems reviewed & are unremarkable except as noted in HPI and below Reports no additional complaints Eyes Reports no additional complaints ENT Reports no additional complaints Card Reports no additional complaints Resp Reports no additional complaints GI Reports no additional complaints Reports as per HPI Musc Reports no additional complaints Skin/Breast Reports system reviewed and no additional complaints, except as documented Neuro Reports no additional complaints Psych Reports no additional complaints Endo Reports no additional complaints Len/Lymph Reports no additional complaints Aller/Immun Reports no additional complaints Telehealth Telehealth Telehealth Platform: Telephone Location of provider rendering services: practice address Location of patient: address on file Patient Identification confirmed using: Name, : Yes Telehealth method: voice only Patient verbally consented to treatment: Yes Patient verbally consented to billing insurance company: Yes Patient informed of any privacy concerns related to visit: Yes Minutes spent on Phone/Video with Pt.: 13 Assessment & Plan Assessment & Plan (1) Prostate cancer: Onset Date: ~2021 Code(s): C61 - Malignant neoplasm of prostate Category: Medical (2) Elevated PSA: Code(s): R97.20 - Elevated prostate specific antigen [PSA] Category: Medical (3) Enlarged prostate: Code(s): N40.0 - Benign prostatic hyperplasia without lower urinary tract symptoms Category: Medical (4) Peyronie's disease: Code(s): N48.6 - Induration penis plastica Category: Medical Plan Plan Cont active surveillance. PSA and prostate in 6 months vitamin E and pentoxifylline. Daily low-dose Cialis 5 mg Orders: Orders Prostate wo/w con 10/29/25 C61 - Malignant neoplasm of prostate Patient Instructions: The patient had an opportunity to ask questions regarding treatment plan. The patient expressed understanding and agreement with the above treatment plan. The patient is aware they should contact our office by phone for worsening of their current condition or the appearance of new symptoms. Compliance is encouraged with any medications and followup testing that is ordered. It is a privilege to be allowed the opportunity to participate in the urologic care of your patient. If you have any questions or concerns regarding treatment for the above conditions please do not hesitate to contact me. The office telephone contact is [phone]. This note is constructed in part using voice recognition software. While every effort has been made to ensure accuracy expressive music therapist errors may have been included. Yours sincerely, Anna Gaytan MD Coding Level of Care Code Add On Problem Visit Only Diagnoses Prostate cancer C61 Elevated PSA R97.20 Enlarged prostate N40.0 Peyronie's disease N48.6
--- OUTSIDE RECORDS SUMMARY | 2025-06-29 15:27 | XMS_ITS | Data Portability ---
Author Organization [place] [facility] Address [address] [place] [id number] Care Team Providers Care Photolith Operator Name Role Phone JEEVAN AGUERO Primary Care Provider [facility] OTHER Assessment Encounter Date [...] to provider and . Vital Signs: 98.3 F ear (36.83 C) 77 122 / 76 [...] after care of this patient according to [facility]'s infection prevention protocols. Time On Scene with Patient: 00:40:42 [email or web address] Not available 03/18/2023 13:07:52 Plan of Treatment Reminders Order Date Submit Date Provider Last Modified By Organization Details Last Modified Time Details Appointments None recorded. Lab None recorded. Referral None recorded. Procedures None recorded. Surgeries None recorded. Imaging XR, foot, 3 or more view - Rule out fracture 2022 023 [facility] [address] [place] [address], [address], 3 15:27:51 XR, ankle, 2 view - rue out fracture 2022 023 [facility] ([facility] [address] [place], [address], 3 15:27:52 Medication Orders None recorded. Patient TargetsNo targets recorded. Patient Instructions Encounter Date Encounter Id Patient Instructions Last Modified By Organization Details Last Modified Time 03/18/2023 [id number] Thank you for yo ur visit with [facility] today. We cannot always find the exact cause of your symptoms during your initial visit. Please follow up with your primary care provider or specialist within 24-48 hours to be rechecked or seek medical attention if your symptoms do not go away or get worse. If you develop any new or worsening symptoms and need after hours care, please go to nearest ER and/or call 911. If you have additional concerns or develop a change in your condition between 8am-10pm, please call [facility] at [phone] to help navigate your care. Thank you for your visit with [facility] today. You do not appear to have [...] in your condition between 8am-10pm, please [facility] at [phone] to help navigate your care. [email or web address] Not available 03/18/2023 13:08:02 Reason for Referral [...] ACEVEDO M.D. 023 3:19:3 7 PM EDT. [email or web address] [facility] [address] [facility] [address], [place], [address], 09/22/2023 15:58:13 03/19/20 23 03/19/2023 ankle AP [...] M.D. 023 3:19:3 7 PM EDT. [email or web address] [address], [place], [address], 09/20/2023 15:29:47 Result Notes None recorded. Procedures Surgical History Date Name Laterality Status Provider Name and Address Organization Details Recorded Time 3 Splint, Short Leg - DH completed Dorie Underwood NP [address] [place], [address], [place] [facility] 03/18/2023 11:16:42 operation on hip joint completed Dorie Underwood NP [address], [place], [address], [place] [facility] 03/18/2023 10:29:43 Imaging Results None recorded. Procedure Notes None recorded. Medical Equipment None Reported. Allergies Allergen ID Allergen Name Allergen Category Reaction Reaction Severity Criticality Documentation Date Start Date Code Code System Note Provider Name and Address Organization Details Recorded Time 839497 Mobic medicatio n Not available Not available Not available 03/18/2023 94190 9 RxNorm Dorie Saundersey, [employer] [address], [place], [address], [place] [facility] 3 10:27:32 135275 Non-stero idal anti-infl ammatory agent (substanc e) medicatio n Not available Not available Not available 03/18/2023 93544 5008 SNOMED Dorie Yasmine, [address], [place], [address], [place] [facility] 3 10:27:39 075823 Reglan medicatio n Not available Not available Not available 03/18/2023 9230 RxNorm Dorie Yasmine, [address], [place], [address], [place] [facility] 3 [...] Available Not Available No t Available amlodipine 07/20 /2023 completed Not Available Not Available Not Available Breo Ellipta 100 mcg-25 mcg/dose powder for inhalation INHALE 1 PUFFS BY MOUTH EVERY DAY 03/18 completed Not Available Not Available Not Available Vitals Date Recorded Body temperature Heart rate Oxygen saturation Oxygen saturation in Arterial blood by Pulse oximetry Respiratory rate Systolic And Diastolic Provider Name and Address Organization Details Last Updated DateTime 98.3 [degF] 77 /min 100 % 100 % 18 /min 122/76 mm[Hg] Not Available [facility] 10:30:18 Social History Question Answer Notes LastModified by uSpeak Details LastModified Time Tobacco Smoking Status Never Smoker Dorie Underwood NP [address], [place], [address], [place] [facility] 03/18/2023 10:30:13 Do You Have An Advance Directive? No Information not available 03/18/2023 What Is Your Code Status? Full Code Information not available 03/18/2023 Excessive Alcohol Or Drug Use No [email or web address] Information not available 03/18/2023 Does This Patient Have A PCP? Yes [email or web address] Information not available 03/18/2023 Has The Patient Seen Their PCP In The Past 6 Months? Yes [email or web address] Information not available 03/18/2023 Is This Patient In Hospice? No [email or web address] Information not available 03/18/2023 Sex: Unknown Functional Status Question Answer Note LastModified by [email or web address] Details LastModified Time Do you or have you ever used any other forms of tobacco or nicotine? No [email or web address] Information not available 03/18/2023 What is your level of alcohol consumption? Occasional [email or web address] Information not available 03/18/2023 Mental Status None recorded. Family History Relationship Description Onset Age of this Age Resolved Age Notes LastModified by Organization Details LastModified Time Father Malignant neoplastic disease [email or web address] Not available 2022 10:29:58 Medical History Condition Response Cancer Y Hypertension Y Past Encounters Encounter ID Performer Location Encounter Start Date Encounter Closed Date Diagnosis/Indication Diagnosis SNOMED-CT Code Diagnosis ICD10 Code Diagnosis IMO Codes Diagnosis Note [id number] Dorie Underwood NP [facility] [address] [facility] [place], [place] [address] 03/18/2023 10:01:48 03/19/2023 15:21:05 Pain in left foot [id number] 90164 M79.672 Status of condition: Acute. Testing/Re sults: pending XR Discussion :High index of suspicion for fracture based off bony tenderness to talus and navicular bone. Also with some pain to base of great toe. Will obtain x-ray as per [place] rules. Discussed that the x-ray company will [...] days. Will attempt to send crutches to [facility] as DME although did discuss with [...] None Recorded Advance Directives Directive N: Payers Insurance Date Sequence Insurance Name Policy Number Policy Jeffrey Covered Member ID Jeffrey Member ID Guarantor Name 09/22/2023 1 [facility] (MEDICARE REPLACEMENT/A DVANTAGE - PPO) [id number] Rehan Marin [id number] Rehan Marin 09/22/2023 1 [facility] (MEDICARE REPLACEMENT/A DVANTAGE - PPO) [id number] Rehan Marin [id number] Rehan Marin 09/22/2023 1 *SELF PAY* Rehan Marin [id number] Rehan Marin 09/22/2023 1 MEDICARE [place]: [facility] Rehan Marin [id number] Rehan Marin Notes Date Note Type Note Provider Name and Address Organization Details Recorded Time 03/18/2023 text/html General HPI Template - DHReported by PatientROS as noted in the HPI Patient reports was at the [facility] late last night walking on the carpet, there was time for right next the carpet that was recently cleaned and was wet when patient went to 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 Patient was quickly evaluated at the [facility] by EMS at that time did not [...] chest pain, sob, dizziness. Dorie Underwood, [address], [place], [address], [place] [facility] 03/18/2023 13:08:18
--- OUTSIDE RECORDS SUMMARY | 2025-06-29 15:27 | XMS_ITS | Clinical Summary ---
Author Organization [facility] Address [address] [place] [address] Phone Care Team Providers Care Carpet Layer Name Role Phone Spencer Sierra MD Primary Care Provider [phone] Allergies Active Allergy Reactions Criticality Noted Date [...] mg total) by mouth. 06/23/20 21 Active finasteride (PROSCAR) 5 mg tablet Take 1 tablet (5 mg total) by mouth 1 (one) time each day. 07/01/20 23 Active fluticasone propionate (FLONASE) 50 mcg/actuation nasal spray Administer into affected nostril(s). 12/04/19 23 Active omeprazole (PriLOSEC) [address] capsule Take 1 capsule (20 mg total) by mouth 1 (one) time each day. 09/12/19 20 Active amLODIPine (NORVASC) 2.5 mg tablet Take 1 tablet (2.5 mg total) by mouth 1 (one) time each day. Active diclofenac (VOLTAREN) 1 % topical gel Apply topically. 025 Discontinued Active Problems Problem Noted Date Diagnosed Date History of esophageal cancer 06/05/2025 Assessment & Plan (06/05/2025 12:13 PM EDT): Mr. Rosas is a 65-year-old male who was diagnosed with stage III esophageal adenocarcinoma treated with neoadjuvant chemoradiation followed by [place] esophagectomy which was done in November 2018. Postoperative pathology showed a complete response with no residual tumor. The patient's most recent surveillance imaging done May 30, 2025 shows no new or worsening pulmonary nodule, or intrathoracic or intra-abdominal adenopathy, to suggest recurrence or new disease. We will continue with routine imaging surveillance with his next CT chest, abdomen, and pelvis with IV contrast to be done in 1 year. Will plan on seeing the patient after that scan. Pharyngeal mass 11/16/2024 Nausea and vomiting 02/10/2022 Night sweats 09/04/2021 Elevated PSA 09/04/2021 Diverticulitis 01/22/2021 Prostate cancer ([facility]/HCC V24, CMS/HCC V28) 08/24 Overview (10/29/2023): [facility]rology; as of 01/18, plan for active surveillance. Seen on 04/02/2022 -pathology showed atypical cells, suspicious for adenocarcinoma. Patient is uncertain whether he would like to continue active surveillance. Visit with Dr. Bynum will be arranged soon to discuss possible prostatectomy. 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, [facility]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 Resolved Problems Problem Noted Date Diagnosed Date Resolved Date Rib lesion 10/08/2020 06/05/2025 Jejunostomy tube present ( S/[facility] V24, [facility] V28) 03/07/2019 06/05/2025 Encounters Date Type Department Care Team Description 06/27/2025 2:30 PM EDT Office Visit Walk-In Clinic - [address] [phone] Cinthya Walton NP Left hip pain (Primary Dx) 06/07/2025 10:45 AM EDT Office Visit [facility] Hematology Oncology [address] [place] [address] Gabbi Novoa MD 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, [facility] V28) (Primary Dx) 06/07/2025 9:45 AM EDT Office Visit Thoracic Surgery - [place] [address] [facility] [facility] [address] [place] [phone] Shruthi Montelongo PA History of esophageal cancer (Primary Dx) 05/30/2025 9:30 AM EDT - 05/30/2025 11:59 PM EDT Hospital Encounter [facility] CT Scan [address] [place] [address] 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, [facility] V28) Discharge Disposition: Home or Self Care [...] hemorrhoids; repeat in 10 yrs ESOPHAGOGASTRODUODENOSCOPY 07/14/18 Addysondra PROCEDURE: WI EGD TRANSORAL BIOPSY SINGLE/MULTIPLE; COMMENT: [...] History Medical History Date Comments Esophageal cancer ([facility] V 24, [facility] V28) DX:Esophageal cancer ([facility]) Lymphadenopathy DX:Lymphadenopat hy Obstructive sleep apnea DX:Obstr uctive sleep apnea Asthma DX:Asthma Thoracic aortic aneurysm ([facility] V24) DX:Thoracic aortic aneurysm ([facility]) Cervical radiculopathy DX:Cervic al radiculopathy Diverticulitis DX:Diverticuliti [...] DX:Internal hemorrhoids Overweight 04/26/2014 DX:Overweight Esophageal cancer ([facility] V 24, [facility] V28) DX:Esophageal cancer (HCC) Esophageal reflux DX:Esophageal reflux History of pleural effusion DX:H istory of pleural effusion; COMMENT: Per PCP office visit note - 02/05/2023 Prostate cancer ([facility] V24 , [facility] V28) DX:Prostate cancer (HCC) Awareness under anesthesia [...] EDT Inhaled Oxygen Concentration - - Weight 76.1 kg (167 lb 12.8 oz) 025 10:57 AM EDT Height 170.2 cm (5' 7 ) 06/07/2025 10:0 7 AM EDT Body Mass Index 26.28 06/07/2025 10:07 AM EDT Plan of Treatment Upcoming Encounters Date Type Department Care Team (Late st Contact Info) Description 12/13/2025 10:45 AM EDT Office Visit [facility] Hematology Oncology [address] [place] [address] Gabbi Vanegas MD [address] [place] [address] Health Maintenance Due Date Last Done Comments Colorectal Cancer Screening: Colonoscopy 1960 Hepatitis A Vaccines (1 of 2 - Risk 2-dose series) 1978 Pneumococcal Vaccine: 50+ Years (1 of 2 - PCV) 1978 Zoster Vaccines (1 of 2) 1978 RSV Immunization Adult Patients (1 - Risk 50-74 years 1-dose series) 2009 Hepatitis B Vaccines (1 of 3 - Risk 3-dose series) 2019 Cholesterol Screening (Lipid Panel) 08/07/2022 [...] this topic Medical Devices Implanted Type Area Engineering And Development Director Device Identifier Shelf Expiration Date Model / Serial / Lot Prolaryn Plus Voice Injection 1cc - Sn/A - [id number] Implanted:Qty: 1 on 11/20/2024 by Socorro Thayer MD at [facility] [employer] N/A: Throat [employer] [id number] / N/A / N/A Procedures Procedure Name [...] Signed Date: 06/05/2025 10:32 ET Workstation ID: [id number] Transcribed By: Self Edit Transcribed Date: 06/05/2025 [...] Signed Date: 06/05/2025 10:32 ET Workstation ID: [id number] Transcribed By: Self Edit Transcribed Date: 06/05/2025 10:12 ET Pam Sykes PUBLIC POLICY ANALYST IMG CT PROCEDURES Final Res ult * (ABNORMAL) Vitamin B12 and folate (05/29/2025 1:18 PM EDT) Pathologist [facility] Vitamin B-12 1,645(H) 250 - 900 pcg/mL LAB CHEMISTRY METHOD 05/29/2025 8:[address] [facility] Folate 16.2 2.8 - 17.0 ng/ml LAB CHEMISTRY METHOD 05/29/2025 8:[address] [facility] Blood Venous blood specimen / Unknown Venipuncture / Unknown 05/29/2025 1:18 PM EDT 05/29/2025 1:18 PM EDT Gabbi Vanegas MD LAB BLOOD ORDERABLE S Final Result [facility] [address] [place] [address], * (ABNORMAL) Prostate specific antigen diagnostic (05/29/2025 1:18 PM EDT) Pathologist [facility] PSA 4.87(H) 0.00 - 4.00 ng/mL LAB CHEMISTRY METHOD 05/29/2025 6:[address] [facility] Blood Venous blood specimen / Unknown Venipuncture / Unknown 05/29/2025 1:18 PM EDT 05/29/2025 1:[address] [facility] - 05/29/2025 6:10 PM EDT The Siemens Advia Centaur Chemiluminescent Immunoassay is used. Results obtained with different assay methods or kits cannot be used interchangeably. Results cannot be interpreted as absolute evidence of the presence or absence of malignant disease. Gabbi Vanegas MD LAB BLOOD ORDERABLE S Final Result [facility] [address] [place] [address], [place] [phone] * (ABNORMAL) CBC auto differential (05/29/2025 1:18 PM EDT) Pathologist [facility] WBC 6.3 4.8 - 10.8 K/mcL LAB HEMETOLOGY METHOD 05/29/2025 4:[address] [facility] RBC 5.20 4.50 - 5.50 M/mcL LAB HEMETOLOGY METHOD 05/29/2025 4:[address] [facility] Hemoglobin 13.9 13.5 - 17.5 g/dL LAB HEMETOLOGY METHOD 05/29/2025 4:[address] [facility] Hematocrit 44.4 42.0 - 54.0 % LAB HEMETOLOGY METHOD 05/29/2025 4:[address] [facility] MCV 85.5 79.0 - 98.0 FL LAB HEMETOLOGY METHOD 05/29/2025 4:[address] [facility] MCH 26.8(L) 27.0 - 32.0 pcg LAB HEMETOLOGY METHOD 05/29/2025 4:[address] [facility] MCHC 31.3(L) 32.0 - 37.0 g/dL LAB HEMETOLOGY METHOD 05/29/2025 4:[address] [facility] RDW 14.9 11.0 - 15.0 % LAB HEMETOLOGY METHOD 05/29/2025 4:[address] [facility] Platelets 328 130 - 400 K/mcL LAB HEMETOLOGY METHOD 05/29/2025 4:[address] [facility] MPV 10.7 7.0 - 11.0 FL LAB HEMETOLOGY METHOD 05/29/2025 4:31 PM [facility] NRBC 0.0 <1.0 % LAB HEMETOLOGY METHOD 05/29/2025 4:31 PM [facility] NRBC Absolute 0.00 <0.10 K/mcL LAB HEMETOLOGY METHOD 05/29/2025 4:31 PM [facility] Neutrophils Relative 60.8 % LAB HEMETOLOGY METHOD 05/29/2025 4:31 PM [facility] Lymphocytes Relative 20.2 % LAB HEMETOLOGY METHOD 05/29/2025 4:31 PM [facility] Monocytes Relative 11.3 % LAB HEMETOLOGY METHOD 05/29/2025 4:31 PM [facility] Eosinophils Relative 6.2 % LAB HEMETOLOGY METHOD 05/29/2025 4:31 PM [facility] Basophils Relative 1.3 % LAB HEMETOLOGY METHOD 05/29/2025 4:31 PM [facility] Immature Granulocytes Relative 0.2 % LAB HEMETOLOGY METHOD 05/29/2025 4:31 PM [facility] Neutrophils Absolute 3.83 1.50 - 7.00 K/mcL LAB HEMETOLOGY METHOD 05/29/2025 4:31 PM [facility] Lymphocytes Absolute 1.27 1.00 - 5.00 K/mcL LAB HEMETOLOGY METHOD 05/29/2025 4:31 PM [facility] Monocytes Absolute 0.71 0.20 - 1.00 K/mcL LAB HEMETOLOGY METHOD 05/29/2025 4:31 PM [facility] Eosinophils Absolute 0.39 0.00 - 0.50 K/mcL LAB HEMETOLOGY METHOD 05/29/2025 4:[address] [facility] Basophils Absolute 0.08 0.00 - 0.20 K/mcL LAB HEMETOLOGY METHOD 05/29/2025 4:[address] [facility] Immature Granulocytes Absolute 0.01 0.00 - 0.03 K/mcL LAB HEMETOLOGY METHOD 05/29/2025 4:[address] [facility] Blood Venous blood specimen / Unknown Venipuncture / Unknown 05/29/2025 1:18 PM EDT 05/29/2025 1:18 PM EDT us Gabbi Vanegas MD LAB BLOOD ORDERABLE S Final Result Performing Organization Address [facility]/ZIP Co de Phone Number [facility] [address] [place] [address], [place] [phone] * Iron and TIBC (05/29/2025 1:18 PM EDT) Iron 87 50 - 160 mcg/dL LAB CHEMISTRY METHOD 05/29/2025 5:[address] [facility] TIBC 421 250 - 450 mcg/dL LAB CHEMISTRY METHOD 05/29/2025 5:[address] [facility] Iron Saturation 21 20 - 50 % LAB CHEMISTRY METHOD 05/29/2025 5:[address] [facility] Blood Venous blood specimen / Unknown Venipuncture / Unknown 05/29/2025 1:18 PM EDT 05/29/2025 1:18 PM EDT us Gabbi Vanegas MD LAB BLOOD ORDERABLE S Final Result Performing Organization Address [facility]/ZIP Co de Phone Number [facility] [address] [place] [address], [place] [phone] * Ferritin (05/29/2025 1:18 PM EDT) Ferritin 26 26 - 388 ng/mL LAB CHEMISTRY METHOD 05/29/2025 5:[address] [facility] Blood Venous blood specimen / Unknown Venipuncture / Unknown 05/29/2025 1:18 PM EDT 05/29/2025 1:18 PM EDT Gabbi Vanegas MD LAB BLOOD ORDERABLE S Final Result [facility] [address] [place] [address], * (ABNORMAL) Comprehensive metabolic panel (05/29/2025 1:18 PM EDT) [facility] Sodium 141 133 - 145 mmol/L LAB CHEMISTRY METHOD 05/29/2025 6:21 PM [facility] Potassium 4.5 3.5 - 5.5 mmol/L LAB CHEMISTRY METHOD 05/29/2025 6:21 PM [facility] Chloride 107 96 - 110 mmol/L LAB CHEMISTRY METHOD 05/29/2025 6:21 PM [facility] CO2 29 21 - 32 mmol/L LAB CHEMISTRY METHOD 05/29/2025 6:21 PM [facility] Anion Gap 5 3 - 11 LAB CHEMISTRY METHOD 05/29/2025 6:21 PM [facility] Glucose 118(H) 70 - 100 mg/dL LAB CHEMISTRY METHOD 05/29/2025 6:21 PM [facility] BUN 11 5 - 25 mg/dL LAB CHEMISTRY METHOD 05/29/2025 6:21 PM [facility] Creatinine 0.90 0.70 - 1.30 mg/dL LAB CHEMISTRY METHOD 05/29/2025 6:21 PM [facility] eGFR 94 >=60 mL/min/1. 73m2 LAB CHEMISTRY METHOD 05/29/2025 6:[address] [facility] Comment:Calculation based on the Chronic Kidney Disease Epidemiology Collaboration (CKD-EPI) equation refit without adjustment for race. BUN/Creatinine Ratio 12.2 LAB CHEMISTRY METHOD 05/29/2025 6:[address] [facility] Calcium 9.3 8.5 - 10.5 mg/dL LAB CHEMISTRY METHOD 05/29/2025 6:21 PM [facility] AST (SGOT) 19 10 - 42 unit/L LAB CHEMISTRY METHOD 05/29/2025 6:21 PM [facility] ALT (SGPT) 34 10 - 60 unit/L LAB CHEMISTRY METHOD 05/29/2025 6:21 PM [facility] Alkaline Phosphatase 90 42 - 121 unit/L LAB CHEMISTRY METHOD 05/29/2025 6:21 PM [facility] Total Protein 6.7 6.0 - 8.0 g/dL LAB CHEMISTRY METHOD 05/29/2025 6:21 PM [facility] Albumin 3.7 3.2 - 5.0 g/dL LAB CHEMISTRY METHOD 05/29/2025 6:21 PM [facility] Total Bilirubin 0.4 0.0 - 1.4 mg/dL LAB CHEMISTRY METHOD 05/29/2025 6:21 PM [facility] Blood Venous blood specimen / Unknown Venipuncture / Unknown 05/29/2025 1:18 PM EDT 05/29/2025 1:18 PM EDT us Gabbi Vanegas MD LAB BLOOD ORDERABLE S Final Result [facility] [address] [place] [address], [place] [phone] from Last 3 Months Insurance [employer] [place] [id number] Care Teams Carpet Layer Relationship Specialty Start Date End Date Spencer Sierra MD [address] [address] PCP - General Internal Medicine 07/29/18
--- OUTSIDE RECORDS SUMMARY | 2025-06-29 15:27 | XMS_ITS | Clinical Summary ---
Author Organization [facility] Address [address] [place] [address] Care Team Providers Care Livestock Inspector Name Role Phone Spencer Sierra MD Primary Care Provider [phone] Allergies Active Allergy Reactions Criticality Noted Date [...] age to complete this topic Care Teams Livestock Inspector Relationship Specialty Start Date End Date Spencer Sierra MD [address] [place] [address] PCP - General Internal Medicine 07/29/18
--- OUTSIDE RECORDS SUMMARY | 2025-06-29 15:27 | XMS_ITS ---
Author Organization [facility] Address [address] [place] [address] Care Team Providers Care Crisis Worker Name Role Phone Spencer Sierra MD Primary Care Provider [phone] Active Problems Problem Noted Date Diagnosed Date [...] treatments are documented for this patient in [facility]. Treatments may have been administered in another system.
--- OUTSIDE RECORDS SUMMARY | 2025-06-29 15:27 | XMS_ITS | Data Portability ---
Author Organization [place] - [facility], Allergy Address [address] [address] Care Team Providers Care Gallery Or Museum Guide Name Role Phone GUERRERO AGUEROER Primary Care Provider [phone] Assessment Encounter Date Assessment Date Assessment LastModified by Organization Details LastModified Time 12/04/2024 12/04/2024 64-year-old male presents status post DL with biopsy with Dr. Jhaveri on 11/20/2024. He is doing well postoperative ly. Pathology of left base of tongue and left tonsil were benign without atypia or neoplasm. We will continue to observe and plan for follow-up in [address] Jhaveri. [email or web address] Not available 12/04/2024 13:48:47 Plan of Treatment Reminders Order Date Submit Date Provider Last Modified By Organization Details Last Modified Time Details Appointments None recorded. Lab None recorded. Referral None recorded. Procedures None recorded. Surgeries laryngosc opy, direct, with biopsy (SURG) 2024 025 flash Not available 07:12:22 Imaging MRI, neck, w/wo contrast - attn left pharynx [address] [facility] ([facility]), [address] [place], [address], 5 16:20:25 Medication Orders None recorded. Patient [...] Elissa t, Eduardodiana voss, [place] [address] Not Available [address], [address], 11/21/2024 12:05:48 11/21/19 25 11/20/2024 TISSU E [...] on 2024 at 12:04 PM Not Available [address], [address], 11/21/2024 12:05:48 11/21/19 25 11/20/2024 TISSU E [...] palat ine Tonsi l: Label ed left [place], tonsi l L . Recei sivakumar in forma chinmay with a Telfa pad is a 0.7 x 0.5 x 0.4 cm mccoy-p ink rubbe ry mucos al cover ed tissu e fragm ent which is wrapp ed in paper and submi tted in toto in one casse tte, one piece , multi ple level s on one slide . [place] Not Available [address], [address], 11/21/2024 12:05:48 11/21/1911/20/2024 TISSU E EXAM disclaimer Unles s other deng speci fied, all tissu e is 10% NB forma chinmay fixed and paraf fin embed ded. Not Available [facility] [address] [place], [address], 11/21/2024 12:05:48 09/13/1909/12/2024 MRI, head + neck + orbit s, w/wo contr ast [facility] Access ion Number : [id number] Patien t Name: Jeremiah friedman, Rehan peañ Record Number : [id number] Date of : 1959 Date of Exam: 2024 Referr ing Physic miky: Carin Alvarenga [facility] [address], [place] [address] [place] [address] Exam: MR Orbits , Face, Neck (C-/C+ ) CPT 13110 Room Descri ption: [facility] Espr 1.5 MRI of the soft tissue s neck withou t and with contra st. HISTOR Y: Nausea and vertig o. Hypert ension . Left retrop haryng eal massli ke lesion on prior CT. 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 Compar anand: CT of soft tissue neck on 09/06/19 from [facility] FINDIN GS: This study is limite d due to motion artifa cts. There is an approx imatel y 2 x 1.5 x 2.1 cm irregu lar shaped area of enhanc ing lesion in the left latera l pharyn geal wall extend ing to the left shop router ior tongue which corres ponds to the [...] geal wall extend ing to the left shop router ior tongue corres pondin g to the [...] onical ly Signed By: Luke Alexander MD [facility] ([facility]) [address], [place], [address], 10/03/2024 13:04:11 11/21/19 25 11/20/2024 H&P No observ ation record ed. [address], [address], 11/20/2024 09:43:02 11/21/19 25 11/20/2024 op note No observ ation record ed. [facility] [address], [place], [address], 11/20/2024 09:43:02 Result Notes Documentation Provider Name and Address Organization Details Recorded Time Mri, Head + Neck + Orbits, W/wo Contrast : [facility] [place] Accession Number: [id number] Patient Name: Rehan Marin Date of : 1960 Date of Exam: 09-12-2024 Referring Physician: Carin Jhaveri [facility] [address] [address] Exam: MR Orbits, Face, Neck (C-/C+) CPT 19657 Room Description: [facility] 1.5 MRI of the soft tissues neck without and with contrast. HISTORY: Nausea and vertigo. Hypertension. Left retropharyngeal masslike lesion on prior CT. History of esophageal and prostate cancer. Comparison: CT of soft tissue neck on 09/06/2024 from [facility] FINDINGS: This study is [...] Electronically Signed By: Luke JHAVERI MD [address] [place],[address] [facility], [place], [address], [facility] - [facility] 10/03/2024 13:04:11 Problems Name Problem SNOMED Code Status Onset Date Resolution Date Notes Provider Name and Address Organization Details Recorded Time Localized enlarged lymph nodes 027590916 Active 2017 Localized enlarged lymph nodes; Note: Date Diagnosed: 11/12/2017 1:19 PM (R59.0) Not Available [facility] 02:37:46 Generaliz ed hyperhidr osis 825697750 Active 2017 Night sweats; Note: Date Diagnosed: 11/21/2017 10:48 AM (R61) Not Available [facility] 4 02:37:44 Dysphagia 00412308 Active 2017 Dysphagia, unspecifie d; Note: Date Diagnosed: 07/04/2018 1:13 PM (R13.10) Other dysphagia; Note: Date Diagnosed: 07/04/2018 11:43 AM (R13.19) Not Available [facility] 4 02:37:50 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 - [facility] 5 10:41:21 Benign neoplasm of larynx 39711416 Active 2024 SHANTI DOTSON PA-C [address] [place], [address] , [facility] - [facility] 5 13:48:41 Problem Notes None recorded. Procedures Surgical History Date Name Laterality Status Provider Name and Address Organization Details Recorded Time 11/21/19 direct laryngoscopy with biopsy completed CARIN JHAVERI MD [address] [place],[address], [place], [address], [facility] 11/20/2024 09:46:04 09/11/19 25 Fiberoptic Laryngoscopy (Comprehensive) completed CARIN JHAVERI MD 100 [facility],[address], [address], [facility] 09/11/2024 10:43:12 total replacement of hip completed CARIN JHAVERI MD 100 [facility],[address], [address], [facility] 09/11/2024 10:18:28 esophagectomy completed CARIN JHAVERI MD 100 [facility],[address], [address], [facility] 11/20/2024 09:46:11 Imaging Results None recorded. Procedure Notes None recorded. Medical Equipment None Reported. Allergies Allergen ID Allergen Name Allergen Category Reaction Reaction Severity Criticality Documentation Date Start Date Code Code System Note Provider Name and Address Organization Details Recorded Time 208500 meloxicam medicatio n Not available Not available Not available 09/11/2024 13991 RxNorm Dayan taylor [facility] 10:14:15 Medications Name Sig Start Date [...] mg tablet 09/11 completed Medicati on ID: [id number] D uration Value: 30 Brand Name: lisinopr [...] Updated DateTime 09/11/2024 171.45 cm 26.8 kg/m2 81553.07 g Dayan De La Fuente [facility] 09/11/2024 10:14:00 Date Recorded Body height Body mass index (BMI) Body weight Provider Name and Address Organization Details Last Updated DateTime 09/29/2024 171.45 cm 26.8 kg/m2 26099.07 g Dayan De La Fuente [facility] 09/29/2024 16:28:03 Social History None recorded. Functional Status None recorded. Mental Status None recorded. Family History Nothing Reported Notes:father-hypertension Medical History Condition Response Cancer Y Hypertension Y Asthma Y Past Encounters Encounter ID Performer Location Encounter Start Date Encounter Closed Date Diagnosis/Indication Diagnosis SNOMED-CT Code Diagnosis ICD10 Code Diagnosis IMO Codes Diagnosis Note [id number] CRAIN JHAVERI MD [facility] [address] [address] 09/11/2024 10:08:33 09/11/2024 10:46:06 Neoplasm of uncertain behavior of pharynx 66049975 D37.05 64-year-ol d male with a history [...] for lesion would proceed with a EUA. [id number] CARIN JHAVERI MD [facility] [address] [place] [address] 09/29/2024 16:06:03 09/29/2024 16:50:38 Neoplasm of uncertain behavior of pharynx 86243355 D37.05 We reviewed the results of his [...] the teeth and gums. All questions answered. [id number] SHANTI DOTSON PA-C [facility] [address] [place] [address] 12/04/2024 13:38:41 12/04/2024 13:58:01 Benign neoplasm of larynx 54151424 D14.1 Health Concerns Section Related Observation LastModified by Organization Detai ls LastModified Time None Recorded Concern Status LastModified by Organization Details LastModified Time None Recorded Advance Directives Directive None Recorded Payers Insurance Date Sequence Insurance Name Policy Number Policy Jeffrey Covered Member ID Jeffrey Member ID Guarantor Name 03/05/2025 1 [facility] (MEDICARE REPLACEMENT/ ADVANTAGE - PPO) [id number] Rehan Marin [id number] Rehan Marin 09/11/2024 2 [place] [facility] Rehan Marin [id number] Rehan Marin Notes Date Note Type Note [...] just below its bifurcation. CARIN JHAVERI MD [address] [place] [address], [address], [place] - [facility] 09/11/2024 12:38:56 09/29/2024 text/html Since his [...] below its bifurcation. CARIN JHAVERI MD [address] [place] [address],[address], [address], [place] - [facility] 09/30/2024 08:59:07 12/04/2024 text/html ROS as noted in the HPI 64-year-old male presents status post DL with biopsy with Dr. Jhaveri on 11/20/2024. He is doing well postoperatively. Tolerating normal diet. Denies voice changes, dyspnea, or sore throat. CARIN JHAVERI MD [address] [place] [address],[address], [address], [place] - [facility] 12/10/2024 20:29:11
== END 2025-06-29 15:22 | disposition home or self-care (01) ==
LOC: HO.HUSH 15:15
PROVIDERS: PCP Internal Medicine; Visit Provider Urology
DX: C61 Malignant neoplasm of prostate (principal); R97.20 Elevated prostate specific antigen [PSA]; N40.0 Benign prostatic hyperplasia without lower urinary tract symptoms; N48.6 Induration penis plastica
CPT/HCPCS: 99213; G2211